=== PATIENT | male | born 1940 | race Caucasian/White ===

== ENCOUNTER 2017-01-12 12:15 | Emergency (ER) | payer OTHER ==
[~2017-01-12] VITALS: Ht 182.9 cm; Wt 92.8 kg
[~2017-01-12 12:15] MED LIST: ASPI81TA28 PO; ATOR-26 PO; CHOL100027 PO; CYAN10005 PO; FERRTAB18 PO; FLUO0.0566 TOP; FURO40TA3 PO; HYT/2 PO; ISOS120T5 PO; LSN5 PO; LSX40 PO; MAGN400T5 PO; METO50TA16 PO; NITR0.4S UT; NRV/5 PO; PLV75 PO; POTA20TA13 PO; PRED10TA PO; PRLSR20 PO; VLT/50 PO
[2017-01-12 12:18] VITALS: TEMP 37; Ht 182.9 cm; Wt 92.8 kg
[2017-01-12] MEDS ORDERED: SODIUM CHLORIDE 0.9% 1000ML 1,000 ML IV STA (12:31)
--- NOTE | 2017-01-12 12:37 | EMERGENCY ROOM VISIT NOTE ---
History Report prepared by Elaine: Ronna Wallace Under the Supervision of: Dr. Kar Keys M.D. First contact with patient: 12:21 Chief Complaint: URINARY SYMPTOMS Stated Complaint: CAN'T PEE Nursing Triage Summary: pt to the ED with a 1 wk hx of having difficulty voiding. pt states it has been getting worse with time and now only can go a couple drops History of Present Illness The patient is a 76 year old male who presents to the Emergency Room with complaints of urinary symptoms beginning 1 week ago. The patient states that his symptoms have worsened since last night. He states that every couple of hours he feels like he needs to urinate, but when he tries to go there is only a few drops of urine. He does not have burning when he urinates. The patient reports being on Proscar and that he takes Prednisone daily. He states that he has no history of kidney failure and prostate problems, but that he does have a history of heart problems. Source of History: patient Onset: 1 week ago Position: other (global) Quality: other (urinary symptoms) Timing: worsening Note: denied symptom: burning with urination Review of Systems See HPI for pertinent positives & negatives. A total of 10 systems reviewed and were otherwise negative. Past Medical & Surgical Medical Problems: (1) CAD (coronary artery disease) (2) GERD (gastroesophageal reflux disease) (3) HLD (hyperlipidemia) (4) Hypertension (5) Psoriatic arthritis Surgical Problems: (1) H/O colonoscopy (2) H/O hernia repair (3) History of ERCP (4) History of percutaneous left heart catheterization (LHC) (5) Hx of CABG (6) S/P cholecystectomy (7) Status post surgical removal of neoplasm of skin Family History Heart disease Social History Smoking Status: Former Smoker Marital Status: Housing Status: lives with family Occupation Status: retired Current/Historical Medications Scheduled Amlodipine Besylate (Amlodipine Besylate), 5 MG PO QAM Aspirin (Aspirin Ec), 81 MG PO QPM Atorvastatin (Lipitor), 80 MG PO DAILY Cholecalciferol (Vitamin D 1000 Unit), 1,000 INTER.UNIT PO DAILY Clopidogrel (Plavix), 75 MG PO DAILY Cyanocobalamin (Vitamin B-12), 1,000 MCG PO DAILY Donepezil HCl (Aricept), 5 MG PO DAILY Finasteride (Proscar), 5 MG PO DAILY Fluocinonide (Fluocinonide), 1 APPLN TOP BID Furosemide (Furosemide), 40 MG PO QAM Iron-Vitamin C (Vitron-C), 1 TAB PO DAILY Isosorbide Mononitrate Ext Rel (Imdur Ext Rel), 120 MG PO QAM Lisinopril (Zestril), 5 MG PO DAILY Magnesium Oxide (Mag-Ox), 400 MG PO DAILY Metoprolol Tartrate (Lopressor), 75 MG PO QAM Metoprolol Tartrate (Lopressor) (Lopressor), 50 MG PO HS Nitroglycerin (Nitrostat), 0.4 MG UT PRN Omeprazole (Prilosec), 20 MG PO QAM Potassium Chloride Microencaps (Potassium Chloride Er), 10 MEQ PO DAILY Prednisone (Prednisone), 10 MG PO DAILY Terazosin Hcl (Hytrin), 4 MG PO HS Scheduled PRN Diclofenac Sod (Voltaren), 50 MG PO TID PRN for Pain Meclizine Hcl (Meclizine Hcl), 1 TAB PO TID PRN for Dizziness or Vertigo Tramadol (Ultram), 50 MG PO Q6H PRN for Pain Allergies Coded Allergies: No Known Allergies (Verified , 01/12/17) Physical Exam Vital Signs Date Time Temp Pulse Resp B/P (MAP) Pulse Ox O2 Delivery O2 Flow Rate FiO2 01/12/17 12:18 37.0 79 18 144/73 94 Physical Exam GENERAL: Patient is well appearing and in minimal distress. HEENT: No acute trauma, normocephalic atraumatic, mucous membranes moist, no nasal congestion, no scleral icterus. NECK: No stridor, no adenopathy, no meningismus, trachea is midline. LUNGS: No dyspnea. Clear to auscultation and equal bilaterally. No wheeze, no rhonchi. HEART: Regular rate and rhythm. No murmurs, rubs, gallops appreciated. ABDOMEN: Soft, nontender, bowel sounds positive, no masses appreciated, no peritonitis. BACK: No midline tenderness, no CVA tenderness EXTREMITIES: Normal motion all extremities, no cyanosis, no edema. NEUROLOGIC: Alert and oriented, no acute motor or sensory deficits, no focal weakness, cranial nerves grossly intact. SKIN: No rash, no jaundice, no diaphoresis. BEDSIDE US: Mildly thickened bladder with minimal urine. Medical Decision & Procedures Laboratory Results 01/12/17 12:35 Red Blood Count 4.25, Mean Corpuscular Volume 99.8, Mean Corpuscular Hemoglobin 35.3, Mean Corpuscular Hemoglobin Concent 35.4, Mean Platelet Volume 9.4, Neutrophils (%) (Auto) 84.6, Lymphocytes (%) (Auto) 9.9, Monocytes (%) (Auto) 4.6, Eosinophils (%) (Auto) 0.5, Basophils (%) (Auto) 0.1, Neutrophils # (Auto) 6.44, Lymphocytes # (Auto) 0.75, Monocytes # (Auto) 0.35, Eosinophils # (Auto) 0.04, Basophils # (Auto) 0.01 01/12/17 12:35 Test 01/12/17 12:35 01/12/17 13:45 White Blood Count 7.61 K/uL (4.8-10.8) Red Blood Count 4.25 M/uL (4.7-6.1) Hemoglobin 15.0 g/dL (14.0-18.0) Hematocrit 42.4 % (42-52) Mean Corpuscular Volume 99.8 fL (80-100) Mean Corpuscular Hemoglobin 35.3 pg (25-34) Mean Corpuscular Hemoglobin Concent 35.4 g/dl (32-36) Platelet Count 127 K/uL (130-400) Mean Platelet Volume 9.4 fL (7.4-10.4) Neutrophils (%) (Auto) 84.6 % Lymphocytes (%) (Auto) 9.9 % Monocytes (%) (Auto) 4.6 % Eosinophils (%) (Auto) 0.5 % Basophils (%) (Auto) 0.1 % Neutrophils # (Auto) 6.44 K/uL (1.4-6.5) Lymphocytes # (Auto) 0.75 K/uL (1.2-3.4) Monocytes # (Auto) 0.35 K/uL (0.11-0.59) Eosinophils # (Auto) 0.04 K/uL (0-0.5) Basophils # (Auto) 0.01 K/uL (0-0.2) RDW Standard Deviation 47.8 fL (36.4-46.3) RDW Coefficient of Variation 13.2 % (11.5-14.5) Immature Granulocyte % (Auto) 0.3 % Immature Granulocyte # (Auto) 0.02 K/uL (0.00-0.02) Anion Gap 5.0 mmol/L (3-11) Est Creatinine Clear Calc Drug Dose 74.6 ml/min Estimated GFR () 93.9 Estimated GFR (Non- 81.0 BUN/Creatinine Ratio 17.7 (10-20) Calcium Level 8.9 mg/dl (8.5-10.1) Total Creatine Kinase 72 U/L (39-308) Urine Color YELLOW Urine Appearance CLEAR (CLEAR) Urine pH 7.5 (4.5-7.5) Urine Specific Edwards 1.014 (1.000-1.030) Urine Protein NEG (NEG) Urine Glucose (UA) NEG (NEG) Urine Ketones NEG (NEG) Urine Occult Blood NEG (NEG) Urine Nitrite NEG (NEG) Urine Bilirubin NEG (NEG) Urine Urobilinogen NEG (NEG) Urine Leukocyte Esterase NEG (NEG) Urine WBC (Auto) 0 /hpf (0-5) Urine RBC (Auto) 0-4 /hpf (0-4) Urine Hyaline Casts (Auto) 0 /lpf (0-5) Urine Epithelial Cells (Auto) 0-5 /lpf (0-5) Urine Bacteria (Auto) NEG (NEG) Laboratory results as reviewed by me. Medications Administered Medications (Trade) Dose Ordered Sig/David Route Start Time Stop Time Status Last Admin Dose Admin Sodium Chloride 1,000 ml @ 999 mls/hr Q1H1M STAT IV 01/12/17 12:31 01/12/17 13:31 DC 01/12/17 12:41 999 MLS/HR ED Course 1227: The patient was evaluated in room C11B. A complete history and physical exam was performed. 1231: Ordered Sodium Chloride 1,000 ml @ 999 mls/hr IV. 1345: I went to check on the patient but he was in the bathroom. 1426: The patient notes that he feels much better. He has better coloration and he is now able to urinate normally. His son is a urology PA and they will follow up with PCP/urology to discuss if further testing or medication is necessary. 1430: Reevaluated the patient. Discussed results and discharge instructions: He verbalized understanding and agreement. The patient is ready for discharge. Medical Decision 76 yr old male with poor urinary output over last days after spending week camping. Bedside US with minimal urine in bladder. Labs look clear. UA clear without infection. Suspect this is dehydration. He is already on proscar and does not have any current urinary retention by US. Advised keeping well hydrated and return if unable to urinate, pain or other concerns. Stressed PCP follow up. May be urinary spasm but will hold on starting new meds currently. Medication Reconcilliation Current Medication List: was personally reviewed by me Blood Pressure Screening Patient's blood pressure: Elevated blood pressure Blood pressure disposition: Elevated BP felt to be situational Impression Primary Impression: Low urine output Additional Impression: Dehydration Scribe Attestation The scribe's documentation has been prepared under my direction and personally reviewed by me in its entirety. I confirm that the note above accurately reflects all work, treatment, procedures, and medical decision making performed by me. Departure Information Dispostion Home / Self-Care Referrals Chris Corona M.D. (PCP) Patient Instructions My [facility] Additional Instructions Please follow up with your primary care provider or urologist to discuss if further testing is necessary or new medications. If you have pain, fevers, vomiting or inability to urinate return for further evaluation. Ultrasound does not reveal any urinary retention. Your kidney function (Cr is normal). Your Urine shows no evidence of infection. Problem Qualifiers
[2017-01-12] MEDS ORDERED: FINA5TAB PO (12:43)
[2017-01-12] MEDS ORDERED: MECL1TAB42 PO (12:43)
[2017-01-12] MEDS ORDERED: ISOS120T5 PO (12:43)
[2017-01-12] MEDS ORDERED: LISI-729 PO (12:43)
[2017-01-12] MEDS ORDERED: CLOP1TAB15 PO (12:43)
[2017-01-12] MEDS ORDERED: METO-551 PO (12:43)
[2017-01-12] MEDS ORDERED: METO50TA16 PO (12:43)
[2017-01-12] MEDS ORDERED: TRAM-10 PO (12:43)
[2017-01-12] MEDS ORDERED: CYAN10005 PO (12:43)
[2017-01-12 12:59] LABS: BASO % 0.1 %; BASO ABS # 0.01 K/uL (0-0.2); COMPLETE YES; EOS % 0.5 %; HEMATOCRIT 42.4 % (42-52); IG% 0.3 %; LYMPH % 9.9 %; LYMPH ABS # 0.75 K/uL (1.2-3.4); MEAN CELL VOLUME 99.8 fL (80-100); MEAN CORPUSCULAR HEMOGLOBIN 35.3 pg (25-34); MEAN CORPUSCULAR HGB CONC 35.4 g/dl (32-36); MEAN PLATELET VOLUME 9.4 fL (7.4-10.4); MONO % 4.6 %; NEUT % 84.6 %; PLATELET COUNT 127 K/uL (130-400); RED BLOOD COUNT 4.25 M/uL (4.7-6.1); WHITE BLOOD COUNT 7.61 K/uL (4.8-10.8)
[2017-01-12] MEDS ORDERED: DONE5TAB9 PO (13:00)
[2017-01-12 13:15] LABS: BUN/CREATININE RATIO 17.7 (10-20); CALCIUM 8.9 mg/dl (8.5-10.1); CREATININE 0.91 mg/dl (0.60-1.40)
[2017-01-12 14:08] LABS: URINE APPEARANCE CLEAR (CLEAR); URINE BILIRUBIN NEG (NEG); URINE COLOR YELLOW; URINE EPITHELIAL CELL AUTO 0-5 /lpf (0-5); URINE NITRITE NEG (NEG); URINE PH 7.5 (4.5-7.5); URINE SPECIFIC GRAVITY 1.014 (1.000-1.030); UROBILINOGEN NEG (NEG); ZZUR CULT IF INDIC CLEAN CATCH NO
[2017-01-12 14:15] LABS: MANUAL MICROSCOPIC REQUIRED? NO; REVIEW REQ? NO
[2017-01-12 14:37] VITALS: BP 142/67; PULSE 66; O2SAT 99
== END 2017-01-12 14:39 | disposition home or self-care (01) ==
LOC: C.EDB 12:16 → C.EDC 14:39
DX: R39.198 Other difficulties with micturition (principal); E86.0 Dehydration; I25.10 Atherosclerotic heart disease of native coronary artery without angina pectoris; K21.9 Gastro-esophageal reflux disease without esophagitis; E78.5 Hyperlipidemia, unspecified; I10 Essential (primary) hypertension; L40.50 Arthropathic psoriasis, unspecified; Z82.49 Family history of ischemic heart disease and other diseases of the circulatory system; Z87.891 Personal history of nicotine dependence; Z79.82 Long term (current) use of aspirin

== ENCOUNTER → 2017-10-21 | Outpatient (CLI) | payer OTHER ==
[~2017-10-21] MED LIST changes: +CLOP1TAB15 PO; +DONE5TAB9 PO; +FINA5TAB PO; -FURO40TA3 PO; +LISI-729 PO; -LSN5 PO; +MECL1TAB42 PO; +METO-551 PO; -PLV75 PO; +TRAM-10 PO
== END | disposition home or self-care (01) ==
LOC: C.PATHSPEC 17:33
PROVIDERS: ATTEND Physician Assistant
DX: L98.9 Disorder of the skin and subcutaneous tissue, unspecified (principal); L57.0 Actinic keratosis

== ENCOUNTER 2020-06-24 19:49 | Inpatient (IN) ==
--- NOTE | 2020-06-24 21:07 | Emergency Department Note ---
History of Present Illness General Chief complaint: Fall Time Seen by Provider: 06/24/20 20:31 Source: patient Mode of arrival: ambulatory Limitations: no limitations History of Present Illness Maximum Pain Intensity: 0 This patient is a 80-year-old male who has multiple medical problems and is on Coumadin, comes in after feeling weak and lightheaded and falling twice. He is not sure if he passed out or not. His son said once when happened when he is walking the house and once when his get out of a chair. He has had no fever or chills. No known exposure to Covid. No shortness of breath or cough. No abdom inal pain. They did increase his Lasix to 40 twice a day a couple weeks ago. His son says despite this he has been gaining weight they got him bigger pants he has swelling in the arms and legs bilaterally. He has been generally weak its not been focal one side or the other. No blood or melena in his stool. He has some mild elbow pain from where he hit the elbow but no other injuries. He does not think he was on the ground for prolonged periods of time. No dysuria or hematuria. No difficulty speaking or swallowing. No headache neck pain or stiffness Home Medications Medication Instructions Recorded Confirmed Type atorvastatin [Lipitor] 80 mg PO DAILY 04/04/19 06/24/20 History donepezil [Aricept] 10 mg PO DAILY 04/04/19 06/24/20 History finasteride 5 mg PO DAILY 04/04/19 06/24/20 History isosorbide mononitrate 120 mg PO DAILY 04/04/19 06/24/20 History metoprolol succinate [Toprol XL] 50 mg PO DAILY 04/04/19 06/24/20 History omeprazole 20 mg PO DAILY 04/04/19 06/24/20 History prednisone 10 mg PO DAILY 04/04/19 06/24/20 History aspirin 81 mg PO DAILY 06/24/20 06/24/20 History cholecalciferol (vitamin D3) 25 mcg PO DAILY 06/24/20 06/24/20 History [Vitamin D3] cyanocobalamin (vitamin B-12) 1,000 mcg SUBLINGUAL DAILY 06/24/20 06/24/20 History furosemide 40 mg PO DAILY 06/24/20 06/24/20 History gentamicin 1 applic TOPICAL TID 06/24/20 06/24/20 History iron,carbonyl-vitamin C [Vitron-C] 1 tab PO DAILY 06/24/20 06/24/20 History magnesium oxide 400 mg PO DAILY 06/24/20 06/24/20 History meclizine 25 mg PO TID PRN 06/24/20 06/24/20 History spironolactone 25 mg PO QAM 06/24/20 06/24/20 History tolterodine 2 mg PO BID 06/24/20 06/24/20 History warfarin 4 mg PO DAILY 06/24/20 06/24/20 History Allergies Allergy/AdvReac Type Severity Reaction Status Date / Time No Known Allergies Allergy Verified 04/04/19 14:45 Past Med/Surg History Medical History (Updated 06/25/20 @ 00:33 by John Hays MD) CAD (coronary artery disease) GERD (gastroesophageal reflux disease) HLD (hyperlipidemia) Hypertension Psoriatic arthritis Unstable angina Surgical History H/O colonoscopy H/O hernia repair History of ERCP History of percutaneous left heart catheterization (LHC) Hx of CABG S/P cholecystectomy Status post surgical removal of neoplasm of skin Social History Smoking Status: Never smoker Feels Safe at Home: Yes Review of Systems A total of 10 systems reviewed and were otherwise negative Physical Exam Vital Signs Vital Signs - 24 hr 06/24/20 19:56 06/24/20 20:05 06/24/20 20:10 Temperature 37.2 C Temperature Source Oral Pulse Rate 80 82 Pulse Rate from SpO2 Sensor 80 Pulse Rhythm Regular Pulse Strength Normal Respiratory Rate 24 16 Respiratory Effort / Characteristics Non-Labored Spontaneous Non-Labored Spontaneous Respiratory Depth Normal Normal Respiratory Pattern Regular Regular Blood Pressure 102/58 L 102/58 L Blood Pressure Mean 72 72 Blood Pressure Position Sitting Pulse Oximetry 92 93 Oxygen Delivery Method Room Air Room Air Sepsis Recent Fever Within 48 Hours No Sepsis New/Unexplained Change in Mental Status No Sepsis Action Taken by Nursing No Action Required 06/24/20 20:14 06/24/20 20:30 06/24/20 20:50 Temperature Temperature Source Pulse Rate 80 80 77 Pulse Rate from SpO2 Sensor 81 80 77 Pulse Rhythm Pulse Strength Respiratory Rate 20 16 17 Respiratory Effort / Characteristics Respiratory Depth Respiratory Pattern Blood Pressure 121/55 L 129/76 Blood Pressure Mean 77 93 Blood Pressure Position Pulse Oximetry 94 94 94 Oxygen Delivery Method Room Air Room Air Room Air Sepsis Recent Fever Within 48 Hours Sepsis New/Unexplained Change in Mental Status Sepsis Action Taken by Nursing 06/24/20 21:00 06/24/20 21:30 06/24/20 21:45 Temperature Temperature Source Pulse Rate 76 76 76 Pulse Rate from SpO2 Sensor 76 76 76 Pulse Rhythm Pulse Strength Respiratory Rate 18 18 15 Respiratory Effort / Characteristics Respiratory Depth Respiratory Pattern Blood Pressure 140/97 134/59 L 125/70 Blood Pressure Mean 111 84 88 Blood Pressure Position Pulse Oximetry 95 96 95 Oxygen Delivery Method Room Air Room Air Room Air Sepsis Recent Fever Within 48 Hours Sepsis New/Unexplained Change in Mental Status Sepsis Action Taken by Nursing 06/24/20 21:59 06/24/20 22:00 06/24/20 22:30 Temperature Temperature Source Pulse Rate 81 73 76 Pulse Rate from SpO2 Sensor 74 75 Pulse Rhythm Pulse Strength Respiratory Rate 15 14 15 Respiratory Effort / Characteristics Respiratory Depth Respiratory Pattern Blood Pressure 124/56 L 144/67 H Blood Pressure Mean 78 92 Blood Pressure Position Pulse Oximetry 98 94 95 Oxygen Delivery Method Room Air Room Air Room Air Sepsis Recent Fever Within 48 Hours Sepsis New/Unexplained Change in Mental Status Sepsis Action Taken by Nursing 06/24/20 23:00 06/24/20 23:23 06/24/20 23:30 Temperature Temperature Source Pulse Rate 77 75 74 Pulse Rate from SpO2 Sensor 75 75 74 Pulse Rhythm Pulse Strength Respiratory Rate 15 16 14 Respiratory Effort / Characteristics Respiratory Depth Respiratory Pattern Blood Pressure 140/67 143/64 H 143/67 H Blood Pressure Mean 91 90 92 Blood Pressure Position Pulse Oximetry 94 93 95 Oxygen Delivery Method Room Air Room Air Sepsis Recent Fever Within 48 Hours Sepsis New/Unexplained Change in Mental Status Sepsis Action Taken by Nursing 06/25/20 00:00 Temperature Temperature Source Pulse Rate 73 Pulse Rate from SpO2 Sensor 73 Pulse Rhythm Pulse Strength Respiratory Rate 13 Respiratory Effort / Characteristics Respiratory Depth Respiratory Pattern Blood Pressure 141/73 H Blood Pressure Mean 95 Blood Pressure Position Pulse Oximetry 92 Oxygen Delivery Method Room Air Sepsis Recent Fever Within 48 Hours Sepsis New/Unexplained Change in Mental Status Sepsis Action Taken by Nursing General: Well developed well nourished older male who is wearing a mask and appears n no acute distress, breathing comfortably on room air. Normal speech HEENT: Normal cephalic atraumatic. Pupils are equal round and reactive to light. Extraocular movements are intact. Oropharynx is pink with moist mucous membranes. No swelling of the mouth lips or tongue. Neck: Supple with a midline trachea. No meningeal signs or stiffness, no JVD or bruits. No Stridor. Chest: Clear to auscultation bilaterally. No wheezes or rhonchi. No increased work of breathing. Heart: Regular rate and rhythm without murmurs or gallops. Abdomen: Soft nontender, nondistended without rebound guarding or rigidity. Extremities: No cyanosis clubbing or edema. No calf tenderness or assymetry. Minimal tenderness but no significant swelling to the left elbow. There is a bruise near the left shoulder. He has 1+ bilateral lower extremity edema and also some edema in his arms bilaterally. Spine/Back. Non tender to palpation. No CVA tenderness. Small bruise on the right upper thoracic area but no significant tenderness or crepitus Skin: Good turgor without rashes. Neurologic exam: Cranial nerves two through 12 are intact. Motor and sensation are intact and symmetrical throughout. Medical Decision Making Differential Diagnosis Syncope, arrhythmia, dehydration, CHF, Covid, anemia, UTI, intracranial process, trauma, rhabdo Medical Records Attestation: I reviewed the patient's medical records. Home Medications Current Medication List: was personally reviewed by me Laboratory Data Attestation: I reviewed the patient's lab results. Result diagrams: 06/24/20 21:45 06/24/20 21:45 Lab Results 06/24/20 06/24/20 06/24/20 Range/Units 21:45 21:45 21:45 WBC 7.73 (4.8-10.8) K/uL RBC 3.90 L (4.7-6.1) M/uL Hgb 13.4 L (14.0-18.0) g/dL Hct 39.3 L (42-52) % MCV 100.8 H (80-100) fL MCH 34.4 H (25-34) pg MCHC 34.1 (32-36) g/dL RDW Std Deviation 57.4 H (36.4-46.3) fL RDW Coeff of Lester 15.6 H (11.5-14.5) % Plt Count 170 (130-400) K/uL MPV 9.6 (7.4-10.4) fL Immature Gran % (Auto) 0.1 % Neut % (Auto) 82.4 % Lymph % (Auto) 9.2 % Patrick % (Auto) 7.9 % Eos % (Auto) 0.3 % Baso % (Auto) 0.1 % Neut # (Auto) 6.37 (1.4-6.5) K/uL Lymph # (Auto) 0.71 L (1.2-3.4) K/uL Patrick # (Auto) 0.61 H (0.11-0.59) K/uL Eos # (Auto) 0.02 (0-0.5) K/uL Baso # (Auto) 0.01 (0-0.2) K/uL Immature Gran # (Auto) 0.01 (0.00-0.02) K/uL PT 27.8 H (9.0-12.0) Seconds INR 2.8 H (0.9-1.1) APTT 44.6 H (21.0-31.0) Seconds PTT Ratio 1.6 Sodium 136 (136-145) mmol/L Potassium 4.3 (3.5-5.1) mmol/L Chloride 99 (98-107) mmol/L Carbon Dioxide 32 (21-32) mmol/L Anion Gap 5.0 (3-11) BUN 26 H (7-18) mg/dl Creatinine 1.78 H (0.6-1.4) mg/dl Est Cr Clr Drug Dosing 42.1 ml/min Est GFR ( Amer) 40.6 Est GFR (Non-Af Amer) 35.0 BUN/Creatinine Ratio 14.8 (10-20) Glucose 144 H (70-99) mg/dl Calcium 8.6 (8.5-10.1) mg/dl Magnesium 2.7 H (1.8-2.4) mg/dl Total Bilirubin 1.1 H (0.2-1) mg/dl AST 58 H (15-37) U/L ALT 34 (12-78) U/L Alkaline Phosphatase 68 (45-117) U/L Total Creatine Kinase 1784 H (39-308) U/L CK-MB (CK-2) 5.8 H (0.5-3.6) ng/ml CK/CKMB % Calc 0.3 (0-3.0) Troponin I 0.446 H* (0-0.045) ng/ml Total Protein 5.5 L (6.4-8.2) gm/dl Albumin 2.7 L (3.4-5.0) gm/dl Globulin 2.8 (2.5-4.0) gm/dl Albumin/Globulin Ratio 1.0 (0.9-2) TSH 1.620 (0.300-4.500) uIu/ml Urine Color Urine Appearance (Clear) Urine pH (4.5-7.5) Ur Specific [place] (1.000-1.030) Urine Protein (Negative) Urine Glucose (UA) (Negative) Urine Ketones (Negative) Urine Blood (Negative) Urine Nitrite (Negative) Urine Bilirubin (Negative) Urine Urobilinogen (Negative) Ur Leukocyte Esterase (Negative) 06/24/20 Range/Units Unknown WBC (4.8-10.8) K/uL RBC (4.7-6.1) M/uL Hgb (14.0-18.0) g/dL Hct (42-52) % MCV (80-100) fL MCH (25-34) pg MCHC (32-36) g/dL RDW Std Deviation (36.4-46.3) fL RDW Coeff of Lester (11.5-14.5) % Plt Count (130-400) K/uL MPV (7.4-10.4) fL Immature Gran % (Auto) % Neut % (Auto) % Lymph % (Auto) % Patrick % (Auto) % Eos % (Auto) % Baso % (Auto) % Neut # (Auto) (1.4-6.5) K/uL Lymph # (Auto) (1.2-3.4) K/uL Patrick # (Auto) (0.11-0.59) K/uL Eos # (Auto) (0-0.5) K/uL Baso # (Auto) (0-0.2) K/uL Immature Gran # (Auto) (0.00-0.02) K/uL PT (9.0-12.0) Seconds INR (0.9-1.1) APTT (21.0-31.0) Seconds PTT Ratio Sodium (136-145) mmol/L Potassium (3.5-5.1) mmol/L Chloride (98-107) mmol/L Carbon Dioxide (21-32) mmol/L Anion Gap (3-11) BUN (7-18) mg/dl Creatinine (0.6-1.4) mg/dl Est Cr Clr Drug Dosing ml/min Est GFR ( Amer) Est GFR (Non-Af Amer) BUN/Creatinine Ratio (10-20) Glucose (70-99) mg/dl Calcium (8.5-10.1) mg/dl Magnesium (1.8-2.4) mg/dl Total Bilirubin (0.2-1) mg/dl AST (15-37) U/L ALT (12-78) U/L Alkaline Phosphatase (45-117) U/L Total Creatine Kinase (39-308) U/L CK-MB (CK-2) (0.5-3.6) ng/ml CK/CKMB % Calc (0-3.0) Troponin I (0-0.045) ng/ml Total Protein (6.4-8.2) gm/dl Albumin (3.4-5.0) gm/dl Globulin (2.5-4.0) gm/dl Albumin/Globulin Ratio (0.9-2) TSH (0.300-4.500) uIu/ml Urine Color Yellow Urine Appearance Clear (Clear) Urine pH 5.5 (4.5-7.5) Ur Specific [place] 1.013 (1.000-1.030) Urine Protein Negative (Negative) Urine Glucose (UA) Negative (Negative) Urine Ketones Negative (Negative) Urine Blood Negative (Negative) Urine Nitrite Negative (Negative) Urine Bilirubin Negative (Negative) Urine Urobilinogen Negative (Negative) Ur Leukocyte Esterase Negative (Negative) Imaging Data Radiologist's Impression: CT SCAN OF THE BRAIN WITHOUT IV CONTRAST CLINICAL HISTORY: Syncope. COMPARISON STUDY: CT of the brain dated 04/04/2019. TECHNIQUE: Unenhanced axial CT scan of the brain is performed from the vertex to the skull base. A dose lowering technique was utilized adhering to the principles of ALARA. CT DOSE: 853.38 mGy.cm FINDINGS: Brain parenchyma: There are age-related involutional changes noting mild subcortical and periventricular microangiopathic change. There is no hemorrhage, mass effect, or evidence of acute territorial ischemia by CT criteria. [place]- white matter differentiation is preserved. No extra-axial fluid collection is seen. Ventricles, sulci, cisterns: Prominent secondary to involutional change. Intracranial vasculature: There is atherosclerotic calcification of the c avernous carotid and vertebral arteries. Calvarium: The skeletal structures are osteopenic. No depressed calvarial fracture is identified. Sinuses and mastoids: The visualized paranasal sinuses are clear. The mastoid air cells are well pneumatized. Orbits: The bony orbits are grossly intact. There are bilateral ocular lens implants. IMPRESSION: There is no hemorrhage, mass effect, or evidence of acute territorial ischemia by CT criteria. ECG Data Attestation: I personally reviewed and interpreted this ECG as follows: Indication: + weakness Rate (beats per minute): 75 Rhythm: + normal sinus ECG Intervals/blocks: + Normal QRS, + Prolonged QT and + Normal [place] ECG [place]: + Normal ECG ST segments: + Normal ST segments ECG Findings: no PACs and no PVCs Comparison ECG Date: from (04/14/19) Change: the following changes noted (QT interval is more prolonged) MDM Narrative This patient comes in as described above. He was placed on a hospital monitor in room number B7. He is here for treatment and evaluation of weakness and 2 falls. Besides his left elbow which has mild tenderness he has no other complaints as result of the fall. IV access was established , work was obtained. EKG was obtained. He was Covid tested as he will need to be admitted and could also be causing his symptoms. I did a CAT scan of his head, chest x- ray, and EKG. He was reassessed frequently. Chest x-ray shows cardiomegaly without overt failure. EKG shows mildly prolonged QTc interval however there is no ischemic changes. He does have's elevated creatinine 1.7 although not sure what his baseline is. Opponent was elevated 0.44 he said no chest pain or shortness of breath but with his weakness and syncope this certainly could be a cardiac etiology. Covid testing was obtained and was negative. He has no significant anemia. I do think he needs to be admitted for further treatment and evaluation and I have consulted Dr. Rico to see him in the ER for these measures Continuous cardiac monitoring: Order was placed in the EMR for continuous cardiac monitoring. The patient was noted to be normal sinus rhythm with a pulse of 70. 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 Forms Stand Alone Forms: [facility] Prescriptions Prescriptions: No Action furosemide 40 mg Tablet 40 mg PO DAILY RF: 0 aspirin 81 mg Tablet,Delayed Release (Dr/Ec) 81 mg PO DAILY RF: 0 spironolactone 25 mg Tablet 25 mg PO QAM RF: 0 warfarin 4 mg Tablet 4 mg PO DAILY RF: 0 tolterodine 2 mg tablet 2 mg PO BID RF: 0 meclizine 25 mg Tablet 25 mg PO TID PRN (Reason: Dizziness) RF: 0 gentamicin 0.1 % Ointment 1 applic TOPICAL TID RF: 0 cholecalciferol (vitamin D3) [Vitamin D3] 25 mcg (1,000 unit) Capsule 25 mcg PO DAILY RF: 0 magnesium oxide 400 mg magnesium Capsule 400 mg PO DAILY RF: 0 Vitron-C 65 mg iron- 125 mg Tablet,Delayed Release (Dr/Ec) 1 tab PO DAILY RF: 0 cyanocobalamin (vitamin B-12) 500 mcg Tablet, Sublingual 1,000 mcg SUBLINGUAL DAILY RF: 0 atorvastatin [Lipitor] 80 mg Tablet 80 mg PO DAILY RF: 0 prednisone 10 mg Tablet 10 mg PO DAILY RF: 0 metoprolol succinate [Toprol XL] 50 mg Tablet Extended Release 24 Hr 50 mg PO DAILY RF: 0 donepezil [Aricept] 10 mg Tablet 10 mg PO DAILY RF: 0 isosorbide mononitrate 120 mg Tablet Extended Release 24 Hr 120 mg PO DAILY RF: 0 omeprazole 20 mg Capsule,Delayed Release(Dr/Ec) 20 mg PO DAILY RF: 0 finasteride 5 mg Tablet 5 mg PO DAILY RF: 0 Discharge Problem: Syncope Qualifiers: Syncope type: unspecified Qualified Code(s): R55 - Syncope and collapse
--- NOTE | 2020-06-24 21:30 | XRay Report ---
SINGLE VIEW CHEST CLINICAL HISTORY: Generalized weakness. Fall. FINDINGS: An AP, portable, upright chest radiograph is compared to study dated 03/01/2016. The patient is status post midline sternotomy. The heart is enlarged noting atherosclerotic calcification of the thoracic aorta. The pulmonary vasculature is noncongested. There is mild bibasilar scarring/atelecta sis. No airspace consolidation or large pleural effusion is identified. No pneumothorax is seen. The skeletal structures are osteopenic. The bony thorax is grossly intact. Advanced arthritic change is s een in the shoulders. There is fusion hardware in the lower cervical spine. IMPRESSION: Cardiomegaly with no acute cardiopulmonary abnormality. ACT 112: Negative or not required by law. Electronically signed by: Menodza Montgomery M.D. 06/24/2020 9:29 PM
--- NOTE | 2020-06-24 21:32 | XRay Report ---
LEFT ELBOW 3 VIEWS CLINICAL HISTORY: Fall. Left elbow injury. FINDINGS: 3 portable views of the left elbow are obtained. No prior studies are available for compari son at the time of dictation. The skeletal structures are osteopenic. No fracture is seen. The joint spaces of the elbow are maintained. Tiny enthesophytes are seen along the humeral epicondyles. There is no joint effusion. Soft tissue edema is present around the elbow. IMPRESSION: Soft tissue swelling with no radiographic evidence of left elbow fracture. Electronically signed by: Mendoza Montgomery M.D. 06/24/2020 9:31 PM
[2020-06-24 21:59] LABS: Basophils # (auto) 0.01 K/uL (0-0.2); Basophils % (auto) 0.1 %; Eosinophils # (auto) 0.02 K/uL (0-0.5); Eosinophils % (auto) 0.3 %; Hematocrit (blood only) 39.3 % (42-52); Hemoglobin 13.4 g/dL (14.0-18.0); Immature Granulocytes # (auto) 0.01 K/uL (0.00-0.02); Immature Granulocytes % (auto) 0.1 %; Lymphocytes # (auto) 0.71 K/uL (1.2-3.4); Lymphocytes % (auto) 9.2 %; Mean Corpuscular Hemoglobin 34.4 pg (25-34); Mean Corpuscular Hgb Conc 34.1 g/dL (32-36); Mean Corpuscular Volume 100.8 fL (80-100); Mean Platelet Volume 9.6 fL (7.4-10.4); Monocytes # (auto) 0.61 K/uL (0.11-0.59); Monocytes % (auto) 7.9 %; Neutrophils # (auto) 6.37 K/uL (1.4-6.5); Neutrophils % (auto) 82.4 %; Platelet Count 170 K/uL (130-400); RDW Coefficient of Variation 15.6 % (11.5-14.5); RDW Standard Deviation 57.4 fL (36.4-46.3); White Blood Count 7.73 K/uL (4.8-10.8)
[2020-06-24 22:15] LABS: Albumin Level 2.7 gm/dl (3.4-5.0); BUN Creatinine Ratio 14.8 (10-20); Calcium 8.6 mg/dl (8.5-10.1); Creatinine Clr Calc Pharmacy 42.1 ml/min; Est GFR (African American) 40.6; Magnesium 2.7 mg/dl (1.8-2.4); Potassium 4.3 mmol/L (3.5-5.1)
--- NOTE | 2020-06-24 22:24 | CT Scan Report ---
CT SCAN OF THE BRAIN WITHOUT IV CONTRAST CLINICAL HISTORY: Syncope. COMPARISON STUDY: CT of the brain dated 04/04/2019. TECHNIQUE: Unenhanced axial CT scan of the brain is performed from the vertex to the skull base. A do se lowering technique was utilized adhering to the principles of ALARA. CT DOSE: 853.38 mGy.cm FINDINGS: Brain parenchyma: There are age-related involutional changes noting mild subcortical and periventric ular microangiopathic change. There is no hemorrhage, mass effect, or evidence of acute territorial i schemia by CT criteria. [place]-white matter differentiation is preserved. No extra-axial fluid collecti on is seen. Ventricles, sulci, cisterns: Prominent secondary to involutional change. Intracranial vasculature: There is atherosclerotic calcification of the cavernous carotid and vertebr al arteries. Calvarium: The skeletal structures are osteopenic. No depressed calvarial fracture is identified. Sinuses and mastoids: The visualized paranasal sinuses are clear. The mastoid air cells are well pneu matized. Orbits: The bony orbits are grossly intact. There are bilateral ocular lens implants. IMPRESSION: There is no hemorrhage, mass effect, or evidence of acute territorial ischemia by CT phillipt sis. ACT 112: Negative or not required by law. Electronically signed by: Mendoza Montgomery M.D. 06/24/2020 10:23 PM
[2020-06-24 22:29] LABS: INR 2.8 (0.9-1.1); Partial Thromboplastin Ratio 1.6; Partial Thromboplastin Time 44.6 Seconds (21.0-31.0); Prothrombin Time 27.8 Seconds (9.0-12.0)
[2020-06-24 22:31] LABS: Bilirubin,Total 1.1 mg/dl (0.2-1); Creatine Kinase MB 5.8 ng/ml (0.5-3.6); Globulin 2.8 gm/dl (2.5-4.0); Thyroid Stimulating Hormone 1.62 uIu/ml (0.300-4.500); Total Protein 5.5 gm/dl (6.4-8.2); Troponin I 0.446 ng/ml (0-0.045)
[2020-06-24 22:33] LABS: Appearance Urine Clear (Clear); Bilirubin Urine Negative (Negative); Blood Urine Negative (Negative); Color Urine Yellow; Glucose Urine UA Negative (Negative); Ketones Urine Negative (Negative); Leukocyte Esterase Urine Negative (Negative); Nitrite Urine Negative (Negative); Protein Urine Negative (Negative); Specific Gravity Urine 1.013 (1.000-1.030); Urobilinogen Urine Negative (Negative); pH Urine 5.5 (4.5-7.5)
[2020-06-25] MEDS ORDERED: NITROGLYCERIN SL 0.4 MG/TAB TAB SL PRN (01:50)
[2020-06-25] MEDS ORDERED: POLYETHYLENE (MIRALAX) 17 GM PACK PO PRN (01:50)
[2020-06-25] MEDS ORDERED: MECLIZINE HCL 25 MG TAB PO PRN (02:03)
[2020-06-25] MEDS: SODIUM CHLORIDE 0.9% 1000ML 1,000 ML IV SCH ×2 (02:26→13:39)
--- NOTE | 2020-06-25 03:25 | History and Physical Report ---
DATE OF ADMISSION: 06/25/2020 CHIEF COMPLAINT: Fall, syncope. HISTORY OF PRESENT ILLNESS: This is an 80-year-old male with past medical history significant for hyperlipidemia, metabolic syndrome, CAD status post CABG and s/p stent, chronic diastolic CHF, recent diagnosis of apical mural thrombus, GERD, BPH, atopic dermatitis, restless legs syndrome, ankylosing vertebral hyperostosis, sensorineural hearing loss, Alzheimer disease, monoclonal gammopathy of unknown significance, psoriasis, psoriatic arthropathy Lives alone at home, was brought in because of fall. The patient is currently sleepy and arousable. When arose, could not remember why he is in the hospital, but patient currently denies any chest pain, no shortness of breath, no headache, no blurred visions, no earache, no cough, no fevers, no nausea, no vomiting, no abdominal pain. Normal bowel and bladder movements. Appetite is okay. Called the son and as per son the patient had fallen 2 times today. He has a walker at home, but does not use it. First time he was found on the floor when [employer] came to deliver food, found on the floor. Second time in the evening was found by the lady who helps him and second time he was somewhat longer time on the floor. He did not seem to have any loss of consciousness and the patient was brought to the hospital. In the ER, his imaging studies were okay. His creatinine was found to be 1.78 and troponin 0.44. Currently resting comfortably and hemodynamically stable. As per son, he has increasing lower extremity edema and weight gain and his Lasix was increased to 40 mg twice daily about a month ago, but it is not improving his swelling and also he was recently found to have blood clot in his heart and is on Coumadin. ALLERGIES: No known drug allergies. PAST MEDICAL HISTORY: As mentioned above. PAST SURGICAL HISTORY: CABG, cardiac stent placement, colonoscopies, EGD with endoscopic ultrasound, ERCP, laparoscopic repair of the inguinal hernia, laparoscopic cholecystectomy, neck spinal fusion surgery, left ear melanoma surgery. MEDICATIONS: The patient is on aspirin 81 mg p.o. daily, Lipitor 80 mg p.o. daily, vitamin D 25 mcg p.o. daily, vitamin B12 1000 mcg sublingual daily, Aricept 10 mg p.o. daily, finasteride 5 mg p.o. daily, Lasix 40 mg p.o. b.i.d., gentamicin one application topical t.i.d. Vitron-C 1 tablet p.o. daily, isosorbide mononitrate 120 mg p.o. daily, magnesium 400 mg p.o. daily, meclizine 25 mg p.o. t.i.d. p.r.n., Toprol-XL 50 mg p.o. daily, omeprazole 20 mg p.o. daily, prednisone 10 mg p.o. daily, spironolactone 25 mg p.o. daily, tolterodine 2 mg p.o. b.i.d., warfarin 2 mg p.o. daily. FAMILY HISTORY: Significant for father had arthritis, colon cancer, heart disorder; mother has heart disorder. SOCIAL HISTORY: Currently lives alone. Former smoker, quit in 1993. Prior to that smoked 2 packs a day for 35 years. No alcohol use, no drug use. REVIEW OF SYSTEMS: As per HPI. Could not get complete review of systems as the patient is somewhat confused after waking from sleep. PHYSICAL EXAMINATION: VITAL SIGNS: Temperature 37.2, pulse 73, respiratory rate 13, blood pressure 141/73, and oxygen 92% on room air. HEENT: Pupils equal, round, reactive to light. Oral mucosa moist. NECK: No neck masses. No JVD. CARDIOVASCULAR: S1, S2 heard, regular rate and rhythm. No murmur, no gallop. RESPIRATORY SYSTEM: Normal AP diameter. No accessory muscle use. No wheezing, no crackles. ABDOMEN: Soft, bowel sounds present. Nontender. No distention. CENTRAL NERVOUS SYSTEM: Patient is alert and awake. Obeys simple commands. Moves extremities. EXTREMITIES: Bilateral lower extremity pedal edema, +2 present. LABORATORY DATA: WBC 7.7, hemoglobin 13.4, hematocrit 39.3, platelets 170. PT 27.8, INR 2.8, APTT 44.6. Sodium 136, potassium 4.3, chloride 99, bicarbonate 32, BUN 26, creatinine 1.78, serum glucose 144, calcium 8.6, magnesium 2.7, total bilirubin 1.1, AST 58, ALT 34, alkaline phosphatase 68, total creatinine kinase 1784. Troponin I of 0.44. TSH 1.6. Urinalysis negative. SARS-CoV-2 RNA pending. IMAGING DATA: CT of the head, no acute findings. Elbow x-ray, soft tissue swelling with no radiographic evidence of left elbow fracture. Chest x-ray: No cardiomegaly with no acute cardiopulmonary abnormalities. EKG: Normal sinus rhythm with a rate of 75, prolonged QTC at 509, some T-wave inversions in anterior leads. ASSESSMENT AND PLAN: This is an 80-year-old male who presents with a fall, possible syncope. 1. Possible syncope vs Falls: Was found on the floor at home first time by [employer] and second time by the person who helps him. Second time he was lying on the floor for some time. CPK was elevated to 1784. Troponin is mildly at elevated at 0.44. EKG, some mild T-wave inversion in the anterior leads. Currently asymptomatic. CT of the head is unremarkable. We will monitor in the tele floor, serial enzymes, repeat EKG, echocardiogram. Consult cardiology in the a.m. for further recommendation. PT and OT when stable. Check Orthostatics. 2. Acute kidney injury on chronic kidney injury: Baseline creatinine around 1.4, presently with creatinine of 1.7. Recently Lasix was increased to 40 b.i.d. We will hold his diuretics, Lasix and spironolactone, and we will place on gentle fluids. Follow the labs in the a.m. Monitor for volume overload. 3. Mild rhabdomyolysis, CK of 1784. Getting gentle fluids and holding the diuretics.Follow repeat lab. 4. Chronic diastolic congestive heart failure: His Lasix was increased to 40 b.i.d. the last several weeks, but swelling of lower extremities is not improving. CXR Ok. Oxygenation ok.Currently, Lasix is on hold and getting gentle fluids. Will monitor for any volume overload. Continue his Toprol-XL and his Imdur. 5. History of coronary artery disease status post coronary artery bypass graft, status post cardiac stent. Continue his aspirin, statin, beta sarah, and nitrites. Follow echocardiogram. 6. 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 INR therapeutic. Follow PT/INR. 7. History of benign prostatic hypertrophy, on finasteride. 8. History of mild Alzheimer dementia, on Aricept. Monitor for any delirium. 9. Hyperlipidemia, on statin. 10. History of psoriasis and psoriatic arthropathy, on chronic prednisone. 11. Deep venous thrombosis prophylaxis, on Coumadin. INR therapeutic. DISPOSITION: Closely monitor in the tele floor. PT and OT prior to discharge. Social service to help with discharge planning. Code status, level 1 full code only if there is a chance of recovery for short duration as per my discussion with the son. JOSE
[2020-06-25 05:57] LABS: INR 2.6 (0.9-1.1); Prothrombin Time 25.7 Seconds (9.0-12.0)
[2020-06-25 06:13] LABS: Basophils # (auto) 0.02 K/uL (0-0.2); Basophils % (auto) 0.3 %; Eosinophils # (auto) 0.06 K/uL (0-0.5); Eosinophils % (auto) 0.9 %; Hematocrit (blood only) 39.5 % (42-52); Hemoglobin 13.7 g/dL (14.0-18.0); Immature Granulocytes # (auto) 0.03 K/uL (0.00-0.02); Immature Granulocytes % (auto) 0.4 %; Lymphocytes # (auto) 1.08 K/uL (1.2-3.4); Lymphocytes % (auto) 15.9 %; Mean Corpuscular Hemoglobin 34.2 pg (25-34); Mean Corpuscular Volume 98.5 fL (80-100); Mean Platelet Volume 9.6 fL (7.4-10.4); Monocytes # (auto) 0.56 K/uL (0.11-0.59); Monocytes % (auto) 8.2 %; Neutrophils # (auto) 5.06 K/uL (1.4-6.5); Neutrophils % (auto) 74.3 %; Platelet Count 147 K/uL (130-400); RDW Coefficient of Variation 15.5 % (11.5-14.5); RDW Standard Deviation 56.3 fL (36.4-46.3); Red Blood Count 4.01 M/uL (4.7-6.1); White Blood Count 6.81 K/uL (4.8-10.8)
[2020-06-25 06:19] LABS: BUN Creatinine Ratio 16.3 (10-20); Calcium 8.3 mg/dl (8.5-10.1); Creatinine Clr Calc Pharmacy 50.1 ml/min; Est GFR (African American) 51.5; Est GFR (Non-African American) 44.5; Troponin I 0.367 ng/ml (0-0.045)
[2020-06-25 06:27] LABS: Mean Corpuscular Hgb Conc 34.7 g/dL (32-36)
--- NOTE | 2020-06-25 07:52 | Electrocardiogram Report ---
Test Reason : Blood Pressure : / mmHG Vent. Rate : 075 BPM Atrial Rate : 075 BPM P-R Int : 154 ms QRS Dur : 088 ms QT Int : 456 ms P-R-T Axes : 044 -23 043 degrees QTc Int : 509 ms Normal sinus rhythm Anterior infarct (cited on or before 04-APR-2019) Nonspecific ST and T wave abnormality Prolonged QT Abnormal ECG When compared with ECG of 04-APR-2019 14:21, T wave inversion now evident in Anterior leads Confirmed by Andrew Harris ([id number]) on 06/25/2020 7:52:18 AM Referred By: REFERRED SELF Confirmed By:Andrew Harris
[2020-06-25] MEDS: CYANOCOBALAMIN 500 MCG TABLET (VITAMIN B-12) PO SCH (08:35)
[2020-06-25] MEDS: FINASTERIDE 5 MG TAB PO SCH (08:35)
[2020-06-25] MEDS: DONEPEZIL HCL 10 MG TAB PO SCH (08:36)
[2020-06-25] MEDS: PANTOprazole 40 MG TAB PO SCH (08:36)
[2020-06-25] MEDS: ASCORBIC ACID 500 MG TAB PO SCH (08:36)
[2020-06-25] MEDS: FERROUS SULFATE 325 MG TAB PO SCH (08:36)
[2020-06-25] MEDS: ISOSORBIDE MONO EXTENDED REL 60 MG TABCR PO SCH (08:36)
[2020-06-25] MEDS: TOLTERODINE TARTRATE 2 MG TAB PO SCH ×2 (08:36→21:21)
[2020-06-25] MEDS: METOPROLOL SUCC 50MG EXT REL TAB PO SCH (08:37)
[2020-06-25] MEDS: CHOLECALCIFEROL 1,000 UNITS 25 MCG TAB PO SCH (08:37)
[2020-06-25] MEDS: predniSONE 10 MG TABLET PO SCH (08:37)
[2020-06-25] MEDS: ASPIRIN 81 MG ECTAB PO SCH (08:37)
[2020-06-25] MEDS: ATORVASTATIN 40 MG TAB PO SCH (08:37)
[2020-06-25] MEDS: GENTAMICIN SULFATE 0.1% CR 15 GM TUBE EXT SCH ×3 (08:37→21:21)
[2020-06-25] MEDS: MAGNESIUM OXIDE 400 MG TAB PO SCH (08:38)
[2020-06-25 08:59] LABS: Potassium 4.1 mmol/L (3.5-5.1)
[2020-06-25 09:20] LABS: Magnesium 2.7 mg/dl (1.8-2.4)
[2020-06-25] MEDS: ACETAMINOPHEN 325 MG TAB PO PRN ×2 (13:44→23:36)
--- NOTE | 2020-06-25 15:26 | Cardiology Consultation ---
Date of Consultation June 25, 2020 Assessment & Plan (1) Weakness: (2) Confusion: (3) Elevated troponin: There are concerns with regards to syncope, I am unable to elicit a definite history of loss of postural tone, patient is confused, not able to provide adequate history. EKG performed last evening at 2110 revealed normal sinus rhythm at 75 bpm, with suggestion of age-indeterminate anterior infarct, poor R wave progression in the anterior precordial leads, although the corrected QT interval is prolonged at 5 1 9 ms, is somewhat difficult to interpret given the broad flat morphology of the T wave. Serial troponin levels are flat but mildly elevated. Echocardiogram reveals p reserved LVEF, with left ventricular apical wall motion abnormality unchanged compared to prior and noted residual left ventricular apical mural thrombus, which had initially been noted on outpatient echo 03/29/2020. Poor R wave progression noted on EKG is relatively unchanged compared to his previous outpatient baseline. Patient with elevated CPK levels and troponin. Not convinced that his symptoms of generalized confusion without chest discomfort or shortness of breath are due to an acute coronary syndrome, and I think this may be myocardial strain in the setting of noncardiac illness, and prolonged time being supine, not mobile with regards to the elevated CPK level. I discussed the case by phone with Dr. Obregon. In terms of causes of confusion, the patient's COVID-19 test was negative, analysis is not suggestive of infection, recommend blood cultures, and a dedicated MRI of the brain to exclude subtle stroke given history of left atrial mural thrombus despite adequate anticoagulation, INR 2.6. History of Present Illness Attending Physician: Alfredo Obregon MD History of Present Illness Kailash Monsalve is an 80-year-old male seen in cardiology consultation per the request of Dr. Rico or the evaluation of confusion and mild elevation in the troponin I. The patient presented to the emergency department because of lethargy. He apparently lives alone. For review of the admission history and physical, patient had no complaints at the time of Dr. Rico's assessment and continues to have no complaints at the time of my interview with him. He denies chest pain. He is however confused, he is unaware of why he is in the hospital or perhaps that he is even in the hospital. He has a longstanding history of apical left ventricular wall motion abnormality, and in March 2020 he was found to have an apical mural thrombus on routine echocardiography for which Coumadin was initiated. His INR remains therapeutic. CT of the brain performed on presentation to the emergency department without acute intracranial findings. Outpatient Problem list: 1.Ischemic heart disease 1.Status post LA x 2 in 1993. 2.Status post CABG x 2 in 1995 3.Admission to [facility] 03/01/2016 to 03/06/2016, presenting with chest pressure suggestive of angina. Cardiac enzymes negative. He was seen in consultation by Dr. Johnson and underwent dobutamine stress echocardiogram on 03/02/2016 which was negative for ischemic, without symptoms suggestive of angina. The patient had an episode of hypotension on the floor post dobutamine stress test with a troponin performed after the episode noted to be mildly elevated. He then underwent cardiac catheterization performed by Dr. Mcmahan on 03/05/2016 and was noted to have a stenosis just distal to the anastomosis of the AVILA to LAD, undergoing PCI to the [place] LAD just distal to the touchdown of the LATANYA with a KEVIN. 2.Preserved LV systolic function. 3.Diastolic congestive heart failure 4.Hypertension. 5.Hyperlipidemia. 6.Symptomatic non-complex atrial and ventricular ectopy. 7.Type II diabetes mellitus 8.GERD. 9.Arthritis. 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 13.DJD 14.Psoriasis 15.Alzheimer's dementia. Allergies Allergy/AdvReac Type Severity Reaction Status Date / Time No Known Allergies Allergy Verified 04/04/19 14:45 Home Medications Medication Instructions Recorded Confirmed Type atorvastatin [Lipitor] 80 mg PO DAILY 04/04/19 06/24/20 History donepezil [Aricept] 10 mg PO DAILY 04/04/19 06/24/20 History finasteride 5 mg PO DAILY 04/04/19 06/24/20 History isosorbide mononitrate 120 mg PO DAILY 04/04/19 06/24/20 History metoprolol succinate [Toprol XL] 50 mg PO DAILY 04/04/19 06/24/20 History omeprazole 20 mg PO DAILY 04/04/19 06/24/20 History prednisone 10 mg PO DAILY 04/04/19 06/24/20 History aspirin 81 mg PO DAILY 06/24/20 06/24/20 History cholecalciferol (vitamin D3) 25 mcg PO DAILY 06/24/20 06/24/20 History [Vitamin D3] cyanocobalamin (vitamin B-12) 1,000 mcg SUBLINGUAL DAILY 06/24/20 06/24/20 History furosemide 40 mg PO BID 06/24/20 06/25/20 History gentamicin 1 applic TOPICAL TID 06/24/20 06/24/20 History iron,carbonyl-vitamin C [Vitron-C] 1 tab PO DAILY 06/24/20 06/24/20 History magnesium oxide 400 mg PO DAILY 06/24/20 06/24/20 History meclizine 25 mg PO TID PRN 06/24/20 06/24/20 History spironolactone 25 mg PO QAM 06/24/20 06/24/20 History tolterodine 2 mg PO BID 06/24/20 06/24/20 History warfarin 2 mg PO DAILY 06/24/20 06/25/20 History Patient History Medical History (Updated 06/25/20 @ 15:22 by Quincy Johnson DO) CAD (coronary artery disease) GERD (gastroesophageal reflux disease) HLD (hyperlipidemia) Hypertension Psoriatic arthritis Unstable angina Surgical History H/O colonoscopy H/O hernia repair History of ERCP History of percutaneous left heart catheterization (LHC) Hx of CABG S/P cholecystectomy Status post surgical removal of neoplasm of skin Social History Smoking Status: Never smoker Hx Alcohol Use: No Hx Substance Use: No Preferred Language: Upper Sorbian Communication Ability: Effective 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: No Beliefs That Will Affect Care: None Current Living Situation: Family Other Information That Helps Us Care for You: No Feels Safe at Home: Yes Safety Concerns: Feels Safe At This Time Assistive Devices: Denture - Upper, Denture - Lower, Glasses, Hearing Aid - Left and Hearing Aid - Right Review of Systems Review of Systems: Unobtainable due to reduced consciousness Physical Exam Physical Exam: Temp Pulse Resp BP Pulse Ox 36.4 C L 73 18 115/68 95 06/25/20 15:04 06/25/20 15:04 06/25/20 15:04 06/25/20 15:04 06/25/20 15:04 Constitutional: Patient conversant but confused, lethargic Respiratory: normal respiratory effort, lungs clear to auscultation Cardiovascular: RRR, no murmur, no edema Gastrointestinal (Abdomen): normal bowel sounds, soft, nontender, no hepatosplenomegaly Skin: Ecchymosis noted over his forearms bilaterally Neurologic: Patient is able to follow commands for me, moves all 4 extremities, cognitive impairment noted Results & Data ([facility]) Vital Signs (Past 12 Hours) Vital Signs Temp Pulse Resp BP Pulse Ox 06/25/20 15:04 36.4 C L 73 18 115/68 95 06/25/20 11:21 36.3 C L 74 19 118/75 94 06/25/20 07:05 36.3 C L 70 20 132/77 91 06/25/20 04:06 36.6 C 63 18 130/73 93 Laboratory Results Cardiac Enzymes 06/24/20 06/25/20 06/25/20 Range/Units 21:45 05:19 11:39 AST 58 H (15-37) U/L CK-MB (CK-2) 5.8 H (0.5-3.6) ng/ml Troponin I 0.446 H* 0.367 H* 0.257 H* (0-0.045) ng/ml Coagulation 06/24/20 06/25/20 Range/Units 21:45 05:19 PT 27.8 H 25.7 H (9.0-12.0) Seconds APTT 44.6 H (21.0-31.0) Seconds CBC 06/24/20 06/25/20 06/25/20 Range/Units 21:45 05:19 05:54 WBC 7.73 Cancelled 6.81 (4.8-10.8) K/uL RBC 3.90 L Cancelled 4.01 L (4.7-6.1) M/uL Hgb 13.4 L Cancelled 13.7 L (14.0-18.0) g/dL Hct 39.3 L Cancelled 39.5 L (42-52) % Plt Count 170 Cancelled 147 (130-400) K/uL Neut # (Auto) 6.37 Cancelled 5.06 (1.4-6.5) K/uL Lymph # (Auto) 0.71 L Cancelled 1.08 L (1.2-3.4) K/uL [place] # (Auto) 0.61 H Cancelled 0.56 (0.11-0.59) K/uL Eos # (Auto) 0.02 Cancelled 0.06 (0-0.5) K/uL Baso # (Auto) 0.01 Cancelled 0.02 (0-0.2) K/uL Comprehensive Metabolic Panel 06/24/20 06/25/20 06/25/20 Range/Units 21:45 05:19 08:33 Sodium 136 138 (136-145) mmol/L Potassium 4.3 4.1 (3.5-5.1) mmol/L Chloride 99 102 (98-107) mmol/L Carbon Dioxide 32 32 (21-32) mmol/L BUN 26 H 24 H (7-18) mg/dl Creatinine 1.78 H 1.46 H D (0.6-1.4) mg/dl Glucose 144 H 101 H (70-99) mg/dl Calcium 8.6 8.3 L (8.5-10.1) mg/dl AST 58 H (15-37) U/L ALT 34 (12-78) U/L Alkaline Phosphatase 68 (45-117) U/L Total Protein 5.5 L (6.4-8.2) gm/dl Albumin 2.7 L (3.4-5.0) gm/dl Intake and Output 06/25/20 06/25/20 06/25/20 06:59 14:59 22:59 Intake Total 0 / 0 896 / 896 Output Total 150 / 150 Balance 0 / 0 746 / 746 Intake: IV 896 / 896 Nss 1000ML 1,000 ml @ 80 mls/hr 896 / 896 IV .[id number] [facility] Rx#:[id number] Oral 0 / 0 Output: Urine 150 / 150 Other: Weight 106.9 kg Weight Measurement Method Standing Scale
[2020-06-25] MEDS: WARFARIN SOD 2 MG TAB PO SCH (17:28)
[2020-06-25] MEDS ORDERED: LORazepam 0.5 MG TAB PO PRN (18:37)
--- NOTE | 2020-06-25 18:37 | Hospitalist Progress Note ---
Date of Service June 25, 2020 Assessment & Plan (1) Weakness: (2) Syncope: (3) Elevated troponin: (4) Confusion: (5) intermediate frame tender (current) use of anticoagulants: This is an 80-year-old male who presents with a fall, possible syncope. 1. Possible syncope vs Falls: Was found on the floor at home first time by [employer] and second time by the person who helps him. Second time he was lying on the floor for some time. CPK was elevated to 1784. Troponin is mildly at elevated at 0.44. EKG, some mild T-wave inversion in the anterior leads. Currently asymptomatic. CT of the head is unremarkable. We will monitor in the tele floor, serial enzymes, repeat EKG, echocardiogram. Consult cardiology in the a.m. for further recommendation. PT and OT when stable. Check Orthostatics. Pt does not recall falling. Has hx of dementia. Remembers falling several weeks ago. Discussed w/ cardiology - will obtain brain MRI and blood cultx for thorough work-up, UA was unremarkable in ED, but nursing staff reports frequency, will repeat. 2. Acute kidney injury on chronic kidney injury: Baseline creatinine around 1.4, presently with creatinine of 1.7. Recently Lasix was increased to 40 b.i.d. We will hold his diuretics, Lasix and spironolactone, and we will place on gentle fluids. Follow the labs in the a.m. Monitor for volume overload. 3. Mild rhabdomyolysis, CK of 1784. Getting gentle fluids and holding the diuretics.Follow repeat lab. 4. Chronic diastolic congestive heart failure: His Lasix was increased to 40 b.i.d. the last several weeks, but swelling of lower extremities is not improving. CXR Ok. Oxygenation ok.Currently, Lasix is on hold and getting gentle fluids. Will monitor for any volume overload. Continue his Toprol-XL and his Imdur. RUE edema - per pt and son chronic of several weeks - diuretics as outpt seemed to help in the past. Will elevate RUE, closely monitor. 5. History of coronary artery disease status post coronary artery bypass graft, status post cardiac stent. Continue his aspirin, statin, beta sarah, and nitrites. Follow echocardiogram. 6. 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 INR therapeutic. Follow PT/INR. 7. History of benign prostatic hypertrophy, on finasteride. 8. History of mild Alzheimer dementia, on Aricept. Monitor for any delirium. 9. Hyperlipidemia, on statin. 10. History of psoriasis and psoriatic arthropathy, on chronic prednisone. DVT prophylaxis, on Coumadin. INR therapeutic. Admission and Anticipated Discharge Date Admission Date: June 25, 2020 Subjective Pt seen in follow up of weakness, worsening mental status in the setting of dementia. Pt does not remember falling yesterday but knows he fell several weeks ago. He doesn't remember why he is in the hospital or much of yesterday at all. Had more bright moments according to nursing staff and then more confused moments while in hospital. Confirmed with pt's son that it seems to be normal for him. Pt's son worried about the weakness and edema, falls. Pt has RUE edema which he had for several weeks now, per son they tried diuretics in the past which helpe d. Discussed w/ cardiology - given poor hx per pt, will obtain brain MRI and blood cultx, UA ok in the ED but per nursing staff urinary frequency noted, may repeat. Review of Systems Review of Systems: All systems reviewed & are unremarkable except as noted in HPI & below Constitutional: no fever and no chills Respiratory: no cough and no dyspnea Cardiovascular: no chest pain and no palpitations Gastrointestinal: no abdominal pain, no nausea and no vomiting Genitourinary: + urinary frequency; no dysuria Physical Exam Physical Exam: GENERAL: elderly, frail male sitting up in chair, in NAD HEENT: NC, Pupils equal, round, reactive to light. Oral mucosa moist. NECK: No neck masses. No JVD. CARDIOVASCULAR: S1, S2 heard, regular rate and rhythm. No murmur, no gallop. RESPIRATORY SYSTEM: Normal AP diameter. No accessory muscle use. No wheezing, no crackles. ABDOMEN: Soft, bowel sounds present. Nontender. No distention. CENTRAL NERVOUS SYSTEM: Patient is alert and awake, however does not answer all questions correctly, does not remember why he is in hospital or that he fell at home. Speech fluent. Obeys simple commands. Moves extremities. No sensory loss noted. No focal deficit noted. CN intact. EXTREMITIES: Bilateral lower extremity pedal edema, +1-2 present. RUE edema 2- 3+. Results & Data Results & Data ([facility]) Vital Signs (Past 12 Hours) Vital Signs Temp Pulse Resp BP Pulse Ox 06/25/20 15:04 36.4 C L 73 18 115/68 95 06/25/20 11:21 36.3 C L 74 19 118/75 94 06/25/20 07:05 36.3 C L 70 20 132/77 91 Laboratory Results 06/25/20 06/25/20 06/25/20 Range/Units 16:46 11:39 08:33 WBC (4.8-10.8) K/uL RBC (4.7-6.1) M/uL Hgb (14.0-18.0) g/dL Hct (42-52) % MCV (80-100) fL MCH (25-34) pg MCHC (32-36) g/dL RDW Std Deviation (36.4-46.3) fL RDW Coeff of Lester (11.5-14.5) % Plt Count (130-400) K/uL MPV (7.4-10.4) fL Immature Gran % (Auto) % Neut % (Auto) % Lymph % (Auto) % [place] % (Auto) % Eos % (Auto) % Baso % (Auto) % Neut # (Auto) (1.4-6.5) K/uL Lymph # (Auto) (1.2-3.4) K/uL [place] # (Auto) (0.11-0.59) K/uL Eos # (Auto) (0-0.5) K/uL Baso # (Auto) (0-0.2) K/uL Immature Gran # (Auto) (0.00-0.02) K/uL Absolute Nucleated RBC Nucleated RBC % (auto) Neutrophils % (Manual) Band Neutrophils % Lymphocytes % (Manual) Prolymphocyte % Reactive Lymphs % (Man) Monocytes % (Manual) Eosinophils % (Manual) Basophils % (Manual) Metamyelocytes % (Man) Myelocytes % (Man) Promyelocytes % (Man) Blast Cells % (Manual) Plasma Cell % (Manual) Other Cells % Nucleated RBC % Neutrophils # (Manual) Band Neutrophils # Total Absolute Neuts Lymphocytes # (Manual) Prolymphocyte # Reactive Lymphs # Total Abs Lymphocytes Monocytes # (Manual) Eosinophils # (Manual) Basophils # (Manual) Metamyelocytes # (Man) Myelocytes # (Manual) Promyelocytes # (Man) Blast Cells # (Man) Plasma Cell # (Manual) Other Cells # Nucleated RBCs # (Man) Hypersegmented Neuts Hyposegmented Neuts Hypogranular Neuts Large Granular Lymphs # Lrg Granular Lymphs Hairy Cells Smudge Cells Toxic Granulation Toxic Vacuolation Dohle Bodies Dilshad Rods Platelet Estimate Hypogranular Platelets Clumped Platelets Giant Platelets Platelet Satelliting RBC Morphology Polychromasia Hypochromasia Poikilocytosis Basophilic Stippling Anisocytosis Microcytosis Macrocytosis Spherocytes Pappenheimer Bodies Sickle Cells Target Cells Tear Drop Cells Ovalocytes Stomatocytes [place] Bodies Echinocytes Acanthocytes (Spur) Rouleaux RBC Agglutinates Schistocytes RBC Morph Comment Sezary Cell PT (9.0-12.0) Seconds INR (0.9-1.1) APTT (21.0-31.0) Seconds PTT Ratio Sodium (136-145) mmol/L Potassium 4.1 (3.5-5.1) mmol/L Chloride (98-107) mmol/L Carbon Dioxide (21-32) mmol/L Anion Gap (3-11) BUN (7-18) mg/dl Creatinine (0.6-1.4) mg/dl Est Cr Clr Drug Dosing ml/min Est GFR ( Amer) Est GFR (Non-Af Amer) BUN/Creatinine Ratio (10-20) Glucose (70-99) mg/dl Calcium (8.5-10.1) mg/dl Magnesium 2.7 H (1.8-2.4) mg/dl Total Bilirubin (0.2-1) mg/dl AST (15-37) U/L ALT (12-78) U/L Alkaline Phosphatase (45-117) U/L Total Creatine Kinase 1817 H (39-308) U/L CK-MB (CK-2) (0.5-3.6) ng/ml CK/CKMB % Calc (0-3.0) Troponin I 0.190 H* 0.257 H* (0-0.045) ng/ml Total Protein (6.4-8.2) gm/dl Albumin (3.4-5.0) gm/dl Globulin (2.5-4.0) gm/dl Albumin/Globulin Ratio (0.9-2) TSH (0.300-4.500) uIu/ml Urine Color Urine Appearance (Clear) Urine pH (4.5-7.5) Ur Specific [place] (1.000-1.030) Urine Protein (Negative) Urine Glucose (UA) (Negative) Urine Ketones (Negative) Urine Blood (Negative) Urine Nitrite (Negative) Urine Bilirubin (Negative) Urine Urobilinogen (Negative) Ur Leukocyte Esterase (Negative) COVID-19 Eval Order SARS-CoV-2, RNA, NAAT (NEGATIVE) 06/25/20 06/25/20 06/25/20 Range/Units 05:54 05:19 05:19 WBC 6.81 (4.8-10.8) K/uL RBC 4.01 L (4.7-6.1) M/uL Hgb 13.7 L (14.0-18.0) g/dL Hct 39.5 L (42-52) % MCV 98.5 (80-100) fL MCH 34.2 H (25-34) pg MCHC 34.7 (32-36) g/dL RDW Std Deviation 56.3 H (36.4-46.3) fL RDW Coeff of Lester 15.5 H (11.5-14.5) % Plt Count 147 (130-400) K/uL MPV 9.6 (7.4-10.4) fL Immature Gran % (Auto) 0.4 % Neut % (Auto) 74.3 % Lymph % (Auto) 15.9 % [place] % (Auto) 8.2 % Eos % (Auto) 0.9 % Baso % (Auto) 0.3 % Neut # (Auto) 5.06 (1.4-6.5) K/uL Lymph # (Auto) 1.08 L (1.2-3.4) K/uL [place] # (Auto) 0.56 (0.11-0.59) K/uL Eos # (Auto) 0.06 (0-0.5) K/uL Baso # (Auto) 0.02 (0-0.2) K/uL Immature Gran # (Auto) 0.03 H (0.00-0.02) K/uL Absolute Nucleated RBC Nucleated RBC % (auto) Neutrophils % (Manual) Band Neutrophils % Lymphocytes % (Manual) Prolymphocyte % Reactive Lymphs % (Man) Monocytes % (Manual) Eosinophils % (Manual) Basophils % (Manual) Metamyelocytes % (Man) Myelocytes % (Man) Promyelocytes % (Man) Blast Cells % (Manual) Plasma Cell % (Manual) Other Cells % Nucleated RBC % Neutrophils # (Manual) Band Neutrophils # Total Absolute Neuts Lymphocytes # (Manual) Prolymphocyte # Reactive Lymphs # Total Abs Lymphocytes Monocytes # (Manual) Eosinophils # (Manual) Basophils # (Manual) Metamyelocytes # (Man) Myelocytes # (Manual) Promyelocytes # (Man) Blast Cells # (Man) Plasma Cell # (Manual) Other Cells # Nucleated RBCs # (Man) Hypersegmented Neuts Hyposegmented Neuts Hypogranular Neuts Large Granular Lymphs # Lrg Granular Lymphs Hairy Cells Smudge Cells Toxic Granulation Toxic Vacuolation Dohle Bodies Dilshad Rods Platelet Estimate Hypogranular Platelets Clumped Platelets Giant Platelets Platelet Satelliting RBC Morphology Polychromasia Hypochromasia Poikilocytosis Basophilic Stippling Anisocytosis Microcytosis Macrocytosis Spherocytes Pappenheimer Bodies Sickle Cells Target Cells Tear Drop Cells Ovalocytes Stomatocytes [place] Bodies Echinocytes Acanthocytes (Spur) Rouleaux RBC Agglutinates Schistocytes RBC Morph Comment Sezary Cell PT 25.7 H (9.0-12.0) Seconds INR 2.6 H (0.9-1.1) APTT (21.0-31.0) Seconds PTT Ratio Sodium 138 (136-145) mmol/L Potassium (3.5-5.1) mmol/L Chloride 102 (98-107) mmol/L Carbon Dioxide 32 (21-32) mmol/L Anion Gap 4.0 (3-11) BUN 24 H (7-18) mg/dl Creatinine 1.46 H D (0.6-1.4) mg/dl Est Cr Clr Drug Dosing 50.1 ml/min Est GFR ( Amer) 51.5 Est GFR (Non-Af Amer) 44.5 BUN/Creatinine Ratio 16.3 (10-20) Glucose 101 H (70-99) mg/dl Calcium 8.3 L (8.5-10.1) mg/dl Magnesium (1.8-2.4) mg/dl Total Bilirubin (0.2-1) mg/dl AST (15-37) U/L ALT (12-78) U/L Alkaline Phosphatase (45-117) U/L Total Creatine Kinase (39-308) U/L CK-MB (CK-2) (0.5-3.6) ng/ml CK/CKMB % Calc (0-3.0) Troponin I 0.367 H* (0-0.045) ng/ml Total Protein (6.4-8.2) gm/dl Albumin (3.4-5.0) gm/dl Globulin (2.5-4.0) gm/dl Albumin/Globulin Ratio (0.9-2) TSH (0.300-4.500) uIu/ml Urine Color Urine Appearance (Clear) Urine pH (4.5-7.5) Ur Specific [place] (1.000-1.030) Urine Protein (Negative) Urine Glucose (UA) (Negative) Urine Ketones (Negative) Urine Blood (Negative) Urine Nitrite (Negative) Urine Bilirubin (Negative) Urine Urobilinogen (Negative) Ur Leukocyte Esterase (Negative) COVID-19 Eval Order SARS-CoV-2, RNA, NAAT (NEGATIVE) 06/25/20 06/24/20 06/24/20 Range/Units 05:19 Unknown 22:24 WBC Cancelled (4.8-10.8) K/uL RBC Cancelled (4.7-6.1) M/uL Hgb Cancelled (14.0-18.0) g/dL Hct Cancelled (42-52) % MCV Cancelled (80-100) fL MCH Cancelled (25-34) pg MCHC Cancelled (32-36) g/dL RDW Std Deviation Cancelled (36.4-46.3) fL RDW Coeff of Lester Cancelled (11.5-14.5) % Plt Count Cancelled (130-400) K/uL MPV Cancelled (7.4-10.4) fL Immature Gran % (Auto) Cancelled % Neut % (Auto) Cancelled % Lymph % (Auto) Cancelled % [place] % (Auto) Cancelled % Eos % (Auto) Cancelled % Baso % (Auto) Cancelled % Neut # (Auto) Cancelled (1.4-6.5) K/uL Lymph # (Auto) Cancelled (1.2-3.4) K/uL [place] # (Auto) Cancelled (0.11-0.59) K/uL Eos # (Auto) Cancelled (0-0.5) K/uL Baso # (Auto) Cancelled (0-0.2) K/uL Immature Gran # (Auto) Cancelled (0.00-0.02) K/uL Absolute Nucleated RBC Cancelled Nucleated RBC % (auto) Cancelled Neutrophils % (Manual) Cancelled Band Neutrophils % Cancelled Lymphocytes % (Manual) Cancelled Prolymphocyte % Cancelled Reactive Lymphs % (Man) Cancelled Monocytes % (Manual) Cancelled Eosinophils % (Manual) Cancelled Basophils % (Manual) Cancelled Metamyelocytes % (Man) Cancelled Myelocytes % (Man) Cancelled Promyelocytes % (Man) Cancelled Blast Cells % (Manual) Cancelled Plasma Cell % (Manual) Cancelled Other Cells % Cancelled Nucleated RBC % Cancelled Neutrophils # (Manual) Cancelled Band Neutrophils # Cancelled Total Absolute Neuts Cancelled Lymphocytes # (Manual) Cancelled Prolymphocyte # Cancelled Reactive Lymphs # Cancelled Total Abs Lymphocytes Cancelled Monocytes # (Manual) Cancelled Eosinophils # (Manual) Cancelled Basophils # (Manual) Cancelled Metamyelocytes # (Man) Cancelled Myelocytes # (Manual) Cancelled Promyelocytes # (Man) Cancelled Blast Cells # (Man) Cancelled Plasma Cell # (Manual) Cancelled Other Cells # Cancelled Nucleated RBCs # (Man) Cancelled Hypersegmented Neuts Cancelled Hyposegmented Neuts Cancelled Hypogranular Neuts Cancelled Large Granular Lymphs Cancelled # Lrg Granular Lymphs Cancelled Hairy Cells Cancelled Smudge Cells Cancelled Toxic Granulation Cancelled Toxic Vacuolation Cancelled Dohle Bodies Cancelled Dilshad Rods Cancelled Platelet Estimate Cancelled Hypogranular Platelets Cancelled Clumped Platelets Cancelled Giant Platelets Cancelled Platelet Satelliting Cancelled RBC Morphology Cancelled Polychromasia Cancelled Hypochromasia Cancelled Poikilocytosis Cancelled Basophilic Stippling Cancelled Anisocytosis Cancelled Microcytosis Cancelled Macrocytosis Cancelled Spherocytes Cancelled Pappenheimer Bodies Cancelled Sickle Cells Cancelled Target Cells Cancelled Tear Drop Cells Cancelled Ovalocytes Cancelled Stomatocytes Cancelled [place] Bodies Cancelled Echinocytes Cancelled Acanthocytes (Spur) Cancelled Rouleaux Cancelled RBC Agglutinates Cancelled Schistocytes Cancelled RBC Morph Comment Cancelled Sezary Cell Cancelled PT (9.0-12.0) Seconds INR (0.9-1.1) APTT (21.0-31.0) Seconds PTT Ratio Sodium (136-145) mmol/L Potassium (3.5-5.1) mmol/L Chloride (98-107) mmol/L Carbon Dioxide (21-32) mmol/L Anion Gap (3-11) BUN (7-18) mg/dl Creatinine (0.6-1.4) mg/dl Est Cr Clr Drug Dosing ml/min Est GFR ( Amer) Est GFR (Non-Af Amer) BUN/Creatinine Ratio (10-20) Glucose (70-99) mg/dl Calcium (8.5-10.1) mg/dl Magnesium (1.8-2.4) mg/dl Total Bilirubin (0.2-1) mg/dl AST (15-37) U/L ALT (12-78) U/L Alkaline Phosphatase (45-117) U/L Total Creatine Kinase (39-308) U/L CK-MB (CK-2) (0.5-3.6) ng/ml CK/CKMB % Calc (0-3.0) Troponin I (0-0.045) ng/ml Total Protein (6.4-8.2) gm/dl Albumin (3.4-5.0) gm/dl Globulin (2.5-4.0) gm/dl Albumin/Globulin Ratio (0.9-2) TSH (0.300-4.500) uIu/ml Urine Color Yellow Urine Appearance Clear (Clear) Urine pH 5.5 (4.5-7.5) Ur Specific [place] 1.013 (1.000-1.030) Urine Protein Negative (Negative) Urine Glucose (UA) Negative (Negative) Urine Ketones Negative (Negative) Urine Blood Negative (Negative) Urine Nitrite Negative (Negative) Urine Bilirubin Negative (Negative) Urine Urobilinogen Negative (Negative) Ur Leukocyte Esterase Negative (Negative) COVID-19 Eval Order SARS-CoV-2, RNA, NAAT NEGATIVE (NEGATIVE) 01/06/24/20 06/24/20 Range/Units 22:24 21:45 21:45 WBC (4.8-10.8) K/uL RBC (4.7-6.1) M/uL Hgb (14.0-18.0) g/dL Hct (42-52) % MCV (80-100) fL MCH (25-34) pg MCHC (32-36) g/dL RDW Std Deviation (36.4-46.3) fL RDW Coeff of Lester (11.5-14.5) % Plt Count (130-400) K/uL MPV (7.4-10.4) fL Immature Gran % (Auto) % Neut % (Auto) % Lymph % (Auto) % [place] % (Auto) % Eos % (Auto) % Baso % (Auto) % Neut # (Auto) (1.4-6.5) K/uL Lymph # (Auto) (1.2-3.4) K/uL [place] # (Auto) (0.11-0.59) K/uL Eos # (Auto) (0-0.5) K/uL Baso # (Auto) (0-0.2) K/uL Immature Gran # (Auto) (0.00-0.02) K/uL Absolute Nucleated RBC Nucleated RBC % (auto) Neutrophils % (Manual) Band Neutrophils % Lymphocytes % (Manual) Prolymphocyte % Reactive Lymphs % (Man) Monocytes % (Manual) Eosinophils % (Manual) Basophils % (Manual) Metamyelocytes % (Man) Myelocytes % (Man) Promyelocytes % (Man) Blast Cells % (Manual) Plasma Cell % (Manual) Other Cells % Nucleated RBC % Neutrophils # (Manual) Band Neutrophils # Total Absolute Neuts Lymphocytes # (Manual) Prolymphocyte # Reactive Lymphs # Total Abs Lymphocytes Monocytes # (Manual) Eosinophils # (Manual) Basophils # (Manual) Metamyelocytes # (Man) Myelocytes # (Manual) Promyelocytes # (Man) Blast Cells # (Man) Plasma Cell # (Manual) Other Cells # Nucleated RBCs # (Man) Hypersegmented Neuts Hyposegmented Neuts Hypogranular Neuts Large Granular Lymphs # Lrg Granular Lymphs Hairy Cells Smudge Cells Toxic Granulation Toxic Vacuolation Dohle Bodies Dilshad Rods Platelet Estimate Hypogranular Platelets Clumped Platelets Giant Platelets Platelet Satelliting RBC Morphology Polychromasia Hypochromasia Poikilocytosis Basophilic Stippling Anisocytosis Microcytosis Macrocytosis Spherocytes Pappenheimer Bodies Sickle Cells Target Cells Tear Drop Cells Ovalocytes Stomatocytes [place] Bodies Echinocytes Acanthocytes (Spur) Rouleaux RBC Agglutinates Schistocytes RBC Morph Comment Sezary Cell PT 27.8 H (9.0-12.0) Seconds INR 2.8 H (0.9-1.1) APTT 44.6 H (21.0-31.0) Seconds PTT Ratio 1.6 Sodium 136 (136-145) mmol/L Potassium 4.3 (3.5-5.1) mmol/L Chloride 99 (98-107) mmol/L Carbon Dioxide 32 (21-32) mmol/L Anion Gap 5.0 (3-11) BUN 26 H (7-18) mg/dl Creatinine 1.78 H (0.6-1.4) mg/dl Est Cr Clr Drug Dosing 42.1 ml/min Est GFR ( Amer) 40.6 Est GFR (Non-Af Amer) 35.0 BUN/Creatinine Ratio 14.8 (10-20) Glucose 144 H (70-99) mg/dl Calcium 8.6 (8.5-10.1) mg/dl Magnesium 2.7 H (1.8-2.4) mg/dl Total Bilirubin 1.1 H (0.2-1) mg/dl AST 58 H (15-37) U/L ALT 34 (12-78) U/L Alkaline Phosphatase 68 (45-117) U/L Total Creatine Kinase 1784 H (39-308) U/L CK-MB (CK-2) 5.8 H (0.5-3.6) ng/ml CK/CKMB % Calc 0.3 (0-3.0) Troponin I 0.446 H* (0-0.045) ng/ml Total Protein 5.5 L (6.4-8.2) gm/dl Albumin 2.7 L (3.4-5.0) gm/dl Globulin 2.8 (2.5-4.0) gm/dl Albumin/Globulin Ratio 1.0 (0.9-2) TSH 1.620 (0.300-4.500) uIu/ml Urine Color Urine Appearance (Clear) Urine pH (4.5-7.5) Ur Specific [place] (1.000-1.030) Urine Protein (Negative) Urine Glucose (UA) (Negative) Urine Ketones (Negative) Urine Blood (Negative) Urine Nitrite (Negative) Urine Bilirubin (Negative) Urine Urobilinogen (Negative) Ur Leukocyte Esterase (Negative) COVID[facility]19 [facility]-2, RNA, NAAT (NEGATIVE) 06/24/20 Range/Units 21:45 WBC 7.73 (4.8-10.8) K/uL RBC 3.90 L (4.7-6.1) M/uL Hgb 13.4 L (14.0-18.0) g/dL Hct 39.3 L (42-52) % MCV 100.8 H (80-100) fL MCH 34.4 H (25-34) pg MCHC 34.1 (32-36) g/dL RDW Std Deviation 57.4 H (36.4-46.3) fL RDW Coeff of Lester 15.6 H (11.5-14.5) % Plt Count 170 (130-400) K/uL MPV 9.6 (7.4-10.4) fL Immature Gran % (Auto) 0.1 % Neut % (Auto) 82.4 % Lymph % (Auto) 9.2 % [place] % (Auto) 7.9 % Eos % (Auto) 0.3 % Baso % (Auto) 0.1 % Neut # (Auto) 6.37 (1.4-6.5) K/uL Lymph # (Auto) 0.71 L (1.2-3.4) K/uL [place] # (Auto) 0.61 H (0.11-0.59) K/uL Eos # (Auto) 0.02 (0-0.5) K/uL Baso # (Auto) 0.01 (0-0.2) K/uL Immature Gran # (Auto) 0.01 (0.00-0.02) K/uL Absolute Nucleated RBC Nucleated RBC % (auto) Neutrophils % (Manual) Band Neutrophils % Lymphocytes % (Manual) Prolymphocyte % Reactive Lymphs % (Man) Monocytes % (Manual) Eosinophils % (Manual) Basophils % (Manual) Metamyelocytes % (Man) Myelocytes % (Man) Promyelocytes % (Man) Blast Cells % (Manual) Plasma Cell % (Manual) Other Cells % Nucleated RBC % Neutrophils # (Manual) Band Neutrophils # Total Absolute Neuts Lymphocytes # (Manual) Prolymphocyte # Reactive Lymphs # Total Abs Lymphocytes Monocytes # (Manual) Eosinophils # (Manual) Basophils # (Manual) Metamyelocytes # (Man) Myelocytes # (Manual) Promyelocytes # (Man) Blast Cells # (Man) Plasma Cell # (Manual) Other Cells # Nucleated RBCs # (Man) Hypersegmented Neuts Hyposegmented Neuts Hypogranular Neuts Large Granular Lymphs # Lrg Granular Lymphs Hairy Cells Smudge Cells Toxic Granulation Toxic Vacuolation Dohle Bodies Dilshad Rods Platelet Estimate Hypogranular Platelets Clumped Platelets Giant Platelets Platelet Satelliting RBC Morphology Polychromasia Hypochromasia Poikilocytosis Basophilic Stippling Anisocytosis Microcytosis Macrocytosis Spherocytes Pappenheimer Bodies Sickle Cells Target Cells Tear Drop Cells Ovalocytes Stomatocytes [place] Bodies Echinocytes Acanthocytes (Spur) Rouleaux RBC Agglutinates Schistocytes RBC Morph Comment Sezary Cell PT (9.0-12.0) Seconds INR (0.9-1.1) APTT (21.0-31.0) Seconds PTT Ratio Sodium (136-145) mmol/L Potassium (3.5-5.1) mmol/L Chloride (98-107) mmol/L Carbon Dioxide (21-32) mmol/L Anion Gap (3-11) BUN (7-18) mg/dl Creatinine (0.6-1.4) mg/dl Est Cr Clr Drug Dosing ml/min Est GFR ( Amer) Est GFR (Non-Af Amer) BUN/Creatinine Ratio (10-20) Glucose (70-99) mg/dl Calcium (8.5-10.1) mg/dl Magnesium (1.8-2.4) mg/dl Total Bilirubin (0.2-1) mg/dl AST (15-37) U/L ALT (12-78) U/L Alkaline Phosphatase (45-117) U/L Total Creatine Kinase (39-308) U/L CK-MB (CK-2) (0.5-3.6) ng/ml CK/CKMB % Calc (0-3.0) Troponin I (0-0.045) ng/ml Total Protein (6.4-8.2) gm/dl Albumin (3.4-5.0) gm/dl Globulin (2.5-4.0) gm/dl Albumin/Globulin Ratio (0.9-2) TSH (0.300-4.500) uIu/ml Urine Color Urine Appearance (Clear) Urine pH (4.5-7.5) Ur Specific [place] (1.000-1.030) Urine Protein (Negative) Urine Glucose (UA) (Negative) Urine Ketones (Negative) Urine Blood (Negative) Urine Nitrite (Negative) Urine Bilirubin (Negative) Urine Urobilinogen (Negative) Ur Leukocyte Esterase (Negative) COVID-19 Eval Order SARS-CoV-2, RNA, NAAT (NEGATIVE) Medications Administered Current Inpatient Medications Acetaminophen (Acetaminophen 325 Mg Tab) 650 mg PO Q4H PRN PRN Reason: Pain or Fever Stop: 07/25/20 01:49 Last Admin: 06/25/20 13:44 Dose: 650 mg Documented by: Ascorbic Acid (Ascorbic Acid 500 Mg Tab) 250 mg PO DAILY [facility] Stop: 07/25/20 08:59 Last Admin: 06/25/20 08:36 Dose: 250 mg Documented by: Aspirin (Aspirin 81 Mg Ectab) 81 mg PO DAILY [facility] Stop: 07/25/20 08:59 Last Admin: 06/25/20 08:37 Dose: 81 mg Documented by: Atorvastatin Calcium (Atorvastatin 40 Mg Tab) 80 mg PO DAILY [facility] Stop: 07/25/20 08:59 Last Admin: 06/25/20 08:37 Dose: 80 mg Documented by: Cyanocobalamin (Cyanocobalamin 500 Mcg Tablet (Vitamin B-12)) 1,000 mcg PO DAILY ANTW[facility] Stop: 07/25/20 08:59 Last Admin: 06/25/20 08:35 Dose: 1,000 mcg Documented by: Donepezil HCl (Donepezil Hcl 10 Mg Tab) 10 mg PO DAILY [facility] Stop: 07/25/20 08:59 Last Admin: 06/25/20 08:36 Dose: 10 mg Documented by: Ferrous Sulfate (Ferrous Sulfate 325 Mg Tab) 325 mg PO DAILY [facility] Stop: 07/25/20 08:59 Last Admin: 06/25/20 08:36 Dose: 325 mg Documented by: Finasteride (Finasteride 5 Mg Tab) 5 mg PO DAILY [facility] Stop: 07/25/20 08:59 Last Admin: 06/25/20 08:35 Dose: 5 mg Documented by: Gentamicin Sulfate (Gentamicin Sulfate 0.1% Cr 15 Gm Tube) 1 appln EXT TID [facility] Stop: 07/05/20 08:59 Last Admin: 06/25/20 13:39 Dose: 1 appln Documented by: Sodium Chloride (Nss 1000ml) 1,000 mls @ 80 mls/hr IV .[id number] [facility] Stop: 07/25/20 01:49 Last Admin: 06/25/20 13:39 Dose: 80 mls/hr Documented by: Isosorbide Mononitrate (Isosorbide [place] Extended Rel 60 Mg Tabcr) 120 mg PO DAILY [facility] Stop: 07/25/20 08:59 Last Admin: 06/25/20 08:36 Dose: 120 mg Documented by: Magnesium Oxide (Magnesium Oxide 400 Mg Tab) 400 mg PO DAILY [facility] Stop: 07/25/20 08:59 Last Admin: 06/25/20 08:38 Dose: Not Given Documented by: Meclizine HCl (Meclizine Hcl 25 Mg Tab) 25 mg PO TID PRN PRN Reason: Dizziness Stop: 07/25/20 02:02 Metoprolol Succinate (Metoprolol Succ 50mg Ext Rel Tab) 50 mg PO DAILY [facility] Stop: 07/25/20 08:59 Last Admin: 06/25/20 08:37 Dose: 50 mg Documented by: Nitroglycerin (Nitroglycerin Sl 0.4 Mg/Tab Tab) 0.4 mg SL UD PRN PRN Reason: Chest Pain Stop: 07/25/20 01:49 Pantoprazole Sodium (Pantoprazole 40 Mg Tab) 40 mg PO DAILY [facility] Stop: 07/25/20 08:59 Last Admin: 06/25/20 08:36 Dose: 40 mg Documented by: Polyethylene Glycol (Polyethylene (Miralax) 17 Gm Pack) 17 gm PO DAILY PRN PRN Reason: Constipation Stop: 07/25/20 01:49 Prednisone (Prednisone 10 Mg Tablet) 10 mg PO DAILY [facility] Stop: 07/25/20 08:59 Last Admin: 06/25/20 08:37 Dose: 10 mg Documented by: Tolterodine Tartrate (Tolterodine Tartrate 2 Mg Tab) 2 mg PO BID [facility] Stop: 07/25/20 08:59 Last Admin: 06/25/20 08:36 Dose: 2 mg Documented by: Vitamin D (Cholecalciferol 1,000 Units 25 Mcg Tab) 1,000 units PO DAILY [facility] Stop: 07/25/20 08:59 Last Admin: 06/25/20 08:37 Dose: 1,000 units Documented by: Warfarin Sodium (Warfarin Sod 2 Mg Tab) 2 mg PO DAILY@1600 [facility] Stop: 07/25/20 15:59 Last Admin: 06/25/20 17:28 Dose: 2 mg Documented by: (1) Syncope Syncope type: unspecified Qualified Code(s): R55 - Syncope and collapse
[2020-06-25 21:14] LABS: Appearance Urine Cloudy (Clear); Bilirubin Urine Negative (Negative); Blood Urine Negative (Negative); Color Urine Yellow; Glucose Urine UA Negative (Negative); Ketones Urine Negative (Negative); Leukocyte Esterase Urine Negative (Negative); Nitrite Urine Negative (Negative); Protein Urine Negative (Negative); Specific Gravity Urine 1.007 (1.000-1.030); Urobilinogen Urine Negative (Negative)
[2020-06-25 22:05] LABS: Bacteria Urine Negative (Negative); Epithelial Cell Urine 0-5 /lpf (0-5); Hyaline Casts Urine 0-5 /lpf (0-5); RBC Urine 0-4 /hpf (0-4); WBC Urine 0-5 /hpf (0-5)
[2020-06-26] MEDS: SODIUM CHLORIDE 0.9% 1000ML 1,000 ML IV SCH (02:30)
[2020-06-26 07:11] LABS: Hemoglobin 13.4 g/dL (14.0-18.0); Mean Corpuscular Hemoglobin 33.8 pg (25-34); Mean Corpuscular Hgb Conc 33.5 g/dL (32-36); Mean Platelet Volume 9.5 fL (7.4-10.4); Platelet Count 156 K/uL (130-400); RDW Coefficient of Variation 15.4 % (11.5-14.5); RDW Standard Deviation 57.5 fL (36.4-46.3); Red Blood Count 3.96 M/uL (4.7-6.1); White Blood Count 5.67 K/uL (4.8-10.8)
[2020-06-26 07:18] LABS: INR 2.3 (0.9-1.1); Prothrombin Time 23.5 Seconds (9.0-12.0)
[2020-06-26 07:51] LABS: BUN Creatinine Ratio 17.4 (10-20); Calcium 8.7 mg/dl (8.5-10.1); Creatinine Clr Calc Pharmacy 60.1 ml/min; Est GFR (African American) 64.7; Est GFR (Non-African American) 55.8; Magnesium 2.5 mg/dl (1.8-2.4); Phosphorus 3.4 mg/dl (2.5-4.9); Potassium 3.9 mmol/L (3.5-5.1)
--- NOTE | 2020-06-26 08:35 | Hospitalist Progress Note ---
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 1. Possible syncope vs Falls: Was found on the floor at home x2 Second time he was lying on the floor for some time. CPK was elevated to 1784. Blood cltx - obtained CT head unremarkable MRI brain obtained - no new CVA, showed chronic small cerebellar infarct, age- related involutional changes, exam was degraded by motion artifact Troponin mildly at elevated at 0.44 on admission. EKG, some mild T-wave inversion in the anterior leads. Currently asymptomatic. Will cont. to monitor in the tele floor. Serial enzymes/troponin obtained- mildly elevated - trended down. Echo obtained - reveals preserved LVEF, with left ventricular apical wall motion abnormality unchanged compared to prior and noted residual left ventricular apical mural thrombus, which had initially been noted on outpatient echo 03/29/2020. repeat EKG - sinus rhythm at 75 bpm, poor R wave progression in anterior precordial leads, unchanged compared to previous, prolonged QT noted, QT somewhat difficult to interpret due to the patient's long broad T wave. Cardiology consulted for further recommendation, appreciate their input Cont. warfarin for ventricular apical thrombus. Stop IVF. Plan to resume lasix at 40 mg daily and home spironolactone. PT and OT - ordered 2. Acute kidney injury on chronic kidney injury: Baseline creatinine around 1.4, on admission with creatinine of 1.7. Recently Lasix was increased to 40 b.i.d. We will hold his diuretics, Lasix and spironolactone, and we will place on gentle fluids. Follow the labs in the a.m. Monitor for volume overload. Cr now down/ improved. Will stop IVF to prevent fluid overload. Mild crackles noted on lung exam. Plan to resume lasix at lower dose 40 mg daily, tmrw. 3. Mild rhabdomyolysis, CK of 1784. Getting gentle fluids and holding the diuretics.Follow repeat lab. Will stop IVF now, as above. 4. Chronic diastolic congestive heart failure: His Lasix was increased to 40 b.i.d. the last several weeks, but swelling of lower extremities reportedly not improved. CXR Ok. Oxygenation ok.Currently, Lasix on hold since admission and getting gentle fluids. Will monitor for any volume overload. Continue his Toprol-XL and his Imdur. RUE edema - per pt and son chronic of several weeks - diuretics as outpt seemed to help in the past. Will elevate RUE, closely monitor. Now much improved. 5. History of coronary artery disease status post coronary artery bypass graft, status post cardiac stent. Continue his aspirin, statin, beta sarah, and nitrites. Obtained echocardiogram, results above. 6. 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 INR therapeutic. Follow PT/INR. Cont. warfarin. 7. History of benign prostatic hypertrophy, on finasteride. 8. History of mild Alzheimer dementia, on Aricept. Monitor for any delirium. 9. Hyperlipidemia, on statin. 10. History of psoriasis and psoriatic arthropathy, on chronic prednisone. DVT prophylaxis, on Coumadin. INR therapeutic. Admission and Anticipated Discharge Date Admission Date: June 25, 2020 Subjective Pt seen in follow up of weakness, falls, worsening mental status in the setting of dementia. Pt can not provide reliable history unfortunately, currently thinks that he's been in the hospital for quite some time. Per pt's son, mental status is about baseline - sometimes pt has more bright moments and sometimes more confused moments. Pt has no complaints at this time. Review of Systems Review of Systems: All systems reviewed & are unremarkable except as noted in HPI & below Constitutional: no fever and no chills Respiratory: no cough and no dyspnea Cardiovascular: no chest pain and no palpitations Gastrointestinal: no abdominal pain, no nausea and no vomiting Physical Exam Physical Exam: GENERAL: elderly, frail male sitting up in bed, in NAD HEENT: NC/AT. EOMI, PERRL. Oral mucosa moist. NECK: No neck masses. No JVD. CARDIOVASCULAR: S1, S2 heard, regular rate and rhythm. No murmur, no gallop. RESPIRATORY SYSTEM: Normal AP diameter. No accessory muscle use. No wheezing, + mild diffuse crackles. ABDOMEN: Soft, bowel sounds present. Nontender. No distention. NEURO: alert and awake, however does not answer all questions correctly, somewhat confused. Speech fluent. Obeys simple commands. Moves extremities. No sensory loss noted. No focal deficit noted. information director intact. EXTREMITIES: Bilateral lower extremity pedal edema, +1 present. RUE edema +1-2 Results & Data Results & Data ([facility]) Vital Signs (Past 12 Hours) Vital Signs Temp Pulse Resp BP Pulse Ox 06/26/20 07:03 36.5 C 71 16 130/70 94 06/26/20 04:23 36.4 C L 79 16 147/73 H 94 06/26/20 00:41 36.4 C L 66 18 127/72 95 Laboratory Results 06/26/20 06/26/20 06/26/20 Range/Units 06:51 06:51 06:51 WBC 5.67 (4.8-10.8) K/uL RBC 3.96 L (4.7-6.1) M/uL Hgb 13.4 L (14.0-18.0) g/dL Hct 40.0 L (42-52) % MCV 101.0 H (80-100) fL MCH 33.8 (25-34) pg MCHC 33.5 (32-36) g/dL RDW Std Deviation 57.5 H (36.4-46.3) fL RDW Coeff of Lester 15.4 H (11.5-14.5) % Plt Count 156 (130-400) K/uL MPV 9.5 (7.4-10.4) fL PT (9.0-12.0) Seconds INR (0.9-1.1) Sodium 142 (136-145) mmol/L Potassium 3.9 (3.5-5.1) mmol/L Chloride 105 (98-107) mmol/L Carbon Dioxide 29 (21-32) mmol/L Anion Gap 7.0 (3-11) BUN 21 H (7-18) mg/dl Creatinine 1.21 (0.6-1.4) mg/dl Est Cr Clr Drug Dosing 60.1 ml/min Est GFR ( Amer) 64.7 Est GFR (Non-Af Amer) 55.8 BUN/Creatinine Ratio 17.4 (10-20) Glucose 98 (70-99) mg/dl Calcium 8.7 (8.5-10.1) mg/dl Phosphorus 3.4 (2.5-4.9) mg/dl Magnesium 2.5 H (1.8-2.4) mg/dl Total Creatine Kinase Pending (39-308) U/L Troponin I (0-0.045) ng/ml Urine Color Urine Appearance (Clear) Urine pH (4.5-7.5) Ur Specific [place] (1.000-1.030) Urine Protein (Negative) Urine Glucose (UA) (Negative) Urine Ketones (Negative) Urine Blood (Negative) Urine Nitrite (Negative) Urine Bilirubin (Negative) Urine Urobilinogen (Negative) Ur Leukocyte Esterase (Negative) Urine RBC (0-4) /hpf Urine WBC (0-5) /hpf Ur Epithelial Cells (0-5) /lpf Urine Bacteria (Negative) Hyaline Casts (0-5) /lpf 06/26/20 06/25/20 06/25/20 Range/Units 06:51 20:25 16:46 WBC (4.8-10.8) K/uL RBC (4.7-6.1) M/uL Hgb (14.0-18.0) g/dL Hct (42-52) % MCV (80-100) fL MCH (25-34) pg MCHC (32-36) g/dL RDW Std Deviation (36.4-46.3) fL RDW Coeff of Lester (11.5-14.5) % Plt Count (130-400) K/uL MPV (7.4-10.4) fL PT 23.5 H (9.0-12.0) Seconds INR 2.3 H (0.9-1.1) Sodium (136-145) mmol/L Potassium (3.5-5.1) mmol/L Chloride (98-107) mmol/L Carbon Dioxide (21-32) mmol/L Anion Gap (3-11) BUN (7-18) mg/dl Creatinine (0.6-1.4) mg/dl Est Cr Clr Drug Dosing ml/min Est GFR ( Amer) Est GFR (Non-Af Amer) BUN/Creatinine Ratio (10-20) Glucose (70-99) mg/dl Calcium (8.5-10.1) mg/dl Phosphorus (2.5-4.9) mg/dl Magnesium (1.8-2.4) mg/dl Total Creatine Kinase (39-308) U/L Troponin I 0.190 H* (0-0.045) ng/ml Urine Color Yellow Urine Appearance Cloudy A (Clear) Urine pH 7.0 (4.5-7.5) Ur Specific [place] 1.007 (1.000-1.030) Urine Protein Negative (Negative) Urine Glucose (UA) Negative (Negative) Urine Ketones Negative (Negative) Urine Blood Negative (Negative) Urine Nitrite Negative (Negative) Urine Bilirubin Negative (Negative) Urine Urobilinogen Negative (Negative) Ur Leukocyte Esterase Negative (Negative) Urine RBC 0-4 (0-4) /hpf Urine WBC 0-5 (0-5) /hpf Ur Epithelial Cells 0-5 (0-5) /lpf Urine Bacteria Negative (Negative) Hyaline Casts 0-5 (0-5) /lpf 06/25/20 06/25/20 Range/Units 11:39 08:33 WBC (4.8-10.8) K/uL RBC (4.7-6.1) M/uL Hgb (14.0-18.0) g/dL Hct (42-52) % MCV (80-100) fL MCH (25-34) pg MCHC (32-36) g/dL RDW Std Deviation (36.4-46.3) fL RDW Coeff of Lester (11.5-14.5) % Plt Count (130-400) K/uL MPV (7.4-10.4) fL PT (9.0-12.0) Seconds INR (0.9-1.1) Sodium (136-145) mmol/L Potassium 4.1 (3.5-5.1) mmol/L Chloride (98-107) mmol/L Carbon Dioxide (21-32) mmol/L Anion Gap (3-11) BUN (7-18) mg/dl Creatinine (0.6-1.4) mg/dl Est Cr Clr Drug Dosing ml/min Est GFR ( Amer) Est GFR (Non-Af Amer) BUN/Creatinine Ratio (10-20) Glucose (70-99) mg/dl Calcium (8.5-10.1) mg/dl Phosphorus (2.5-4.9) mg/dl Magnesium 2.7 H (1.8-2.4) mg/dl Total Creatine Kinase 1817 H (39-308) U/L Troponin I 0.257 H* (0-0.045) ng/ml Urine Color Urine Appearance (Clear) Urine pH (4.5-7.5) Ur Specific [place] (1.000-1.030) Urine Protein (Negative) Urine Glucose (UA) (Negative) Urine Ketones (Negative) Urine Blood (Negative) Urine Nitrite (Negative) Urine Bilirubin (Negative) Urine Urobilinogen (Negative) Ur Leukocyte Esterase (Negative) Urine RBC (0-4) /hpf Urine WBC (0-5) /hpf Ur Epithelial Cells (0-5) /lpf Urine Bacteria (Negative) Hyaline Casts (0-5) /lpf Medications Administered Current Inpatient Medications Acetaminophen (Acetaminophen 325 Mg Tab) 650 mg PO Q4H PRN PRN Reason: Pain or Fever Stop: 07/25/20 01:49 Last Admin: 06/25/20 23:36 Dose: 650 mg Documented by: Ascorbic Acid (Ascorbic Acid 500 Mg Tab) 250 mg PO DAILY [facility] Stop: 07/25/20 08:59 Last Admin: 06/25/20 08:36 Dose: 250 mg Documented by: Aspirin (Aspirin 81 Mg Ectab) 81 mg PO DAILY [facility] Stop: 07/25/20 08:59 Last Admin: 06/25/20 08:37 Dose: 81 mg Documented by: Atorvastatin Calcium (Atorvastatin 40 Mg Tab) 80 mg PO DAILY [facility] Stop: 07/25/20 08:59 Last Admin: 06/25/20 08:37 Dose: 80 mg Documented by: Cyanocobalamin (Cyanocobalamin 500 Mcg Tablet (Vitamin B-12)) 1,000 mcg PO DAILY [facility] Stop: 07/25/20 08:59 Last Admin: 06/25/20 08:35 Dose: 1,000 mcg Documented by: Donepezil HCl (Donepezil Hcl 10 Mg Tab) 10 mg PO DAILY [facility] Stop: 07/25/20 08:59 Last Admin: 06/25/20 08:36 Dose: 10 mg Documented by: Ferrous Sulfate (Ferrous Sulfate 325 Mg Tab) 325 mg PO DAILY [facility] Stop: 07/25/20 08:59 Last Admin: 06/25/20 08:36 Dose: 325 mg Documented by: Finasteride (Finasteride 5 Mg Tab) 5 mg PO DAILY [facility] Stop: 07/25/20 08:59 Last Admin: 06/25/20 08:35 Dose: 5 mg Documented by: Gentamicin Sulfate (Gentamicin Sulfate 0.1% Cr 15 Gm Tube) 1 appln EXT TID [facility] Stop: 07/05/20 08:59 Last Admin: 06/25/20 21:21 Dose: 1 appln Documented by: Sodium Chloride (Nss 1000ml) 1,000 mls @ 80 mls/hr IV .[id number] [facility] Stop: 07/25/20 01:49 Last Admin: 06/26/20 02:30 Dose: 80 mls/hr Documented by: Isosorbide Mononitrate (Isosorbide [place] Extended Rel 60 Mg Tabcr) 120 mg PO DAILY [facility] Stop: 07/25/20 08:59 Last Admin: 06/25/20 08:36 Dose: 120 mg Documented by: Lorazepam (Lorazepam 0.5 Mg Tab) 0.5 mg PO UD PRN PRN Reason: Anxiety, prior to MRI Stop: 07/25/20 18:36 Magnesium Oxide (Magnesium Oxide 400 Mg Tab) 400 mg PO DAILY [facility] Stop: 07/25/20 08:59 Last Admin: 06/25/20 08:38 Dose: Not Given Documented by: Meclizine HCl (Meclizine Hcl 25 Mg Tab) 25 mg PO TID PRN PRN Reason: Dizziness Stop: 07/25/20 02:02 Metoprolol Succinate (Metoprolol Succ 50mg Ext Rel Tab) 50 mg PO DAILY [facility] Stop: 07/25/20 08:59 Last Admin: 06/25/20 08:37 Dose: 50 mg Documented by: Nitroglycerin (Nitroglycerin Sl 0.4 Mg/Tab Tab) 0.4 mg SL UD PRN PRN Reason: Chest Pain Stop: 07/25/20 01:49 Pantoprazole Sodium (Pantoprazole 40 Mg Tab) 40 mg PO DAILY [facility] Stop: 07/25/20 08:59 Last Admin: 06/25/20 08:36 Dose: 40 mg Documented by: Polyethylene Glycol (Polyethylene (Miralax) 17 Gm Pack) 17 gm PO DAILY PRN PRN Reason: Constipation Stop: 07/25/20 01:49 Prednisone (Prednisone 10 Mg Tablet) 10 mg PO DAILY [facility] Stop: 07/25/20 08:59 Last Admin: 06/25/20 08:37 Dose: 10 mg Documented by: Tolterodine Tartrate (Tolterodine Tartrate 2 Mg Tab) 2 mg PO BID [facility] Stop: 07/25/20 08:59 Last Admin: 06/25/20 21:21 Dose: 2 mg Documented by: Vitamin D (Cholecalciferol 1,000 Units 25 Mcg Tab) 1,000 units PO DAILY [facility] Stop: 07/25/20 08:59 Last Admin: 06/25/20 08:37 Dose: 1,000 units Documented by: Warfarin Sodium (Warfarin Sod 2 Mg Tab) 2 mg PO DAILY@1600 [facility] Stop: 07/25/20 15:59 Last Admin: 06/25/20 17:28 Dose: 2 mg Documented by: (1) Syncope Syncope type: unspecified Qualified Code(s): R55 - Syncope and collapse
[2020-06-26] MEDS: FERROUS SULFATE 325 MG TAB PO SCH (09:05)
[2020-06-26] MEDS: ATORVASTATIN 40 MG TAB PO SCH (09:05)
[2020-06-26] MEDS: DONEPEZIL HCL 10 MG TAB PO SCH (09:05)
[2020-06-26] MEDS: MAGNESIUM OXIDE 400 MG TAB PO SCH (09:05)
[2020-06-26] MEDS: predniSONE 10 MG TABLET PO SCH (09:05)
[2020-06-26] MEDS: ISOSORBIDE MONO EXTENDED REL 60 MG TABCR PO SCH (09:05)
[2020-06-26] MEDS: CYANOCOBALAMIN 500 MCG TABLET (VITAMIN B-12) PO SCH (09:05)
[2020-06-26] MEDS: FINASTERIDE 5 MG TAB PO SCH (09:05)
[2020-06-26] MEDS: TOLTERODINE TARTRATE 2 MG TAB PO SCH ×2 (09:06→20:33)
[2020-06-26] MEDS: ASCORBIC ACID 500 MG TAB PO SCH (09:06)
[2020-06-26] MEDS: GENTAMICIN SULFATE 0.1% CR 15 GM TUBE EXT SCH ×3 (09:06→20:33)
[2020-06-26] MEDS: METOPROLOL SUCC 50MG EXT REL TAB PO SCH (09:06)
[2020-06-26] MEDS: CHOLECALCIFEROL 1,000 UNITS 25 MCG TAB PO SCH (09:06)
[2020-06-26] MEDS: ASPIRIN 81 MG ECTAB PO SCH (09:06)
[2020-06-26] MEDS: PANTOprazole 40 MG TAB PO SCH (09:07)
--- NOTE | 2020-06-26 11:08 | Magnetic Resonance Report ---
MRI OF THE BRAIN WITHOUT IV CONTRAST CLINICAL HISTORY: Strokelike symptoms. COMPARISON STUDY: CT of the brain dated 06/24/2020. TECHNIQUE: MRI of the brain was performed utilizing various T1 and T2-weighted sequences in the axial , sagittal, and coronal planes. IV contrast was not administered for this examination. The examinatio n is compromised by motion artifact. FINDINGS: Brain parenchyma: There is age-related involutional change noting mild subcortical and periventricula r microangiopathic disease. There is no hemorrhage or mass effect. There is no restricted diffusion t o suggest acute ischemia. A small chronic lacunar infarct is noted in the right cerebellar hemisphere . [place]-white matter differentiation is preserved. No extra-axial fluid collection is seen. The cerebe llar tonsils are normal in configuration. Ventricles, sulci, and cisterns: Prominent secondary to involutional change. Pituitary and sella: Unremarkable. Intracranial vasculature: Normal flow voids are maintained at the skull base. Orbits: The bony orbits are grossly intact. Orbital contents are normal in appearance noting bilatera l ocular lens implants. Sinuses and mastoids: There are small mastoid effusions. The paranasal sinuses are clear. Calvarium: Unremarkable. Cervical cord: Partially visualized cervical spinal cord is normal in morphology and signal intensity . IMPRESSION: No acute intracranial abnormality is identified noting a motion degraded examination. ACT 112: Negative or not required by law. Electronically signed by: Mendoza Montgomery M.D. 06/26/2020 11:07 AM
--- NOTE | 2020-06-26 11:21 | Electrocardiogram Report ---
Test Reason : Blood Pressure : / mmHG Vent. Rate : 075 BPM Atrial Rate : 075 BPM P-R Int : 150 ms QRS Dur : 090 ms QT Int : 452 ms P-R-T Axes : 057 001 054 degrees QTc Int : 504 ms Normal sinus rhythm Possible Anterior infarct (cited on or before 04-APR-2019) Prolonged QT Abnormal ECG When compared with ECG of 24-JUN-2020 21:11, T wave inversion no longer evident in Anterior leads Confirmed by Bart Perera ([id number]) on 06/26/2020 11:20:48 AM Referred By: REFERRED SELF Confirmed By:Bart Perera
[2020-06-26] MEDS: LIDOCAINE 5% 1 PATCH TD SCH (13:33)
--- NOTE | 2020-06-26 14:29 | Cardiology Progress Note ---
Date of Service June 26, 2020 Assessment & Plan (1) Weakness: (2) CAD (coronary artery disease): (3) Elevated troponin: Per discussion with patient's son, Uche, by phone yesterday, it sounds as if the patient's recent mental status is not far from his baseline. Resents with generalized weakness, falls, which I would characterize as being due to generalized weakness rather than loss of postural tone related to syncope. CPK was elevated and is trending down, mildly elevated. EKG performed this morning 06/26/2020 reviewed independently reveals sinus rhythm at 75 bpm, poor R wave progression in anterior precordial leads, unchanged compared to previous, prolonged QT noted, QT somewhat difficult to interpret due to the patient's long broad T wave. Continue ongoing therapy for his coronary heart disease. Increase activity as tolerated, physical therapy to assist in balance. Continue Coumadin for left ventricular apical mural thrombus. Discontinue IV fluids. Consider furosemide tomorrow, perhaps 40 mg daily as compared to 40 mg twice daily. Admission and Anticipated Discharge Date Admission Date: June 25, 2020 Subjective Patient seen in cardiology follow-up of chief complaint of recent falls, generalized weakness, elevation in troponin I. MRI of the brain performed today, although the report describes that the study was somewhat technically limited due to motion artifact, no acute intracranial abnormality was noted. The tree reveals sinus rhythm in the 70 to 80 bpm range. Patient's mental status is similar to yesterday, with inability to describe to me the events that led to his hospital stay, and he has no acute complaints. Review of Systems Review of Systems: Unobtainable due to cognitive status Physical Exam Physical Exam: Temp Pulse Resp BP Pulse Ox 36.4 C L 87 18 145/73 H 94 06/26/20 12:16 06/26/20 12:16 06/26/20 12:16 06/26/20 12:16 06/26/20 12:16 Constitutional: No acute distress Respiratory: normal respiratory effort, lungs clear to auscultation Cardiovascular: RRR, no murmur, no edema Skin: Mild swelling of the right upper extremity, with mild Neurologic: Cognitive impairment noted, follows commands, moves all 4 extremities Results & Data [facility]) Vital Signs (Past 12 Hours) Vital Signs Temp Pulse Resp BP Pulse Ox 06/26/20 12:16 36.4 C L 87 18 145/73 H 94 06/26/20 07:03 36.5 C 71 16 130/70 94 06/26/20 04:23 36.4 C L 79 16 147/73 H 94 Laboratory Results Cardiac Enzymes 06/25/20 Range/Units 16:46 Troponin I 0.190 H* (0-0.045) ng/ml Coagulation INR today 06/26/2020, 2.3 06/26/20 Range/Units 06:51 PT 23.5 H (9.0-12.0) Seconds CBC 06/26/20 Range/Units 06:51 WBC 5.67 (4.8-10.8) K/uL RBC 3.96 L (4.7-6.1) M/uL Hgb 13.4 L (14.0-18.0) g/dL Hct 40.0 L (42-52) % Plt Count 156 (130-400) K/uL Comprehensive Metabolic Panel 06/26/20 Range/Units 06:51 Sodium 142 (136-145) mmol/L Potassium 3.9 (3.5-5.1) mmol/L Chloride 105 (98-107) mmol/L Carbon Dioxide 29 (21-32) mmol/L BUN 21 H (7-18) mg/dl Creatinine 1.21 (0.6-1.4) mg/dl Glucose 98 (70-99) mg/dl Calcium 8.7 (8.5-10.1) mg/dl Intake and Output 06/25/20 06/26/20 06/26/20 22:59 06:59 14:59 Intake Total 200 / 2296 1200 / 2296 Output Total 901 / 2301 1250 / 2301 Balance -701 / -5 -50 / -5 Intake: IV 1000 / 1896 Nss 1000ML 1,000 ml @ 80 mls/hr 1000 / 1896 IV .[id number] [facility] Rx#:[id number] Oral 200 / 400 200 / 400 Output: Urine 450 / 600 Urine Amount (Catheter) 450 / 1700 1250 / 1700 John/Indwelling 450 / 1700 1250 / 1700 # Bowel Movements Other: Weight 105.4 kg
[2020-06-26] MEDS: WARFARIN SOD 2 MG TAB PO SCH (17:00)
[2020-06-27 08:04] LABS: INR 2.6 (0.9-1.1); Prothrombin Time 26.2 Seconds (9.0-12.0)
[2020-06-27] MEDS: FUROSEMIDE 40 MG TAB PO SCH (08:35)
[2020-06-27] MEDS: TOLTERODINE TARTRATE 2 MG TAB PO SCH ×2 (08:36→20:17)
[2020-06-27] MEDS: SPIRONOLACTONE 25 MG TAB PO SCH (08:36)
[2020-06-27] MEDS: ASPIRIN 81 MG ECTAB PO SCH (08:36)
[2020-06-27] MEDS: ASCORBIC ACID 500 MG TAB PO SCH (08:37)
[2020-06-27] MEDS: predniSONE 10 MG TABLET PO SCH (08:37)
[2020-06-27] MEDS: DONEPEZIL HCL 10 MG TAB PO SCH (08:37)
[2020-06-27] MEDS: FINASTERIDE 5 MG TAB PO SCH (08:39)
[2020-06-27] MEDS: MAGNESIUM OXIDE 400 MG TAB PO SCH (08:39)
[2020-06-27] MEDS: PANTOprazole 40 MG TAB PO SCH (08:39)
[2020-06-27] MEDS: CYANOCOBALAMIN 500 MCG TABLET (VITAMIN B-12) PO SCH (08:40)
[2020-06-27] MEDS: ISOSORBIDE MONO EXTENDED REL 60 MG TABCR PO SCH (08:40)
[2020-06-27 08:41] LABS: Hematocrit (blood only) 40.4 % (42-52); Hemoglobin 13.3 g/dL (14.0-18.0); Mean Corpuscular Hemoglobin 33.8 pg (25-34); Mean Corpuscular Volume 102.5 fL (80-100); Mean Platelet Volume 9.3 fL (7.4-10.4); Platelet Count 159 K/uL (130-400); RDW Coefficient of Variation 15.2 % (11.5-14.5); RDW Standard Deviation 57.5 fL (36.4-46.3); Red Blood Count 3.94 M/uL (4.7-6.1); White Blood Count 5.42 K/uL (4.8-10.8)
[2020-06-27] MEDS: FERROUS SULFATE 325 MG TAB PO SCH (08:41)
[2020-06-27] MEDS: ATORVASTATIN 40 MG TAB PO SCH (08:41)
[2020-06-27] MEDS: CHOLECALCIFEROL 1,000 UNITS 25 MCG TAB PO SCH (08:42)
[2020-06-27] MEDS: METOPROLOL SUCC 50MG EXT REL TAB PO SCH (08:42)
[2020-06-27] MEDS: GENTAMICIN SULFATE 0.1% CR 15 GM TUBE EXT SCH ×4 (08:42→20:17)
[2020-06-27 08:44] LABS: Mean Corpuscular Hgb Conc 32.9 g/dL (32-36)
[2020-06-27 08:59] LABS: BUN Creatinine Ratio 16.3 (10-20); Creatinine Clr Calc Pharmacy 57.2 ml/min; Est GFR (Non-African American) 52.6; Magnesium 2.4 mg/dl (1.8-2.4); Phosphorus 3.4 mg/dl (2.5-4.9); Potassium 3.8 mmol/L (3.5-5.1)
--- NOTE | 2020-06-27 11:30 | Electrocardiogram Report ---
Test Reason : Blood Pressure : / mmHG Vent. Rate : 075 BPM Atrial Rate : 075 BPM P-R Int : 118 ms QRS Dur : 092 ms QT Int : 428 ms P-R-T Axes : 020 029 036 degrees QTc Int : 477 ms probably Sinus rhythm with Premature supraventricular complexes Abnormal ECG When compared with ECG of 26-JUN-2020 06:48, Premature supraventricular complexes are now Present Nonspecific T wave abnormality, worse in Lateral leads Confirmed by Nino Tapia ([id number]) on 06/27/2020 11:29:53 AM Referred By: REFERRED SELF Confirmed By:Jaxson Tapia
--- NOTE | 2020-06-27 11:53 | Hospitalist Progress Note ---
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 1. Possible syncope vs Falls: Was found on the floor at home x2 Second time he was lying on the floor for some time. CPK was elevated to 1784. Blood cltx - obtained, NGTD CT head unremarkable MRI brain obtained - no new CVA, showed chronic small cerebellar infarct, age- related involutional changes, exam was degraded by motion artifact Troponin mildly at elevated at 0.44 on admission. EKG, some mild T-wave inversion in the anterior leads. Currently asymptomatic. Will cont. to monitor in the tele floor. Serial enzymes/troponin obtained- mildly elevated - trended down. Echo obtained - reveals preserved LVEF, with left ventricular apical wall motion abnormality unchanged compared to prior and noted residual left ventricular apical mural thrombus, which had initially been noted on outpatient echo 03/29/2020. repeat EKG - sinus rhythm at 75 bpm, poor R wave progression in anterior precordial leads, unchanged compared to previous, prolonged QT noted, QT somewhat difficult to interpret due to the patient's long broad T wave. Cardiology consulted for further recommendation, appreciate their input Cont. warfarin for ventricular apical thrombus. Stopped IVF. Resumed lasix at 40 mg daily and home spironolactone. PT and OT - ordered, recommend SNF/ rehab 2. Acute kidney injury on chronic kidney injury: Baseline creatinine around 1.4, on admission with creatinine of 1.7. Recently Lasix was increased to 40 b.i.d. Initially held his diuretics, Lasix and spironolactone, and placed on gentle fluids d/t CPK elev. Cr now down/ improved. Stopped IVF to prevent fluid overload. Mild crackles noted on lung exam. Resume lasix at lower dose 40 mg daily, and spironolactone (06/27) 3. Mild rhabdomyolysis, CK of 1784. On admission received gentle fluids and held the diuretics. Now IVF stopped, as above. 4. Chronic diastolic congestive heart failure: His Lasix was increased to 40 b.i.d. the last several weeks, but swelling of lower extremities reportedly not improved. CXR on admission unremarkable. Satting on RA in 90s%. Lasix on hold on admission and getting gentle fluids. monitor for any volume overload. Continue his Toprol-XL and his Imdur. IVF now stopped (as above) RUE edema - per pt and son chronic of several weeks - diuretics as outpt seemed to help in the past. Elevate RUE, closely monitor. Now much improved. 5. History of CAD s/p coronary artery bypass graft, status post cardiac stent. Continue his aspirin, statin, beta sarah, and nitrites. Obtained echocardiogram, results above. 6. 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 INR therapeutic. Follow PT/INR. Cont. warfarin. 7. History of BPH, on finasteride. 8. History of mild Alzheimer dementia, on Aricept. Monitor for any delirium. 9. Hyperlipidemia, on statin. 10. History of psoriasis and psoriatic arthropathy, on chronic prednisone. DVT prophylaxis, on Coumadin. INR therapeutic. Admission and Anticipated Discharge Date Admission Date: June 25, 2020 Subjective Patient seen in follow-up of generalized weakness, falls, elev. CPK. Pt currently sitting up in bed in [facility]. Cont. to be very weak per PT eval. Pt currently denies any complaints. Denies chest pain, shortness of breath, dizziness. Has not been out of bed much. Has pain at posterior shoulder from previous fall. Telemetry reviewed - sinus rhythm in the 70s Review of Systems Review of Systems: All systems reviewed & are unremarkable except as noted in HPI & below Constitutional: + weakness (generalized); no fever and no chills Respiratory: no cough and no dyspnea Cardiovascular: no chest pain and no palpitations Gastrointestinal: no abdominal pain, no nausea and no vomiting Physical Exam Physical Exam: GENERAL: elderly, frail male sitting up in bed, in NAD HEENT: NC/AT. EOMI, PERRL. Oral mucosa moist. NECK: No neck masses. No JVD. CARDIOVASCULAR: S1, S2 heard, regular rate and rhythm. No murmur, no gallop. RESPIRATORY SYSTEM: Normal AP diameter. No accessory muscle use. No wheezing, + mild diffuse crackles. ABDOMEN: Soft, bowel sounds present. Nontender. No distention. NEURO: alert and awake, however does not answer all questions correctly, somewhat confused. Speech fluent. Obeys simple commands. Moves extremities. No sensory loss noted. No focal deficit noted. negative stripper intact. EXTREMITIES: Bilateral lower extremity pedal edema, +1 present. RUE edema +1-2 Results & Data Results & Data ([facility]) Vital Signs (Past 12 Hours) Vital Signs Temp Pulse Pulse Resp BP Pulse Ox 06/27/20 08:12 36.5 C 84 18 123/70 90 06/27/20 08:00 79 06/27/20 00:12 36.5 C 75 16 134/75 95 Laboratory Results 06/27/20 06/27/20 06/27/20 Range/Units 08:19 08:19 07:21 WBC 5.42 RBC 3.94 L Hgb 13.3 L Hct 40.4 L MCV 102.5 H MCH 33.8 MCHC 32.9 RDW Std Deviation 57.5 H RDW Coeff of Lester 15.2 H Plt Count 159 MPV 9.3 Absolute Nucleated RBC Nucleated RBC % (auto) Platelet Estimate PT (9.0-12.0) Seconds INR (0.9-1.1) Sodium 141 Cancelled Potassium 3.8 Cancelled Chloride 107 Cancelled Carbon Dioxide 29 Cancelled Anion Gap 5.0 Cancelled BUN 21 H Cancelled Creatinine 1.27 Cancelled Est Cr Clr Drug Dosing 57.2 Cancelled Est GFR ( Amer) 61.0 Cancelled Est GFR (Non-Af Amer) 52.6 Cancelled BUN/Creatinine Ratio 16.3 Cancelled Glucose 141 H Cancelled Calcium 9.0 Cancelled Phosphorus 3.4 Cancelled Magnesium 2.4 Cancelled 06/27/20 06/27/20 Range/Units 07:21 07:21 WBC Cancelled RBC Cancelled Hgb Cancelled Hct Cancelled MCV Cancelled MCH Cancelled MCHC Cancelled RDW Std Deviation Cancelled RDW Coeff of Lester Cancelled Plt Count Cancelled MPV Cancelled Absolute Nucleated RBC Cancelled Nucleated RBC % (auto) Cancelled Platelet Estimate Cancelled PT 26.2 H (9.0-12.0) Seconds INR 2.6 H (0.9-1.1) Sodium Potassium Chloride Carbon Dioxide Anion Gap BUN Creatinine Est Cr Clr Drug Dosing Est GFR ( Amer) Est GFR (Non-Af Amer) BUN/Creatinine Ratio Glucose Calcium Phosphorus Magnesium Medications Administered Current Inpatient Medications Acetaminophen (Acetaminophen 325 Mg Tab) 650 mg PO Q4H PRN PRN Reason: Pain or Fever Stop: 07/25/20 01:49 Last Admin: 06/25/20 23:36 Dose: 650 mg Documented by: Ascorbic Acid (Ascorbic Acid 500 Mg Tab) 250 mg PO DAILY [facility] Stop: 07/25/20 08:59 Last Admin: 06/27/20 08:37 Dose: 250 mg Documented by: Aspirin (Aspirin 81 Mg Ectab) 81 mg PO DAILY [facility] Stop: 07/25/20 08:59 Last Admin: 06/27/20 08:36 Dose: 81 mg Documented by: Atorvastatin Calcium (Atorvastatin 40 Mg Tab) 80 mg PO DAILY [facility] Stop: 07/25/20 08:59 Last Admin: 06/27/20 08:41 Dose: 80 mg Documented by: Cyanocobalamin (Cyanocobalamin 500 Mcg Tablet (Vitamin B-12)) 1,000 mcg PO DAILY [facility] Stop: 07/25/20 08:59 Last Admin: 06/27/20 08:40 Dose: 1,000 mcg Documented by: Donepezil HCl (Donepezil Hcl 10 Mg Tab) 10 mg PO DAILY [facility] Stop: 07/25/20 08:59 Last Admin: 06/27/20 08:37 Dose: 10 mg Documented by: Ferrous Sulfate (Ferrous Sulfate 325 Mg Tab) 325 mg PO DAILY [facility] Stop: 07/25/20 08:59 Last Admin: 06/27/20 08:41 Dose: 325 mg Documented by: Finasteride (Finasteride 5 Mg Tab) 5 mg PO DAILY [facility] Stop: 07/25/20 08:59 Last Admin: 06/27/20 08:39 Dose: 5 mg Documented by: Furosemide (Furosemide 40 Mg Tab) 40 mg PO QAM [facility] Stop: 07/27/20 08:59 Last Admin: 06/27/20 08:35 Dose: 40 mg Documented by: Gentamicin Sulfate (Gentamicin Sulfate 0.1% Cr 15 Gm Tube) 1 appln EXT TID [facility] Stop: 07/05/20 08:59 Last Admin: 06/27/20 08:42 Dose: 1 appln Documented by: Isosorbide Mononitrate (Isosorbide [place] Extended Rel 60 Mg Tabcr) 120 mg PO DAILY [facility] Stop: 07/25/20 08:59 Last Admin: 06/27/20 08:40 Dose: 120 mg Documented by: Lidocaine (Lidocaine 5% 1 Patch) 1 patch TD QAM [facility] Stop: 07/26/20 12:59 Last Admin: 06/26/20 13:33 Dose: 1 patch Documented by: Lorazepam (Lorazepam 0.5 Mg Tab) 0.5 mg PO UD PRN PRN Reason: Anxiety, prior to MRI Stop: 07/25/20 18:36 Last Admin: 06/26/20 09:04 Dose: 0.5 mg Documented by: Magnesium Oxide (Magnesium Oxide 400 Mg Tab) 400 mg PO DAILY [facility] Stop: 07/25/20 08:59 Last Admin: 06/27/20 08:39 Dose: 400 mg Documented by: Meclizine HCl (Meclizine Hcl 25 Mg Tab) 25 mg PO TID PRN PRN Reason: Dizziness Stop: 07/25/20 02:02 Metoprolol Succinate (Metoprolol Succ 50mg Ext Rel Tab) 50 mg PO DAILY [facility] Stop: 07/25/20 08:59 Last Admin: 06/27/20 08:42 Dose: 50 mg Documented by: Miscellaneous (Remove Lidoderm Patch) 1 ea N/A DAILY@2100 [facility] Stop: 07/26/20 20:59 Last Admin: 06/26/20 20:34 Dose: 1 ea Documented by: Nitroglycerin (Nitroglycerin Sl 0.4 Mg/Tab Tab) 0.4 mg SL UD PRN PRN Reason: Chest Pain Stop: 07/25/20 01:49 Pantoprazole Sodium (Pantoprazole 40 Mg Tab) 40 mg PO DAILY [facility] Stop: 07/25/20 08:59 Last Admin: 06/27/20 08:39 Dose: 40 mg Documented by: Polyethylene Glycol (Polyethylene (Miralax) 17 Gm Pack) 17 gm PO DAILY PRN PRN Reason: Constipation Stop: 07/25/20 01:49 Prednisone (Prednisone 10 Mg Tablet) 10 mg PO DAILY [facility] Stop: 07/25/20 08:59 Last Admin: 06/27/20 08:37 Dose: 10 mg Documented by: Spironolactone (Spironolactone 25 Mg Tab) 25 mg PO QAM [facility] Stop: 07/27/20 08:59 Last Admin: 06/27/20 08:36 Dose: 25 mg Documented by: Tolterodine Tartrate (Tolterodine Tartrate 2 Mg Tab) 2 mg PO BID [facility] Stop: 07/25/20 08:59 Last Admin: 06/27/20 08:36 Dose: 2 mg Documented by: Vitamin D (Cholecalciferol 1,000 Units 25 Mcg Tab) 1,000 units PO DAILY [facility] Stop: 07/25/20 08:59 Last Admin: 06/27/20 08:42 Dose: 1,000 units Documented by: Warfarin Sodium (Warfarin Sod 2 Mg Tab) 2 mg PO DAILY@1600 [facility] Stop: 07/25/20 15:59 Last Admin: 06/26/20 17:00 Dose: 2 mg Documented by: (1) Syncope Syncope type: unspecified Qualified Code(s): R55 - Syncope and collapse
[2020-06-27] MEDS: LIDOCAINE 5% 1 PATCH TD SCH (12:30)
[2020-06-27] MEDS: WARFARIN SOD 2 MG TAB PO SCH (15:58)
--- NOTE | 2020-06-27 16:58 | Cardiology Progress Note ---
Date of Service June 27, 2020 Assessment & Plan (1) CAD (coronary artery disease): (2) Elevated troponin: Minimal elevation in troponin in the setting of chronic coronary heart disease. Volume status has been difficult to manage as an outpatient, with tipping toward volume overload, and then 5 depletion with hypernatremia. At present, prior to hospital dose of furosemide 40 mg twice daily has been reduced to 40 mg daily. Spironolactone reinitiated. Continue physical therapy to get him stronger. History of focal apical wall motion abnormality (chronic finding) with left ventricular apical mural thrombus noted March 2020, still persistent on echocardiogram this admission, Coumadin with INR 2.6. Admission and Anticipated Discharge Date Admission Date: June 25, 2020 Subjective Patient seen in follow-up of generalized weakness, falls. Telemetry reveals sinus rhythm in the 70s, John catheter in place. Physical Exam Physical Exam: Temp Pulse Resp BP Pulse Ox 36.6 C 82 19 138/73 92 06/27/20 15:11 06/27/20 15:11 06/27/20 15:11 06/27/20 15:11 06/27/20 15:11 Constitutional: No acute distress Respiratory: normal respiratory effort, lungs clear to auscultation Cardiovascular: Rate/Rhythm: regular rate Heart Sounds: no murmur Vessels: no JVD Skin: Subcutaneous ecchymosis noted on the forearms, unchanged Neurologic: Cognitive impairment, but follows commands, no focal deficits Results & Data ([facility]) Vital Signs (Past 12 Hours) Vital Signs Temp Pulse Pulse Resp BP Pulse Ox 06/27/20 15:11 36.6 C 82 19 138/73 92 06/27/20 12:02 36.6 C 71 18 128/70 94 06/27/20 08:12 36.5 C 84 18 123/70 90 06/27/20 08:00 79
[2020-06-27] MEDS ORDERED: HEPARIN SODIUM/DEXTROSE 25,000 UNITS/500 ML BAG IV SCH (23:45)
[2020-06-27] MEDS ORDERED: Heparin IV Low Dose *NO* Bolus IV SCH (23:52)
[2020-06-28 00:41] LABS: Partial Thromboplastin Ratio 1.5; Partial Thromboplastin Time 42.1 Seconds (21.0-31.0)
--- NOTE | 2020-06-28 06:57 | Ultrasound Report ---
US venous doppler UE RT CLINICAL HISTORY: Right upper extremity swelling. COMPARISON STUDY: No previous studies for comparison. FINDINGS: THE RIGHT INTERNAL JUGULAR VEIN APPEARED PATENT. THERE IS A RIGHT SUBCLAVIAN VEIN DVT. THE CEPHALIC, AXILLARY, BRACHIAL, BASILIC, RADIAL AND ULNAR VEINS APPEARED PATENT. IMPRESSION: 1. Occlusive right subclavian vein DVT. ACT 112: Negative or not required by law. Electronically signed by: Joshua Zendejas M.D. 06/28/2020 6:56 AM
[2020-06-28 07:52] LABS: Hemoglobin 12.4 g/dL (14.0-18.0); Mean Corpuscular Hemoglobin 33.9 pg (25-34); Mean Corpuscular Hgb Conc 33.5 g/dL (32-36); Mean Corpuscular Volume 101.1 fL (80-100); Mean Platelet Volume 9.6 fL (7.4-10.4); Platelet Count 152 K/uL (130-400); RDW Coefficient of Variation 15.2 % (11.5-14.5); RDW Standard Deviation 56.2 fL (36.4-46.3); Red Blood Count 3.66 M/uL (4.7-6.1); White Blood Count 4.43 K/uL (4.8-10.8)
[2020-06-28] MEDS: ISOSORBIDE MONO EXTENDED REL 60 MG TABCR PO SCH (07:53)
[2020-06-28] MEDS: FERROUS SULFATE 325 MG TAB PO SCH (07:53)
[2020-06-28] MEDS: ATORVASTATIN 40 MG TAB PO SCH (07:54)
[2020-06-28] MEDS: TOLTERODINE TARTRATE 2 MG TAB PO SCH ×2 (07:54→20:32)
[2020-06-28] MEDS: ASPIRIN 81 MG ECTAB PO SCH (07:55)
[2020-06-28] MEDS: FUROSEMIDE 40 MG TAB PO SCH (07:56)
[2020-06-28] MEDS: MAGNESIUM OXIDE 400 MG TAB PO SCH (08:00)
[2020-06-28] MEDS: SPIRONOLACTONE 25 MG TAB PO SCH (08:00)
[2020-06-28] MEDS: predniSONE 10 MG TABLET PO SCH (08:00)
[2020-06-28] MEDS: DONEPEZIL HCL 10 MG TAB PO SCH (08:00)
[2020-06-28] MEDS: FINASTERIDE 5 MG TAB PO SCH (08:01)
[2020-06-28] MEDS: LIDOCAINE 5% 1 PATCH TD SCH (08:01)
[2020-06-28] MEDS: GENTAMICIN SULFATE 0.1% CR 15 GM TUBE EXT SCH ×3 (08:01→20:32)
[2020-06-28] MEDS: CHOLECALCIFEROL 1,000 UNITS 25 MCG TAB PO SCH (08:02)
[2020-06-28] MEDS: CYANOCOBALAMIN 500 MCG TABLET (VITAMIN B-12) PO SCH (08:03)
[2020-06-28] MEDS: ASCORBIC ACID 500 MG TAB PO SCH (08:03)
[2020-06-28] MEDS: PANTOprazole 40 MG TAB PO SCH (08:04)
[2020-06-28] MEDS: METOPROLOL SUCC 50MG EXT REL TAB PO SCH (08:04)
[2020-06-28 08:14] LABS: Partial Thromboplastin Ratio 2.9; Prothrombin Time 29.8 Seconds (9.0-12.0)
[2020-06-28 08:16] LABS: Partial Thromboplastin Time 81.8 Seconds (21.0-31.0)
[2020-06-28 08:20] LABS: Calcium 8.6 mg/dl (8.5-10.1); Creatinine Clr Calc Pharmacy 62.9 ml/min; Est GFR (African American) 70.3; Est GFR (Non-African American) 60.6; Magnesium 2.2 mg/dl (1.8-2.4); Phosphorus 3.4 mg/dl (2.5-4.9); Potassium 3.7 mmol/L (3.5-5.1)
--- NOTE | 2020-06-28 09:26 | Hospitalist Progress Note ---
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 1. Possible syncope vs Falls: Was found on the floor at home x2 Second time he was lying on the floor for some time. CPK was elevated to 1784. Blood cltx - obtained, NGTD CT head unremarkable MRI brain obtained - no new CVA, showed chronic small cerebellar infarct, age- related involutional changes, exam was degraded by motion artifact Troponin mildly at elevated at 0.44 on admission. EKG, some mild T-wave inversion in the anterior leads. Currently asymptomatic. Will cont. to monitor in the tele floor. Serial enzymes/troponin obtained- mildly elevated - trended down. Echo obtained - reveals preserved LVEF, with left ventricular apical wall motion abnormality unchanged compared to prior and noted residual left ventricular apical mural thrombus, which had initially been noted on outpatient echo 03/29/2020. repeat EKG - sinus rhythm at 75 bpm, poor R wave progression in anterior precordial leads, unchanged compared to previous, prolonged QT noted, QT somewhat difficult to interpret due to the patient's long broad T wave. Cardiology consulted for further recommendation, appreciate their input Cont. warfarin for ventricular apical thrombus. Stopped IVF. Resumed lasix at 40 mg daily and home spironolactone. PT and OT - ordered, recommend SNF/ rehab Occlusive subclavian DVT - pt has hx of fall and RUE pain and edema - edema on and off for several weeks and followed by outpt providers - Doppler obtained overnight d/t recurrent edema and discomfort, occlusive subclavian DVT found despite pt on warfarin and INR therapeutic - pt on warfarin d/t hx of mural thrombus - pt started on IV heparin overnight - monitor H&H, obtain FOBT - Discussed w/ Dr. Sandoval - recommend to switch to lovenox - therap. dose 100 mg BID - recommend outpt work-up for underlying malignancy 2. Acute kidney injury on chronic kidney injury stage III: Baseline creatinine around 1.4, on admission with creatinine of 1.7. Recently Lasix was increased to 40 b.i.d. Initially held his diuretics, Lasix and spironolactone, and placed on gentle fluids d/t CPK elev. Cr now down/ improved. Stopped IVF to prevent fluid overload. Mild crackles noted on lung exam. Resume lasix at lower dose 40 mg daily, and spironolactone (06/27) 3. Mild rhabdomyolysis, CK of 1784. On admission received gentle fluids and held the diuretics. Now IVF stopped, as above. 4. Chronic diastolic congestive heart failure: His Lasix was increased to 40 b.i.d. the last several weeks, but swelling of lower extremities reportedly not improved. CXR on admission unremarkable. Satting on RA 98%. Lasix on hold on admission and getting gentle fluids. monitor for any volume overload. Continue his Toprol-XL and his Imdur. IVF now stopped (as above) 5. History of CAD s/p coronary artery bypass graft, status post cardiac stent. Continue his aspirin, statin, beta sarah, and nitrites. Obtained echocardiogram, results above. 6. 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 INR therapeutic. Follow PT/INR. Cont. warfarin. 7. History of BPH, on finasteride. 8. History of mild Alzheimer dementia, on Aricept. Monitor for any delirium. 9. Hyperlipidemia, on statin. 10. History of psoriasis and psoriatic arthropathy, on chronic prednisone. DVT prophylaxis, on Coumadin. INR therapeutic. Plan to switch to therap. lovenox Admission and Anticipated Discharge Date Admission Date: June 25, 2020 Subjective Patient seen in follow-up of generalized weakness, falls, elev. CPK. Overnight Doppler of RUE obtained d/t recurrent swelling, occlusive subclavian DVT was found despite pt being on warfarin and INR therapeutic, he was started on IV heparin overnight. Discussed w/ Dr. Sandoval, long-term pt should be switched be switched to lovenox (100 BID) Repeat H&H at 2 pm. Pt currently sitting up in bed in NAD. No chest pain, or shortness of breath. Reports R arm pain. Review of Systems Review of Systems: All systems reviewed & are unremarkable except as noted in HPI & below Constitutional: no fever and no chills Respiratory: no cough and no dyspnea Cardiovascular: no chest pain and no palpitations Gastrointestinal: no abdominal pain, no nausea and no vomiting Physical Exam Physical Exam: GENERAL: elderly, frail male sitting up in bed, in NAD HEENT: NC/AT. EOMI, PERRL. Oral mucosa moist. NECK: No neck masses. No JVD. CARDIOVASCULAR: S1, S2 heard, regular rate and rhythm. No murmur, no gallop. RESPIRATORY SYSTEM: Normal AP diameter. No accessory muscle use. No wheezing, + mild diffuse crackles. ABDOMEN: Soft, bowel sounds present. Nontender. No distention. NEURO: alert and awake, however does not answer all questions correctly, somewhat confused. Speech fluent. Obeys simple commands. Moves extremities. No sensory loss noted. No focal deficit noted. chief service observer intact. EXTREMITIES: Bilateral lower extremity pedal edema, +1 present. RUE edema +1-2 Results & Data Results & Data ([facility]) Vital Signs (Past 12 Hours) Vital Signs Temp Pulse Resp BP Pulse Ox 06/28/20 08:08 36.9 C 73 18 132/69 98 06/28/20 04:58 36.3 C L 76 16 149/66 H 91 06/27/20 23:41 36.6 C 66 16 110/60 93 Laboratory Results 06/28/20 06/28/20 06/28/20 Range/Units 07:43 07:43 07:43 WBC 4.43 L (4.8-10.8) K/uL RBC 3.66 L (4.7-6.1) M/uL Hgb 12.4 L (14.0-18.0) g/dL Hct 37.0 L (42-52) % MCV 101.1 H (80-100) fL MCH 33.9 (25-34) pg MCHC 33.5 (32-36) g/dL RDW Std Deviation 56.2 H (36.4-46.3) fL RDW Coeff of Lester 15.2 H (11.5-14.5) % Plt Count 152 (130-400) K/uL MPV 9.6 (7.4-10.4) fL PT 29.8 H (9.0-12.0) Seconds INR 3.0 H (0.9-1.1) APTT 81.8 H* (21.0-31.0) Seconds PTT Ratio 2.9 Sodium 140 (136-145) mmol/L Potassium 3.7 (3.5-5.1) mmol/L Chloride 106 (98-107) mmol/L Carbon Dioxide 28 (21-32) mmol/L Anion Gap 6.0 (3-11) BUN 23 H (7-18) mg/dl Creatinine 1.13 (0.6-1.4) mg/dl Est Cr Clr Drug Dosing 62.9 ml/min Est GFR ( Amer) 70.3 Est GFR (Non-Af Amer) 60.6 BUN/Creatinine Ratio 20.0 (10-20) Glucose 95 (70-99) mg/dl Calcium 8.6 (8.5-10.1) mg/dl Phosphorus 3.4 (2.5-4.9) mg/dl Magnesium 2.2 (1.8-2.4) mg/dl 06/28/20 Range/Units 00:23 WBC (4.8-10.8) K/uL RBC (4.7-6.1) M/uL Hgb (14.0-18.0) g/dL Hct (42-52) % MCV (80-100) fL MCH (25-34) pg MCHC (32-36) g/dL RDW Std Deviation (36.4-46.3) fL RDW Coeff of Lester (11.5-14.5) % Plt Count (130-400) K/uL MPV (7.4-10.4) fL PT (9.0-12.0) Seconds INR (0.9-1.1) APTT 42.1 H (21.0-31.0) Seconds PTT Ratio 1.5 Sodium (136-145) mmol/L Potassium (3.5-5.1) mmol/L Chloride (98-107) mmol/L Carbon Dioxide (21-32) mmol/L Anion Gap (3-11) BUN (7-18) mg/dl Creatinine (0.6-1.4) mg/dl Est Cr Clr Drug Dosing ml/min Est GFR ( Amer) Est GFR (Non-Af Amer) BUN/Creatinine Ratio (10-20) Glucose (70-99) mg/dl Calcium (8.5-10.1) mg/dl Phosphorus (2.5-4.9) mg/dl Magnesium (1.8-2.4) mg/dl Medications Administered Current Inpatient Medications Acetaminophen (Acetaminophen 325 Mg Tab) 650 mg PO Q4H PRN PRN Reason: Pain or Fever Stop: 07/25/20 01:49 Last Admin: 06/25/20 23:36 Dose: 650 mg Documented by: Ascorbic Acid (Ascorbic Acid 500 Mg Tab) 250 mg PO DAILY [facility] Stop: 07/25/20 08:59 Last Admin: 06/28/20 08:03 Dose: 250 mg Documented by: Aspirin (Aspirin 81 Mg Ectab) 81 mg PO DAILY [facility] Stop: 07/25/20 08:59 Last Admin: 06/28/20 07:55 Dose: 81 mg Documented by: Atorvastatin Calcium (Atorvastatin 40 Mg Tab) 80 mg PO DAILY [facility] Stop: 07/25/20 08:59 Last Admin: 06/28/20 07:54 Dose: 80 mg Documented by: Cyanocobalamin (Cyanocobalamin 500 Mcg Tablet (Vitamin B-12)) 1,000 mcg PO DAILY [facility] Stop: 07/25/20 08:59 Last Admin: 06/28/20 08:03 Dose: 1,000 mcg Documented by: Donepezil HCl (Donepezil Hcl 10 Mg Tab) 10 mg PO DAILY [facility] Stop: 07/25/20 08:59 Last Admin: 06/28/20 08:00 Dose: 10 mg Documented by: Ferrous Sulfate (Ferrous Sulfate 325 Mg Tab) 325 mg PO DAILY [facility] Stop: 07/25/20 08:59 Last Admin: 06/28/20 07:53 Dose: 325 mg Documented by: Finasteride (Finasteride 5 Mg Tab) 5 mg PO DAILY [facility] Stop: 07/25/20 08:59 Last Admin: 06/28/20 08:01 Dose: 5 mg Documented by: Furosemide (Furosemide 40 Mg Tab) 40 mg PO QAM [facility] Stop: 07/27/20 08:59 Last Admin: 06/28/20 07:56 Dose: 40 mg Documented by: Gentamicin Sulfate (Gentamicin Sulfate 0.1% Cr 15 Gm Tube) 1 appln EXT TID [facility] Stop: 07/05/20 08:59 Last Admin: 06/28/20 08:01 Dose: 1 appln Documented by: Heparin Sodium/Dextrose (Heparin Sodium/Dextrose) 25,000 units in 500 mls @ 18 mls/hr IV .Q24H [facility]; Protocol Stop: 07/27/20 23:44 Last Titration: 06/28/20 08:22 Dose: 900 units/hr, 18 mls/hr Documented by: Isosorbide Mononitrate (Isosorbide [place] Extended Rel 60 Mg Tabcr) 120 mg PO DAILY [facility] Stop: 07/25/20 08:59 Last Admin: 06/28/20 07:53 Dose: 120 mg Documented by: Lidocaine (Lidocaine 5% 1 Patch) 1 patch TD QAM [facility] Stop: 07/26/20 12:59 Last Admin: 06/28/20 08:01 Dose: 1 patch Documented by: Lorazepam (Lorazepam 0.5 Mg Tab) 0.5 mg PO UD PRN PRN Reason: Anxiety, prior to MRI Stop: 07/25/20 18:36 Last Admin: 06/26/20 09:04 Dose: 0.5 mg Documented by: Magnesium Oxide (Magnesium Oxide 400 Mg Tab) 400 mg PO DAILY [facility] Stop: 07/25/20 08:59 Last Admin: 06/28/20 08:00 Dose: 400 mg Documented by: Meclizine HCl (Meclizine Hcl 25 Mg Tab) 25 mg PO TID PRN PRN Reason: Dizziness Stop: 07/25/20 02:02 Metoprolol Succinate (Metoprolol Succ 50mg Ext Rel Tab) 50 mg PO DAILY [facility] Stop: 07/25/20 08:59 Last Admin: 06/28/20 08:04 Dose: 50 mg Documented by: Miscellaneous (Remove Lidoderm Patch) 1 ea N/A DAILY@2100 [facility] Stop: 07/26/20 20:59 Last Admin: 06/27/20 20:20 Dose: 1 ea Documented by: Nitroglycerin (Nitroglycerin Sl 0.4 Mg/Tab Tab) 0.4 mg SL UD PRN PRN Reason: Chest Pain Stop: 07/25/20 01:49 Pantoprazole Sodium (Pantoprazole 40 Mg Tab) 40 mg PO DAILY [facility] Stop: 07/25/20 08:59 Last Admin: 06/28/20 08:04 Dose: 40 mg Documented by: Polyethylene Glycol (Polyethylene (Miralax) 17 Gm Pack) 17 gm PO DAILY PRN PRN Reason: Constipation Stop: 07/25/20 01:49 Prednisone (Prednisone 10 Mg Tablet) 10 mg PO DAILY [facility] Stop: 07/25/20 08:59 Last Admin: 06/28/20 08:00 Dose: 10 mg Documented by: Spironolactone (Spironolactone 25 Mg Tab) 25 mg PO QAM [facility] Stop: 07/27/20 08:59 Last Admin: 06/28/20 08:00 Dose: 25 mg Documented by: Tolterodine Tartrate (Tolterodine Tartrate 2 Mg Tab) 2 mg PO BID [facility] Stop: 07/25/20 08:59 Last Admin: 06/28/20 07:54 Dose: 2 mg Documented by: Vitamin D (Cholecalciferol 1,000 Units 25 Mcg Tab) 1,000 units PO DAILY [facility] Stop: 07/25/20 08:59 Last Admin: 06/28/20 08:02 Dose: 1,000 units Documented by: Warfarin Sodium (Warfarin Sod 2 Mg Tab) 2 mg PO DAILY@1600 [facility] Stop: 07/25/20 15:59 Last Admin: 06/27/20 15:58 Dose: 2 mg Documented by: (1) Syncope Syncope type: unspecified Qualified Code(s): R55 - Syncope and collapse
[2020-06-28 14:34] LABS: Hematocrit (blood only) 38.1 % (42-52); Hemoglobin 12.7 g/dL (14.0-18.0)
[2020-06-28 15:01] LABS: Partial Thromboplastin Ratio 1.8
--- NOTE | 2020-06-28 15:27 | Cardiology Progress Note ---
Date of Service June 28, 2020 Assessment & Plan (1) CAD (coronary artery disease): (2) Left ventricular apical thrombus: For ventricular apical mural thrombus, right subclavian vein despite long-term therapeutic anticoagulation with Coumadin. No clear mechanical substrate for right upper extremity DVT. Treatment with low molecular weight heparin is certainly not ideal, however indicated. No clear evidence that an oral direct oral anticoagulant would be effective in this case. Pt likely needs a higher level care at discharge. Admission and Anticipated Discharge Date Admission Date: June 25, 2020 Subjective Patient seen in follow-up of generalized weakness, with his history of heart disease, LV apical mural thrombus, recent right upper extremity swelling. He has been found to have a of the subclavian vein spite therapeutic was started in March. Review of Systems Review of Systems: All systems reviewed & are unremarkable except as noted in HPI & below Physical Exam Physical Exam: Temp Pulse Resp BP Pulse Ox 36.8 C 66 18 140/60 95 06/28/20 11:51 06/28/20 11:51 06/28/20 11:51 06/28/20 11:51 06/28/20 11:51 Constitutional: Parents without acute distress Respiratory: normal respiratory effort, lungs clear to auscultation Cardiovascular: RRR, no murmur, no edema Neurologic: Moves all 4 extremities, cognitive impairment consistent with his chronic dementia. Results & Data ([facility]) Vital Signs (Past 12 Hours) Vital Signs Temp Pulse Resp BP Pulse Ox 06/28/20 11:51 36.8 C 66 18 140/60 95 06/28/20 08:08 36.9 C 73 18 132/69 98 06/28/20 04:58 36.3 C L 76 16 149/66 H 91
[2020-06-28 15:33] LABS: Partial Thromboplastin Time 51.6 Seconds (21.0-31.0)
[2020-06-28] MEDS: ENOXAPARIN 100 MG/1ML SYR SQ SCH (20:31)
[2020-06-28] MEDS: ACETAMINOPHEN 325 MG TAB PO PRN (22:00)
[2020-06-29 06:31] LABS: Hematocrit (blood only) 37.4 % (42-52); Hemoglobin 12.6 g/dL (14.0-18.0); Mean Corpuscular Hemoglobin 33.9 pg (25-34); Mean Corpuscular Hgb Conc 33.7 g/dL (32-36); Mean Corpuscular Volume 100.5 fL (80-100); Mean Platelet Volume 9.6 fL (7.4-10.4); Nucleated RBC # (auto) 0.02 K/uL (0-0); Nucleated RBC % (auto) 0.4 %; Platelet Count 154 K/uL (130-400); RDW Coefficient of Variation 15.1 % (11.5-14.5); RDW Standard Deviation 55.1 fL (36.4-46.3); Red Blood Count 3.72 M/uL (4.7-6.1); White Blood Count 4.93 K/uL (4.8-10.8)
[2020-06-29 06:38] LABS: INR 2.8 (0.9-1.1); Prothrombin Time 28.4 Seconds (9.0-12.0)
[2020-06-29 06:57] LABS: BUN Creatinine Ratio 19.9 (10-20); Calcium 8.8 mg/dl (8.5-10.1); Est GFR (African American) 63.4; Est GFR (Non-African American) 54.7; Potassium 3.8 mmol/L (3.5-5.1)
[2020-06-29] MEDS: FERROUS SULFATE 325 MG TAB PO SCH (08:08)
[2020-06-29] MEDS: METOPROLOL SUCC 50MG EXT REL TAB PO SCH (08:08)
[2020-06-29] MEDS: CHOLECALCIFEROL 1,000 UNITS 25 MCG TAB PO SCH (08:08)
[2020-06-29] MEDS: ASPIRIN 81 MG ECTAB PO SCH (08:08)
[2020-06-29] MEDS: FINASTERIDE 5 MG TAB PO SCH (08:08)
[2020-06-29] MEDS: SPIRONOLACTONE 25 MG TAB PO SCH (08:08)
[2020-06-29] MEDS: CYANOCOBALAMIN 500 MCG TABLET (VITAMIN B-12) PO SCH (08:08)
[2020-06-29] MEDS: PANTOprazole 40 MG TAB PO SCH (08:08)
[2020-06-29] MEDS: TOLTERODINE TARTRATE 2 MG TAB PO SCH (08:08)
[2020-06-29] MEDS: MAGNESIUM OXIDE 400 MG TAB PO SCH (08:09)
[2020-06-29] MEDS: DONEPEZIL HCL 10 MG TAB PO SCH (08:09)
[2020-06-29] MEDS: ISOSORBIDE MONO EXTENDED REL 60 MG TABCR PO SCH (08:09)
[2020-06-29] MEDS: predniSONE 10 MG TABLET PO SCH (08:09)
[2020-06-29] MEDS: ASCORBIC ACID 500 MG TAB PO SCH (08:09)
[2020-06-29] MEDS: GENTAMICIN SULFATE 0.1% CR 15 GM TUBE EXT SCH ×2 (08:10→11:33)
[2020-06-29] MEDS: FUROSEMIDE 40 MG TAB PO SCH (08:10)
[2020-06-29] MEDS: ATORVASTATIN 40 MG TAB PO SCH (08:10)
[2020-06-29] MEDS: LIDOCAINE 5% 1 PATCH TD SCH (08:11)
[2020-06-29] MEDS: ENOXAPARIN 100 MG/1ML SYR SQ SCH (08:11)
--- NOTE | 2020-06-29 15:21 | Discharge Summary ---
Date of Service June 29, 2020 Admission HPI Per Admitting Provider This is an 80-year-old male with past medical history significant for hyperlipidemia, metabolic syndrome, CAD status post CABG and s/p stent, chronic diastolic CHF, recent diagnosis of apical mural thrombus, GERD, BPH, atopic dermatitis, restless legs syndrome, ankylosing vertebral hyperostosis, sensorineural hearing loss, Alzheimer disease, monoclonal gammopathy of unknown significance, psoriasis, psoriatic arthropathy Lives alone at home, was brought in because of fall. The patient is currently sleepy and arousable. When arose, could not remember why he is in the hospital, but patient currently denies any chest pain, no shortness of breath, no headache, no blurred visions, no earache, no cough, no fevers, no nausea, no vomiting, no abdominal pain. Normal bowel and bladder movements. Appetite is okay. Called the son and as per son the patient had fallen 2 times today. He has a walker at home, but does not use it. First time he was found on the floor when [employer] came to deliver food, found on the floor. Second time in the evening was found by the lady who helps him and second time he was somewhat longer time on the floor. He did not seem to have any loss of consciousness and the patient was brought to the hospital. In the ER, his imaging studies were okay. His creatinine was found to be 1.78 and troponin 0.44. Currently resting comfortably and hemodynamically stable. As per son, he has increasing lower extremity edema and weight gain and his Lasix was increased to 40 mg twice daily about a month ago, but it is not improving his swelling and also he was recently found to have blood clot in his heart and is on Coumadin. Admission Exam Per Admitting Provider PHYSICAL EXAMINATION: VITAL SIGNS: Temperature 37.2, pulse 73, respiratory rate 13, blood pressure 141/73, and oxygen 92% on room air. HEENT: Pupils equal, round, reactive to light. Oral mucosa moist. NECK: No neck masses. No JVD. CARDIOVASCULAR: S1, S2 heard, regular rate and rhythm. No murmur, no gallop. RESPIRATORY SYSTEM: Normal AP diameter. No accessory muscle use. No wheezing, no crackles. ABDOMEN: Soft, bowel sounds present. Nontender. No distention. CENTRAL NERVOUS SYSTEM: Patient is alert and awake. Obeys simple commands. Moves extremities. EXTREMITIES: Bilateral lower extremity pedal edema, +2 present. 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 Discharge Exam General: Awake and alert, did not appear to be in any distress HENT: NCAT, MMM, EOMI Eyes: PERRLA Neck: Supple, normal range of motion CVS: normal rate and rhythm Resp: b/l creased breath sounds Abdomen: Soft, distended nontender Extremities: No c/c/e Neuro: No gross focal deficits identified Skin: warm and dry MSK: normal ROM, no joint swelling/erythema jimenez catheter was in place with clear urine output Discharge Data Allergies Allergy/AdvReac Type Severity Reaction Status Date / Time No Known Allergies Allergy Verified 04/04/19 14:45 Consultations 06/25/20 01:50 Consult Case Management - Discharge Planning Routine 06/25/20 08:00 Consult Cardiology Routine Ordered Studies 06/24/20 21:00 CT head/brain wo con Stat 06/26/20 09:00 MR brain wo con Routine 06/27/20 20:44 US venous doppler UE RT Urgent Hospital Course (1) Weakness: (2) Syncope: (3) Elevated troponin: (4) Confusion: (5) care home (current) use of anticoagulants: Generalized weakness Recurrent falls Patient is a 80-year-old male who was admitted after episode of fall possibly secondary to syncope CT head was negative on admission. MRI of the brain was obtained which was negative for any concerning findings. CPK level was elevated to 1784 on admission as well. Blood and urine cultures were negative at the time of discharge. PT/OT evaluated the patient and they recommended intermediate facility. Patient was discharged on 06/29/2020 in stable condition. Day of discharge viry ent did not have any concerning complaints. Left ventricular apical mural thrombus Occlusive subclavian DVT Mild elevation of troponin on admission. EKG revealed T wave inversions in anterior leads. Cardiology was consulted. Patient was found to have persistent ventricular apical thrombus. He was on Coumadin prior to discharge it appeared that it was ineffective. He was transitioned to Lovenox therapeutic dose twice daily prior to discharge and Coumadin was discontinued. Patient will need outpatient follow-up for possible underlying malignancy. Acute kidney injury on chronic kidney injury stage III: Admission patient was found to have creatinine of 1.7. Baseline is around 1.4. Recently he did have his Lasix increased. Cardiology was on board. Renal function improved prior to discharge. Discharged on daily 40 mg of Lasix along with his spironolactone. Mild rhabdomyolysis, CK of 1784 Chronic diastolic congestive heart failure Lasix was decreased to 40 mg daily. On the day of discharge patient was on room air. Denied feeling short of breath. Did not appear to be fluid overloaded. We will continue with CLASSER Toprol and Imdur at discharge. Patient did have Jimenez catheter in place during this admission. It was removed prior to discharge. History of CAD s/p coronary artery bypass graft, status post cardiac stent. Continue his aspirin, statin, beta sarah, and nitrites. History of BPH, on finasteride. History of mild Alzheimer dementia, on Aricept. Monitor for any delirium. Hyperlipidemia, on statin. History of psoriasis and psoriatic arthropathy, on chronic prednisone. Total Time Total Time Spent Total Time Spent (In Minutes): 35 Discharge Plan Discharge Items Patient Disposition: Transfer Shelter Fac Reason For Visit: FALLS Discharge Diagnosis: (1) Weakness: (2) Syncope: (3) Elevated troponin: (4) Confusion: (5) care home (current) use of anticoagulants: Occlusive subclavian DVT Acute kidney injury on chronic kidney injury stage III: Mild rhabdomyolysis, CK of 1784 History of apical mural thrombus found on echo on 03/22. Activity: Resume your previous activity Non-emergency contact: Primary Care Provider Call non-emergency contact if: your symptoms worsen Follow-up/Referrals: Chris Corona MD [Primary Care Provider] - Diet: Heart Healthy Addtl Attending Provider Instructions: Start taking Lovenox 111 mg twice daily. Coumadin has stopped at discharge. Start taking Lasix 40 mg daily. Pending Studies at Discharge: No Stand-Alone Forms: [facility] Sk[facility] Items Patient informed of condition?: Yes DNR: No Discharge Level of Care: Skilled Communicable Disease: No Discharge Prognosis: Stable Urinary Catheter: No Medications and DC Order Prescriptions: New enoxaparin [Lovenox] 120 mg/0.8 mL Syringe 111 mg subcut Q12H Qty: 100 RF: 0 Continued aspirin 81 mg Tablet,Delayed Release (Dr/Ec) 81 mg PO DAILY RF: 0 spironolactone 25 mg Tablet 25 mg PO QAM RF: 0 tolterodine 2 mg tablet 2 mg PO BID RF: 0 meclizine 25 mg Tablet 25 mg PO TID PRN (Reason: Dizziness) RF: 0 gentamicin 0.1 % Ointment 1 applic TOPICAL TID RF: 0 cholecalciferol (vitamin D3) [Vitamin D3] 25 mcg (1,000 unit) Capsule 25 mcg PO DAILY RF: 0 magnesium oxide 400 mg magnesium Capsule 400 mg PO DAILY RF: 0 Vitron-C 65 mg iron- 125 mg Tablet,Delayed Release (Dr/Ec) 1 tab PO DAILY RF: 0 cyanocobalamin (vitamin B-12) 500 mcg Tablet, Sublingual 1,000 mcg SUBLINGUAL DAILY RF: 0 atorvastatin [Lipitor] 80 mg Tablet 80 mg PO DAILY RF: 0 prednisone 10 mg Tablet 10 mg PO DAILY RF: 0 metoprolol succinate [Toprol XL] 50 mg Tablet Extended Release 24 Hr 50 mg PO DAILY RF: 0 donepezil [Aricept] 10 mg Tablet 10 mg PO DAILY RF: 0 isosorbide mononitrate 120 mg Tablet Extended Release 24 Hr 120 mg PO DAILY RF: 0 omeprazole 20 mg Capsule,Delayed Release(Dr/Ec) 20 mg PO DAILY RF: 0 finasteride 5 mg Tablet 5 mg PO DAILY RF: 0 Changed furosemide 40 mg Tablet 40 mg PO DAILY Qty: 0 RF: 0 Discontinued warfarin 4 mg Tablet 2 mg PO DAILY RF: 0 Admission Data Admit Date/Time: 06/25/20 00:45 Attending Provider: Jo Esparza Admit Provider: Manuel Rico Primary Care Provider: Chris Corona Other Providers: Escobar Olivares ; Quincy Johnson ; Deng Jordan ; Brady Díaz ; Jabier Hernandez ; Martínez Esquivel ; Riddhi Daigle ; Tessa Ugarte ; Noé Hook ; [facility] Other Interventions: Discharge Summary Assessment (RN) Last Done: 06/29/20 15:09
--- NOTE | 2020-06-29 16:29 | Cardiology Progress Note ---
Date of Service June 29, 2020 Assessment & Plan (1) Left ventricular apical thrombus: (2) Deep vein thrombosis (DVT) of right upper extremity: Patient has been anticoagulated with Coumadin, since March, having been found to have left ventricular apical mural thrombus at that time. It is noted that this thrombus occurred in the setting of a chronic regional wall motion abnormality, without previous thrombus. Despite therapeutic INR measurements, he was found to have persistent right upper extremity swelling, and a duplex confirmed the presence of right subclavian vein DVT. Anticoagulation with Coumadin has therefore been unsuccessful. Plans in process to transition patient to chronic low molecular weight heparin. As noted, there is no evidence to suggest that one of the direct oral anticoagulant agents would be more effective than what the Coumadin was. Treatment with Lovenox 111 mg subcutaneously every 12 on a chronic basis, even in a supervised skilled nursing setting, certainly sounds less than ideal, and this frail patient with dementia. I have significant concerns about his bleeding risk, however it does appear that treatment with Lovenox is necessary, given risk of stroke associated with left ventricular thrombus, as well as potential for life-threatening pulmonary embolism. (3) CAD (coronary artery disease): Stable coronary heart disease. Continue current medical management including aspirin, which I feel is clinically necessary, given complex PCI through the internal mammary artery of the distal LAD, 2016. Continue Imdur, metoprolol. Atorvastatin. Chronic heart failure, preserved ejection fraction: Patient with mild edema of the lower extremities. Patient to be discharged on furosemide 40 mg daily and spironolactone, however would have low threshold for increasing this back to 40 mg twice daily. Disposition: transfer to [facility] today. Admission and Anticipated Discharge Date Admission Date: June 25, 2020 Subjective Patient seen in follow-up of chronic coronary heart disease, chronic diastolic heart failure, LV mural apical thrombus, right subclavian DVT. Patient comfortable, ongoing chronic cognitive impairment noted. No distress. Right upper extremity swelling improved. Physical Exam Physical Exam: Temp Pulse Resp BP Pulse Ox 36.4 C L 74 20 145/71 H 93 06/29/20 15:18 06/29/20 15:18 06/29/20 15:18 06/29/20 15:18 06/29/20 15:18 Respiratory: normal respiratory effort, lungs clear to auscultation Cardiovascular: RRR, no murmur, no edema Extremities: + edema (Trace to 1+ lower extremity edema) Gastrointestinal (Abdomen): normal bowel sounds, soft, nontender, no hepatosplenomegaly Neurologic: Chronic cognitive impairment, no focal deficits Results & Data ([facility]) Vital Signs (Past 12 Hours) Vital Signs Temp Pulse Resp BP BP Pulse Ox 06/29/20 15:18 36.4 C L 74 20 145/71 H 93 06/29/20 15:09 37.0 C 72 18 122/65 140/60 96 06/29/20 11:41 37.0 C 72 18 122/65 96 06/29/20 07:57 36.8 C 65 18 130/62 95
[2020-06-29] MEDS ORDERED: ENOXAPARIN INJ 120 MG/0.8 ML SYR SQ SCH (21:00)
[2020-06-30] MEDS ORDERED: FUROSEMIDE 40 MG TAB PO SCH (07:00)
== END 2020-06-29 16:42 | DRG 92 ==
LOC: ED 19:49 → SUATTDRO 06-25 00:45 → 2S 06-25 00:45

== ENCOUNTER 2021-07-06 12:16 | Inpatient (IN) ==
--- NOTE | 2021-07-06 12:31 | Emergency Department Note ---
Impression & Plan Weakness, Fatigue, Pneumonia of both lower lobes ED Provider Note Provider: Omero Doe MD DATE OF SERVICE: 07/06/2021 CHIEF COMPLAINT: Weakness, shortness of breath HISTORY OF PRESENT ILLNESS: Patient is a 81-year-old gentleman significant past medical history including CKD, CAD, CABG, CHF, LV thrombus, hypertension, GERD, dementia, and COPD presenting here today via ambulance from his home. Patient evidently began to be a little bit weak according to his son last night but was very weak and could not really get out of bed to go to the bathroom at home today. Son noted he seemed like his father was breathing a little bit harder as well. Patient himself sent over via significant detailed history but states he does not endorse a little bit of pain across his chest and into his abdomen. Denies any headache. No falls reported. No sick contacts reported. Son reports the patient's not having significant swelling and is not having swelling like when he had heart failure issues in the past. There is been no recent medication changes. The patient did take his morning medicines and have some breakfast this morning. Evidently [facility] visited and noted a low oxygen level in the 80s. Patient did receive the Covid vaccine but not boosters thus far. Son also reports the patient does not seem quite as sharp and is much more fatigued and sleepy today. REVIEW OF SYSTEMS: A total of 10 review of systems was obtained and negative except as stated above in the HPI. PAST MEDICAL HISTORY: As noted above MEDICATIONS: Reviewed home medication list SOCIAL HISTORY: Lives at home PHYSICAL EXAM: GENERAL: alert and oriented in no acute distress on stretcher, resting with eyes closed Head: normocephalic and atraumatic EYES: No injection, discharge or icterus. PERRL NECK: Trachea midline. Supple. ENT: Mucous membranes pink and moist. LUNGS: Airway patent. No retractions. Breath sounds clear with diminished bases HEART: Regular rate and rhythm. No chest wall tenderness ABDOMEN: Soft minimal diffuse tenderness without guarding. SKIN: Acyanotic, warm, dry, without rashes EXTREMITIES: Without tenderness with only trace bilateral pedal edema. NEUROLOGICAL: No focal deficits. No aphasia. No facial droop or slurred speech. Normal strength and tone in the extremities. Sensation to gross touch normal. EK bpm normal sinus rhythm. No PVC or PAC. No acute ST segment elevation with some nonspecific lateral and inferior T wave changes. QTc 476. CONTINUOUS CARDIAC MONITORING: was ordered and showed a heart rate of 80s to 90s bpm in normal sinus rhythm Patient's laboratory studies and imaging reviewed. Differential includes Infection, dehydration, metabolic abnormality, hypo/hyperglycemia, electrolyte disturbance, anemia, hypoxia, cardiac sources, intracerebral event, toxicologic, neurologic, as well as other pathologies. IMPRESSION/MEDICAL DECISION MAKING: Patient with some borderline hypoxia here hovering right around 90%. Not t achypneic. Patient follows simple commands but is somewhat drowsy. Patient not the best historian. Again son reports change since last night. No trauma reported. Is on Eliquis. No focal new numbness or weakness more generalized weakness. Patient endorses a little bit of abdominal tenderness. Basic labs were sent. Cultures and lactate sent. Chest x-ray per radiology questions some faint haziness in the left base. Patient is anticoagulated lowering suspicion for acute PE at this time. CT the head will be completed as well as CT of the chest and abdomen pelvis without contrast given his poor renal function to look for pathology such as a cranial bleed, clear definition of for may be occult pneumonia, or other intra-abdominal pathology. Covid test was sent. Blood work here with minimal anemia but no significant leukocytosis. Troponin detectable but not abnormal. Mild hyponatremia 133. CKD with creatinine of 1.7. C-reactive protein elevated 4.45. Negative Covid. Procalcitonin not significantly of it 0.17. No lipase elevation. No transaminitis. TSH with normal limits. While watching here the patient again continues to be somewhat tenuous with oxygen requirement sometimes in the low 90s on room air sometimes requiring some slight supplementation. Patient continues to be fatigued and not quite himself according to the son. CT of the head, chest, and abdomen pelvis per radiology report without evidence of acute intercranial bleed. Unchanged pulmonary nodule. Prostamegaly is noted. No diverticulitis. Punctate nonobstructing right renal calculus. No acute intra-abdominal findings. Bibasilar consolidations left greater than right concerning for pneumonia/asp iration pneumonitis. Given this the patient was given a dose of ceftriaxone and doxycycline. VBG without significant hypercarbia or acidosis. Patient and family updated at bedside. We will have the hospitalist evaluate given his weakness and fatigue. DIAGNOSIS: Weakness, bilateral lower lobe pneumonia, fatigue DISPOSITION: Hospitalist will evaluate Patient was agreeable with this plan. 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 Ortiz Psoriasis Psoriatic arthritis Restless leg syndrome Rheumatoid arthritis Right subclavian artery occlusion Sensorineural hearing loss Syncope Unilateral inguinal hernia Unstable angina (11/21/98) Admitted to [facility] and transferred to [facility] where he had cath 11/25/98 Weakness Surgical History H/O colonoscopy H/O hernia repair History of ERCP Benign History of Mohs micrographic surgery for skin cancer Nose History of percutaneous left heart catheterization (LHC) History of surgery Right Facial / Ear Resection for Melanoma removal Hx of CABG (1995) x 3 (@ [facility]) S/P cholecystectomy Status post surgical removal of neoplasm of skin Family History Mother , Passed in late 70's of natural causes No problems noted. Father , Passed in mid 70's of colorectal CA No problems noted. Brother , Passed age 72 of Covid 19 Alzheimer disease Son No problems noted. Son No problems noted. Son No problems noted. 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 Feels Safe at Home: Yes Childhood Exposure to Second-Hand Smoke: No caffeine: Yes (1 cup of coffee/day ) during the past year weight has: remained stable Dental Care, Regularly: No Assistive Devices: Glasses and Walker Allergies Allergies Allergy/AdvReac Type Severity Reaction Status Date / Time No Known Allergies Allergy Verified 12/21/20 14:51 Home Meds Home Medications Medication Instructions Recorded Confirmed atorvastatin 80 mg tablet (Lipitor) 80 mg PO QAM 04/04/19 09/29/20 donepezil 10 mg tablet (Aricept) 10 mg PO QAM 04/04/19 09/29/20 finasteride 5 mg tablet 5 mg PO QAM 04/04/19 09/29/20 isosorbide mononitrate 120 mg 120 mg PO QAM 04/04/19 09/29/20 tablet,extended release 24 hr metoprolol succinate 50 mg 50 mg PO QAM 04/04/19 09/29/20 tablet,extended release 24 hr (Toprol XL) omeprazole 20 mg capsule,delayed 20 mg PO QAM 04/04/19 09/29/20 release prednisone 10 mg tablet 10 mg PO QAM 04/04/19 09/29/20 aspirin 81 mg tablet,delayed 81 mg PO QAM 06/24/20 09/29/20 release cholecalciferol (vitamin D3) 25 25 mcg PO DAILY 06/24/20 09/29/20 mcg (1,000 unit) capsule (Vitamin D3) cyanocobalamin (vitamin B-12) 500 1,000 mcg SUBLINGUAL QAM 06/24/20 09/29/20 mcg sublingual tablet iron,carbonyl 65 mg-vitamin C 125 1 tab PO QAM 06/24/20 09/29/20 mg tablet,delayed release (Vitron-C) magnesium oxide 400 mg PO QAM 06/24/20 09/29/20 spironolactone 25 mg tablet 25 mg PO QAM 06/24/20 09/29/20 tolterodine 2 mg tablet 2 mg PO BID 06/24/20 09/29/20 acetaminophen 325 mg tablet 650 mg PO QID PRN 07/04/20 09/29/20 (Tylenol) meclizine 25 mg tablet 25 mg PO TID PRN 08/30/20 09/29/20 nitroglycerin 0.4 mg sublingual 0.4 mg SUBLINGUAL Q5M PRN 08/30/20 09/29/20 tablet albuterol sulfate 90 mcg/actuation 2 puff INHALATION Q4 PRN 09/29/20 09/29/20 aerosol inhaler enoxaparin 80 mg/0.8 mL 80 mg SUBCUT DAILY 09/29/20 09/29/20 subcutaneous syringe torsemide 10 mg tablet 20 mg PO .evening tab 12/21/20 12/21/20 torsemide 10 mg tablet 30 mg PO DAILY tab 12/21/20 12/21/20 Previous Rx's Medication Instructions Recorded lidocaine 5 % topical patch 1 patch TRANSDERMAL QAM #5 ea 07/14/20 collagenase clostridium histo. 250 1 applic TOPICAL DAILY 30 Days #30 07/29/20 unit/gram topical ointment (Santyl) g Results & Data (ED) Vital Signs Vital Signs - 24 hr 07/06/21 12:53 07/06/21 12:59 Temperature 37.3 C Temperature Source Oral Pulse Rate 90 Pulse Rhythm Regular Respiratory Rate 18 Respiratory Effort / Characteristics Non-Labored Respiratory Depth Normal Respiratory Pattern Regular Blood Pressure 107/64 Blood Pressure Mean 78 Blood Pressure Position Lying Pulse Oximetry 90 90 Oxygen Delivery Method Room Air Room Air Oxygen Flow Rate 0 Sepsis Recent Fever Within 48 Hours No Sepsis New/Unexplained Change in Mental Status Yes Sepsis Action Taken by Nursing No Action Required Oxygen Flow Rate - Titration 2 Pulse Oximetry Post Tiitration 94 Laboratory Data Result diagrams: 07/06/21 12:40 07/06/21 12:40 Lab Results 07/06/21 07/06/21 07/06/21 Range/Units 12:40 12:40 12:40 WBC 8.68 (4.8-10.8) K/uL RBC 3.81 L (4.7-6.1) M/uL Hgb 12.8 L (14.0-18.0) g/dL POC Hgb (14.0-18.0) g/dl Hct 37.8 L (42-52) % POC Hct (42-52) % MCV 99.2 (80-100) fL MCH 33.6 (25-34) pg MCHC 33.9 (32-36) g/dL RDW Std Deviation 55.0 H (36.4-46.3) fL RDW Coeff of Lester 15.3 H (11.5-14.5) % Plt Count 147 (130-400) K/uL MPV 9.1 (7.4-10.4) fL Immature Gran % (Auto) 0.1 % Neut % (Auto) 85.8 % Lymph % (Auto) 6.8 % [place] % (Auto) 6.9 % Eos % (Auto) 0.3 % Baso % (Auto) 0.1 % Neut # (Auto) 7.44 H (1.4-6.5) K/uL Lymph # (Auto) 0.59 L (1.2-3.4) K/uL [place] # (Auto) 0.60 H (0.11-0.59) K/uL Eos # (Auto) 0.03 (0-0.5) K/uL Baso # (Auto) 0.01 (0-0.2) K/uL Immature Gran # (Auto) 0.01 (0.00-0.02) K/uL PT 10.8 (9.0-12.0) Seconds INR 1.1 (0.9-1.1) POC Sodium (135-144) mmol/L Sodium 133 L (136-145) mmol/L POC Potassium (3.3-5.0) mmol/L Potassium 3.8 (3.5-5.1) mmol/L POC Chloride (101-112) mmol/L Chloride 93 L (98-107) mmol/L Carbon Dioxide 30 (21-32) mmol/L POC Total CO2 (24-31) mmol/L Anion Gap 10 (3-11) POC Anion Gap (16-25) mmol/L POC BUN (7-18) mg/dl BUN 42 H (6-23) mg/dl Creatinine 1.73 H (0.6-1.4) mg/dl POC Creatinine (0.6-1.3) mg/dl Est Cr Clr Drug Dosing 41.2 ml/min Est GFR ( Amer) 41.7 ml/min Est GFR (Non-Af Amer) 36.0 ml/min BUN/Creatinine Ratio 24.3 H (10-20) Glucose 206 H (70-99(Fasting)) mg/dl POC Glucose (other) (70-99) mg/dl Calcium 8.5 (8.5-10.1) mg/dl POC Ioniz Calcium Nalini (1.12-1.32) mmol/l Total Bilirubin 0.7 (0.2-1.0) mg/dl AST 13 (13-39) U/L ALT 14 (7-52) U/L Alkaline Phosphatase 67 (34-104) U/L Troponin I 0.03 (0-0.04) ng/ml C-Reactive Protein 4.45 H (0-0.5) mg/dl Total Protein 5.4 L (6.0-8.3) gm/dl Albumin 3.2 L (3.4-5.0) gm/dl Globulin 2.2 L (2.5-4.0) gm/dl Albumin/Globulin Ratio 1.5 (0.9-2) Lipase 17 (11-82) U/L Procalcitonin (0-0.5) ng/ml TSH (0.300-4.500) uIu/ml SARS-CoV-2, RNA, NAAT (NEGATIVE) 07/06/21 07/06/21 07/06/21 Range/Units 12:40 12:40 12:47 WBC (4.8-10.8) K/uL RBC (4.7-6.1) M/uL Hgb (14.0-18.0) g/dL POC Hgb 11.9 L (14.0-18.0) g/dl Hct (42-52) % POC Hct 35 L (42-52) % MCV (80-100) fL MCH (25-34) pg MCHC (32-36) g/dL RDW Std Deviation (36.4-46.3) fL RDW Coeff of Lester (11.5-14.5) % Plt Count (130-400) K/uL MPV (7.4-10.4) fL Immature Gran % (Auto) % Neut % (Auto) % Lymph % (Auto) % [place] % (Auto) % Eos % (Auto) % Baso % (Auto) % Neut # (Auto) (1.4-6.5) K/uL Lymph # (Auto) (1.2-3.4) K/uL [place] # (Auto) (0.11-0.59) K/uL Eos # (Auto) (0-0.5) K/uL Baso # (Auto) (0-0.2) K/uL Immature Gran # (Auto) (0.00-0.02) K/uL PT (9.0-12.0) Seconds INR (0.9-1.1) POC Sodium 132 L (135-144) mmol/L Sodium (136-145) mmol/L POC Potassium 3.6 (3.3-5.0) mmol/L Potassium (3.5-5.1) mmol/L POC Chloride 91 L (101-112) mmol/L Chloride (98-107) mmol/L Carbon Dioxide (21-32) mmol/L POC Total CO2 28 (24-31) mmol/L Anion Gap (3-11) POC Anion Gap 18.0 (16-25) mmol/L POC BUN 39 H (7-18) mg/dl BUN (6-23) mg/dl Creatinine (0.6-1.4) mg/dl POC Creatinine 1.7 H (0.6-1.3) mg/dl Est Cr Clr Drug Dosing ml/min Est GFR ( Amer) ml/min Est GFR (Non-Af Amer) ml/min BUN/Creatinine Ratio (10-20) Glucose (70-99(Fasting)) mg/dl POC Glucose (other) 210 H (70-99) mg/dl Calcium (8.5-10.1) mg/dl POC Ioniz Calcium Nalini 1.14 (1.12-1.32) mmol/l Total Bilirubin (0.2-1.0) mg/dl AST (13-39) U/L ALT (7-52) U/L Alkaline Phosphatase (34-104) U/L Troponin I (0-0.04) ng/ml C-Reactive Protein (0-0.5) mg/dl Total Protein (6.0-8.3) gm/dl Albumin (3.4-5.0) gm/dl Globulin (2.5-4.0) gm/dl Albumin/Globulin Ratio (0.9-2) Lipase (11-82) U/L Procalcitonin 0.14 (0-0.5) ng/ml TSH 1.473 (0.300-4.500) uIu/ml SARS-CoV-2, RNA, NAAT (NEGATIVE) 07/06/21 Range/Units 13:10 WBC (4.8-10.8) K/uL RBC (4.7-6.1) M/uL Hgb (14.0-18.0) g/dL POC Hgb (14.0-18.0) g/dl Hct (42-52) % POC Hct (42-52) % MCV (80-100) fL MCH (25-34) pg MCHC (32-36) g/dL RDW Std Deviation (36.4-46.3) fL RDW Coeff of Lester (11.5-14.5) % Plt Count (130-400) K/uL MPV (7.4-10.4) fL Immature Gran % (Auto) % Neut % (Auto) % Lymph % (Auto) % [place] % (Auto) % Eos % (Auto) % Baso % (Auto) % Neut # (Auto) (1.4-6.5) K/uL Lymph # (Auto) (1.2-3.4) K/uL [place] # (Auto) (0.11-0.59) K/uL Eos # (Auto) (0-0.5) K/uL Baso # (Auto) (0-0.2) K/uL Immature Gran # (Auto) (0.00-0.02) K/uL PT (9.0-12.0) Seconds INR (0.9-1.1) POC Sodium (135-144) mmol/L Sodium (136-145) mmol/L POC Potassium (3.3-5.0) mmol/L Potassium (3.5-5.1) mmol/L POC Chloride (101-112) mmol/L Chloride (98-107) mmol/L Carbon Dioxide (21-32) mmol/L POC Total CO2 (24-31) mmol/L Anion Gap (3-11) POC Anion Gap (16-25) mmol/L POC BUN (7-18) mg/dl BUN (6-23) mg/dl Creatinine (0.6-1.4) mg/dl POC Creatinine (0.6-1.3) mg/dl Est Cr Clr Drug Dosing ml/min Est GFR ( Amer) ml/min Est GFR (Non-Af Amer) ml/min BUN/Creatinine Ratio (10-20) Glucose (70-99(Fasting)) mg/dl POC Glucose (other) (70-99) mg/dl Calcium (8.5-10.1) mg/dl POC Ioniz Calcium Nalini (1.12-1.32) mmol/l Total Bilirubin (0.2-1.0) mg/dl AST (13-39) U/L ALT (7-52) U/L Alkaline Phosphatase (34-104) U/L Troponin I (0-0.04) ng/ml C-Reactive Protein (0-0.5) mg/dl Total Protein (6.0-8.3) gm/dl Albumin (3.4-5.0) gm/dl Globulin (2.5-4.0) gm/dl Albumin/Globulin Ratio (0.9-2) Lipase (11-82) U/L Procalcitonin (0-0.5) ng/ml TSH (0.300-4.500) uIu/ml SARS-CoV-2, RNA, NAAT NEGATIVE (NEGATIVE) Imaging Data Radiologist's Impression: Chest X-Ray 07/06/21 12:28 XR chest 1V portable HISTORY: weakness COMPARISON: Chest 07/04/2020. FINDINGS: The heart remains enlarged. There are poststernotomy changes. Cervical spinal fusion hardware is again noted. Prior cholecystectomy. There are low lung volumes. No pleural effusions. No pneumothorax. There is mild central pulmonary vascular congestion without overt edema. Faint patchy density left lung base. IMPRESSION: 1. Cardiomegaly with mild congestive change. 2. Faint patchy densities within the left lung base may represent a developing pneumonia. ACT 112: Negative or not required by law. Electronically signed by: Luan Perera M.D. 07/06/2021 1:[address] 07/06/21 12:29 CT SCAN OF THE BRAIN WITHOUT IV CONTRAST CLINICAL HISTORY: Change in mental status. Weakness. COMPARISON STUDY: CT of the brain dated 07/10/2020. TECHNIQUE: Unenhanced axial CT scan of the brain is performed from the vertex to the skull base. A dose lowering technique was utilized adhering to the principles of ALARA. CT DOSE: 2231.36 mGycm FINDINGS: Brain parenchyma: There are age-related involutional changes noting mild to moderate subcortical and periventricular microangiopathic change. There is no hemorrhage, mass effect, or evidence of acute territorial ischemia by CT criteria. [place]-white matter differentiation is preserved. A small chronic lacunar infarct is noted in the right caudate head. No extra-axial fluid collection is seen. Ventricles, sulci, cisterns: Prominent secondary to involutional change. Intracranial vasculature: There is atherosclerotic calcification of the cav ernous carotid and vertebral arteries. Calvarium: Unremarkable. Sinuses and mastoids: The visualized paranasal sinuses are clear. The mastoid air cells are well pneumatized. Orbits: The bony orbits are grossly intact. There are bilateral ocular lens implants. IMPRESSION: There is no hemorrhage, mass effect, or evidence of acute territorial ischemia by CT criteria. ACT 112: Negative or not required by law. Electronically signed by: Mendoza Montgomery M.D. 07/06/2021 2:08 PM Discharge Plan Visit Data Chief Complaint: Altered Mental Status Stated Complaint: altered mental status ED Provider: Omero Doe Discharge Problem: Weakness, Fatigue, Pneumonia of both lower lobes Patient Disposition: Being Evaluated by Hospitalist Forms Stand Alone Forms: My [facility] [employer] Prescriptions Prescriptions: No Action Santyl 250 unit/gram ointment 1 applic topical DAILY 30 Days Qty: 30 RF: 1 meclizine 25 mg tablet 25 mg PO TID PRN (Reason: dizziness) RF: 0 nitroglycerin 0.4 mg tablet, sublingual 0.4 mg sublingual Q5M PRN (Reason: Chest Pain) RF: 0 torsemide 10 mg tablet 30 mg PO DAILY RF: 0 torsemide 10 mg tablet 20 mg PO .evening RF: 0 aspirin 81 mg Tablet,Delayed Release (Dr/Ec) 81 mg PO QAM RF: 0 spironolactone 25 mg Tablet 25 mg PO QAM RF: 0 tolterodine 2 mg tablet 2 mg PO BID RF: 0 cholecalciferol (vitamin D3) [Vitamin D3] 25 mcg (1,000 unit) Capsule 25 mcg PO DAILY RF: 0 magnesium oxide 400 mg magnesium Capsule 400 mg PO QAM RF: 0 Vitron-C 65 mg iron- 125 mg Tablet,Delayed Release (Dr/Ec) 1 tab PO QAM RF: 0 cyanocobalamin (vitamin B-12) 500 mcg Tablet, Sublingual 1,000 mcg SUBLINGUAL QAM RF: 0 atorvastatin [Lipitor] 80 mg Tablet 80 mg PO QAM RF: 0 prednisone 10 mg Tablet 10 mg PO QAM RF: 0 metoprolol succinate [Toprol XL] 50 mg Tablet Extended Release 24 Hr 50 mg PO QAM RF: 0 donepezil [Aricept] 10 mg Tablet 10 mg PO QAM RF: 0 isosorbide mononitrate 120 mg Tablet Extended Release 24 Hr 120 mg PO QAM RF: 0 omeprazole 20 mg Capsule,Delayed Release(Dr/Ec) 20 mg PO QAM RF: 0 finasteride 5 mg Tablet 5 mg PO QAM RF: 0 acetaminophen [Tylenol] 325 mg Tablet 650 mg PO QID PRN (Reason: Pain or Fever) RF: 0 lidocaine 5 % Adhesive Patch,Medicated 1 patch transdermal QAM Qty: 5 RF: 0 albuterol sulfate 90 mcg/actuation HFA aerosol inhaler 2 puff INHALATION Q4 PRN (Reason: Shortness Of Breath) RF: 0 enoxaparin 80 mg/0.8 mL syringe 80 mg subcut DAILY RF: 0 Referrals Referrals: Chris Corona MD [Primary Care Provider] - Discharge Problem: Fatigue Qualifiers: Fatigue type: unspecified Qualified Code(s): R53.83 - Other fatigue Pneumonia of both lower lobes Qualifiers: Pneumonia type: due to unspecified organism Qualified Code(s): J18.9 - Pneumonia, unspecified organism
[2021-07-06 12:52] LABS: Basophils # (auto) 0.01 K/uL (0-0.2); Basophils % (auto) 0.1 %; Eosinophils # (auto) 0.03 K/uL (0-0.5); Eosinophils % (auto) 0.3 %; Hematocrit (blood only) 37.8 % (42-52); Hemoglobin 12.8 g/dL (14.0-18.0); Immature Granulocytes # (auto) 0.01 K/uL (0.00-0.02); Immature Granulocytes % (auto) 0.1 %; Lymphocytes # (auto) 0.59 K/uL (1.2-3.4); Lymphocytes % (auto) 6.8 %; Mean Corpuscular Hemoglobin 33.6 pg (25-34); Mean Corpuscular Hgb Conc 33.9 g/dL (32-36); Mean Corpuscular Volume 99.2 fL (80-100); Mean Platelet Volume 9.1 fL (7.4-10.4); Monocytes % (auto) 6.9 %; Neutrophils # (auto) 7.44 K/uL (1.4-6.5); Neutrophils % (auto) 85.8 %; Platelet Count 147 K/uL (130-400); RDW Coefficient of Variation 15.3 % (11.5-14.5); Red Blood Count 3.81 M/uL (4.7-6.1); White Blood Count 8.68 K/uL (4.8-10.8)
[2021-07-06 13:00] LABS: INR 1.1 (0.9-1.1); Prothrombin Time 10.8 Seconds (9.0-12.0)
[2021-07-06 13:02] LABS: iSTAT Creatinine 1.7 mg/dl (0.6-1.3); iSTAT Hemoglobin 11.9 g/dl (14.0-18.0); iSTAT Ionized Calcium 1.14 mmol/l (1.12-1.32); iSTAT Potassium 3.6 mmol/L (3.3-5.0)
--- NOTE | 2021-07-06 13:06 | XRay Report ---
XR chest 1V portable HISTORY: weakness COMPARISON: Chest 07/04/2020. FINDINGS: The heart remains enlarged. There are poststernotomy changes. Cervical spinal fusion hardwa re is again noted. Prior cholecystectomy. There are low lung volumes. No pleural effusions. No pneumo thorax. There is mild central pulmonary vascular congestion without overt edema. Faint patchy density left lung base. IMPRESSION: 1. Cardiomegaly with mild congestive change. 2. Faint patchy densities within the left lung base may represent a developing pneumonia. ACT 112: Negative or not required by law. Electronically signed by: Luan Perera M.D. 07/06/2021 1:04 PM
[2021-07-06 13:20] LABS: Troponin I 0.03 ng/ml (0-0.04)
[2021-07-06 13:38] LABS: Albumin Globulin Ratio 1.5 (0.9-2); Albumin Level 3.2 gm/dl (3.4-5.0); BUN Creatinine Ratio 24.3 (10-20); Bilirubin,Total 0.7 mg/dl (0.2-1.0); C Reactive Protein 4.45 mg/dl (0-0.5); Calcium 8.5 mg/dl (8.5-10.1); Creatinine Clr Calc Pharmacy 41.2 ml/min; Est GFR (African American) 41.7 ml/min; Globulin 2.2 gm/dl (2.5-4.0); Potassium 3.8 mmol/L (3.5-5.1); Total Protein 5.4 gm/dl (6.0-8.3)
--- NOTE | 2021-07-06 14:10 | CT Scan Report ---
CT SCAN OF THE BRAIN WITHOUT IV CONTRAST CLINICAL HISTORY: Change in mental status. Weakness. COMPARISON STUDY: CT of the brain dated 07/10/2020. TECHNIQUE: Unenhanced axial CT scan of the brain is performed from the vertex to the skull base. A do se lowering technique was utilized adhering to the principles of ALARA. CT DOSE: 2231.36 mGycm FINDINGS: Brain parenchyma: There are age-related involutional changes noting mild to moderate subcortical and periventricular microangiopathic change. There is no hemorrhage, mass effect, or evidence of acute t erritorial ischemia by CT criteria. [place]-white matter differentiation is preserved. A small chronic l acunar infarct is noted in the right caudate head. No extra-axial fluid collection is seen. Ventricles, sulci, cisterns: Prominent secondary to involutional change. Intracranial vasculature: There is atherosclerotic calcification of the cavernous carotid and vertebr al arteries. Calvarium: Unremarkable. Sinuses and mastoids: The visualized paranasal sinuses are clear. The mastoid air cells are well pneu matized. Orbits: The bony orbits are grossly intact. There are bilateral ocular lens implants. IMPRESSION: There is no hemorrhage, mass effect, or evidence of acute territorial ischemia by CT rodrigo alegre. ACT 112: Negative or not required by law. Electronically signed by: Mendoza Montgomery M.D. 07/06/2021 2:08 PM
[2021-07-06 14:23] LABS: Base Excess VBG 5.8 mEq/L; HCO3 VBG 32 mmol/L; PCO2 VBG 52 mmHg (38-50); PO2 VBG 29 mmHg; pH VBG 7.41 (7.36-7.41)
--- NOTE | 2021-07-06 14:23 | CT Scan Report ---
CT SCAN OF THE CHEST, ABDOMEN, AND PELVIS WITHOUT IV CONTRAST CLINICAL HISTORY: Generalized weakness. Change in mental status. Dyspnea. Generalized abdominal pain. COMPARISON STUDY: Chest CT dated 12/20/2020. abdominal CT dated 07/04/2020. PET/CT dated 09/07/2020. TECHNIQUE: Unenhanced CT scan of the chest, abdomen, and pelvis was performed from the thoracic inlet to the proximal femora. Images are reviewed in the axial, sagittal, and coronal planes. IV contrast was not administered for this examination. Note that the examination was performed and significantly suboptimal fashion without oral and IV contrast. There is also motion artifact, and streak artifact f rom the arms which could not be elevated above the chest or abdomen. A dose lowering technique was u tilized adhering to the principles of ALARA. FINDINGS: CHEST: Thyroid: Imaged portions of the thyroid gland are normal in size and attenuation. Thoracic aorta: There is atherosclerotic calcification of the thoracic aorta, which is normal in missael wyatt and demonstrates standard 3-vessel arch anatomy. Heart: The heart is enlarged and without pericardial effusion. The coronary arteries are densely calc ified. Lungs and pleural spaces: Evaluation of the lung parenchyma is significantly degraded by motion artif act. There is patchy airspace consolidation seen throughout the left lower lobe with a trace left ple ural effusion. Mild patchy consolidation is also seen in the right lower lobe. The trachea and centra l airways are clear. An ovoid pulmonary nodule in the right upper lobe on image #93 measures 1.6 cm. This has not appreciably changed as compared to 12/20/2020. There are scattered calcified granulomas. Mediastinum: The patient is status post midline sternotomy. There are scattered subcentimeter mediast inal lymph nodes, several of which are calcified. This suggests remote granulomatous infection. Ifrah: There are calcified hilar nodes. Note that the ifrah are not well assessed without IV contrast. Axillae: There is no axillary lymphadenopathy. Bony thorax: The skeletal structures are osteopenic. No lytic or blastic lesions are identified. Adva nced arthritic change is seen in the shoulders. Spondylotic change is noted throughout the thoracic s pine. Fusion hardware is partially visualized in the lower cervical spine. Soft tissues: Gynecomastia is noted. ABDOMEN AND PELVIS: Liver: Evaluation of the liver is compromised by streak artifact. The unenhanced liver is normal in s ize, contour, and attenuation. There is no intrahepatic biliary ductal dilatation. Pneumobilia is not ed in the left lobe. Gallbladder: Unremarkable. Spleen: Normal in size and attenuation. Pancreas: A 13 mm simple cystic focus in the pancreatic neck is unchanged and typical for a small nathalie ebranch IPMN. The unenhanced pancreas is atrophic and otherwise grossly unremarkable. Adrenal glands: Unremarkable. Kidneys: The unenhanced kidneys are atrophic and without hydronephrosis. A punctate nonobstructing ca lculus is noted in the right kidney. No left renal calculi are identified. A 2.6 cm cyst is again see n in the left lower pole. Abdominal vasculature: The abdominal aorta is normal in course and caliber noting advanced atheroscle rotic calcification. Bowel: There is moderate to advanced colonic diverticulosis without CT evidence of acute diverticulit is. No bowel obstruction is seen. Fecal retention is noted throughout the colon. Duodenal diverticula are noted. The appendix is well-visualized and normal. Peritoneum: There is no intraperitoneal free air or abdominal ascites. There is a fat-containing umbi lical hernia. Lymphadenopathy: None. Pelvic viscera: The prostate gland is diminutive and heterogeneous. The bladder wall is thickened and trabeculated indicating chronic outlet obstruction. There are numerous small bladder diverticula whi ch measure up to 1.8 cm. There are small bilateral fat-containing inguinal hernias. Skeletal structures: The skeletal structures are osteopenic. There is moderate lumbosacral spondylosi s. Arthritic change is seen in the hips. No lytic or blastic lesions are seen. IMPRESSION: 1. Significantly suboptimal examination without oral and IV contrast. There is also streak and motion artifact. 2. There is bibasilar airspace consolidation, left greater than right with a trace left pleural effus ion. The appearance is typical for pneumonia/aspiration pneumonitis. Clinical correlation will be req uired and radiographic follow-up to resolution is recommended. 3. A 16 mm ovoid pulmonary nodule in the right upper lobe is pathologically indeterminant and unchang ed from the 07/05/2020 examination. 4. No acute infectious or inflammatory findings are seen in the abdomen or pelvis. 5. Punctate nonobstructing right renal calculus. 6. Moderate to advanced colonic diverticulosis without CT evidence of acute diverticulitis. 7. Prostatomegaly with evidence of chronic bladder outlet obstruction. 8. Additional findings as above. ACT 112: Negative or not required by law. Electronically signed by: Mendoza Montgomery M.D. 07/06/2021 2:22 PM
[2021-07-06 14:24] LABS: Oxygen Saturation VBG < 60.0 %
[2021-07-06] MEDS ORDERED: DOXYCYCLINE HYCLATE 100 MG CAP PO STA (14:25)
[2021-07-06] MEDS ORDERED: cefTRIAXone SODIUM 2,000 MG/70 ML BAG IV STA (14:25)
--- NOTE | 2021-07-06 14:59 | History & Physical Report ---
Date of Service July 06, 2021 Assessment & Plan (1) Pneumonia of both lower lobes: Plan: Concern for aspiration although no specific recent episode of aspiration noted by family. Possible sepsis but no leukocytosis, no hypotension. - Admit to PCU - Broad-spectrum antibiotic coverage with Doxycycline/Zosyn - Speech evaluation - Supplemental O2 prn (2) COPD with exacerbation: Plan: No wheezing on exam at present so will not increase chronic prednisone dose - DuoNebs scheduled QID, holding Anuro for now - Albuterol nebs PRN (3) Acute respiratory failure with hypoxia: Plan: Due to #1 and #2 - Continue prn oxygen to maintain O2 sat >92% (4) Weakness: Plan: PT/OT once medically stable (5) Acute metabolic encephalopathy: Plan: Likely due to acute infection. Will monitor mental status with appropriate treatment for infection. If not improving by tomorrow, consider checking MRI Brain (chronic lacunar infarct on CT) (6) Hyperglycemia: Plan: Likely related to chronic prednisone use - son denies that pt has been diagnosed with diabetes previously. - Check A1c - Insulin sliding scale while admitted (7) Dementia: (8) Hypertension: (9) GERD (gastroesophageal reflux disease): (10) senior care (current) use of anticoagulants: (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 Son updated at bedside - all questions answered. Pt seen and reviewed with collaborating physician, Dr. Obregon. Plan of care discussed and as outlined above. DVT Prophylaxis: Continue Eliquis as taken outpatient Code Status (discussed with son at bedside): DNR/DNI Ericka Hernandez PA-C History of Present Illness Chief Complaint: Weakness Primary Care Provider: Chris Corona MD This is an 81 y/o male with a complicated PMH includingCOPD, apical mural thrombus, CKD3b, BPH, Alzheimer's, CAD s/p CABG x3, RLS, Psoriasis with associated arthropathy, MGUS, GERD, dyslipidemia, pulmonary nodule and other PMH as listed below who presented to the ED today via EMS due to weakness, fever, and cough. Pt follows with [facility] who visited patient today due to concern for functional decline overnight and wheezing this morning. RN noted pt to have a temp of 100.0 tympanic with wheezing in bilateral lobes. Pulseox noted to be 88%. Pt transferred to ED via EMS for further evaluation. History is obtained from the son due to pt's dementia and slightly worse mental status from baseline. The patient does have a hx of advanced dementia. Son notes a physical decline in patient over past 24 hours - usually able to walk around with assistance (has a walker but doesn't use it) but having difficulty ambulating this morning, even with assistance. Dry cough past few days but worse over past 24 hours with new fever. Cough has been non-productive. Wheezing this morning. Not on oxygen at home. Does not always take inhalers regularly. No special diet for aspiration and no known episodes of aspiration, specifically in the past few days. 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 Increasing issues with incontinence - both urine and stool - due to not recognizing need to go. Still recognizes people that he sees frequently but may ask about . Did take AM meds today. Appetite was at baseline this morning. No vomiting or diarrhea reported. No complaints of pain but has high tolerance for pain. Pt was vaccinated for COVID but is not boosted. No known contact with COVID but potential sick contacts with URI symptoms. Allergies Allergy/AdvReac Type Severity Reaction Status Date / Time No Known Allergies Allergy Verified 07/06/21 14:51 Home Medications Medication Instructions Recorded Confirmed Type atorvastatin 80 mg tablet (Lipitor) 80 mg PO HS 04/04/19 07/06/21 History donepezil 10 mg tablet (Aricept) 10 mg PO QPM 04/04/19 07/06/21 History finasteride 5 mg tablet 5 mg PO QAM 04/04/19 07/06/21 History isosorbide mononitrate 120 mg 120 mg PO QAM 04/04/19 07/06/21 History tablet,extended release 24 hr metoprolol succinate 50 mg 50 mg PO QAM 04/04/19 07/06/21 History tablet,extended release 24 hr (Toprol XL) prednisone 10 mg tablet 10 mg PO QAM 04/04/19 07/06/21 History aspirin 81 mg tablet,delayed 81 mg PO QAM 06/24/20 07/06/21 History release cholecalciferol (vitamin D3) 25 25 mcg PO QPM 06/24/20 07/06/21 History mcg (1,000 unit) capsule (Vitamin D3) magnesium oxide 400 mg PO Q OTHER DAY 06/24/20 07/06/21 History spironolactone 25 mg tablet 25 mg PO QAM 06/24/20 07/06/21 History nitroglycerin 0.4 mg sublingual 0.4 mg SUBLINGUAL Q5M PRN 08/30/20 07/06/21 History tablet albuterol sulfate 90 mcg/actuation 2 puff INHALATION Q4 PRN 09/29/20 07/06/21 History aerosol inhaler albuterol sulfate 2.5 mg INHALATION Q6H PRN 07/06/21 07/06/21 History apixaban 2.5 mg tablet (Eliquis) 2.5 mg PO BID 07/06/21 07/06/21 History cyanocobalamin (vitamin B-12) 1,000 mcg PO DAILY 07/06/21 07/06/21 History 1,000 mcg tablet (Vitamin B-12) iron,carbonyl 65 mg-vitamin C 125 1 tab PO DAILY 07/06/21 07/06/21 History mg tablet,delayed release (Vitron-C) metolazone 2.5 mg tablet 2.5 mg PO .QMON 07/06/21 07/06/21 History omeprazole 20 mg capsule,delayed 20 mg PO DAILY 07/06/21 07/06/21 History release potassium chloride 10 mEq 20 meq PO DAILY 07/06/21 07/06/21 History tablet,extended release(part/cryst) torsemide 20 mg tablet 40 mg PO QPM 07/06/21 07/06/21 History torsemide 20 mg tablet 60 mg PO QAM 07/06/21 07/06/21 History umeclidinium 62.5 mcg-vilanterol 1 ea INHALATION DAILY 07/06/21 07/06/21 History 25 mcg/actuation powdr for inhalation (Anoro Ellipta) Past Med/Surg History Medical History (Updated 07/06/21 @ 16:09 by Donna Hernandez PA-C) Actinic keratosis Anemia 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 CAD (coronary artery disease) Calculus of bile duct w/ obst w/o cystitis Carpal tunnel syndrome Cervical stenosis of spine (2011) C4-C6 Chronic diastolic (congestive) heart failure Coagulopathy COPD (chronic obstructive pulmonary disease) Dementia Diastolic dysfunction Diverticulosis of colon Elevated troponin Extremity edema GERD (gastroesophageal reflux disease) Hematoma Right hand - mural thrombus, right subclavian artery occlusion History of radiation therapy Right Facial - for Melanoma HLD (hyperlipidemia) Hypertension senior care (current) use of anticoagulants Lung nodule seen on imaging study (07/05/20) MGUS (monoclonal gammopathy of unknown significance) Mural thrombus of heart Pancreatic cyst Polymyalgia rheumatica Dr. Ortiz Psoriasis Psoriatic arthritis Restless leg syndrome Rheumatoid arthritis Right subclavian artery occlusion Sensorineural hearing loss Syncope Unilateral inguinal hernia Unstable angina (11/21/98) Admitted to [facility] and transferred to [facility] where he had cath 11/25/98 Weakness Surgical History H/O colonoscopy H/O hernia repair History of ERCP Benign History of Mohs micrographic surgery for skin cancer Nose History of percutaneous left heart catheterization (LHC) History of surgery Right Facial / Ear Resection for Melanoma removal Hx of CABG (1995) x 3 (@ [facility]) S/P cholecystectomy Status post surgical removal of neoplasm of skin Family History (Updated 07/06/21 @ 15:36 by Donna Hernandez PA-C) Mother , Passed in late 70's of natural causes No problems noted. Father , Passed in mid 70's of colorectal CA No problems noted. Brother , Passed age 72 of Covid 19 Alzheimer disease Son No problems noted. Son No problems noted. Son No problems noted. 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 Feels Safe at Home: Yes Childhood Exposure to Second-Hand Smoke: No caffeine: Yes (1 cup of coffee/day ) during the past year weight has: remained stable Dental Care, Regularly: No Assistive Devices: Glasses and Walker Review of Systems Review of Systems: Unobtainable due to cognitive status (dementia) Physical Exam Constitutional: well developed and well nourished; no acute distress Eyes: + anicteric sclerae Neck: trachea midline Respiratory: no respiratory distress and no labored breathing Auscultation: + crackles (faint bilbasilar); no wheezes Cardiovascular: Rate/Rhythm: regular rate and regular rhythm Vessels: radial pulses present Extremities: + edema (1+ bilateral LE) Gastrointestinal (Abdomen): Inspection/Auscultation: normal bowel sounds; abdomen not distended Percussion/Palpation: abdomen soft; abdomen nontender Musculoskeletal: Head/Neck/Chest: normocephalic and head atraumatic Skin: no jaundice Neurologic: moves all extremities and + confused; no focal motor deficits Results & Data Results & Data ([facility]) Vital Signs (Past 12 Hours) Vital Signs Temp Pulse Resp BP Pulse Ox 07/06/21 14:43 111/87 07/06/21 12:59 90 07/06/21 12:53 37.3 C 90 18 107/64 90 Laboratory Results Laboratory Results - last 24 hr 07/06/21 07/06/21 07/06/21 12:40 12:40 12:40 WBC 8.68 RBC 3.81 L Hgb 12.8 L POC Hgb Hct 37.8 L POC Hct MCV 99.2 MCH 33.6 MCHC 33.9 RDW Std Deviation 55.0 H RDW Coeff of Lester 15.3 H Plt Count 147 MPV 9.1 Immature Gran % (Auto) 0.1 Neut % (Auto) 85.8 Lymph % (Auto) 6.8 Rusk % (Auto) 6.9 Eos % (Auto) 0.3 Baso % (Auto) 0.1 Neut # (Auto) 7.44 H Lymph # (Auto) 0.59 L Rusk # (Auto) 0.60 H Eos # (Auto) 0.03 Baso # (Auto) 0.01 Immature Gran # (Auto) 0.01 PT 10.8 INR 1.1 VBG pH VBG pCO2 VBG pO2 VBG HCO3 VBG O2 Saturation VBG Base Excess Barometric Pressure POC Sodium Sodium 133 L POC Potassium Potassium 3.8 POC Chloride Chloride 93 L Carbon Dioxide 30 POC Total CO2 Anion Gap 10 POC Anion Gap POC BUN BUN 42 H Creatinine 1.73 H POC Creatinine Est Cr Clr Drug Dosing 41.2 Est GFR ( Amer) 41.7 Est GFR (Non-Af Amer) 36.0 BUN/Creatinine Ratio 24.3 H Glucose 206 H POC Glucose (other) Lactate Calcium 8.5 POC Ioniz Calcium Nalini Total Bilirubin 0.7 AST 13 ALT 14 Alkaline Phosphatase 67 Troponin I 0.03 C-Reactive Protein 4.45 H B-Natriuretic Peptide Total Protein 5.4 L Albumin 3.2 L Globulin 2.2 L Albumin/Globulin Ratio 1.5 Lipase 17 Procalcitonin TSH SARS-CoV-2, RNA, NAAT 07/06/21 07/06/21 07/06/21 12:40 12:40 12:47 WBC RBC Hgb POC Hgb 11.9 L Hct POC Hct 35 L MCV MCH MCHC RDW Std Deviation RDW Coeff of Lester Plt Count MPV Immature Gran % (Auto) Neut % (Auto) Lymph % (Auto) Rusk % (Auto) Eos % (Auto) Baso % (Auto) Neut # (Auto) Lymph # (Auto) Rusk # (Auto) Eos # (Auto) Baso # (Auto) Immature Gran # (Auto) PT INR VBG pH VBG pCO2 VBG pO2 VBG HCO3 VBG O2 Saturation VBG Base Excess Barometric Pressure POC Sodium 132 L Sodium POC Potassium 3.6 Potassium POC Chloride 91 L Chloride Carbon Dioxide POC Total CO2 28 Anion Gap POC Anion Gap 18.0 POC BUN 39 H BUN Creatinine POC Creatinine 1.7 H Est Cr Clr Drug Dosing Est GFR ( Amer) Est GFR (Non-Af Amer) BUN/Creatinine Ratio Glucose POC Glucose (other) 210 H Lactate Calcium POC Ioniz Calcium Nalini 1.14 Total Bilirubin AST ALT Alkaline Phosphatase Troponin I C-Reactive Protein B-Natriuretic Peptide Total Protein Albumin Globulin Albumin/Globulin Ratio Lipase Procalcitonin 0.14 TSH 1.473 SARS-CoV-2, RNA, NAAT 07/06/21 07/06/21 07/06/21 13:10 14:06 14:06 WBC RBC Hgb POC Hgb Hct POC Hct MCV MCH MCHC RDW Std Deviation RDW Coeff of Lester Plt Count MPV Immature Gran % (Auto) Neut % (Auto) Lymph % (Auto) Rusk % (Auto) Eos % (Auto) Baso % (Auto) Neut # (Auto) Lymph # (Auto) Rusk # (Auto) Eos # (Auto) Baso # (Auto) Immature Gran # (Auto) PT INR VBG pH VBG pCO2 VBG pO2 VBG HCO3 VBG O2 Saturation VBG Base Excess Barometric Pressure POC Sodium Sodium POC Potassium Potassium POC Chloride Chloride Carbon Dioxide POC Total CO2 Anion Gap POC Anion Gap POC BUN BUN Creatinine POC Creatinine Est Cr Clr Drug Dosing Est GFR ( Amer) Est GFR (Non-Af Amer) BUN/Creatinine Ratio Glucose POC Glucose (other) Lactate 2.3 H* Calcium POC Ioniz Calcium Nalini Total Bilirubin AST ALT Alkaline Phosphatase Troponin I C-Reactive Protein B-Natriuretic Peptide 130 H Total Protein Albumin Globulin Albumin/Globulin Ratio Lipase Procalcitonin TSH SARS-CoV-2, RNA, NAAT NEGATIVE 07/06/21 14:06 WBC RBC Hgb POC Hgb Hct POC Hct MCV MCH MCHC RDW Std Deviation RDW Coeff of Lester Plt Count MPV Immature Gran % (Auto) Neut % (Auto) Lymph % (Auto) Rusk % (Auto) Eos % (Auto) Baso % (Auto) Neut # (Auto) Lymph # (Auto) Rusk # (Auto) Eos # (Auto) Baso # (Auto) Immature Gran # (Auto) PT INR VBG pH 7.41 VBG pCO2 52 H VBG pO2 29 VBG HCO3 32 VBG O2 Saturation < 60.0 VBG Base Excess 5.8 Barometric Pressure 733.9 POC Sodium Sodium POC Potassium Potassium POC Chloride Chloride Carbon Dioxide POC Total CO2 Anion Gap POC Anion Gap POC BUN BUN Creatinine POC Creatinine Est Cr Clr Drug Dosing Est GFR ( Amer) Est GFR (Non-Af Amer) BUN/Creatinine Ratio Glucose POC Glucose (other) Lactate Calcium POC Ioniz Calcium Nalini Total Bilirubin AST ALT Alkaline Phosphatase Troponin I C-Reactive Protein B-Natriuretic Peptide Total Protein Albumin Globulin Albumin/Globulin Ratio Lipase Procalcitonin TSH SARS-CoV-2, RNA, NAAT Diagnostic Findings Chest X-ray 07/06/21 - IMPRESSION: 1. Cardiomegaly with mild congestive change. 2. Faint patchy densities within the left lung base may represent a developing pneumonia. CT Head 07/06/21 - IMPRESSION: There is no hemorrhage, mass effect, or evidence of acute territorial ischemia by CT criteria. CT Chest/Abd/Pel 2/3/22 - IMPRESSION: 1. Significantly suboptimal examination without oral and IV contrast. There is also streak and motion artifact. 2. There is bibasilar airspace consolidation, left greater than right with a trace left pleural effusion. The appearance is typical for pneumonia/aspiration pneumonitis. Clinical correlation will be required and radiographic follow-up to resolution is recommended. 3. A 16 mm ovoid pulmonary nodule in the right upper lobe is pathologically indeterminant and unchanged from the 07/05/2020 examination. 4. No acute infectious or inflammatory findings are seen in the abdomen or pelvis. 5. Punctate nonobstructing right renal calculus. 6. Moderate to advanced colonic diverticulosis without CT evidence of acute diverticulitis. 7. Prostatomegaly with evidence of chronic bladder outlet obstruction. 8. Additional findings as above. Medications Administered Discontinued Medications Doxycycline Hyclate (Doxycycline Hyclate 100 Mg Cap) 100 mg PO NOW STA Stop: 07/06/21 14:26 Last Admin: 07/06/21 14:43 Dose: 100 mg Documented by: [id number] Ceftriaxone Sodium (Rocephin) 2,000 mg in 70 mls @ 140 mls/hr IV NOW STA Stop: 07/06/21 14:54 Last Admin: 07/06/21 14:43 Dose: 140 mls/hr Documented by: [id number] Supervising Physician Co-Signing Physician Notes Patient is an 81-year-old male with history of COPD, apical mural thrombus, other meds dementia, CKD, coronary artery disease and other medical problems presents with history of change in mental status, generalized weakness, fever and cough since 1 day duration. Patient is unable to provide much history secondary to dementia. Most of the history is obtained from patient's son at bedside. Patient was found to be hypoxic at 88% on room air by [facility] at home and was sent to ED for further evaluation. Patient was noted to be declining in the last 24 hours and was having trouble with ambulation secondary to generalized weakness. No known history of sick contact. He also complained to have abdominal discomfort but currently denies any. Please review HPI for complete details of presentation. Blood work suggestive of hyponatremia 133, hypochloremia 93, creatinine 1.7, glucose elevated at 206, lactate elevated 2.3, CRP 4.45, BNP 130. Initial Covid antigen screen negative. Chest CT suggestive of bibasilar airspace consolidation left greater than right with trace left pleural effusion. Also noted 16mm ovoid pulmonary nodule in the right upper lobe which is unchanged from prior imaging. Patient is admitted for management of acute respiratory failure with hypoxia secondary to multifocal pneumonia in setting of chronic COPD. Will check Covid PCR screen. Start on broad-spectrum antibiotics and give gentle IV fluids, trend lactate levels. Urine analysis currently pending. Obtain urine, blood cultures. Will check HbA1c to rule out diabetes mellitus. Will request speech therapy evaluation to rule out aspiration issues. Continue supplemental oxygen as needed. Reassess volume status closely given history of diastolic failure. If no improvement in mental status change, will consider MRI brain to rule out acute CVA. Continue apixaban for anticoagulation given history of intramural thrombus, DVT. Reorient frequently to minimize delirium. Check ammonia levels. No significant hypercarbia on VBG. PT OT, fall precautions requested. I personally reviewed the record. Patient is interviewed and examined at bedside. Patient's care is coordinated with Donna Hernandez PA-C. Please refer to the documentation above for details of patient's presentation and for discussion of other issues. (1) Pneumonia of both lower lobes Pneumonia type: due to unspecified organism Qualified Code(s): J18.9 - Pneumonia, unspecified organism
[2021-07-06] MEDS ORDERED: CONSULT PHARMACY STA (16:17)
[2021-07-06] MEDS ORDERED: DEXTROSE 50% 50 ML SYRINGE IV PRN (18:59)
[2021-07-06] MEDS ORDERED: ALBUTEROL 0.083% NEBU SOLN 3 ML VIAL NEB PRN (18:59)
[2021-07-06] MEDS ORDERED: GLUCOSE 40% GEL 15 GM TUBE PO PRN (18:59)
[2021-07-06] MEDS ORDERED: GLUCAGON FOR INJ 1 MG VIAL SQ PRN (18:59)
[2021-07-06] MEDS ORDERED: CARBOHYDRATES FOR HYPOGLYCEMIA PO PRN (18:59)
[2021-07-06] MEDS ORDERED: GLUCOSE 10 TABS/TUBE PO PRN (18:59)
[2021-07-06] MEDS ORDERED: SODIUM CHLORIDE 0.9% 1000ML 1,000 ML IV SCH (18:59)
[2021-07-06] MEDS: ALBUT/IPRATROP 3MG/0.5MG NEB 3 ML VIAL NEB SCH (20:28)
[2021-07-06] MEDS: INSULIN ASPART PER UNIT SC SCH ×2 (21:34→21:45)
[2021-07-06] MEDS: MAGNESIUM OXIDE 400 MG TAB PO SCH (21:40)
[2021-07-06] MEDS: DOXYCYCLINE HYCLATE 100 MG in DEXTROSE 5% 100 ML IV SCH (22:19)
[2021-07-06] MEDS: APIXABAN 2.5 MG TAB PO SCH (22:20)
[2021-07-06] MEDS: CHOLECALCIFEROL 1,000 UNITS 25 MCG TAB PO SCH (22:20)
[2021-07-06] MEDS: ATORVASTATIN 40 MG TAB PO SCH (22:20)
[2021-07-06] MEDS: DONEPEZIL HCL 10 MG TAB PO SCH (22:20)
[2021-07-06 22:43] LABS: Influenza A virus by PCR Negative (Neg); Influenza B virus by PCR Negative (Neg); RSV by PCR Negative (Neg); SARS CoV2 RNA(COVID-19) InHosp NEGATIVE (Negative)
[2021-07-07 05:49] LABS: Hematocrit (blood only) 38.4 % (42-52); Hemoglobin 12.9 g/dL (14.0-18.0); Mean Corpuscular Hemoglobin 33.8 pg (25-34); Mean Corpuscular Hgb Conc 33.6 g/dL (32-36); Mean Corpuscular Volume 100.5 fL (80-100); Mean Platelet Volume 9.2 fL (7.4-10.4); Platelet Count 154 K/uL (130-400); RDW Coefficient of Variation 15.4 % (11.5-14.5); RDW Standard Deviation 56.5 fL (36.4-46.3); Red Blood Count 3.82 M/uL (4.7-6.1); White Blood Count 6.45 K/uL (4.8-10.8)
[2021-07-07 06:26] LABS: BUN Creatinine Ratio 29.1 (10-20); Calcium 8.6 mg/dl (8.5-10.1); Creatinine Clr Calc Pharmacy 50.6 ml/min; Est GFR (African American) 53.4 ml/min; Est GFR (Non-African American) 46.1 ml/min; Potassium 3.6 mmol/L (3.5-5.1)
--- NOTE | 2021-07-07 06:55 | Electrocardiogram Report ---
Test Reason : Blood Pressure : / mmHG Vent. Rate : 081 BPM Atrial Rate : 081 BPM P-R Int : 154 ms QRS Dur : 092 ms QT Int : 410 ms P-R-T Axes : 054 -14 101 degrees QTc Int : 476 ms Normal sinus rhythm Abnormal ECG When compared with ECG of 04-JUL-2020 16:10, T wave inversion now evident in Lateral leads Confirmed by Andrew Harris ([id number]) on 07/07/2021 6:55:01 AM Referred By: REFERRED SELF Confirmed By:Andrew Harris
[2021-07-07] MEDS: ALBUT/IPRATROP 3MG/0.5MG NEB 3 ML VIAL NEB SCH ×2 (07:15→10:59)
[2021-07-07] MEDS ORDERED: PIPERACILL/TAZOBAC CONSULT ACTIVE PRN (07:29)
[2021-07-07] MEDS ORDERED: PIPERACILLIN/TAZOBACTAM 4.5 GM in DEXTROSE 5% 100 ML IV ONE (07:45)
[2021-07-07] MEDS ORDERED: predniSONE 10 MG TABLET PO SCH (09:00)
[2021-07-07] MEDS ORDERED: NON-FORMULARY MEDICATION (Iron,Carbonyl-Vitamin C [Vitron-C] 65 mg iron- 125 mg Tablet,Del PO SCH (09:00)
[2021-07-07] MEDS ORDERED: SPIRONOLACTONE 25 MG TAB PO SCH (09:00)
[2021-07-07] MEDS ORDERED: TORSEMIDE 20 MG TAB PO SCH ×2 (09:00→16:00)
[2021-07-07 09:09] LABS: Estimated Average Glucose 148 mg/dl; Hemoglobin A1C 6.8 % (4.5-5.6)
[2021-07-07] MEDS: INSULIN ASPART PER UNIT SC SCH ×4 (09:30→22:01)
[2021-07-07] MEDS: APIXABAN 2.5 MG TAB PO SCH ×2 (09:40→21:17)
[2021-07-07] MEDS: CYANOCOBALAMIN (B-12) 500 MCG TABLET PO SCH (09:43)
[2021-07-07] MEDS: FINASTERIDE 5 MG TAB PO SCH (09:43)
[2021-07-07] MEDS: ASPIRIN 81 MG ECTAB PO SCH (09:43)
[2021-07-07] MEDS: ISOSORBIDE MONO EXTENDED REL 60 MG TABCR PO SCH (09:44)
[2021-07-07] MEDS: METOPROLOL SUCC 50MG EXT REL TAB PO SCH (09:46)
[2021-07-07] MEDS: PANTOprazole 40 MG TAB PO SCH (09:47)
[2021-07-07] MEDS: POTASSIUM CHLORIDE CRTAB 20 MEQ TABCR PO SCH (09:48)
[2021-07-07] MEDS: SODIUM CHLOR 7% 4 ML NEB NEB SCH ×3 (10:59→19:17)
[2021-07-07] MEDS ORDERED: ALBUT/IPRATROP 3MG/0.5MG NEB 3 ML VIAL NEB PRN (11:02)
[2021-07-07] MEDS: UMECLIDINIUM/VILANTEROL 62.5/25MCG 7 PUFFS/INHALER INH SCH (11:32)
[2021-07-07] MEDS: DOXYCYCLINE HYCLATE 100 MG in DEXTROSE 5% 100 ML IV SCH ×2 (12:07→22:42)
[2021-07-07] MEDS: FERROUS SULFATE 325 MG TAB PO SCH (13:10)
[2021-07-07] MEDS: ASCORBIC ACID 500 MG TAB PO SCH (13:11)
[2021-07-07] MEDS: PIPERACILLIN/TAZOBACTAM 3.375 GM in DEXTROSE 5% 100 ML IV SCH ×2 (15:40→22:42)
[2021-07-07] MEDS ORDERED: predniSONE 20 MG TAB PO STA (17:10)
--- NOTE | 2021-07-07 17:20 | Hospitalist Progress Note ---
Date of Service July 07, 2021 Assessment & Plan (1) Pneumonia of both lower lobes: Plan: Possible Aspiration vs Community-acquired Sputum culture: Pending Blood cultures: Pending nasal MRSA: Negative Continue Zosyn + Doxycycline IV Speech therapy evaluation (2) COPD with exacerbation: Plan: Prednisone 40 mg p.o. daily Xopenex/Atrovent Hypertonic saline Anoro Ellipta (3) Acute respiratory failure with hypoxia: Plan: Secondary to above Wean of oxygen accordingly (4) Weakness: Plan: PT/OT (5) Acute metabolic encephalopathy: Plan: Likely due to underlying pneumonia Patient oriented x2 Occasionally gets confused Continue to monitor closely Acute renal failure on CKD stage III Creatinine improving from 1.7, now 1.4 Baseline 1.3 History of CAD/CABG Apical mural thrombus No cardiac symptoms Continue Imdur, metoprolol, aspirin, Lipitor Continue Eliquis (6) Hyperglycemia: Plan: Likely secondary to chronic prednisone A1c 6.8 BSG 1 45-1 51 Monitor (7) Dementia: Plan: Continue Aricept (8) Hypertension: (9) GERD (gastroesophageal reflux disease): (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 DVT Prophylaxis: Continue Eliquis as taken outpatient Code Status (discussed with son at bedside): DNR/DNI Disposition Pending PT and OT evaluation Lives at home with his son as per patient Admission and Anticipated Discharge Date Admission Date: July 06, 2021 Subjective Follow-up for acute hypoxic respiratory failure, bilateral pneumonia, mild COPD exacerbation, etc. Seen sitting up in bed on room air, 99% O2 saturation Comfortable, not in distress, oriented x2, occasionally gets confused States he feels improved compared to admission Breathing is improving Has occasional dry cough No chest pain, palpitations, dizziness, nausea vomiting abdominal pain, leg pain No other symptoms Review of Systems Review of Systems: all noted and negative except for above Physical Exam Physical Exam: General- oriented x 2, not in distress, speaks in sentences with no effort or accessory muscle use Head- atraumatic Eyes- PERRL, EOMI, anicteric ENT- oropharynx clear Neck- supple, no JVD, no adenopathy, no thyromegaly; carotids +2/2, no bruits appreciated Lungs-positive mild expiratory wheeze bilateral with some crackles Heart- normal rate, regular rhythm; no murmur, no gallop, no rub appreciated Abdomen- normal bowel sounds, nondistended, soft, nontender, no masses or hepatosplenomegaly Extremities- no pretibial edema, no calf tenderness; peripheral pulses intact Neuro- alert, oriented x 2; CN 2-12 grossly intact; motor 5/5 bila terally;sensation 100% on all extremities; no other gross focal neurologic deficits Skin- warm & dry Results & Data Results & Data ([facility]) Vital Signs (Past 12 Hours) Vital Signs Pulse Resp BP Pulse Ox 07/07/21 11:25 70 16 99 07/07/21 10:59 69 18 99 07/07/21 10:46 60 16 129/51 L 99 07/07/21 07:15 66 16 100 all noted and reviewed including below (1) Pneumonia of both lower lobes Pneumonia type: due to unspecified organism Qualified Code(s): J18.9 - Pneumonia, unspecified organism
[2021-07-07] MEDS: CHOLECALCIFEROL 1,000 UNITS 25 MCG TAB PO SCH (21:17)
[2021-07-07] MEDS: ATORVASTATIN 40 MG TAB PO SCH (21:17)
[2021-07-07] MEDS: DONEPEZIL HCL 10 MG TAB PO SCH (21:17)
[2021-07-08] MEDS: PIPERACILLIN/TAZOBACTAM 3.375 GM in DEXTROSE 5% 100 ML IV SCH ×3 (06:03→22:50)
[2021-07-08] MEDS: SODIUM CHLOR 7% 4 ML NEB NEB SCH ×2 (07:53→19:30)
[2021-07-08] MEDS: INSULIN ASPART PER UNIT SC SCH ×4 (08:16→20:14)
[2021-07-08] MEDS: ASPIRIN 81 MG ECTAB PO SCH (08:17)
[2021-07-08] MEDS: APIXABAN 2.5 MG TAB PO SCH ×2 (08:17→20:06)
[2021-07-08] MEDS: CYANOCOBALAMIN (B-12) 500 MCG TABLET PO SCH (08:17)
[2021-07-08] MEDS: MAGNESIUM OXIDE 400 MG TAB PO SCH (08:18)
[2021-07-08] MEDS: ISOSORBIDE MONO EXTENDED REL 60 MG TABCR PO SCH (08:18)
[2021-07-08] MEDS: POTASSIUM CHLORIDE CRTAB 20 MEQ TABCR PO SCH (08:18)
[2021-07-08] MEDS: METOPROLOL SUCC 50MG EXT REL TAB PO SCH (08:18)
[2021-07-08] MEDS: FINASTERIDE 5 MG TAB PO SCH (08:18)
[2021-07-08] MEDS: PANTOprazole 40 MG TAB PO SCH (08:19)
[2021-07-08] MEDS: UMECLIDINIUM/VILANTEROL 62.5/25MCG 7 PUFFS/INHALER INH SCH (08:20)
[2021-07-08 08:58] LABS: Hematocrit (blood only) 37.1 % (42-52); Hemoglobin 12.7 g/dL (14.0-18.0); Immature Granulocytes # (auto) 0.01 K/uL (0.00-0.02); Immature Granulocytes % (auto) 0.1 %; Lymphocytes # (auto) 0.59 K/uL (1.2-3.4); Lymphocytes % (auto) 8.6 %; Mean Corpuscular Hemoglobin 33.9 pg (25-34); Mean Corpuscular Hgb Conc 34.2 g/dL (32-36); Mean Corpuscular Volume 98.9 fL (80-100); Monocytes # (auto) 0.11 K/uL (0.11-0.59); Monocytes % (auto) 1.6 %; Neutrophils # (auto) 6.16 K/uL (1.4-6.5); Neutrophils % (auto) 89.7 %; Platelet Count 170 K/uL (130-400); RDW Coefficient of Variation 14.7 % (11.5-14.5); RDW Standard Deviation 53.2 fL (36.4-46.3); Red Blood Count 3.75 M/uL (4.7-6.1); White Blood Count 6.87 K/uL (4.8-10.8)
[2021-07-08 09:22] LABS: Calcium 8.5 mg/dl (8.5-10.1); Est GFR (African American) 54.3 ml/min; Est GFR (Non-African American) 46.9 ml/min; Potassium 3.6 mmol/L (3.5-5.1)
[2021-07-08] MEDS: DOXYCYCLINE HYCLATE 100 MG in DEXTROSE 5% 100 ML IV SCH ×2 (09:22→20:50)
[2021-07-08] MEDS: predniSONE 20 MG TAB PO SCH (09:22)
[2021-07-08] MEDS: ASCORBIC ACID 500 MG TAB PO SCH (11:34)
[2021-07-08] MEDS: FERROUS SULFATE 325 MG TAB PO SCH (11:34)
--- NOTE | 2021-07-08 15:55 | Hospitalist Progress Note ---
Date of Service July 08, 2021 Assessment & Plan (1) Pneumonia of both lower lobes: Plan: Possible Aspiration vs Community-acquired Sputum culture: Pending collection Blood cultures: Negative nasal MRSA: Negative change Zosyn to Unasyn continue Doxycycline IV Speech therapy evaluation (2) COPD with exacerbation: Plan: continue Prednisone 40 mg p.o. daily Xopenex/Atrovent Hypertonic saline Anoro Ellipta (3) Acute respiratory failure with hypoxia: Plan: Secondary to above Wean of oxygen accordingly (4) Weakness: Plan: PT/OT (5) Acute metabolic encephalopathy: Plan: Likely due to underlying pneumonia Patient oriented x 1-2 confusion slightly worse than baseline per son Continue to monitor closely Acute renal failure on CKD stage III Creatinine improving from 1.7, now 1.4 Baseline 1.3 History of CAD/CABG Apical mural thrombus No cardiac symptoms Continue Imdur, metoprolol, aspirin, Lipitor Continue Eliquis (6) Hyperglycemia: Plan: Likely secondary to chronic prednisone A1c 6.8 BSG 187-192 Continue insulin sliding scale (7) Dementia: Plan: Continue Aricept (8) Hypertension: (9) GERD (gastroesophageal reflux disease): (10) [employer] (current) use of anticoagulants: (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 DVT Prophylaxis: Continue Eliquis as taken outpatient Code Status (discussed with son at bedside): DNR/DNI Disposition Pending PT and OT evaluation Lives at home with his son as per patient Admission and Anticipated Discharge Date Admission Date: July 06, 2021 Subjective Follow-up for bilateral pneumonia, hypoxic respiratory failure, etc. Seen on room air, comfortable, not in distress Patient's son Sandeep at the bedside visiting Patient states he continues to feel improved No dyspnea, less cough No chest pain, fevers or chills Appetite is great No other symptoms Review of Systems Review of Systems: all noted and negative except for above Physical Exam Physical Exam: General- oriented x 1-2, not in distress, speaks in sentences with no effort or accessory muscle use Eyes- anicteric Neck- no JVD Lungs- (+) mild wheezing bilaterally Heart- normal rate, regular rhythm; no murmurs Abdomen- normal bowel sounds, nondistended, soft, nontender Extremities- no pretibial edema, no calf tenderness Neuro- alert, oriented x 1-2; no gross focal neurologic deficits Skin- warm & dry Results & Data Results & Data ([facility]) Vital Signs (Past 12 Hours) Vital Signs Temp Pulse Resp BP Pulse Ox Pulse Ox 07/08/21 12:30 36.8 C 78 19 124/71 97 07/08/21 07:58 77 18 96 07/08/21 07:30 37 C 74 18 124/57 L 96 07/08/21 05:00 98 07/08/21 04:29 36.7 C 61 16 114/60 99 (1) Pneumonia of both lower lobes Pneumonia type: due to unspecified organism Qualified Code(s): J18.9 - Pne umonia, unspecified organism
[2021-07-08] MEDS: ATORVASTATIN 40 MG TAB PO SCH (20:06)
[2021-07-08] MEDS: CHOLECALCIFEROL 1,000 UNITS 25 MCG TAB PO SCH (20:07)
[2021-07-08] MEDS: DONEPEZIL HCL 10 MG TAB PO SCH (20:07)
[2021-07-09] MEDS: PIPERACILLIN/TAZOBACTAM 3.375 GM in DEXTROSE 5% 100 ML IV SCH (06:16)
[2021-07-09 07:26] LABS: Eosinophils # (auto) 0.01 K/uL (0-0.5); Eosinophils % (auto) 0.1 %; Hematocrit (blood only) 37.8 % (42-52); Hemoglobin 13.1 g/dL (14.0-18.0); Immature Granulocytes # (auto) 0.01 K/uL (0.00-0.02); Immature Granulocytes % (auto) 0.1 %; Lymphocytes # (auto) 0.71 K/uL (1.2-3.4); Lymphocytes % (auto) 8.7 %; Mean Corpuscular Hemoglobin 33.9 pg (25-34); Mean Corpuscular Hgb Conc 34.7 g/dL (32-36); Mean Corpuscular Volume 97.9 fL (80-100); Mean Platelet Volume 9.1 fL (7.4-10.4); Monocytes # (auto) 0.47 K/uL (0.11-0.59); Monocytes % (auto) 5.8 %; Neutrophils # (auto) 6.95 K/uL (1.4-6.5); Neutrophils % (auto) 85.3 %; Platelet Count 175 K/uL (130-400); RDW Coefficient of Variation 14.2 % (11.5-14.5); RDW Standard Deviation 50.6 fL (36.4-46.3); Red Blood Count 3.86 M/uL (4.7-6.1); White Blood Count 8.15 K/uL (4.8-10.8)
[2021-07-09 07:45] LABS: BUN Creatinine Ratio 24.8 (10-20); Calcium 8.9 mg/dl (8.5-10.1); Est GFR (African American) 59.4 ml/min; Est GFR (Non-African American) 51.3 ml/min; Potassium 3.8 mmol/L (3.5-5.1)
[2021-07-09] MEDS: SODIUM CHLOR 7% 4 ML NEB NEB SCH (07:45)
[2021-07-09] MEDS: ASPIRIN 81 MG ECTAB PO SCH (08:08)
[2021-07-09] MEDS: predniSONE 20 MG TAB PO SCH (08:08)
[2021-07-09] MEDS: ISOSORBIDE MONO EXTENDED REL 60 MG TABCR PO SCH (08:08)
[2021-07-09] MEDS: PANTOprazole 40 MG TAB PO SCH (08:08)
[2021-07-09] MEDS: APIXABAN 2.5 MG TAB PO SCH ×2 (08:08→20:56)
[2021-07-09] MEDS: ACETAMINOPHEN 325 MG TAB PO PRN (08:09)
[2021-07-09] MEDS: FINASTERIDE 5 MG TAB PO SCH (08:09)
[2021-07-09] MEDS: METOPROLOL SUCC 50MG EXT REL TAB PO SCH (08:09)
[2021-07-09] MEDS: UMECLIDINIUM/VILANTEROL 62.5/25MCG 7 PUFFS/INHALER INH SCH (08:10)
[2021-07-09] MEDS: CYANOCOBALAMIN (B-12) 500 MCG TABLET PO SCH (08:10)
[2021-07-09] MEDS: POTASSIUM CHLORIDE CRTAB 20 MEQ TABCR PO SCH (08:12)
[2021-07-09] MEDS: INSULIN ASPART PER UNIT SC SCH ×4 (08:12→20:58)
[2021-07-09] MEDS: ADVANCED PROBIOTIC 1250 MG CAPSULE PO SCH (11:07)
[2021-07-09] MEDS: FERROUS SULFATE 325 MG TAB PO SCH (11:59)
[2021-07-09] MEDS: ASCORBIC ACID 500 MG TAB PO SCH (11:59)
[2021-07-09] MEDS: DOXYCYCLINE HYCLATE 100 MG in DEXTROSE 5% 100 ML IV SCH (12:04)
--- NOTE | 2021-07-09 13:34 | Hospitalist Progress Note ---
Date of Service July 09, 2021 Assessment & Plan (1) Pneumonia of both lower lobes: Plan: Possible Aspiration vs Community-acquired Sputum culture: Pending collection Blood cultures: Negative nasal MRSA: Negative changed Zosyn to Unasyn--> transition to Augmentin antibiotic day #3 continue Doxycycline IV--> addition to p.o. doxycycline day #3 Continue incentive spirometry Speech therapy evaluation: Plan for video swallow study tomorrow (2) COPD with exacerbation: Plan: Given prednisone 40 mg p.o. daily x3 days, wheezing has resolved Resume usual prednisone 10 mg p.o. daily Xopenex/Atrovent Hypertonic saline Anoro Ellipta (3) Acute respiratory failure with hypoxia: Plan: Secondary to above Wean of oxygen accordingly (4) Weakness: Plan: PT/OT (5) Acute metabolic encephalopathy: Plan: Likely due to underlying pneumonia Patient oriented x 1 confusion slightly worse than baseline per son Patient mostly confused today Decrease prednisone back to usual prednisone 10 mg daily Continue delirium prevention strategies Acute renal failure on CKD stage III Creatinine improving from 1.7, now 1.4 Baseline 1.3 History of CAD/CABG Apical mural thrombus No cardiac symptoms Continue Imdur, metoprolol, aspirin, Lipitor Continue Eliquis (6) Hyperglycemia: Plan: Likely secondary to chronic prednisone A1c 6.8 BSG 140, 193 Continue insulin sliding scale (7) Dementia: Plan: Continue Aricept (8) Hypertension: (9) GERD (gastroesophageal reflux disease): (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 DVT Prophylaxis: Continue Eliquis as taken outpatient Code Status (discussed with son at bedside): DNR/DNI Disposition Pending OT recommending [facility] facility Lives at home with his son as per patient Admission and Anticipated Discharge Date Admission Date: July 06, 2021 Subjective Follow-up for acute hypoxic respiratory failure, bilateral pneumonia, etc. Per RN, patient mostly confused Seen sitting up in bedside chair, on room air, comfortable, states he feels fine overall Patient mostly confused on my exam as well Denies shortness of breath, cough, chest pain, fevers or chills No other symptoms Review of Systems Review of Systems: all noted and negative except for above Physical Exam Physical Exam: General- oriented x 1, not in distress, speaks in sentences with no effort or accessory muscle use Eyes- anicteric Neck- no JVD Lungs-mild crackles at the bases, no wheezing Good air entry bilaterally Heart- normal rate, regular rhythm; no murmurs Abdomen- normal bowel sounds, nondistended, soft, nontender Extremities- no pretibial edema, no calf tenderness Neuro- alert, oriented x 1; no gross focal neurologic deficits Skin- warm & dry Results & Data Results & Data ([facility]) Vital Signs (Past 12 Hours) Vital Signs Temp Pulse Pulse Resp BP Pulse Ox 07/09/21 11:54 36.6 C 16 130/67 95 07/09/21 08:00 72 07/09/21 07:45 77 18 94 07/09/21 07:30 36.4 C L 77 135/83 95 07/09/21 04:03 36.6 C 70 18 123/74 96 all noted and reviewed including below (1) Pneumonia of both lower lobes Pneumonia type: due to unspecified organism Qualified Code(s): J18.9 - Pneumonia, unspecified organism
[2021-07-09] MEDS: AMOXICILLIN/CLAVULANATE 875 MG TAB PO SCH (16:36)
[2021-07-09] MEDS: ATORVASTATIN 40 MG TAB PO SCH (20:57)
[2021-07-09] MEDS: DONEPEZIL HCL 10 MG TAB PO SCH (20:57)
[2021-07-09] MEDS: CHOLECALCIFEROL 1,000 UNITS 25 MCG TAB PO SCH (20:57)
[2021-07-09] MEDS: DOXYCYCLINE HYCLATE 100 MG CAP PO SCH (20:58)
[2021-07-10] MEDS: INSULIN ASPART PER UNIT SC SCH ×4 (08:51→20:52)
[2021-07-10] MEDS: DOXYCYCLINE HYCLATE 100 MG CAP PO SCH ×2 (08:52→21:02)
[2021-07-10] MEDS: ADVANCED PROBIOTIC 1250 MG CAPSULE PO SCH (08:52)
[2021-07-10] MEDS: ASPIRIN 81 MG ECTAB PO SCH (08:52)
[2021-07-10] MEDS: PANTOprazole 40 MG TAB PO SCH (08:53)
[2021-07-10] MEDS: METOPROLOL SUCC 50MG EXT REL TAB PO SCH (08:53)
[2021-07-10] MEDS: FINASTERIDE 5 MG TAB PO SCH (08:53)
[2021-07-10] MEDS: AMOXICILLIN/CLAVULANATE 875 MG TAB PO SCH ×2 (08:53→17:48)
[2021-07-10] MEDS: CYANOCOBALAMIN (B-12) 500 MCG TABLET PO SCH (08:53)
[2021-07-10] MEDS: ISOSORBIDE MONO EXTENDED REL 60 MG TABCR PO SCH (08:53)
[2021-07-10] MEDS: APIXABAN 2.5 MG TAB PO SCH ×2 (08:54→21:00)
[2021-07-10] MEDS: UMECLIDINIUM/VILANTEROL 62.5/25MCG 7 PUFFS/INHALER INH SCH (08:54)
[2021-07-10] MEDS: predniSONE 10 MG TABLET PO SCH (08:54)
[2021-07-10] MEDS: POTASSIUM CHLORIDE CRTAB 20 MEQ TABCR PO SCH (08:55)
[2021-07-10] MEDS ORDERED: metOLazone 2.5 MG TABLET PO SCH (09:00)
[2021-07-10] MEDS: FERROUS SULFATE 325 MG TAB PO SCH (12:50)
[2021-07-10] MEDS: ASCORBIC ACID 500 MG TAB PO SCH (12:50)
--- NOTE | 2021-07-10 14:19 | Hospitalist Progress Note ---
Date of Service July 10, 2021 Assessment & Plan (1) Pneumonia of both lower lobes: Plan: Possible Aspiration vs Community-acquired Sputum culture: Pending collection Blood cultures: Negative nasal MRSA: Negative changed Zosyn to Unasyn--> transition to Augmentin antibiotic day #4 continue Doxycycline IV--> addition to p.o. doxycycline day #4 Continue incentive spirometry Speech therapy evaluation: Status post FEES, no signs of aspiration (2) COPD with exacerbation: Plan: Given prednisone 40 mg p.o. daily x3 days, wheezing has resolved Resumed usual prednisone 10 mg p.o. daily Xopenex/Atrovent Hypertonic saline Anoro Ellipta Improving overall (3) Acute respiratory failure with hypoxia: Plan: Secondary to above Weaned off oxygen appropriately (4) Weakness: Plan: PT/OT: Recommending to transition to alf facility (5) Acute metabolic encephalopathy: Plan: Likely due to underlying pneumonia, high-dose prednisone Patient oriented x 1-2 confusion slightly worse than baseline per son Confusion has improved Continue delirium prevention strategies Acute renal failure on CKD stage III Creatinine improving from 1.7, now 1.4 Baseline 1.3 History of CAD/CABG Apical mural thrombus No cardiac symptoms Continue Imdur, metoprolol, aspirin, Lipitor Continue Eliquis (6) Hyperglycemia: Plan: Likely secondary to chronic prednisone A1c 6.8 BSG 114, 179 Continue insulin sliding scale (7) Dementia: Plan: Continue Aricept (8) Hypertension: (9) GERD (gastroesophageal reflux disease): (10) [facility] (current) use of anticoagulants: (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 DVT Prophylaxis: Continue Eliquis as taken outpatient Code Status (discussed with son at bedside): DNR/DNI Disposition Pending OT recommending alf facility Lives at home with his son as per patient Admission and Anticipated Discharge Date Admission Date: July 06, 2021 Subjective Follow-up for bilateral pneumonia, etc. Seen sitting up in bed, comfortable, not in distress Good spirits, less confused States he feels fine overall Breathing is better, has dry cough intermittently No chest pain, palpitations, dizziness No problems with eating breakfast today No other symptoms Review of Systems Review of Systems: all noted and negative except for above Physical Exam Physical Exam: General- oriented x 2, not in distress, speaks in sentences with no effort or accessory muscle use Eyes- anicteric Neck- no JVD Lungs-mild rales at the bases, no wheezing Good air entry bilaterally Heart- normal rate, regular rhythm; no murmurs Abdomen- normal bowel sounds, nondistended, soft, no tenderness Extremities- no pretibial edema, no calf tenderness Neuro- alert, oriented x 2; no new gross focal neurologic deficits Skin- warm & dry Results & Data Results & Data ([facility]) Vital Signs (Past 12 Hours) Vital Signs Temp Pulse Resp BP Pulse Ox 07/10/21 07:15 36.4 C L 73 18 146/71 H 95 all noted and reviewed including below (1) Pneumonia of both lower lobes Pneumonia type: due to unspecified organism Qualified Code(s): J18.9 - Pneumonia, unspecified organism
[2021-07-10] MEDS: ATORVASTATIN 40 MG TAB PO SCH (21:00)
[2021-07-10] MEDS: DONEPEZIL HCL 10 MG TAB PO SCH (21:01)
[2021-07-10] MEDS: CHOLECALCIFEROL 1,000 UNITS 25 MCG TAB PO SCH (21:27)
[2021-07-11] MEDS: UMECLIDINIUM/VILANTEROL 62.5/25MCG 7 PUFFS/INHALER INH SCH (09:02)
[2021-07-11] MEDS: ISOSORBIDE MONO EXTENDED REL 60 MG TABCR PO SCH (09:04)
[2021-07-11] MEDS: ADVANCED PROBIOTIC 1250 MG CAPSULE PO SCH (09:04)
[2021-07-11] MEDS: ASPIRIN 81 MG ECTAB PO SCH (09:04)
[2021-07-11] MEDS: AMOXICILLIN/CLAVULANATE 875 MG TAB PO SCH ×2 (09:04→17:11)
[2021-07-11] MEDS: APIXABAN 2.5 MG TAB PO SCH ×2 (09:04→20:09)
[2021-07-11] MEDS: predniSONE 10 MG TABLET PO SCH (09:04)
[2021-07-11] MEDS: METOPROLOL SUCC 50MG EXT REL TAB PO SCH (09:04)
[2021-07-11] MEDS: FINASTERIDE 5 MG TAB PO SCH (09:04)
[2021-07-11] MEDS: CYANOCOBALAMIN (B-12) 500 MCG TABLET PO SCH (09:04)
[2021-07-11] MEDS: DOXYCYCLINE HYCLATE 100 MG CAP PO SCH ×2 (09:04→22:11)
[2021-07-11] MEDS: PANTOprazole 40 MG TAB PO SCH (09:04)
[2021-07-11] MEDS: INSULIN ASPART PER UNIT SC SCH ×4 (09:09→21:08)
[2021-07-11] MEDS: POTASSIUM CHLORIDE CRTAB 20 MEQ TABCR PO SCH (09:18)
[2021-07-11] MEDS: ACETAMINOPHEN 325 MG TAB PO PRN (10:06)
[2021-07-11] MEDS: MAGNESIUM OXIDE 400 MG TAB PO SCH (10:07)
[2021-07-11] MEDS: ASCORBIC ACID 500 MG TAB PO SCH (12:07)
[2021-07-11] MEDS: guaiFENesin 600 MG TABCR PO SCH ×2 (12:07→20:08)
[2021-07-11] MEDS: FERROUS SULFATE 325 MG TAB PO SCH (12:07)
--- NOTE | 2021-07-11 13:05 | Hospitalist Progress Note ---
Date of Service July 11, 2021 Assessment & Plan (1) Pneumonia of both lower lobes: Plan: Possible Aspiration vs Community-acquired Blood cultures: Negative nasal MRSA: Negative changed Zosyn to Unasyn--> Augmentin antibiotic day #10/07 continue Doxycycline IV--> p.o. doxycycline day #5 Continue incentive spirometry Speech therapy evaluation: Status post FEES, no signs of aspiration awaiting to transition to SNF (2) COPD with exacerbation: Plan: Given prednisone 40 mg p.o. daily x3 days, wheezing has resolved Resumed usual prednisone 10 mg p.o. daily Xopenex/Atrovent Anoro Ellipta -- improved overall (3) Acute respiratory failure with hypoxia: Plan: Secondary to above Weaned off oxygen successfully (4) Weakness: Plan: PT/OT: [facility] (5) Acute metabolic encephalopathy: Plan: Likely due to underlying pneumonia, high-dose prednisone Patient oriented x 1-2 confusion slightly worse than baseline per son Confusion has improved Continue delirium prevention strategies Acute renal failure on CKD stage III Creatinine improving from 1.7, now 1.4 Baseline 1.3 History of CAD/CABG Apical mural thrombus No cardiac symptoms Continue Imdur, metoprolol, aspirin, Lipitor Continue Eliquis (6) Hyperglycemia: Plan: Likely secondary to chronic prednisone A1c 6.8 BSG 178 - 241 Continue insulin sliding scale (7) Dementia: Plan: Continue Aricept (8) Hypertension: (9) GERD (gastroesophageal reflux disease): (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 DVT Prophylaxis: Continue Eliquis as taken outpatient Code Status (discussed with son at bedside): DNR/DNI Disposition awaiting bed availability at [facility]- most likely Thurs/Fri Admission and Anticipated Discharge Date Admission Date: July 06, 2021 Subjective ff up for lateral pneumonia, CP exacerbation, etc. Seen sitting up in bed, comfortable, not in distress States he feels improved overall Has occasional cough, no shortness of breath, chest pain, palpitations, nausea vomiting, fevers or chills Answers most questions appropriately Review of Systems Review of Systems: all noted and negative except for above Physical Exam Physical Exam: General- oriented x 2, not in distress, speaks in sentences with no effort or accessory muscle use Eyes- anicteric Neck- no JVD Lungs- clear BS BL no wheezing Heart- normal rate, regular rhythm; no murmurs Abdomen- normal bowel sounds, nondistended, soft, nontender Extremities- no pretibial edema, no calf tenderness Neuro- alert, oriented x 2; no new gross focal neurologic deficits Skin- warm & dry Results & Data Results & Data ([place]) Vital Signs (Past 12 Hours) Vital Signs Temp Pulse Resp BP Pulse Ox 07/11/21 07:56 36.5 C 81 16 162/72 H 94 all noted and reviewed including below (1) Pneumonia of both lower lobes Pneumonia type: due to unspecified organism Qualified Code(s): J18.9 - Pneumonia, unspecified organism
[2021-07-11] MEDS: ATORVASTATIN 40 MG TAB PO SCH (20:09)
[2021-07-11] MEDS: CHOLECALCIFEROL 1,000 UNITS 25 MCG TAB PO SCH (20:09)
[2021-07-11] MEDS: DONEPEZIL HCL 10 MG TAB PO SCH (20:09)
[2021-07-12] MEDS: DOXYCYCLINE HYCLATE 100 MG CAP PO SCH ×2 (07:56→20:28)
[2021-07-12] MEDS: APIXABAN 2.5 MG TAB PO SCH ×2 (07:56→20:29)
[2021-07-12] MEDS: guaiFENesin 600 MG TABCR PO SCH ×2 (07:56→20:29)
[2021-07-12] MEDS: UMECLIDINIUM/VILANTEROL 62.5/25MCG 7 PUFFS/INHALER INH SCH (07:57)
[2021-07-12] MEDS: ASPIRIN 81 MG ECTAB PO SCH (07:57)
[2021-07-12] MEDS: CYANOCOBALAMIN (B-12) 500 MCG TABLET PO SCH (07:57)
[2021-07-12] MEDS: predniSONE 10 MG TABLET PO SCH (07:57)
[2021-07-12] MEDS: ISOSORBIDE MONO EXTENDED REL 60 MG TABCR PO SCH (07:58)
[2021-07-12] MEDS: METOPROLOL SUCC 50MG EXT REL TAB PO SCH (07:58)
[2021-07-12] MEDS: AMOXICILLIN/CLAVULANATE 875 MG TAB PO SCH ×2 (07:58→17:51)
[2021-07-12] MEDS: ADVANCED PROBIOTIC 1250 MG CAPSULE PO SCH (07:58)
[2021-07-12] MEDS: PANTOprazole 40 MG TAB PO SCH (07:59)
[2021-07-12] MEDS: FINASTERIDE 5 MG TAB PO SCH (07:59)
[2021-07-12] MEDS: POTASSIUM CHLORIDE CRTAB 20 MEQ TABCR PO SCH (08:01)
[2021-07-12] MEDS: INSULIN ASPART PER UNIT SC SCH ×4 (08:53→21:29)
[2021-07-12] MEDS: ASCORBIC ACID 500 MG TAB PO SCH (12:05)
[2021-07-12] MEDS: FERROUS SULFATE 325 MG TAB PO SCH (12:05)
[2021-07-12] MEDS: TORSEMIDE 10 MG TAB PO SCH (15:53)
[2021-07-12] MEDS: SPIRONOLACTONE 25 MG TAB PO SCH (15:53)
[2021-07-12] MEDS ORDERED: ACETAMINOPHEN 325 MG TAB PO PRN (16:03)
--- NOTE | 2021-07-12 19:47 | Hospitalist Progress Note ---
Date of Service July 12, 2021 Assessment & Plan (1) Pneumonia of both lower lobes: Plan: (1) Pneumonia of both lower lobes: Plan: Possible Aspiration vs Community-acquired Blood cultures: Negative nasal MRSA: Negative changed Zosyn to Unasyn--> Augmentin antibiotic day #11/10 continue Doxycycline IV--> p.o. doxycycline day #11/10 Continue incentive spirometry Speech therapy evaluation: Status post FEES, no signs of aspiration awaiting to transition to SNF (2) COPD with exacerbation: Plan: Given prednisone 40 mg p.o. daily x3 days, wheezing has resolved Resumed usual prednisone 10 mg p.o. daily Xopenex/Atrovent Anoro Ellipta -- improved overall (3) Acute respiratory failure with hypoxia: Plan: Secondary to above Weaned off oxygen successfully (4) Weakness: Plan: PT/OT: Recommending to transition to longterm facility (5) Acute metabolic encephalopathy: Plan: Likely due to underlying pneumonia, high-dose prednisone Patient oriented x 3 resolved #. Acute renal failure on CKD stage III Creatinine improving from 1.7, now 1.4 Baseline 1.3, f/u BMP as needed. #. History of CAD/CABG #. 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 DVT Prophylaxis: Continue Eliquis as taken outpatient Code Status (discussed with son at bedside): DNR/DNI Disposition awaiting bed availability at SNF- most likely Fri Admission and Anticipated Discharge Date Admission Date: July 06, 2021 Subjective Patient seen and examined at bedside for pneumonia and COPD exacerbation. Patient on room air, NAD, no new acute events overnight. Patient reports eating okay. Patient reports cough getting better. Patient denies fever/chills/chest pain/palpitation/other review of symptoms. Physical Exam Physical Exam: GENERAL: Alert and oriented x3. NAD, on RA. HEENT: No pallor, no icterus. Pupils equal, round and reactive to light. Oral mucosa moist. NECK: No JVD, no neck masses. HEART: S1 and S2 heard. Regular rate and rhythm. No murmur, no gallop. RESPIRATORY SYSTEM: Normal AP diameter. No accessory muscle use. No wheezing, occasional crackles, especially with cough. ABDOMEN: Soft, bowel sounds present, nontender, no distention. CENTRAL NERVOUS SYSTEM: No facial droop. Speech is clear. Obeys simple commands. Moves extremities. EXTREMITIES: No edema, no erythema seen. Results & Data Results & Data ([facility]) Vital Signs (Past 12 Hours) Vital Signs Temp Pulse Resp BP Pulse Ox 07/12/21 15:32 36.4 C L 77 16 126/69 96 (1) Pneumonia of both lower lobes Pneumonia type: due to unspecified organism Qualified Code(s): J18.9 - Pne umonia, unspecified organism
[2021-07-12] MEDS: CHOLECALCIFEROL 1,000 UNITS 25 MCG TAB PO SCH (20:28)
[2021-07-12] MEDS: ATORVASTATIN 40 MG TAB PO SCH (20:29)
[2021-07-12] MEDS: DONEPEZIL HCL 10 MG TAB PO SCH (20:29)
[2021-07-13] MEDS: ACETAMINOPHEN 325 MG TAB PO PRN ×2 (02:44→16:21)
[2021-07-13 07:40] LABS: Hematocrit (blood only) 35.9 % (42-52); Hemoglobin 12.1 g/dL (14.0-18.0); Mean Corpuscular Hemoglobin 33.8 pg (25-34); Mean Corpuscular Hgb Conc 33.7 g/dL (32-36); Mean Corpuscular Volume 100.3 fL (80-100); Nucleated RBC # (auto) 0.04 K/uL (0-0); Nucleated RBC % (auto) 0.6 %; Platelet Count 206 K/uL (130-400); RDW Coefficient of Variation 14.4 % (11.5-14.5); RDW Standard Deviation 52.9 fL (36.4-46.3); Red Blood Count 3.58 M/uL (4.7-6.1); White Blood Count 6.37 K/uL (4.8-10.8)
[2021-07-13 08:33] LABS: BUN Creatinine Ratio 26.5 (10-20); Calcium 8.3 mg/dl (8.5-10.1); Creatinine Clr Calc Pharmacy 47.3 ml/min; Est GFR (African American) 50.8 ml/min; Est GFR (Non-African American) 43.8 ml/min; Magnesium 2.2 mg/dl (1.7-2.4); Phosphorus 3.4 mg/dl (2.5-4.9); Potassium 3.8 mmol/L (3.5-5.1)
[2021-07-13] MEDS: AMOXICILLIN/CLAVULANATE 875 MG TAB PO SCH ×2 (09:02→16:22)
[2021-07-13] MEDS: ASPIRIN 81 MG ECTAB PO SCH (09:02)
[2021-07-13] MEDS: APIXABAN 2.5 MG TAB PO SCH ×2 (09:02→21:01)
[2021-07-13] MEDS: CYANOCOBALAMIN (B-12) 500 MCG TABLET PO SCH (09:03)
[2021-07-13] MEDS: DOXYCYCLINE HYCLATE 100 MG CAP PO SCH (09:03)
[2021-07-13] MEDS: FINASTERIDE 5 MG TAB PO SCH (09:04)
[2021-07-13] MEDS: ISOSORBIDE MONO EXTENDED REL 60 MG TABCR PO SCH (09:04)
[2021-07-13] MEDS: guaiFENesin 600 MG TABCR PO SCH ×2 (09:04→21:01)
[2021-07-13] MEDS: ADVANCED PROBIOTIC 1250 MG CAPSULE PO SCH (09:04)
[2021-07-13] MEDS: METOPROLOL SUCC 50MG EXT REL TAB PO SCH (09:05)
[2021-07-13] MEDS: PANTOprazole 40 MG TAB PO SCH (09:05)
[2021-07-13] MEDS: predniSONE 10 MG TABLET PO SCH (09:05)
[2021-07-13] MEDS: POTASSIUM CHLORIDE CRTAB 20 MEQ TABCR PO SCH (09:05)
[2021-07-13] MEDS: TORSEMIDE 10 MG TAB PO SCH ×2 (09:06→16:21)
[2021-07-13] MEDS: SPIRONOLACTONE 25 MG TAB PO SCH (09:06)
[2021-07-13] MEDS: UMECLIDINIUM/VILANTEROL 62.5/25MCG 7 PUFFS/INHALER INH SCH (09:07)
[2021-07-13] MEDS: INSULIN ASPART PER UNIT SC SCH ×4 (09:20→20:51)
[2021-07-13] MEDS: MAGNESIUM OXIDE 400 MG TAB PO SCH (11:17)
[2021-07-13] MEDS: FERROUS SULFATE 325 MG TAB PO SCH (12:43)
[2021-07-13] MEDS: ASCORBIC ACID 500 MG TAB PO SCH (12:43)
--- NOTE | 2021-07-13 15:40 | Hospitalist Progress Note ---
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 doxycycline day #7 Continue incentive spirometry Speech therapy evaluation: Status post FEES, no signs of aspiration Awaiting to transition to SNF (2) COPD with exacerbation: Plan: Given prednisone 40 mg p.o. daily x3 days, wheezing has resolved Resumed usual prednisone 10 mg p.o. daily Xopenex/Atrovent Anoro Ellipta -- improved overall (3) Acute respiratory failure with hypoxia: Plan: Secondary to above Weaned off oxygen successfully (4) Weakness: Plan: PT/OT: Recommending to transition to [facility] facility (5) Acute metabolic encephalopathy: Plan: Likely due to underlying pneumonia, high-dose prednisone Patient oriented x 3 resolved (6) Acute renal failure on CKD stage III Creatinine improving from 1.7, now 1.4 Baseline 1.3, f/u BMP as needed. (7) History of CAD/CABG (8) Apical mural thrombus No cardiac symptoms Continue Imdur, metoprolol, aspirin, Lipitor Continue Eliquis (9) Hyperglycemia Plan: Likely secondary to chronic prednisone A1c 6.8 BSG 178 - 241 Continue insulin sliding scale (10) Dementia Continue Aricept (11) Hypertension (12) GERD (gastroesophageal reflux disease) (13) long-term (current) use of anticoagulants (14) BPH with obstruction/lower urinary tract symptoms Continue other outpatient medications as appropriate. DVT Prophylaxis: Continue Eliquis as taken outpatient Code Status (discussed with son at bedside): DNR/DNI Disposition awaiting bed availability at SNF- planning on tomorrow morning Patient seen in collaboration with Dr. Blunt. Admission and Anticipated Discharge Date Admission Date: July 06, 2021 Supervising Physician Co-Signing Physician Notes Patient seen and examined at bedside for pneumonia and COPD exacerbation. Patient medically stable and awaiting placement. Patient on day 7 of antibiotics. Upon examination, patient on room air, trace BLE edema, lungs clear to auscultation. Rest of the examination as above. I have seen and examined the patient and have discussed the case with the provider above. I agree with the assessment and plan as stated. Subjective Patient seen and examined in [facility] for pneumonia and COPD exacerbation. Patient feeling well today, no new complaints overnight. Patient on room air, NAD. Cough is improving. Denies F/C, CP, SOB, N/V, abdominal pain, dysuria, diarrhea or constipation. Tolerating diet without issue. Had a bowel movement this morning. Review of Systems Review of Systems: At least ten systems reviewed and negative except as noted in the HPI. Physical Exam Physical Exam: Gen: WD/WN, NAD, sitting in bedside chair, A&Ox3 HEENT: Normocephalic, atraumatic, conjunctivae moist, sclerae anicteric, mucous membranes moist Lung: Clear to Auscultation bilaterally, no wheezes/rales/rhonchi Heart: Regular rate, regular rhythm, no murmurs, rubs, or gallops Abdomen: Soft, NT, ND +BS x 4 Extremities: no edema Skin: Warm, no rash Results & Data Results & Data ([facility]) Vital Signs (Past 12 Hours) Vital Signs Temp Pulse Pulse Resp BP Pulse Ox 07/13/21 08:54 70 112/62 07/13/21 07:17 36.5 C 62 18 134/62 95 Laboratory Results Short CBC 07/06/21 07/07/21 07/08/21 Range/Units 12:40 05:20 08:41 WBC (4.8-10.8) K/uL Hgb (14.0-18.0) g/dL Hct (42-52) % Plt Count (130-400) K/uL Creatinine 1.73 H 1.41 H D 1.39 (0.6-1.4) mg/dl 07/09/21 07/13/21 07/13/21 Range/Units 06:56 07:04 07:04 WBC 6.37 (4.8-10.8) K/uL Hgb 12.1 L (14.0-18.0) g/dL Hct 35.9 L (42-52) % Plt Count 206 (130-400) K/uL Creatinine 1.29 1.47 H (0.6-1.4) mg/dl BMP 07/13/21 07:04 Sodium 137 Potassium 3.8 Chloride 102 Carbon Dioxide 27 BUN 39 H Creatinine 1.47 H Glucose 102 H Calcium 8.3 L Diagnostic Findings Chest X-Ray 07/06/21 12:28 XR chest 1V portable HISTORY: weakness COMPARISON: Chest 07/04/2020. FINDINGS: The heart remains enlarged. There are poststernotomy changes. Cervical spinal fusion hardware is again noted. Prior cholecystectomy. There are low lung volumes. No pleural effusions. No pneumothorax. There is mild central pulmonary vascular congestion without overt edema. Faint patchy density left lung base. IMPRESSION: 1. Cardiomegaly with mild congestive change. 2. Faint patchy densities within the left lung base may represent a developing pneumonia. ACT 112: Negative or not required by law. Electronically signed by: Luan Perera M.D. 07/06/2021 1:[address] 07/06/21 12:29 CT SCAN OF THE BRAIN WITHOUT IV CONTRAST CLINICAL HISTORY: Change in mental status. Weakness. COMPARISON STUDY: CT of the brain dated 07/10/2020. TECHNIQUE: Unenhanced axial CT scan of the brain is performed from the vertex to the skull base. A dose lowering technique was utilized adhering to the principles of ALARA. CT DOSE: 2231.36 mGycm FINDINGS: Brain parenchyma: There are age-related involutional changes noting mild to moderate subcortical and periventricular microangiopathic change. There is no hemorrhage, mass effect, or evidence of acute territorial ischemia by CT criteria. [place]-white matter differentiation is preserved. A small chronic lacunar infarct is noted in the right caudate head. No extra-axial fluid collection is seen. Ventricles, sulci, cisterns: Prominent secondary to involutional change. Intracranial vasculature: There is atherosclerotic calcification of the cavernous carotid and vertebral arteries. Calvarium: Unremarkable. Sinuses and mastoids: The visualized paranasal sinuses are clear. The mastoid air cells are well pneumatized. Orbits: The bony orbits are grossly intact. There are bilateral ocular lens implants. IMPRESSION: There is no hemorrhage, mass effect, or evidence of acute territorial ischemia by CT criteria. ACT 112: Negative or not required by law. Electronically signed by: Mendoza Montgomery M.D. 07/06/2021 2:08 PM Abdomen/Pelvis CT 07/06/21 13:06 CT SCAN OF THE CHEST, ABDOMEN, AND PELVIS WITHOUT IV CONTRAST CLINICAL HISTORY: Generalized weakness. Change in mental status. Dyspnea. Generalized abdominal pain. COMPARISON STUDY: Chest CT dated 12/20/2020. abdominal CT dated 07/04/2020. PET/CT dated 09/07/2020. TECHNIQUE: Unenhanced CT scan of the chest, abdomen, and pelvis was performed from the thoracic inlet to the proximal femora. Images are reviewed in the axial, sagittal, and coronal planes. IV contrast was not administered for this examination. Note that the examination was performed and significantly suboptimal fashion without oral and IV contrast. There is also motion artifact, and streak artifact from the arms which could not be elevated above the chest or abdomen. A dose lowering technique was utilized adhering to the principles of ALARA. FINDINGS: CHEST: Thyroid: Imaged portions of the thyroid gland are normal in size and att enuation. Thoracic aorta: There is atherosclerotic calcification of the thoracic aorta, which is normal in caliber and demonstrates standard 3-vessel arch anatomy. Heart: The heart is enlarged and without pericardial effusion. The coronary arteries are densely calcified. Lungs and pleural spaces: Evaluation of the lung parenchyma is significantly degraded by motion artifact. There is patchy airspace consolidation seen throughout the left lower lobe with a trace left pleural effusion. Mild patchy consolidation is also seen in the right lower lobe. The trachea and central airways are clear. An ovoid pulmonary nodule in the right upper lobe on image #93 measures 1.6 cm. This has not appreciably changed as compared to 12/20/2020. There are scattered calcified granulomas. Mediastinum: The patient is status post midline sternotomy. There are scattered subcentimeter mediastinal lymph nodes, several of which are calcified. This suggests remote granulomatous infection. Ifrah: There are calcified hilar nodes. Note that the ifrah are not well assessed without IV contrast. Axillae: There is no axillary lymphadenopathy. Bony thorax: The skeletal structures are osteopenic. No lytic or blastic lesions are identified. Advanced arthritic change is seen in the shoulders. Spondylotic change is noted throughout the thoracic spine. Fusion hardware is partially visualized in the lower cervical spine. Soft tissues: Gynecomastia is noted. ABDOMEN AND PELVIS: Liver: Evaluation of the liver is compromised by streak artifact. The unenhanced liver is normal in size, contour, and attenuation. There is no intrahepatic biliary ductal dilatation. Pneumobilia is noted in the left lobe. Gallbladder: Unremarkable. Spleen: Normal in size and attenuation. Pancreas: A 13 mm simple cystic focus in the pancreatic neck is unchanged and typical for a small sidebranch IPMN. The unenhanced pancreas is atrophic and otherwise grossly unremarkable. Adrenal glands: Unremarkable. Kidneys: The unenhanced kidneys are atrophic and without hydronephrosis. A punctate nonobstructing calculus is noted in the right kidney. No left renal calculi are identified. A 2.6 cm cyst is again seen in the left lower pole. Abdominal vasculature: The abdominal aorta is normal in course and caliber noting advanced atherosclerotic calcification. Bowel: There is moderate to advanced colonic diverticulosis without CT evidence of acute diverticulitis. No bowel obstruction is seen. Fecal retention is noted throughout the colon. Duodenal diverticula are noted. The appendix is well- visualized and normal. Peritoneum: There is no intraperitoneal free air or abdominal ascites. There is a fat-containing umbilical hernia. Lymphadenopathy: None. Pelvic viscera: The prostate gland is diminutive and heterogeneous. The bladder wall is thickened and trabeculated indicating chronic outlet obstruction. There are numerous small bladder diverticula which measure up to 1.8 cm. There are small bilateral fat-containing inguinal hernias. Skeletal structures: The skeletal structures are osteopenic. There is moderate lumbosacral spondylosis. Arthritic change is seen in the hips. No lytic or blast ic lesions are seen. IMPRESSION: 1. Significantly suboptimal examination without oral and IV contrast. There is also streak and motion artifact. 2. There is bibasilar airspace consolidation, left greater than right with a trace left pleural effusion. The appearance is typical for pneumonia/aspiration pneumonitis. Clinical correlation will be required and radiographic follow-up to resolution is recommended. 3. A 16 mm ovoid pulmonary nodule in the right upper lobe is pathologically indeterminant and unchanged from the 07/05/2020 examination. 4. No acute infectious or inflammatory findings are seen in the abdomen or pelvis. 5. Punctate nonobstructing right renal calculus. 6. Moderate to advanced colonic diverticulosis without CT evidence of acute diverticulitis. 7. Prostatomegaly with evidence of chronic bladder outlet obstruction. 8. Additional findings as above. ACT 112: Negative or not required by law. Electronically signed by: Mendoza Montgomery M.D. 07/06/2021 2:[address] 07/06/21 13:06 CT SCAN OF THE CHEST, ABDOMEN, AND PELVIS WITHOUT IV CONTRAST CLINICAL HISTORY: Generalized weakness. Change in mental status. Dyspnea. Generalized abdominal pain. COMPARISON STUDY: Chest CT dated 12/20/2020. abdominal CT dated 07/04/2020. PET/CT dated 09/07/2020. TECHNIQUE: Unenhanced CT scan of the chest, abdomen, and pelvis was performed from the thoracic inlet to the proximal femora. Images are reviewed in the axial, sagittal, and coronal planes. IV contrast was not administered for this examination. Note that the examination was performed and significantly suboptimal fashion without oral and IV contrast. There is also motion artifact, and streak artifact from the arms which could not be elevated above the chest or abdomen. A dose lowering technique was utilized adhering to the principles of ALARA. FINDINGS: CHEST: Thyroid: Imaged portions of the thyroid gland are normal in size and attenuation. Thoracic aorta: There is atherosclerotic calcification of the thoracic aorta, which is normal in caliber and demonstrates standard 3-vessel arch anatomy. Heart: The heart is enlarged and without pericardial effusion. The coronary arteries are densely calcified. Lungs and pleural spaces: Evaluation of the lung parenchyma is significantly degraded by motion artifact. There is patchy airspace consolidation seen throughout the left lower lobe with a trace left pleural effusion. Mild patchy consolidation is also seen in the right lower lobe. The trachea and central airways are clear. An ovoid pulmonary nodule in the right upper lobe on image #93 measures 1.6 cm. This has not appreciably changed as compared to 12/20/2020. There are scattered calcified granulomas. Mediastinum: The patient is status post midline sternotomy. There are scattered subcentimeter mediastinal lymph nodes, several of which are calcified. This suggests remote granulomatous infection. Ifrah: There are calcified hilar nodes. Note that the ifrah are not well assessed without IV contrast. Axillae: There is no axillary lymphadenopathy. Bony thorax: The skeletal structures are osteopenic. No lytic or blastic lesions are identified. Advanced arthritic change is seen in the shoulders. Spondylotic change is noted throughout the thoracic spine. Fusion hardware is partially visualized in the lower cervical spine. Soft tissues: Gynecomastia is noted. ABDOMEN AND PELVIS: Liver: Evaluation of the liver is compromised by streak artifact. The unenhanced liver is normal in size, contour, and attenuation. There is no intrahepatic biliary ductal dilatation. Pneumobilia is noted in the left lobe. Gallbladder: Unremarkable. Spleen: Normal in size and attenuation. Pancreas: A 13 mm simple cystic focus in the pancreatic neck is unchanged and typical for a small sidebranch IPMN. The unenhanced pancreas is atrophic and otherwise grossly unremarkable. Adrenal glands: Unremarkable. Kidneys: The unenhanced kidneys are atrophic and without hydronephrosis. A punctate nonobstructing calculus is noted in the right kidney. No left renal calculi are identified. A 2.6 cm cyst is again seen in the left lower pole. Abdominal vasculature: The abdominal aorta is normal in course and caliber noting advanced atherosclerotic calcification. Bowel: There is moderate to advanced colonic diverticulosis without CT evidence of acute diverticulitis. No bowel obstruction is seen. Fecal retention is noted throughout the colon. Duodenal diverticula are noted. The appendix is well- visualized and normal. Peritoneum: There is no intraperitoneal free air or abdominal ascites. There is a fat-containing umbilical hernia. Lymphadenopathy: None. Pelvic viscera: The prostate gland is diminutive and heterogeneous. The bladder wall is thickened and trabeculated indicating chronic outlet obstruction. There are numerous small bladder diverticula which measure up to 1.8 cm. There are small bilateral fat-containing inguinal hernias. Skeletal structures: The skeletal structures are osteopenic. There is moderate lumbosacral spondylosis. Arthritic change is seen in the hips. No lytic or blastic lesions are seen. IMPRESSION: 1. Significantly suboptimal examination without oral and IV contrast. There is also streak and motion artifact. 2. There is bibasilar airspace consolidation, left greater than right with a trace left pleural effusion. The appearance is typical for pneumonia/aspiration pneumonitis. Clinical correlation will be required and radiographic follow-up to resolution is recommended. 3. A 16 mm ovoid pulmonary nodule in the right upper lobe is pathologically indeterminant and unchanged from the 07/05/2020 examination. 4. No acute infectious or inflammatory findings are seen in the abdomen or pelvis. 5. Punctate nonobstructing right renal calculus. 6. Moderate to advanced colonic diverticulosis without CT evidence of acute diverticulitis. 7. Prostatomegaly with evidence of chronic bladder outlet obstruction. 8. Additional findings as above. ACT 112: Negative or not required by law. Electronically signed by: Mendoza Montgomery M.D. 07/06/2021 2:22 PM (1) Pneumonia of both lower lobes Pneumonia type: due to unspecified organism Qualified Code(s): J18.9 - Pneumonia, unspecified organism
[2021-07-13] MEDS: CHOLECALCIFEROL 1,000 UNITS 25 MCG TAB PO SCH (21:00)
[2021-07-13] MEDS: DONEPEZIL HCL 10 MG TAB PO SCH (21:01)
[2021-07-13] MEDS: ATORVASTATIN 40 MG TAB PO SCH (21:01)
[2021-07-14] MEDS: ACETAMINOPHEN 325 MG TAB PO PRN (05:54)
[2021-07-14 07:13] VITALS: TEMP 98.2; O2SAT 95
[2021-07-14] MEDS: UMECLIDINIUM/VILANTEROL 62.5/25MCG 7 PUFFS/INHALER INH SCH (08:37)
[2021-07-14] MEDS: SPIRONOLACTONE 25 MG TAB PO SCH (08:39)
[2021-07-14] MEDS: AMOXICILLIN/CLAVULANATE 875 MG TAB PO SCH (08:39)
[2021-07-14] MEDS: FINASTERIDE 5 MG TAB PO SCH (08:39)
[2021-07-14] MEDS: CYANOCOBALAMIN (B-12) 500 MCG TABLET PO SCH (08:39)
[2021-07-14] MEDS: ISOSORBIDE MONO EXTENDED REL 60 MG TABCR PO SCH (08:39)
[2021-07-14] MEDS: METOPROLOL SUCC 50MG EXT REL TAB PO SCH (08:39)
[2021-07-14] MEDS: ASPIRIN 81 MG ECTAB PO SCH (08:40)
[2021-07-14] MEDS: predniSONE 10 MG TABLET PO SCH (08:40)
[2021-07-14] MEDS: TORSEMIDE 10 MG TAB PO SCH (08:40)
[2021-07-14] MEDS: PANTOprazole 40 MG TAB PO SCH (08:40)
[2021-07-14] MEDS: ADVANCED PROBIOTIC 1250 MG CAPSULE PO SCH (08:40)
[2021-07-14] MEDS: guaiFENesin 600 MG TABCR PO SCH (08:40)
[2021-07-14] MEDS: APIXABAN 2.5 MG TAB PO SCH (08:40)
[2021-07-14] MEDS: POTASSIUM CHLORIDE CRTAB 20 MEQ TABCR PO SCH (08:44)
[2021-07-14] MEDS: INSULIN ASPART PER UNIT SC SCH (08:51)
[2021-07-14 09:38] VITALS: BP 125/70; PULSE 62
--- NOTE | 2021-07-14 10:10 | Discharge Summary ---
Date of Service July 14, 2021 Admission HPI Per Admitting Provider This is an 81 y/o male with a complicated PMH includingCOPD, apical mural thrombus, CKD3b, BPH, Alzheimer's, CAD s/p CABG x3, RLS, Psoriasis with associated arthropathy, MGUS, GERD, dyslipidemia, pulmonary nodule and other PMH as listed below who presented to the ED today via EMS due to weakness, fever, and cough. Pt follows with [facility] who visited patient today due to concern for functional decline overnight and wheezing this morning. RN noted pt to have a temp of 100.0 tympanic with wheezing in bilateral lobes. Pulseox noted to be 88%. Pt transferred to ED via EMS for further evaluation. History is obtained from the son due to pt's dementia and slightly worse mental status from baseline. The patient does have a hx of advanced dementia. Son notes a physical decline in patient over past 24 hours - usually able to walk around with assistance (has a walker but doesn't use it) but having difficulty ambulating this morning, even with assistance. Dry cough past few days but worse over past 24 hours with new fever. Cough has been non-productive. Wheezing this morning. Not on oxygen at home. Does not always take inhalers regularly. No special diet for aspiration and no known episodes of aspiration, specifically in the past few days. 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 Increasing issues with incontinence - both urine and stool - due to not recognizing need to go. Still recognizes people that he sees frequently but may ask about . Did take AM meds today. Appetite was at baseline this morning. No vomiting or diarrhea reported. No complaints of pain but has high tolerance for pain. Pt was vaccinated for COVID but is not boosted. No known contact with COVID but potential sick contacts with URI symptoms. Admission Exam Per Admitting Provider Constitutional: well developed and well nourished; no acute distress Eyes: + anicteric sclerae Neck: trachea midline Respiratory: no respiratory distress and no labored breathing Auscultation: + crackles (faint bilbasilar); no wheezes Cardiovascular: Rate/Rhythm: regular rate and regular rhythm Vessels: radial pulses present Extremities: + edema (1+ bilateral LE) Gastrointestinal (Abdomen): Inspection/Auscultation: normal bowel sounds; abdomen not distended Percussion/Palpation: abdomen soft; abdomen nontender Musculoskeletal: Head/Neck/Chest: normocephalic and head atraumatic Skin: no jaundice Neurologic: moves all extremities and + confused; no focal motor deficits Principal Diagnosis Pneumonia of both lower lobes COPD with exacerbation Acute respiratory failure with hypoxia Acute metabolic encephalopathy Discharge Exam Gen: WD/WN, NAD, sitting in bedside chair, A&Ox3 HEENT: Normocephalic, atraumatic, conjunctivae moist, sclerae anicteric, mucous membranes moist Lung: Clear to Auscultation bilaterally, no wheezes/rales/rhonchi Heart: Regular rate, regular rhythm, no murmurs, rubs, or gallops Abdomen: Soft, NT, ND +BS x 4 Extremities: ecchymosis bilateral hands (present throughout admission without change), no edema Skin: Warm, no rash Discharge Data Allergies Allergy/AdvReac Type Severity Reaction Status Date / Time No Known Allergies Allergy Verified 07/06/21 14:51 Consultations 07/06/21 14:35 ED Decision to Admit Stat Ordered Studies 07/06/21 12:29 CT head/brain wo con Stat 07/06/21 13:06 CT abd pelvis wo con Stat CT chest diagnostic wo con Stat Hospital Course (1) Pneumonia of both lower lobes: (2) COPD with exacerbation: (3) Acute respiratory failure with hypoxia: (4) Acute metabolic encephalopathy: (5) Weakness: (6) Apical mural thrombus: (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 CT chest with bibasilar airspace consolidation, left greater than right with a trace left pleural effusion. The appearance is typical for pn eumonia/aspiration pneumonitis. Blood cultures negative. Treated with Zosyn and transitioned to Augmentin and Doxycycline for 10 day course total. Also treated with increased prednisone course for COPD exacerbation with improvement and is back to baseline 10mg prednisone daily baseline. Evaluated by speech therapy with FEES and there were no signs of aspiration. Was weaned off of oxygen back to baseline on room air. Initial acute metabolic encephalopathy secondary to infection and resolved with antibiotic treatment. Acute renal failure felt to be pre-renal and resolved with IV fluids. Creatinine back to baseline. Continue eliquis for apical mural thrombus. Patient asymtomatic and hemodynamically stable at time of discharge to SNF. Total Time Total Time Spent Total Time Spent (In Minutes): 60 Discharge Plan Discharge Items Patient Disposition: Transfer [facility] Reason For Visit: WEAKNESS, PNEUMONIA Discharge Diagnosis: Pneumonia of both lower lobes COPD with exacerbation Acute respiratory failure with hypoxia Acute metabolic encephalopathy Activity: Resume your previous activity Non-emergency contact: Primary Care Provider Call non-emergency contact if: you have any medication questions, your symptoms worsen, your pain is not controlled and you have a fever Follow-up/Referrals: Chris Corona MD [Primary Care Provider] - Diet: Low Sodium (2gm) Addtl Attending Provider Instructions: You were admitted for pneumonia and COPD exacerbation Please complete course of Augmentin and doxycycline (antibiotics) Continue incentive spirometry Evaluated by speech therapy duing admission - s/p FEES, no signs of aspiration MEDICATION CHANGES: Continue antibiotics until completed. Continue probiotics until course completed. All other home medications to be continued. OTHER INSTRUCTIONS: Seek medical attention if you have: * temperature above 101 * chest pain or trouble breathing * abdominal pain, nausea, vomiting * diarrhea, dark stools or bloody stools * any unanswered questions or concerns Call 911 if symptoms are severe. Please take good care of yourself. Call if you have any questions or problems. You can reach a [facility] hospitalist on duty at [facility] 24 hours a day by calling [phone]. Pending Studies at Discharge: No Stand-Alone Forms: My [facility] Skilled Items Patient informed of condition?: Yes DNR: Yes Discharge Level of Care: Skilled Communicable Disease: No Discharge Prognosis: Stable Lines: None Urinary Catheter: No Medications and DC Order Prescriptions: New amoxicillin-pot clavulanate 875-125 mg tablet 1 tab PO BID Qty: 5 RF: 0 doxycycline hyclate 100 mg capsule 100 mg PO BID Qty: 5 RF: 0 Advanced Probiotic 625 mg (10 billion cell) Capsule 2 cap PO DAILY Qty: 30 RF: 0 Continued metolazone 2.5 mg tablet 2.5 mg PO .QMON Qty: 4 RF: 0 atorvastatin [Lipitor] 80 mg Tablet 80 mg PO HS Qty: 30 RF: 0 prednisone 10 mg Tablet 10 mg PO QAM Qty: 30 RF: 0 torsemide 20 mg tablet 40 mg PO QPM Qty: 30 RF: 0 torsemide 20 mg tablet 60 mg PO QAM Qty: 30 RF: 0 albuterol sulfate 2.5 mg /3 mL (0.083 %) Solution For Nebulization 2.5 mg INHALATION Q6H PRN (Reason: Shortness Of Breath Or Wheezing) Qty: 3 RF: 0 metoprolol succinate [Toprol XL] 50 mg Tablet Extended Release 24 Hr 50 mg PO QAM Qty: 30 RF: 0 donepezil [Aricept] 10 mg Tablet 10 mg PO QPM Qty: 30 RF: 0 cyanocobalamin (vitamin B-12) [Vitamin B-12] 1,000 mcg Tablet 1,000 mcg PO DAILY Qty: 30 RF: 0 aspirin 81 mg Tablet,Delayed Release (Dr/Ec) 81 mg PO QAM Qty: 30 RF: 0 spironolactone 25 mg Tablet 25 mg PO QAM Qty: 30 RF: 0 isosorbide mononitrate 120 mg Tablet Extended Release 24 Hr 120 mg PO QAM Qty: 30 RF: 0 nitroglycerin 0.4 mg tablet, sublingual 0.4 mg sublingual Q5M PRN (Reason: Chest Pain) Qty: 10 RF: 0 omeprazole 20 mg capsule,delayed release(DR/EC) 20 mg PO DAILY Qty: 30 RF: 0 albuterol sulfate 90 mcg/actuation HFA aerosol inhaler 2 puff INHALATION Q4 PRN (Reason: Shortness Of Breath) Qty: 6.7 RF: 0 finasteride 5 mg Tablet 5 mg PO QAM Qty: 30 RF: 0 cholecalciferol (vitamin D3) [Vitamin D3] 25 mcg (1,000 unit) Capsule 25 mcg PO QPM Qty: 30 RF: 0 potassium chloride 10 mEq tablet,ER particles/crystals 20 meq PO DAILY Qty: 60 RF: 0 magnesium oxide 400 mg magnesium Capsule 400 mg PO Q OTHER DAY Qty: 15 RF: 0 Eliquis 2.5 mg tablet 2.5 mg PO BID Qty: 60 RF: 0 Vitron-C 65 mg iron- 125 mg Tablet,Delayed Release (Dr/Ec) 1 tab PO DAILY Qty: 30 RF: 0 Anoro Ellipta 62.5-25 mcg/actuation blister with device 1 ea INHALATION DAILY Qty: 14 RF: 0 Discharge Orders: Discharge Order (Routine); Ordered 07/14/21 Ordered By: Laine Cochran/Other Patient Handouts: 5 Steps for Eating Healthier, Type 2 Diabetes Admission Data Admit Date/Time: 07/06/21 15:03 Attending Provider: Wyatt Blunt Admit Provider: Chuck Obregon Primary Care Provider: Chris Coroan Other Providers: Chuck Obregon ; Antoni George ; Laine Barrera Other Interventions: Discharge Summary Assessment (RN) Last Done: 07/14/21 09:37 Supervising Physician Co-Signing Physician Notes Patient seen and examined at bedside for pneumonia and COPD exacerbation. Patient medically stable and awaiting placement. Patient on day 8 of antibiotics. Upon examination, patient on room air, trace BLE edema, lungs clear to auscultation. Rest of the examination as above. Completed antibiotic course for pneumonia. Follow-up chest x-ray as needed in 4 to 6 weeks to document the resolution of pneumonia. BMP in 1 week upon discharge. I have seen and examined the patient and have discussed the case with the provider above. I agree with the assessment and plan as stated.
[2021-07-14] MEDS ORDERED: DOXYCYCLINE HYCLATE 100 MG CAP PO ONE (10:15)
--- NOTE | 2021-07-22 10:40 | Coding Query ---
To promote full compliance with coding requirements relating to patient care, provider participation is requested in all cases of dead mail checker uncertainty. Please assist us with the question(s) below: Coding Question(s): The diagnosis(es) below was documented in the H&P and/or H&P and Progress Notes, then subsequently fell off all further documentation. Please indicate if it is still a possible diagnosis or ruled out. Physician's Response(s): POSSIBLE SEPSIS - (Possible Sepsis documented only on H&P) Please send this question to the admitting team. I am not sure why it was documented like that. From my understanding, it shouldn't have been worded like that. ( ) Diagnosed and POA ( ) Diagnosed and not POA ( ) Ruled out ( ) Other (please specify) POSSIBLE ASPIRATION PNEUMONIA - (documented from ER thru 07/13 Progress Note and Discharge Summary documents, The appearance is typical for pneumonia/aspiration pneumonitis, but also documents, Evaluated by speech therapy duing admission - s/p FEES, no signs of aspiration,, and it is not clear if there was still possible aspiration pneumonia or if it was ruled-out) ( ) Diagnosed and POA ( ) Diagnosed and not POA ( X ) Ruled out ( ) Other (please specify) MTDD
--- NOTE | 2021-07-24 09:24 | Coding Query ---
To promote full compliance with coding requirements relating to patient care, provider participation is requested in all cases of glass laminating operator uncertainty. Please assist us with the question(s) below: Coding Question(s): The diagnosis below was documented in the H&P, then subsequently fell off all further documentation. Please indicate if it is still a possible diagnosis or ruled out. The Physician who did the Discharge Summary, Dr. Wyatt Blunt was queried first and responded, "Please send this question to the admitting team. I am not sure why it was documented like that. From my understanding, it shouldn't have been worded like that.". Physician's Response(s): POSSIBLE SEPSIS - (Possible Sepsis documented only on H&P) ( ) Diagnosed and POA ( ) Diagnosed and not POA ( x ) Ruled out ( ) Other (please specify) MTDD
== END 2021-07-14 10:41 | DRG 193 ==
LOC: ED 12:16 → SUATTDRO 15:03 → EDINP 15:03 → 1E 07-07 20:57 → 2S 07-08 16:28 → 3N 07-09 15:37

== ENCOUNTER 2021-10-10 12:27 | Inpatient (IN) ==
--- NOTE | 2021-10-10 12:37 | Emergency Department Note ---
Impression & Plan Arm swelling, Dementia, Arm wound, Anemia ED Provider Note NAME: ANGELA PINEDA Jr AGE: 81 SEX: M : 1940 ARRIVES VIA: Ambulance INFORMANT: Patient, ED PROVIDER(S): Parveen Wilson MD Chief Complaint: Upper extremity swelling, fall HPI: Patient presents from due to concern for bilateral upper ext remity swelling. The patient reported had a fall several days ago and has had some swelling more prominently in the last 1 to 2 days. The patient does take Eliquis and has a known history of dementia. Patient denies any head or neck pain. Patient denies any chest pain. Patient does complain of some right upper extremity pain but no real pain in the left upper extremity. Patient denies any chest or abdominal pain. Patient does admit to some leg swelling but states that it is not that bad. ROS: See HPI for pertinent positives and negatives. A total of 10 systems were reviewed and otherwise negative. Past medical history: See below Surgical history: See below Social history: See below Physical Exam: GENERAL: Well appearing, well nourished, NAD, wearing glasses, wearing a mask, non-toxic. EYE EXAM: Normal conjunctiva. PERRL, no anisocoria and EOM's grossly intact w/o pain. CT head: No TTP OROPHARYNX: Moist mucus membranes. Grossly normal dentition. NECK: Supple, no nuchal rigidity, no adenopathy, non-tender. No signs of meningismus. FROM of the neck with good chin to chest and neck extension. No stridor. No TTP. LUNGS: Clear to auscultation. Normal chest wall mechanics. HEART: NSR, no MRG. ABDOMEN: Abdomen soft, non-tender, normo-active bowel sounds, no masses, no starla ound or guarding. BACK: No CVA TTP. SKIN: No rashes and no bruising. UPPER EXTREMITIES: Right greater than left upper extremity swelling, mild pain to the right mid humerus, good radial pulses bilaterally, moderate right hand swelling, sensate and motor intact to median ulnar and radial nerves. LOWER EXTREMITIES: 2+ symmetric lower extremity edema without TTP NEURO EXAM: A&O x3, cranial nerves II-XII grossly intact, normal speech, moves all 4 extremities on command w/o issue. Good finger to nose, no drift, no sensory deficits. Differential diagnoses: DVT, musculoskeletal, infection, joint effusion, trauma, lymphedema, idiopathic, CHF, as well as other pathologies. Course: Patient was seen and evaluated the bedside. Full history physical exam was performed. EKG interpreted by me Sinus, rate of 69, normal intervals, normal axis. Imaging Studies: See Below Cardiac monitoring: An order was placed for continuous cardiac monitoring. The monitor shows a rate of 78 with sinus rhythm. MDM: You presented due to concern for upper extremity swelling which is acute on chronic in nature. The patient does have several wounds's and the dressings were broken down. No obvious crepitus. Blood work showed a normal white count with mild anemia hemoglobin of 10. Platelet count is unremarkable with normal kidney function. The patient had a procalcitonin and blood cultures completed given the wounds and was normal along with a white count. Patient's ultrasound does not show any DVT. No humeral fracture on x-ray. CT of the head is negative. I did speak with the on-call hospitalist SAMINA Fenton I did evaluate the patient agrees that the patient would benefit from admission at this time as the patient is currently in a personal skilled nursing and may need additional higher level of care for his upper extremity swelling as well as the wound care. Patient was admitted to the medicine service by Dr. Blunt. 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 Ortiz Psoriasis Psoriatic arthritis Restless leg syndrome Rheumatoid arthritis Right subclavian artery occlusion Sensorineural hearing loss Syncope Unilateral inguinal hernia Unstable angina (11/21/98) Admitted to [facility] and transferred to [facility] where he had cath 11/25/98 Weakness Surgical History H/O colonoscopy H/O hernia repair History of ERCP Benign History of Mohs micrographic surgery for skin cancer Nose History of percutaneous left heart catheterization (LH) History of surgery Right Facial / Ear Resection for Melanoma removal Hx of CABG (1995) x 3 (@ [facility]) S/P cholecystectomy Status post surgical removal of neoplasm of skin Family History Mother , Passed in late 70's of natural causes No problems noted. Father , Passed in mid 70's of colorectal CA No problems noted. Brother , Passed age 72 of Covid 19 Alzheimer disease Son No problems noted. Son No problems noted. Son No problems noted. 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: No Beliefs That Will Affect Care: None marital status: Single Current Living Situation: Personal Care Facility Current Living Situation Comment: [facility] current occupational status: retired 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 How many Children do You have: 1 Feels Safe at Home: Yes Safety Concerns: Feels Safe At This Time Childhood Exposure to Second-Hand Smoke: No caffeine: Yes (1 cup of coffee/day ) during the past year weight has: remained stable Dental Care, Regularly: No Assistive Devices: Denture - Upper, Denture - Lower, Glasses and Hearing Aid - Bilateral Assistive Devices Comment: hearing aid not present on admit Allergies Allergies Allergy/AdvReac Type Severity Reaction Status Date / Time No Known Allergies Allergy Verified 07/06/21 14:51 Home Meds Home Medications Medication Instructions Recorded Confirmed Lidocaine Jelly 1 applic TOPICAL DIRECTED PRN 10/10/21 10/10/21 acetaminophen 500 mg tablet 1,000 mg PO Q6H PRN 10/10/21 10/10/21 (Tylenol Extra Strength) albuterol sulfate 90 mcg/actuation 2 puff INHALATION Q6H PRN 10/10/21 10/10/21 aerosol inhaler fluticasone 250 mcg-salmeterol 50 1 inh INHALATION BID 10/10/21 10/10/21 mcg/dose blistr powdr for inhalation magnesium oxide 400 mg PO QAM 10/10/21 10/10/21 torsemide 20 mg tablet 20 mg PO QAM 10/10/21 10/10/21 Previous Rx's Medication Instructions Recorded apixaban 2.5 mg tablet (Eliquis) 2.5 mg PO BID #60 tab 07/14/21 aspirin 81 mg tablet,delayed 81 mg PO QAM #30 tab 07/14/21 release atorvastatin 80 mg tablet (Lipitor) 80 mg PO HS #30 tab 07/14/21 cholecalciferol (vitamin D3) 25 25 mcg PO QPM #30 cap 07/14/21 mcg (1,000 unit) capsule (Vitamin D3) cyanocobalamin (vitamin B-12) 1,000 mcg PO DAILY #30 tab 07/14/21 1,000 mcg tablet (Vitamin B-12) finasteride 5 mg tablet 5 mg PO QAM #30 tab 07/14/21 iron,carbonyl 65 mg-vitamin C 125 1 tab PO DAILY #30 tab 07/14/21 mg tablet,delayed release (Vitron-C) isosorbide mononitrate 120 mg 120 mg PO QAM #30 tab 07/14/21 tablet,extended release 24 hr metoprolol succinate 50 mg 50 mg PO QAM #30 tab 07/14/21 tablet,extended release 24 hr (Toprol XL) omeprazole 20 mg capsule,delayed 20 mg PO DAILY #30 cap 07/14/21 release prednisone 10 mg tablet 10 mg PO QAM #30 tab 07/14/21 spironolactone 25 mg tablet 25 mg PO QAM #30 tab 07/14/21 Results & Data (ED) Vital Signs Vital Signs - 24 hr 10/10/21 12:20 10/10/21 12:48 10/10/21 12:49 Temperature 36.7 C Temperature Source Oral Pulse Rate 100 H 68 Pulse Rate [Apical] 100 H 96 H Pulse Rhythm [Apical] Regular Pulse Strength [Apical] Normal Respiratory Rate 15 21 21 Respiratory Effort / Characteristics Non-Labored Respiratory Depth Normal Respiratory Pattern Regular Blood Pressure 127/57 L Blood Pressure [Right Arm] 127/57 L 130/57 L Blood Pressure Mean 80 Blood Pressure Mean [Right Arm] 80 81 Pulse Oximetry 98 98 98 Oxygen Delivery Method Room Air Room Air Room Air Sepsis Recent Fever Within 48 Hours No Sepsis New/Unexplained Change in Mental Status N/A Sepsis Action Taken by Nursing No Action Required 10/10/21 14:49 10/10/21 16:00 Temperature Temperature Source Pulse Rate Pulse Rate [Apical] 90 82 Pulse Rhythm [Apical] Pulse Strength [Apical] Respiratory Rate 20 21 Respiratory Effort / Characteristics Respiratory Depth Respiratory Pattern Blood Pressure Blood Pressure [Right Arm] 127/60 128/61 Blood Pressure Mean Blood Pressure Mean [Right Arm] 82 83 Pulse Oximetry 98 100 Oxygen Delivery Method Room Air Sepsis Recent Fever Within 48 Hours Sepsis New/Unexplained Change in Mental Status Sepsis Action Taken by Residential Medications Current Medication List: was personally reviewed by me Laboratory Data Attestation: I reviewed the patient's lab results. Result diagrams: 10/11/21 02:56 10/11/21 02:56 Lab Results 10/10/21 10/10/21 10/10/21 Range/Units 13:09 13:09 13:09 WBC 6.90 (4.8-10.8) K/uL RBC 3.36 L (4.7-6.1) M/uL Hgb 10.7 L (14.0-18.0) g/dL Hct 33.5 L (42-52) % MCV 99.7 (80-100) fL MCH 31.8 (25-34) pg MCHC 31.9 L (32-36) g/dL RDW Std Deviation 54.0 H (36.4-46.3) fL RDW Coeff of Lester 14.8 H (11.5-14.5) % Plt Count 212 (130-400) K/uL MPV 9.0 (7.4-10.4) fL Immature Gran % (Auto) 0.1 % Neut % (Auto) 74.9 % Lymph % (Auto) 17.4 % Franklin % (Auto) 5.9 % Eos % (Auto) 1.6 % Baso % (Auto) 0.1 % Neut # (Auto) 5.16 (1.4-6.5) K/uL Lymph # (Auto) 1.20 (1.2-3.4) K/uL Franklin # (Auto) 0.41 (0.11-0.59) K/uL Eos # (Auto) 0.11 (0-0.5) K/uL Baso # (Auto) 0.01 (0-0.2) K/uL Immature Gran # (Auto) 0.01 (0.00-0.02) K/uL PT 11.2 (9.0-12.0) Seconds INR 1.1 (0.9-1.1) Sodium 140 (136-145) mmol/L Potassium 3.6 (3.5-5.1) mmol/L Chloride 103 (98-107) mmol/L Carbon Dioxide 30 (21-32) mmol/L Anion Gap 7 (3-11) BUN 21 (6-23) mg/dl Creatinine 1.10 (0.6-1.4) mg/dl Est Cr Clr Drug Dosing 63.0 ml/min Est GFR ( Amer) 72.1 ml/min Est GFR (Non-Af Amer) 62.2 ml/min BUN/Creatinine Ratio 19.1 (10-20) Glucose 105 H (70-99(Fasting)) mg/dl Calcium 8.7 (8.5-10.1) mg/dl Total Bilirubin 0.5 (0.2-1.0) mg/dl AST 9 L (13-39) U/L ALT 10 (7-52) U/L Alkaline Phosphatase 65 (34-104) U/L B-Natriuretic Peptide (0-100) pg/ml Total Protein 5.5 L (6.0-8.3) gm/dl Albumin 3.3 L (3.4-5.0) gm/dl Globulin 2.2 L (2.5-4.0) gm/dl Albumin/Globulin Ratio 1.5 (0.9-2) Procalcitonin (0-0.5) ng/ml TSH (0.300-4.500) uIu/ml SARS-CoV-2, RNA, NAAT (NEGATIVE) 10/10/21 10/10/21 10/10/21 Range/Units 13:09 13:09 13:09 WBC (4.8-10.8) K/uL RBC (4.7-6.1) M/uL Hgb (14.0-18.0) g/dL Hct (42-52) % MCV (80-100) fL MCH (25-34) pg MCHC (32-36) g/dL RDW Std Deviation (36.4-46.3) fL RDW Coeff of Lester (11.5-14.5) % Plt Count (130-400) K/uL MPV (7.4-10.4) fL Immature Gran % (Auto) % Neut % (Auto) % Lymph % (Auto) % Franklin % (Auto) % Eos % (Auto) % Baso % (Auto) % Neut # (Auto) (1.4-6.5) K/uL Lymph # (Auto) (1.2-3.4) K/uL Franklin # (Auto) (0.11-0.59) K/uL Eos # (Auto) (0-0.5) K/uL Baso # (Auto) (0-0.2) K/uL Immature Gran # (Auto) (0.00-0.02) K/uL PT (9.0-12.0) Seconds INR (0.9-1.1) Sodium (136-145) mmol/L Potassium (3.5-5.1) mmol/L Chloride (98-107) mmol/L Carbon Dioxide (21-32) mmol/L Anion Gap (3-11) BUN (6-23) mg/dl Creatinine (0.6-1.4) mg/dl Est Cr Clr Drug Dosing ml/min Est GFR ( Amer) ml/min Est GFR (Non-Af Amer) ml/min BUN/Creatinine Ratio (10-20) Glucose (70-99(Fasting)) mg/dl Calcium (8.5-10.1) mg/dl Total Bilirubin (0.2-1.0) mg/dl AST (13-39) U/L ALT (7-52) U/L Alkaline Phosphatase (34-104) U/L B-Natriuretic Peptide 89 (0-100) pg/ml Total Protein (6.0-8.3) gm/dl Albumin (3.4-5.0) gm/dl Globulin (2.5-4.0) gm/dl Albumin/Globulin Ratio (0.9-2) Procalcitonin (0-0.5) ng/ml TSH 2.137 (0.300-4.500) uIu/ml SARS-CoV-2, RNA, NAAT NEGATIVE (NEGATIVE) 10/10/21 Range/Units 13:09 WBC (4.8-10.8) K/uL RBC (4.7-6.1) M/uL Hgb (14.0-18.0) g/dL Hct (42-52) % MCV (80-100) fL MCH (25-34) pg MCHC (32-36) g/dL RDW Std Deviation (36.4-46.3) fL RDW Coeff of Lester (11.5-14.5) % Plt Count (130-400) K/uL MPV (7.4-10.4) fL Immature Gran % (Auto) % Neut % (Auto) % Lymph % (Auto) % Franklin % (Auto) % Eos % (Auto) % Baso % (Auto) % Neut # (Auto) (1.4-6.5) K/uL Lymph # (Auto) (1.2-3.4) K/uL Franklin # (Auto) (0.11-0.59) K/uL Eos # (Auto) (0-0.5) K/uL Baso # (Auto) (0-0.2) K/uL Immature Gran # (Auto) (0.00-0.02) K/uL PT (9.0-12.0) Seconds INR (0.9-1.1) Sodium (136-145) mmol/L Potassium (3.5-5.1) mmol/L Chloride (98-107) mmol/L Carbon Dioxide (21-32) mmol/L Anion Gap (3-11) BUN (6-23) mg/dl Creatinine (0.6-1.4) mg/dl Est Cr Clr Drug Dosing ml/min Est GFR ( Amer) ml/min Est GFR (Non-Af Amer) ml/min BUN/Creatinine Ratio (10-20) Glucose (70-99(Fasting)) mg/dl Calcium (8.5-10.1) mg/dl Total Bilirubin (0.2-1.0) mg/dl AST (13-39) U/L ALT (7-52) U/L Alkaline Phosphatase (34-104) U/L B-Natriuretic Peptide (0-100) pg/ml Total Protein (6.0-8.3) gm/dl Albumin (3.4-5.0) gm/dl Globulin (2.5-4.0) gm/dl Albumin/Globulin Ratio (0.9-2) Procalcitonin < 0.05 (0-0.5) ng/ml TSH (0.300-4.500) uIu/ml SARS-CoV-2, RNA, NAAT (NEGATIVE) Administered Medications Apixaban (Apixaban 2.5 Mg Tab) 2.5 mg PO BID ANTWON Stop: 11/09/21 20:59 Last Admin: 10/10/21 20:56 Dose: 2.5 mg Documented by: [id number] Atorvastatin Calcium (Atorvastatin 40 Mg Tab) 80 mg PO HS ANTWON Stop: 11/09/21 20:59 Last Admin: 10/10/21 20:57 Dose: 80 mg Documented by: [id number] Furosemide (Furosemide 40 Mg/4 Ml Vial) 40 mg IV BID ANTWON Stop: 11/09/21 16:49 Last Admin: 10/10/21 17:48 Dose: 40 mg Documented by: [id number] Metoprolol Succinate (Metoprolol Succ 50mg Ext Rel Tab) 50 mg PO QAM ANTWON Stop: 11/10/21 01:59 Last Admin: 10/11/21 02:10 Dose: 50 mg Documented by: [id number] Vitamin D (Cholecalciferol 1,000 Units 25 Mcg Tab) 1,000 units PO QPM ANTWON Stop: 11/09/21 20:59 Last Admin: 10/10/21 20:57 Dose: 1,000 units Documented by: [id number] Discontinued Medications Olanzapine (Olanzapine 5 Mg Tablet) 5 mg PO ONE ONE Stop: 10/10/21 20:20 Last Admin: 10/10/21 20:56 Dose: 5 mg Documented by: [id number] Potassium Chloride (Potassium Chloride Crtab 20 Meq Tabcr) 40 meq PO NOW STA Stop: 10/11/21 01:58 Last Admin: 10/11/21 02:11 Dose: 40 meq Documented by: [id number] Imaging Data Radiologist's Impression: Chest X-Ray 10/10/21 12:48 SINGLE VIEW CHEST CLINICAL HISTORY: Generalized weakness. FINDINGS: An AP, portable, upright chest radiograph is compared to study dated 07/04/2020 and correlated with chest CT dated 07/06/2021. The patient is status post midline sternotomy. The heart is enlarged noting atherosclerotic calcification o f the thoracic aorta. The pulmonary vasculature is noncongested. Chronic interstitial thickening is similar to previous. Scarring/atelectasis is noted at the lung bases. No airspace consolidation typical for pneumonia or large pleural effusion is identified. No pneumothorax is seen. The skeletal structures are osteopenic. The bony thorax is grossly intact. Fusion hardware is noted in the lower cervical spine. Advanced arthritic change is seen in the shoulders. Calcific tendinopathy is noted on the left IMPRESSION: Cardiomegaly with no acute cardiopulmonary abnormality. ACT 112: Negative or not required by law. Electronically signed by: Mendoza Montgomery M.D. 10/10/2021 3:02 PM Humerus X-Ray 10/10/21 12:48 RIGHT HUMERUS 2 VIEWS CLINICAL HISTORY: Fall. Right arm pain. FINDINGS: AP and lateral views of the right humerus are compared to study dated 07/04/2020. The skeletal structures are osteopenic. There is no radiographic evidence of right humeral fracture. Degenerative change is noted in the shoulder and elbow joints. Soft tissue swelling is suggested in the distal upper extremity and around the elbow. An enthesophyte is noted at the triceps insertion. The right lung parenchyma is clear as imaged. IMPRESSION: There is no radiographic evidence of right humeral fracture. Electronically signed by: Mendoza Montgomery M.D. 10/10/2021 3:05 PM Venous Doppler Study 10/10/21 12:48 US venous doppler UE BI HISTORY: 81 years-old Male b/l L > R swelling; ?recent fall acute pain and swelling of the upper extremities COMPARISON: None TECHNIQUE: Multiple real-time sonographic images of the upper extremity deep venous structures were obtained assessing grayscale appearance, color and spectral flow. FINDINGS: Normal flow, compressibility, phasicity and augmentation of the upper extremity deep venous structures. IMPRESSION: No DVT. ACT 112: Negative or not required by law. The above report was generated using voice recognition software. It may contain grammatical, syntax or spelling errors. Electronically signed by: Richard Kyle M.D. 10/10/2021 3:[address] 10/10/21 12:[address] DOSE: 614.27 mGy.cm HISTORY: ?fall 3 days ago, on eliquis; h/o dementia TECHNIQUE: Multiaxial CT images of the head were performed without the use of intravenous contrast. Automated exposure control was utilized for this study. A dose lowering technique was utilized adhering to the principles of ALARA. Comparison: No priors due to system downtime. Findings: The paranasal sinuses and mastoid air cells are clear. The calvarium and skull base are intact. There is no mass, hematoma, midline shift, acute infarct. White matter hypodensity is nonspecific but suggestive of microvascular ischemic change. The ventricles and sulci demonstrate mild age-related involutional changes. There is an old punctate lacunar infarct within the right caudate head. Impression: No significant change compared to the prior study. No acute intracranial abnormality. ACT 112: Negative or not required by law. Electronically signed by: Luan Perera M.D. 10/10/2021 2:37 PM Discharge Plan Visit Data Chief Complaint: Edema To Extremity Stated Complaint: BI LATERAL ARM SWELLING ED Provider: Parveen Wilson Discharge Problem: Arm swelling, Dementia, Arm wound, Anemia Patient Disposition: Admitted As Inpatient Discharge Instructions Interventions: ED Discharge Assessment Last Done: 10/10/21 17:50
[2021-10-10 13:27] LABS: Basophils # (auto) 0.01 K/uL (0-0.2); Basophils % (auto) 0.1 %; Eosinophils # (auto) 0.11 K/uL (0-0.5); Eosinophils % (auto) 1.6 %; Hematocrit (blood only) 33.5 % (42-52); Hemoglobin 10.7 g/dL (14.0-18.0); Immature Granulocytes # (auto) 0.01 K/uL (0.00-0.02); Immature Granulocytes % (auto) 0.1 %; Lymphocytes % (auto) 17.4 %; Mean Corpuscular Hemoglobin 31.8 pg (25-34); Mean Corpuscular Hgb Conc 31.9 g/dL (32-36); Mean Corpuscular Volume 99.7 fL (80-100); Monocytes # (auto) 0.41 K/uL (0.11-0.59); Monocytes % (auto) 5.9 %; Neutrophils # (auto) 5.16 K/uL (1.4-6.5); Neutrophils % (auto) 74.9 %; Platelet Count 212 K/uL (130-400); RDW Coefficient of Variation 14.8 % (11.5-14.5); Red Blood Count 3.36 M/uL (4.7-6.1)
[2021-10-10 13:55] LABS: Albumin Globulin Ratio 1.5 (0.9-2); Albumin Level 3.3 gm/dl (3.4-5.0); BUN Creatinine Ratio 19.1 (10-20); Bilirubin,Total 0.5 mg/dl (0.2-1.0); Calcium 8.7 mg/dl (8.5-10.1); Est GFR (African American) 72.1 ml/min; Est GFR (Non-African American) 62.2 ml/min; Globulin 2.2 gm/dl (2.5-4.0); Potassium 3.6 mmol/L (3.5-5.1); Total Protein 5.5 gm/dl (6.0-8.3)
[2021-10-10 13:58] LABS: INR 1.1 (0.9-1.1); Prothrombin Time 11.2 Seconds (9.0-12.0)
--- NOTE | 2021-10-10 14:40 | CT Scan Report ---
HEAD CT NONCONTRAST CT DOSE: 614.27 mGy.cm HISTORY: ?fall 3 days ago, on eliquis; h/o dementia TECHNIQUE: Multiaxial CT images of the head were performed without the use of intravenous contrast. A utomated exposure control was utilized for this study. A dose lowering technique was utilized adheri ng to the principles of ALARA. Comparison: No priors due to system downtime. Findings: The paranasal sinuses and mastoid air cells are clear. The calvarium and skull base are int act. There is no mass, hematoma, midline shift, acute infarct. White matter hypodensity is nonspecifi c but suggestive of microvascular ischemic change. The ventricles and sulci demonstrate mild age-rela ken involutional changes. There is an old punctate lacunar infarct within the right caudate head. Impression: No significant change compared to the prior study. No acute intracranial abnormality. ACT 112: Negative or not required by law. Electronically signed by: Luan Perera M.D. 10/10/2021 2:37 PM
--- NOTE | 2021-10-10 15:04 | XRay Report ---
SINGLE VIEW CHEST CLINICAL HISTORY: Generalized weakness. FINDINGS: An AP, portable, upright chest radiograph is compared to study dated 07/04/2020 and correlate d with chest CT dated 07/06/2021. The patient is status post midline sternotomy. The heart is enlarged noting atherosclerotic calcification of the thoracic aorta. The pulmonary vasculature is noncongested . Chronic interstitial thickening is similar to previous. Scarring/atelectasis is noted at the lung b ases. No airspace consolidation typical for pneumonia or large pleural effusion is identified. No pne umothorax is seen. The skeletal structures are osteopenic. The bony thorax is grossly intact. Fusion hardware is noted in the lower cervical spine. Advanced arthritic change is seen in the shoulders. Ca lcific tendinopathy is noted on the left IMPRESSION: Cardiomegaly with no acute cardiopulmonary abnormality. ACT 112: Negative or not required by law. Electronically signed by: Mendoza Montgomery M.D. 10/10/2021 3:02 PM
--- NOTE | 2021-10-10 15:06 | XRay Report ---
RIGHT HUMERUS 2 VIEWS CLINICAL HISTORY: Fall. Right arm pain. FINDINGS: AP and lateral views of the right humerus are compared to study dated 07/04/2020. The skeleta l structures are osteopenic. There is no radiographic evidence of right humeral fracture. Degenerativ e change is noted in the shoulder and elbow joints. Soft tissue swelling is suggested in the distal u pper extremity and around the elbow. An enthesophyte is noted at the triceps insertion. The right diamond g parenchyma is clear as imaged. IMPRESSION: There is no radiographic evidence of right humeral fracture. Electronically signed by: Mendoza Montgomery M.D. 10/10/2021 3:05 PM
--- NOTE | 2021-10-10 15:38 | Ultrasound Report ---
US venous doppler UE BI HISTORY: 81 years-old Male b/l L > R swelling; ?recent fall acute pain and swelling of the upper ext remities COMPARISON: None TECHNIQUE: Multiple real-time sonographic images of the upper extremity deep venous structures were o btained assessing grayscale appearance, color and spectral flow. FINDINGS: Normal flow, compressibility, phasicity and augmentation of the upper extremity deep venous structure s. IMPRESSION: No DVT. ACT 112: Negative or not required by law. The above report was generated using voice recognition software. It may contain grammatical, syntax o r spelling errors. Electronically signed by: Richard Kyle M.D. 10/10/2021 3:36 PM
[2021-10-10] MEDS: FUROSEMIDE 40 MG/4 ML VIAL IV SCH (17:48)
--- NOTE | 2021-10-10 18:04 | History & Physical Report ---
Date of Service October 10, 2021 Assessment & Plan (1) Volume overload: (2) Heart failure, diastolic, with acute decompensation: Plan: Admit to tele Patient presenting from [facility] for evaluation of worsening BL upper extremity edema for the past 2 weeks. As an outpatient, Aldactone was added and Torsemide dose was doubled x 3 days without improvement in edema. Hx of chronic diastolic CHF - echo 06/2020 - EF 55-60%, grade I diastolic dysfunction In addition to bilateral upper extremity edema, there is also significant lower extremity edema noted on exam Start Lasix 40 mg IV twice daily Low Na+ diet, daily weights, John placed to assist in diuresis Update echo Cardiology consult, input appreciated (3) Multiple skin tears: Plan: Multiple skin tears noted to have bilateral upper extremities, no signs of infection Wound care nurse consult (4) Falls: Plan: PT/OT May need SNF placement (5) Apical mural thrombus: Plan: Anticoagulated with Eliquis (6) CAD (coronary artery disease): Plan: Appears stable Continue ASA, statin, beta-sarah, nitrate (7) Osteoarthritis: Plan: Steroid-dependent, continue prednisone (8) CKD (chronic kidney disease), stage III: Plan: Baseline creatinine low 1s Creatinine 1.1 today Monitor renal functions with aggressive diuresis (9) BPH with obstruction/lower urinary tract symptoms: Plan: Continue finasteride (10) DVT prophylaxis: Plan: On Eliquis History of Present Illness Chief Complaint: Bilateral Arm Swelling Primary Care Provider: [facility] 81 year old male with PMH COPD, HTN, CKD stage III, CAD s/p CABG and stenting, chronic diastolic CHF, apical mural thrombus on Eliquis, GERD, BPH, steroid dependent osteoarthritis, dementia, and other problems listed below who presents to the ED from [facility] for evaluation of BL upper arm swelling. Patient was evaluated in the cardiology clinic on 09/29 for similar complaint. At that time, Aldactone was added to patient's diuretic regimen. There was no improvement in the edema and therefore Torsemide was increased to BID on 10/07 - 10/09. Due to ongoing arm swelling, patient was sent to the ED for further eval. Due to underlying dementia, history is limited from the patient. He is currently pleasant and offers no complaints. Son is at the bedside and reports that the patient has had several falls over the past few weeks. These falls have resulted in several skin tears over both arms. Patient has been receiving local wound care at the [facility]. In the ED, patient is hemodynamically stable. Labs and imaging unremarkable. Allergies Allergy/AdvReac Type Severity Reaction Status Date / Time No Known Allergies Allergy Verified 07/06/21 14:51 Home Medications Medication Instructions Recorded Confirmed Type apixaban 2.5 mg tablet (Eliquis) 2.5 mg PO BID #60 tab 07/14/21 10/10/21 Rx aspirin 81 mg tablet,delayed 81 mg PO QAM #30 tab 07/14/21 10/10/21 Rx release atorvastatin 80 mg tablet (Lipitor) 80 mg PO HS #30 tab 07/14/21 10/10/21 Rx cholecalciferol (vitamin D3) 25 25 mcg PO QPM #30 cap 07/14/21 10/10/21 Rx mcg (1,000 unit) capsule (Vitamin D3) cyanocobalamin (vitamin B-12) 1,000 mcg PO DAILY #30 tab 07/14/21 10/10/21 Rx 1,000 mcg tablet (Vitamin B-12) finasteride 5 mg tablet 5 mg PO QAM #30 tab 07/14/21 10/10/21 Rx iron,carbonyl 65 mg-vitamin C 125 1 tab PO DAILY #30 tab 07/14/21 10/10/21 Rx mg tablet,delayed release (Vitron-C) isosorbide mononitrate 120 mg 120 mg PO QAM #30 tab 07/14/21 10/10/21 Rx tablet,extended release 24 hr metoprolol succinate 50 mg 50 mg PO QAM #30 tab 07/14/21 10/10/21 Rx tablet,extended release 24 hr (Toprol XL) omeprazole 20 mg capsule,delayed 20 mg PO DAILY #30 cap 07/14/21 10/10/21 Rx release prednisone 10 mg tablet 10 mg PO QAM #30 tab 07/14/21 10/10/21 Rx spironolactone 25 mg tablet 25 mg PO QAM #30 tab 07/14/21 10/10/21 Rx Lidocaine Jelly 1 applic TOPICAL DIRECTED PRN 10/10/21 10/10/21 History acetaminophen 500 mg tablet 1,000 mg PO Q6H PRN 10/10/21 10/10/21 History (Tylenol Extra Strength) albuterol sulfate 90 mcg/actuation 2 puff INHALATION Q6H PRN 10/10/21 10/10/21 History aerosol inhaler fluticasone 250 mcg-salmeterol 50 1 inh INHALATION BID 10/10/21 10/10/21 History mcg/dose blistr powdr for inhalation magnesium oxide 400 mg PO QAM 10/10/21 10/10/21 History torsemide 20 mg tablet 20 mg PO QAM 10/10/21 10/10/21 History Past Med/Surg History Medical History (Updated 10/10/21 @ 18:34 by SAMINA Holliday) Actinic keratosis Anemia 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 Ortiz Psoriasis Psoriatic arthritis Restless leg syndrome Rheumatoid arthritis Right subclavian artery occlusion Sensorineural hearing loss Syncope Unilateral inguinal hernia Unstable angina (11/21/98) Admitted to [facility] and transferred [place] [facility] had cath 11/25/98 Weakness Surgical History H/O colonoscopy H/O hernia repair History of ERCP Benign History of Mohs micrographic surgery for skin cancer Nose History of percutaneous left heart catheterization (LHC) History of surgery Right Facial / Ear Resection for Melanoma removal Hx of CABG (1995) x 3 (@ [facility] [place] S/P cholecystectomy Status post surgical removal of neoplasm of skin Family History Mother , Passed in late 70's of natural causes No problems noted. Father , Passed in mid 70's of colorectal CA No problems noted. Brother , Passed age 72 of Covid 19 Alzheimer disease Son No problems noted. Son No problems noted. Son No problems noted. 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 How many Children do You have: 1 Feels Safe at Home: Yes Childhood Exposure to Second-Hand Smoke: No caffeine: Yes (1 cup of coffee/day ) during the past year weight has: remained stable Dental Care, Regularly: No Assistive Devices: Walker Review of Systems Review of Systems: Unobtainable due to cognitive status Physical Exam Constitutional: WD/WN, vitals as above Eyes: PERRL, conjunctivae normal, anicteric sclerae ENMT: external ear and nose normal, oropharynx normal Respiratory: normal respiratory effort; no respiratory distress Auscultation: + diminished lung sounds Cardiovascular: Rate/Rhythm: regular rate and regular rhythm Vessels: normal peripheral pulses Extremities: + edema (+2-3 pitting edema noted to BL upper and lower extremities ) Gastrointestinal (Abdomen): normal bowel sounds, soft, nontender, no hepatospl enomegaly Musculoskeletal: no cyanosis or clubbing, extremities motor strength 5/5 Skin: multiple skin tears and various ecchymosis noted to BL upper extremities Neurologic: PERRL, EOMI, accommodation nl, no face palsy, no dysarthria Psychiatric: Orientation: alert, oriented to person and cooperative; + not oriented to place and + not oriented to time Affect: euthymic affect Results & Data Results & Data ([facility]) Vital Signs (Past 12 Hours) Vital Signs Temp Pulse Pulse Resp BP BP Pulse Ox 10/10/21 16:00 82 21 128/61 100 10/10/21 14:49 90 20 127/60 98 10/10/21 12:49 96 H 21 130/57 L 98 10/10/21 12:48 68 21 98 10/10/21 12:20 36.7 C 100 H 100 H 15 127/57 L 127/57 L 98 Laboratory Results Short CBC 10/10/21 Range/Units 13:09 WBC 6.90 (4.8-10.8) K/uL Hgb 10.7 L (14.0-18.0) g/dL Hct 33.5 L (42-52) % Plt Count 212 (130-400) K/uL BMP 10/10/21 13:09 Sodium 140 Potassium 3.6 Chloride 103 Carbon Dioxide 30 BUN 21 Creatinine 1.10 Glucose 105 H Calcium 8.7 Liver Function 10/10/21 Range/Units 13:09 Total Bilirubin 0.5 (0.2-1.0) mg/dl AST 9 L (13-39) U/L ALT 10 (7-52) U/L Alkaline Phosphatase 65 (34-104) U/L Albumin 3.3 L (3.4-5.0) gm/dl Diagnostic Findings Chest X-Ray 10/10/21 12:48 SINGLE VIEW CHEST CLINICAL HISTORY: Generalized weakness. FINDINGS: An AP, portable, upright chest radiograph is compared to study dated 07/04/2020 and correlated with chest CT dated 07/06/2021. The patient is status post midline sternotomy. The heart is enlarged noting atherosclerotic calcification of the thoracic aorta. The pulmonary vasculature is noncongested. Chronic interstitial thickening is similar to previous. Scarring/atelectasis is noted at the lung bases. No airspace consolidation typical for pneumonia or large pleural effusion is identified. No pneumothorax is seen. The skeletal structures are osteopenic. The bony thorax is grossly intact. Fusion hardware is noted in the lower cervical spine. Advanced arthritic change is seen in the shoulders. Calcific tendinopathy is noted on the left IMPRESSION: Cardiomegaly with no acute cardiopulmonary abnormality. ACT 112: Negative or not required by law. Electronically signed by: Mendoza Montgomery M.D. 10/10/2021 3:02 PM Humerus X-Ray 10/10/21 12:48 RIGHT HUMERUS 2 VIEWS CLINICAL HISTORY: Fall. Right arm pain. FINDINGS: AP and lateral views of the right humerus are compared to study dated 07/04/2020. The skeletal structures are osteopenic. There is no radiographic evidence of right humeral fracture. Degenerative change is noted in the shoulder and elbow joints. Soft tissue swelling is suggested in the distal upper extremity and around the elbow. An enthesophyte is noted at the triceps insertion. The right lung parenchyma is clear as imaged. IMPRESSION: There is no radiographic evidence of right humeral fracture. Electronically signed by: Mendoza Montgomery M.D. 10/10/2021 3:05 PM Venous Doppler Study 10/10/21 12:48 US venous doppler UE BI HISTORY: 81 years-old Male b/l L > R swelling; ?recent fall acute pain and swelling of the upper extremities COMPARISON: None TECHNIQUE: Multiple real-time sonographic images of the upper extremity deep venous structures were obtained assessing grayscale appearance, color and spectral flow. FINDINGS: Normal flow, compressibility, phasicity and augmentation of the upper extremity deep venous structures. IMPRESSION: No DVT. ACT 112: Negative or not required by law. The above report was generated using voice recognition software. It may contain grammatical, syntax or spelling errors. Electronically signed by: Richard Kyle M.D. 10/10/2021 3:[address] 10/10/21 12:[address] DOSE: 614.27 mGy.cm HISTORY: ?fall 3 days ago, on eliquis; h/o dementia TECHNIQUE: Multiaxial CT images of the head were performed without the use of intravenous contrast. Automated exposure control was utilized for this study. A dose lowering technique was utilized adhering to the principles of ALARA. Comparison: No priors due to system downtime. Findings: The paranasal sinuses and mastoid air cells are clear. The calvarium and skull base are intact. There is no mass, hematoma, midline shift, acute infarct. White matter hypodensity is nonspecific but suggestive of microvascular ischemic change. The ventricles and sulci demonstrate mild age-related involutional changes. There is an old punctate lacunar infarct within the right caudate head. Impression: No significant change compared to the prior study. No acute intracranial abnormality. ACT 112: Negative or not required by law. Electronically signed by: Luan Perera M.D. 10/10/2021 2:37 PM Code Status & VTE Plan Code Status Patient is a DNR as per my discussion with patient's son, Uche, who is at the bedside. This also correlates with POLST form that has been sent from the [facility]. VTE Prophylaxis Plan VTE Prophylaxis will be ordered: No Supervising Physician Co-Signing Physician Notes 81-year-old gentleman with PMH of COPD, CAD status post CABG and stents, HFpEF, HTN, CKD stage III, apical mural thrombus on Eliquis, GERD, BPH, steroid- dependent osteoarthritis and dementia presented to the ED from [facility] for evaluation of bilateral upper arm swelling. His diuresis medicine has been recently adjusted by cardiology office. The swelling in the upper extremity continued and hence patient was sent to the ED for evaluation. Patient though alert was not oriented and history seemed unreliable and at times was not cooperative. Seems like per chart review, he had multiple falls and looking at his bilateral upper arm, he had bruises and superficial laceration with scabs along with pitting edema. Patient denies any complaints at bedside exam. BLE and BUE swelling: Pitting edema. Pro-[place] is negative, chest x-ray with no acute findings or congestive change, upper extremity Doppler with no DVT, BNP in fact better than the previous one and WNL. iv diuresis, cardiology consult. BLE swelling 2+ pitting edema. June 2020 ECHO: EF 55 to 60% with grade 1 diastolic dysfunction. Get echo. FR 2L. Bilateral UE bruises and laceration: Rt Humerus XR negative for fracture. Wound care Admitting labs and imagings were reviewed, CT head with no acute findings. Follow-up blood culture. Continue Eliquis with close monitoring of hemoglobin. Hemoglobin closer to baseline at 10.7. Upon examination: GENERAL: Alert and oriented x0. NAD, on RA. Appears weak and frail. HEENT: No pallor, no icterus. Pupils equal, round and reactive to light. Oral mucosa moist. NECK: No JVD, no neck masses. HEART: S1 and S2 heard. Regular rate and rhythm. No murmur, no gallop. RESPIRATORY SYSTEM: Normal AP diameter. No accessory muscle use. No wheezing, ?? b/b crackles. ABDOMEN: Soft, bowel sounds present, nontender, no distention. CENTRAL NERVOUS SYSTEM: No facial droop. Speech is clear. Obeys simple commands. Moves extremities. EXTREMITIES: BUE: Rt 2+ edema; Lt 1+ edema; b/l bruises w/ superficial laceration/dried scabs. BLE: 2+ edema Pt not able to cooperate fully during exam. I have seen and examined the patient and have discussed the case with the provider above. I agree with the assessment and plan as stated.
[2021-10-10] MEDS ORDERED: OLANZapine 5 MG TABLET PO ONE (20:19)
[2021-10-10] MEDS: APIXABAN 2.5 MG TAB PO SCH (20:56)
[2021-10-10] MEDS: CHOLECALCIFEROL 1,000 UNITS 25 MCG TAB PO SCH (20:57)
[2021-10-10] MEDS: ATORVASTATIN 40 MG TAB PO SCH (20:57)
[2021-10-11] MEDS ORDERED: POTASSIUM CHLORIDE CRTAB 20 MEQ TABCR PO STA (01:57)
[2021-10-11] MEDS: METOPROLOL SUCC 50MG EXT REL TAB PO SCH (02:10)
[2021-10-11 03:24] LABS: Basophils # (auto) 0.01 K/uL (0-0.2); Basophils % (auto) 0.2 %; Eosinophils # (auto) 0.08 K/uL (0-0.5); Eosinophils % (auto) 1.3 %; Hematocrit (blood only) 31.6 % (42-52); Hemoglobin 10.3 g/dL (14.0-18.0); Immature Granulocytes # (auto) 0.02 K/uL (0.00-0.02); Immature Granulocytes % (auto) 0.3 %; Lymphocytes # (auto) 1.21 K/uL (1.2-3.4); Lymphocytes % (auto) 19.1 %; Mean Corpuscular Hemoglobin 32.8 pg (25-34); Mean Corpuscular Hgb Conc 32.6 g/dL (32-36); Mean Corpuscular Volume 100.6 fL (80-100); Monocytes # (auto) 0.49 K/uL (0.11-0.59); Monocytes % (auto) 7.7 %; Neutrophils # (auto) 4.52 K/uL (1.4-6.5); Neutrophils % (auto) 71.4 %; Platelet Count 201 K/uL (130-400); RDW Coefficient of Variation 14.3 % (11.5-14.5); RDW Standard Deviation 52.5 fL (36.4-46.3); Red Blood Count 3.14 M/uL (4.7-6.1); White Blood Count 6.33 K/uL (4.8-10.8)
[2021-10-11 03:39] LABS: BUN Creatinine Ratio 16.4 (10-20); Calcium 8.5 mg/dl (8.5-10.1); Creatinine Clr Calc Pharmacy 54.2 ml/min; Est GFR (Non-African American) 51.8 ml/min; Magnesium 2.1 mg/dl (1.7-2.4); Potassium 3.8 mmol/L (3.5-5.1)
[2021-10-11] MEDS ORDERED: VANCOMYCIN CONSULT ACTIVE PRN (08:41)
[2021-10-11] MEDS ORDERED: VANCOMYCIN HCL 1,000 MG in SODIUM CHLORIDE 0.9% 250 ML IV SCH (08:45)
--- NOTE | 2021-10-11 08:54 | Cardiology Consultation ---
Date of Consultation October 11, 2021 Assessment & Plan (1) Volume overload: (2) Apical mural thrombus: (3) Dementia: (4) Chronic diastolic (congestive) heart failure: (5) CAD (coronary artery disease): Patient admitted for worsening upper and lower extremity edema, failing outpatient diuretic treatment. Upper extremity venous duplex negative for DVT. He has a chart history of right upper extremity DVT last year. Symptoms have improved with IV lasix since admission. Given his normal BNP, clear chest xray, and no acute symptoms to suggest CHF, fluid overload is likely multifactorial in setting of anemia, low protein, and low albumin levels. Continue IV lasix today. Consider holding in the morning until labs are reviewed. He has a history of apical mural thrombus. He was previously on coumadin and thrombus was persistent. He also developed upper extremity DVT, unprovoked. Ev aluated by hematology and placed on Lovenox for anticoagulation. Apparently this was difficult to manage due to CKD, he was then transitioned to renally dosed Eliquis 2.5 mg BID. Continue anticoagulation for now. Monitor renal function. He has 1 out of 2 blood cultures positive this morning. Possible contamination, but agree with antibiotic initiation. Will update echocardiogram to assess LV function, structure, valvular disease and r/o vegetation He had one non sustained episode of VT while sleeping. Monitor electrolytes with diuresis and continue metoprolol. Given underlying dementia, conservative therapies recommended. He is DNR/DNI. Continue home oral medications given history of CAD including ASA, statin, isosorbide, metoprolol. Apparently he resides at personal [facility]. Unsure of the amount of assistance provided/needed. May need to consider skilled care? Case discussed with Dr. Jordan. Will follow. Supervising Physician Co-Signing Physician Notes Patient seen and examined personally, chart medications and telemetry reviewed. Assessment as well outlined above. Patient has what appears to be chronic stasis edema of the right upper extremity Mild lower extremity edema which has responded to diuretics likely exacerbated by underlying hypoalbuminemia We will review echocardiogram History of Present Illness Reason for Consultation: Edema Requesting Physician: SAMINA Holliday Attending Physician: Dr. Jordan History of Present Illness Patient is an 81 year old male who is known to [facility], follows with Dr. Hernandez/SAMINA Tran for complex cardiac history, as below. Most recently evaluated in clinic approx 2 weeks ago with the son for concerns regarding increased upper and lower extremity edema. Spironolactone was initiated at that time and torsemide dose adjusted. Torsemide and spironolactone were then increased by PCP and [facility] providers without improvement in his edema. He was then brought the ER for evaluation/treatment by family due to persistent edema and recent falls with multiple skin tears. Underlying dementia limits history at time of consult. History is obtained from inpatient/outpatient records. Upon arrival to ER, patient started on IV Lasix for upper and lower extremity edema. Upper extremity venous duplex was negative for DVT b/l. Head CT without acute changes. Chest xray clear. Protein and albumin low. Wound clinic consulted for skin tears on upper extremities. At time of consult, patient resting in bed comfortably. Denies complaints. Edema improved in upper and lower extremities compared to admission notes. Good urine outputs over the last 24 hours. He does not recall exactly why he is in the hospital. This morning, 1 of 2 blood cultures positive and patient now on Vanco History includes: 1. Ischemic heart disease Status post [place] x 2 in 1993. Status post CABG x 2 in 1995 3. Admission to [facility] 03/01/2016 to 03/06/2016, presenting with chest pressure suggestive of angina. Cardiac enzymes negative. He was seen in consultation by Dr. Johnson and underwent dobutamine stress echocardiogram on 03/02/2016 which was negative for ischemic, without symptoms suggestive of angina. The patient had an episode of hypotension on the floor post dobutamine stress test with a troponin performed after the episode noted to be mildly elevated. He then underwent cardiac catheterization performed by Dr. Mcmahan on 03/05/2016 and was noted to have a stenosis just distal to the anastomosis of the AVILA to LAD, undergoing PCI to the cherokee LAD just distal to the touchdown of the LATANYA with a KEVIN. 2. Preserved LV systolic function. 3. Diastolic congestive heart failure 4. Hypertension. 5. Hyperlipidemia. 6. Symptomatic non-complex atrial and ventricular ectopy. 7. Type II diabetes mellitus 8. GERD. 9. Arthritis. 10. History of facial melanoma S/P resection and radiation therapy 11. Polymyalgia rheumatica 12. MGUS. 13. DJD 14. Psoriasis 15. Alzheimer's dementia. 16. LV thrombus, persistent despite coumadin, transitioned to lovenox due to right upper extremity DVT. Hematology felt Lovenox risks > benefits, and transitioned to low dose Eliquis 17. COPD Allergies Allergy/AdvReac Type Severity Reaction Status Date / Time No Known Allergies Allergy Verified 07/06/21 14:51 Home Medications Medication Instructions Recorded Confirmed Type apixaban 2.5 mg tablet (Eliquis) 2.5 mg PO BID #60 tab 07/14/21 10/10/21 Rx aspirin 81 mg tablet,delayed 81 mg PO QAM #30 tab 07/14/21 10/10/21 Rx release atorvastatin 80 mg tablet (Lipitor) 80 mg PO HS #30 tab 07/14/21 10/10/21 Rx cholecalciferol (vitamin D3) 25 25 mcg PO QPM #30 cap 07/14/21 10/10/21 Rx mcg (1,000 unit) capsule (Vitamin D3) cyanocobalamin (vitamin B-12) 1,000 mcg PO DAILY #30 tab 07/14/21 10/10/21 Rx 1,000 mcg tablet (Vitamin B-12) finasteride 5 mg tablet 5 mg PO QAM #30 tab 07/14/21 10/10/21 Rx iron,carbonyl 65 mg-vitamin C 125 1 tab PO DAILY #30 tab 07/14/21 10/10/21 Rx mg tablet,delayed release (Vitron-C) isosorbide mononitrate 120 mg 120 mg PO QAM #30 tab 07/14/21 10/10/21 Rx tablet,extended release 24 hr metoprolol succinate 50 mg 50 mg PO QAM #30 tab 07/14/21 10/10/21 Rx tablet,extended release 24 hr (Toprol XL) omeprazole 20 mg capsule,delayed 20 mg PO DAILY #30 cap 07/14/21 10/10/21 Rx release prednisone 10 mg tablet 10 mg PO QAM #30 tab 07/14/21 10/10/21 Rx spironolactone 25 mg tablet 25 mg PO QAM #30 tab 07/14/21 10/10/21 Rx Lidocaine Jelly 1 applic TOPICAL DIRECTED PRN 10/10/21 10/10/21 History acetaminophen 500 mg tablet 1,000 mg PO Q6H PRN 10/10/21 10/10/21 History (Tylenol Extra Strength) albuterol sulfate 90 mcg/actuation 2 puff INHALATION Q6H PRN 10/10/21 10/10/21 History aerosol inhaler fluticasone 250 mcg-salmeterol 50 1 inh INHALATION BID 10/10/21 10/10/21 History mcg/dose blistr powdr for inhalation magnesium oxide 400 mg PO QAM 10/10/21 10/10/21 History torsemide 20 mg tablet 20 mg PO QAM 10/10/21 10/10/21 History Patient History Medical History Actinic keratosis Anemia 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 Ortiz Psoriasis Psoriatic arthritis Restless leg syndrome Rheumatoid arthritis Right subclavian artery occlusion Sensorineural hearing loss Syncope Unilateral inguinal hernia Unstable angina (11/21/98) Admitted to [facility] and transferred [place] [facility] where he had cath 11/25/98 Weakness Surgical History H/O colonoscopy H/O hernia repair History of ERCP Benign History of Mohs micrographic surgery for skin cancer Nose History of percutaneous left heart catheterization (LHC) History of surgery Right Facial / Ear Resection for Melanoma removal Hx of CABG (1995) x 3 (@ [facility]) S/P cholecystectomy Status post surgical removal of neoplasm of skin Family History Mother , Passed in late 70's of natural causes No problems noted. Father , Passed in mid 70's of colorectal CA No problems noted. Brother , Passed age 72 of Covid 19 Alzheimer disease Son No problems noted. Son No problems noted. Son No problems noted. 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: No Beliefs That Will Affect Care: None marital status: Single Current Living Situation: Personal Care Facility Current Living Situation Comment: [facility] current occupational status: retired 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 How many Children do You have: 1 Feels Safe at Home: Yes Safety Concerns: Feels Safe At This Time Childhood Exposure to Second-Hand Smoke: No caffeine: Yes (1 cup of coffee/day ) during the past year weight has: remained stable Dental Care, Regularly: No Assistive Devices: Denture - Upper, Denture - Lower, Glasses and Hearing Aid - Bilateral Assistive Devices Comment: hearing aid not present on admit Review of Systems Review of Systems: All systems reviewed & are unremarkable except as noted in HPI & below Physical Exam Constitutional: WD/WN, vitals as above no acute distress Respiratory: normal respiratory effort, lungs clear to auscultation Cardiovascular: Rate/Rhythm: regular rate and regular rhythm Heart Sounds: + murmur (II/ systolic murmur) Gastrointestinal (Abdomen): normal bowel sounds, soft, nontender, no hepatosplenomegaly Skin: Trauma: + evidence of skin trauma (multiple skin tears, bandages on upper extremities) Neurologic: moves all extremities and awake Psychiatric: Orientation: alert, oriented to person and oriented to place Results & Data ([facility]) Vital Signs (Past 12 Hours) Vital Signs Temp Pulse Pulse Resp BP BP Pulse Ox 10/11/21 08:18 36.8 C 74 22 144/61 H 92 10/11/21 07:28 73 10/11/21 02:08 36.4 C L 72 16 125/70 95 10/11/21 01:49 78 10/10/21 23:53 36.5 C 69 18 115/62 94 Laboratory Results 10/11/21 10/11/21 10/10/21 Range/Units 02:56 02:56 19:07 WBC 6.33 (4.8-10.8) K/uL RBC 3.14 L (4.7-6.1) M/uL Hgb 10.3 L (14.0-18.0) g/dL Hct 31.6 L (42-52) % MCV 100.6 H (80-100) fL MCH 32.8 (25-34) pg MCHC 32.6 (32-36) g/dL RDW Std Deviation 52.5 H (36.4-46.3) fL RDW Coeff of Lester 14.3 (11.5-14.5) % Plt Count 201 (130-400) K/uL MPV 9.0 (7.4-10.4) fL Immature Gran % (Auto) 0.3 % Neut % (Auto) 71.4 % Lymph % (Auto) 19.1 % Billings % (Auto) 7.7 % Eos % (Auto) 1.3 % Baso % (Auto) 0.2 % Neut # (Auto) 4.52 (1.4-6.5) K/uL Lymph # (Auto) 1.21 (1.2-3.4) K/uL Billings # (Auto) 0.49 (0.11-0.59) K/uL Eos # (Auto) 0.08 (0-0.5) K/uL Baso # (Auto) 0.01 (0-0.2) K/uL Immature Gran # (Auto) 0.02 (0.00-0.02) K/uL PT (9.0-12.0) Seconds INR (0.9-1.1) Sodium 138 (136-145) mmol/L Potassium 3.8 (3.5-5.1) mmol/L Chloride 103 (98-107) mmol/L Carbon Dioxide 29 (21-32) mmol/L Anion Gap 6 (3-11) BUN 21 (6-23) mg/dl Creatinine 1.28 (0.6-1.4) mg/dl Est Cr Clr Drug Dosing 54.2 ml/min Est GFR ( Amer) 60.0 ml/min Est GFR (Non-Af Amer) 51.8 ml/min BUN/Creatinine Ratio 16.4 (10-20) Glucose 106 H (70-99(Fasting)) mg/dl Calcium 8.5 (8.5-10.1) mg/dl Magnesium 2.1 (1.7-2.4) mg/dl Total Bilirubin (0.2-1.0) mg/dl AST (13-39) U/L ALT (7-52) U/L Alkaline Phosphatase (34-104) U/L B-Natriuretic Peptide (0-100) pg/ml Total Protein (6.0-8.3) gm/dl Albumin (3.4-5.0) gm/dl Globulin (2.5-4.0) gm/dl Albumin/Globulin Ratio (0.9-2) Procalcitonin (0-0.5) ng/ml TSH (0.300-4.500) uIu/ml Nasal Screen MRSA (PCR) Negative (Negative) SARS-CoV-2, RNA, NAAT (NEGATIVE) Bld Cult Staph aureus PCR Blood Culture MRSA PCR 10/10/21 10/10/21 10/10/21 Range/Units 13:09 13:09 13:09 WBC (4.8-10.8) K/uL RBC (4.7-6.1) M/uL Hgb (14.0-18.0) g/dL Hct (42-52) % MCV (80-100) fL MCH (25-34) pg MCHC (32-36) g/dL RDW Std Deviation (36.4-46.3) fL RDW Coeff of Lester (11.5-14.5) % Plt Count (130-400) K/uL MPV (7.4-10.4) fL Immature Gran % (Auto) % Neut % (Auto) % Lymph % (Auto) % Billings % (Auto) % Eos % (Auto) % Baso % (Auto) % Neut # (Auto) (1.4-6.5) K/uL Lymph # (Auto) (1.2-3.4) K/uL Billings # (Auto) (0.11-0.59) K/uL Eos # (Auto) (0-0.5) K/uL Baso # (Auto) (0-0.2) K/uL Immature Gran # (Auto) (0.00-0.02) K/uL PT (9.0-12.0) Seconds INR (0.9-1.1) Sodium (136-145) mmol/L Potassium (3.5-5.1) mmol/L Chloride (98-107) mmol/L Carbon Dioxide (21-32) mmol/L Anion Gap (3-11) BUN (6-23) mg/dl Creatinine (0.6-1.4) mg/dl Est Cr Clr Drug Dosing ml/min Est GFR ( Amer) ml/min Est GFR (Non-Af Amer) ml/min BUN/Creatinine Ratio (10-20) Glucose (70-99(Fasting)) mg/dl Calcium (8.5-10.1) mg/dl Magnesium (1.7-2.4) mg/dl Total Bilirubin (0.2-1.0) mg/dl AST (13-39) U/L ALT (7-52) U/L Alkaline Phosphatase (34-104) U/L B-Natriuretic Peptide (0-100) pg/ml Total Protein (6.0-8.3) gm/dl Albumin (3.4-5.0) gm/dl Globulin (2.5-4.0) gm/dl Albumin/Globulin Ratio (0.9-2) Procalcitonin < 0.05 (0-0.5) ng/ml TSH (0.300-4.500) uIu/ml Nasal Screen MRSA (PCR) (Negative) SARS-CoV-2, RNA, NAAT NEGATIVE (NEGATIVE) Bld Cult Staph aureus PCR Pending Blood Culture MRSA PCR Pending 10/10/21 10/10/21 10/10/21 Range/Units 13:09 13:09 13:09 WBC (4.8-10.8) K/uL RBC (4.7-6.1) M/uL Hgb (14.0-18.0) g/dL Hct (42-52) % MCV (80-100) fL MCH (25-34) pg MCHC (32-36) g/dL RDW Std Deviation (36.4-46.3) fL RDW Coeff of Lester (11.5-14.5) % Plt Count (130-400) K/uL MPV (7.4-10.4) fL Immature Gran % (Auto) % Neut % (Auto) % Lymph % (Auto) % Billings % (Auto) % Eos % (Auto) % Baso % (Auto) % Neut # (Auto) (1.4-6.5) K/uL Lymph # (Auto) (1.2-3.4) K/uL Billings # (Auto) (0.11-0.59) K/uL Eos # (Auto) (0-0.5) K/uL Baso # (Auto) (0-0.2) K/uL Immature Gran # (Auto) (0.00-0.02) K/uL PT (9.0-12.0) Seconds INR (0.9-1.1) Sodium 140 (136-145) mmol/L Potassium 3.6 (3.5-5.1) mmol/L Chloride 103 (98-107) mmol/L Carbon Dioxide 30 (21-32) mmol/L Anion Gap 7 (3-11) BUN 21 (6-23) mg/dl Creatinine 1.10 (0.6-1.4) mg/dl Est Cr Clr Drug Dosing 63.0 ml/min Est GFR ( Amer) 72.1 ml/min Est GFR (Non-Af Amer) 62.2 ml/min BUN/Creatinine Ratio 19.1 (10-20) Glucose 105 H (70-99(Fasting)) mg/dl Calcium 8.7 (8.5-10.1) mg/dl Magnesium (1.7-2.4) mg/dl Total Bilirubin 0.5 (0.2-1.0) mg/dl AST 9 L (13-39) U/L ALT 10 (7-52) U/L Alkaline Phosphatase 65 (34-104) U/L B-Natriuretic Peptide 89 (0-100) pg/ml Total Protein 5.5 L (6.0-8.3) gm/dl Albumin 3.3 L (3.4-5.0) gm/dl Globulin 2.2 L (2.5-4.0) gm/dl Albumin/Globulin Ratio 1.5 (0.9-2) Procalcitonin (0-0.5) ng/ml TSH 2.137 (0.300-4.500) uIu/ml Nasal Screen MRSA (PCR) (Negative) SARS-CoV-2, RNA, NAAT (NEGATIVE) Bld Cult Staph aureus PCR Blood Culture MRSA PCR 10/10/21 10/10/21 Range/Units 13:09 13:09 WBC 6.90 (4.8-10.8) K/uL RBC 3.36 L (4.7-6.1) M/uL Hgb 10.7 L (14.0-18.0) g/dL Hct 33.5 L (42-52) % MCV 99.7 (80-100) fL MCH 31.8 (25-34) pg MCHC 31.9 L (32-36) g/dL RDW Std Deviation 54.0 H (36.4-46.3) fL RDW Coeff of Lester 14.8 H (11.5-14.5) % Plt Count 212 (130-400) K/uL MPV 9.0 (7.4-10.4) fL Immature Gran % (Auto) 0.1 % Neut % (Auto) 74.9 % Lymph % (Auto) 17.4 % Billings % (Auto) 5.9 % Eos % (Auto) 1.6 % Baso % (Auto) 0.1 % Neut # (Auto) 5.16 (1.4-6.5) K/uL Lymph # (Auto) 1.20 (1.2-3.4) K/uL Billings # (Auto) 0.41 (0.11-0.59) K/uL Eos # (Auto) 0.11 (0-0.5) K/uL Baso # (Auto) 0.01 (0-0.2) K/uL Immature Gran # (Auto) 0.01 (0.00-0.02) K/uL PT 11.2 (9.0-12.0) Seconds INR 1.1 (0.9-1.1) Sodium (136-145) mmol/L Potassium (3.5-5.1) mmol/L Chloride (98-107) mmol/L Carbon Dioxide (21-32) mmol/L Anion Gap (3-11) BUN (6-23) mg/dl Creatinine (0.6-1.4) mg/dl Est Cr Clr Drug Dosing ml/min Est GFR ( Amer) ml/min Est GFR (Non-Af Amer) ml/min BUN/Creatinine Ratio (10-20) Glucose (70-99(Fasting)) mg/dl Calcium (8.5-10.1) mg/dl Magnesium (1.7-2.4) mg/dl Total Bilirubin (0.2-1.0) mg/dl AST (13-39) U/L ALT (7-52) U/L Alkaline Phosphatase (34-104) U/L B-Natriuretic Peptide (0-100) pg/ml Total Protein (6.0-8.3) gm/dl Albumin (3.4-5.0) gm/dl Globulin (2.5-4.0) gm/dl Albumin/Globulin Ratio (0.9-2) Procalcitonin (0-0.5) ng/ml TSH (0.300-4.500) uIu/ml Nasal Screen MRSA (PCR) (Negative) SARS-CoV-2, RNA, NAAT (NEGATIVE) Bld Cult Staph aureus PCR Blood Culture MRSA PCR Diagnostic Findings Telemetry reviewed: NSR in the 60's. One run of non sustained VT lasting 14 beats around 1:50 AM EKG on arrival: NSR with PAC's. No acute changes Chest xray report reviewed (unable to review images): IMPRESSION: Cardiomegaly with no acute cardiopulmonary abnormality. Upper extremity Venous duplex report reviewed: IMPRESSION: No DVT. Head CT report reviewed from admission: Impression: No significant change compared to the prior study. No acute intracranial abnormality. Echo report reviewed from Jun 2020: Technically difficult study. Limited due to patient characteristics and poor acoustic windows. Mild concentric LVH Small sized apical wall motion abnormality with akinesis of the segments. Small apical mural thrombus LVEF 55-60% Aortic valve sclerosis mild without significant aortic valvular stenosis Grade I diastolic dysfunction. Compared to prior study in Mar 2020, LV apical mural thrombus was noted at that time as well. Medications Administered Current Inpatient Medications Acetaminophen (Acetaminophen 325 Mg Tab) 650 mg PO Q4H PRN PRN Reason: Pain or Fever Stop: 11/09/21 18:27 Apixaban (Apixaban 2.5 Mg Tab) 2.5 mg PO BID ANTWON Stop: 11/09/21 20:59 Last Admin: 10/11/21 09:35 Dose: 2.5 mg Documented by: Aspirin (Aspirin 81 Mg Ectab) 81 mg PO QAM ANTWON Stop: 11/10/21 08:59 Last Admin: 10/11/21 09:33 Dose: 81 mg Documented by: Atorvastatin Calcium (Atorvastatin 40 Mg Tab) 80 mg PO HS ANTWON Stop: 11/09/21 20:59 Last Admin: 10/10/21 20:57 Dose: 80 mg Documented by: Cyanocobalamin (Cyanocobalamin (B-12) 500 Mcg Tablet) 1,000 mcg PO DAILY ANTWON Stop: 11/10/21 08:59 Last Admin: 10/11/21 09:34 Dose: 1,000 mcg Documented by: Finasteride (Finasteride 5 Mg Tab) 5 mg PO QAM ANTWON Stop: 11/10/21 08:59 Last Admin: 10/11/21 09:35 Dose: 5 mg Documented by: Fluticasone/Vilanterol (Fluticasone/Vilanterol 100/25mcg 14 Puffs/Inhaler) 1 puffs INH DAILY ANTWON Stop: 11/10/21 08:59 Last Admin: 10/11/21 09:35 Dose: 1 puffs Documented by: Furosemide (Furosemide 40 Mg/4 Ml Vial) 40 mg IV BID ANTWON Stop: 11/09/21 16:49 Last Admin: 10/11/21 09:39 Dose: 40 mg Documented by: Vancomycin HCl 1,000 mg/ (Sodium Chloride) 270 mls @ 200 mls/hr IV Q18H ANTWON Stop: 10/25/21 22:59 Isosorbide Mononitrate (Isosorbide Billings Extended Rel 60 Mg Tabcr) 120 mg PO QAM ANTWON Stop: 11/10/21 08:59 Last Admin: 10/11/21 09:35 Dose: 120 mg Documented by: Magnesium Oxide (Magnesium Oxide 400 Mg Tab) 400 mg PO QAM ANTWON Stop: 11/10/21 08:59 Last Admin: 10/11/21 09:35 Dose: 400 mg Documented by: Metoprolol Succinate (Metoprolol Succ 50mg Ext Rel Tab) 50 mg PO QAM [facility] Stop: 11/10/21 01:59 Last Admin: 10/11/21 02:10 Dose: 50 mg Documented by: Miscellaneous Information (Vancomycin Consult Active) 1 ea N/A UD PRN PRN Reason: Consult Stop: 11/10/21 08:40 Pantoprazole Sodium (Pantoprazole 40 Mg Tab) 40 mg PO DAILY ANTWON Stop: 11/10/21 08:59 Last Admin: 10/11/21 09:34 Dose: 40 mg Documented by: Potassium Chloride (Potassium Chloride Crtab 20 Meq Tabcr) 20 meq PO BID ANTWON Stop: 11/10/21 08:59 Last Admin: 10/11/21 09:33 Dose: 20 meq Documented by: Prednisone (Prednisone 10 Mg Tablet) 10 mg PO QAM ANTWON Stop: 11/10/21 08:59 Last Admin: 10/11/21 09:34 Dose: 10 mg Documented by: Vitamin D (Cholecalciferol 1,000 Units 25 Mcg Tab) 1,000 units PO QPM ANTWON Stop: 11/09/21 20:59 Last Admin: 10/10/21 20:57 Dose: 1,000 units Documented by: (1) Dementia Dementia behavioral disturbance: without behavioral disturbance Dementia type: unspecified type Qualified Code(s): F03.90 - Unspecified dementia without behavioral disturbance
[2021-10-11] MEDS ORDERED: NON-FORMULARY MEDICATION (Iron,Carbonyl-Vitamin C [Vitron-C] 65 mg iron- 125 mg Tablet,Del PO SCH (09:00)
[2021-10-11] MEDS ORDERED: METOPROLOL SUCC 50MG EXT REL TAB PO SCH (09:00)
[2021-10-11] MEDS ORDERED: VANCOMYCIN HCL 2,250 MG in SODIUM CHLORIDE 0.9% 500 ML IV ONE (09:00)
[2021-10-11] MEDS: ASPIRIN 81 MG ECTAB PO SCH (09:33)
[2021-10-11] MEDS: POTASSIUM CHLORIDE CRTAB 20 MEQ TABCR PO SCH ×2 (09:33→20:44)
[2021-10-11] MEDS: predniSONE 10 MG TABLET PO SCH (09:34)
[2021-10-11] MEDS: PANTOprazole 40 MG TAB PO SCH (09:34)
[2021-10-11] MEDS: CYANOCOBALAMIN (B-12) 500 MCG TABLET PO SCH (09:34)
[2021-10-11] MEDS: FLUTICASONE/VILANTEROL 100/25MCG 14 PUFFS/INHALER INH SCH (09:35)
[2021-10-11] MEDS: MAGNESIUM OXIDE 400 MG TAB PO SCH (09:35)
[2021-10-11] MEDS: FINASTERIDE 5 MG TAB PO SCH (09:35)
[2021-10-11] MEDS: ISOSORBIDE MONO EXTENDED REL 60 MG TABCR PO SCH (09:35)
[2021-10-11] MEDS: APIXABAN 2.5 MG TAB PO SCH ×2 (09:35→20:44)
[2021-10-11] MEDS: FUROSEMIDE 40 MG/4 ML VIAL IV SCH ×2 (09:39→20:45)
--- NOTE | 2021-10-11 11:04 | Pharmacy Report ---
Pharmacy Vanc AUC Short Note - Date of Service October 11, 2021 - Assessment & Plan Assessment 81 year old M receiving empiric vancomycin for treatment of possible gram- positive cocci bacteremia vs. contaminant. Pertinent microbiologic data includes: blood cultures 1 of 2 growing gram-positive cocci clusters, PCR negative for MSSA/MRSA. Patient afebrile, no leukocytosis. Renal function appears to be at/near baseline based on prior admission data. Will follow. Day # 1 of antimicrobial therapy. Plan Vancomycin * AUC/MARLINE is the preferred PK/PD target for vancomycin * AUC guided dosing is effective and associated with decreased risk of nephrotoxicity compared to traditional trough targets * Loading dose of 2250 mg IV x 1 given (23 mg/kg) * Ordered maintenance dose of vancomycin 1 g IV q18h is predicted to achieve target AUC/MARLINE of 400-600 mg/L.hr and may be associated with a 12 % risk of nephrotoxicity * Will obtain trough/random level if vancomycin continued beyond 48 hours Pharmacy will continue to follow and will adjust dose/frequency as necessary. Katty villasenor.
--- NOTE | 2021-10-11 15:31 | Hospitalist Progress Note ---
Date of Service October 11, 2021 Assessment & Plan (1) Volume overload: Plan: likely multifactorial in setting of anemia, low protein, and low albumin levels. Doppler of LE showed no DVT BNP normal No evidence of acute CHF Received Lasix IV in the ER Continue lasix 40mg IB BID Cardiology on board Will get an echo (2) Bacteremia: Plan: Blood cx grew gram positive cocci in clusters Might be due to contamination Starting on IV vanco Will repeat blood cx in am Echo pending (3) Multiple skin tears: Plan: Multiple skin tears noted to have bilateral upper extremities, no signs of infection Wound care nurse on board (4) Falls: Plan: Continue PT/OT May need SNF placement (5) Apical mural thrombus: Plan: Anticoagulated with Eliquis (6) CAD (coronary artery disease): Plan: Appears stable Continue ASA, statin, beta-sarah, nitrate (7) Osteoarthritis: Plan: Steroid-dependent, continue prednisone (8) CKD (chronic kidney disease), stage III: Plan: Baseline creatinine low 1s Creatinine 1.2 today Monitor renal functions with aggressive diuresis (9) BPH with obstruction/lower urinary tract symptoms: Plan: Continue finasteride (10) DVT prophylaxis: Plan: On Eliquis Admission and Anticipated Discharge Date Admission Date: October 10, 2021 Subjective Pt was seen and examined for follow up of lower extremity edema Lying in bed with no acute distress Pt said that he feels ok He said his leg is much better today He said that he feels weak Denies any chest pain, palpitation, dizziness and SOB Review of Systems Review of Systems: All systems reviewed & are unremarkable except as noted in Subjective Physical Exam Physical Exam: General- No acute distress Head- atraumatic Eyes- PERRL, EOMI, ENT- oropharynx clear Neck- supple, no JVD Lungs- clear to auscultation Heart- regular rhythm; +systolic murmur Abdomen- normal bowel sounds, soft, nontender Extremities- no calf tenderness Neuro- alert, oriented x 3; PERRL, EOMI; no facial palsy; no dysarthria Skin- warm & dry, ecchymoses Results & Data Results & Data ([facility]) Vital Signs (Past 12 Hours) Vital Signs Temp Pulse Pulse Resp BP Pulse Ox 10/11/21 12:00 36.5 C 81 20 120/55 L 93 10/11/21 08:18 36.8 C 74 22 144/61 H 92 10/11/21 07:28 73
[2021-10-11] MEDS: ATORVASTATIN 40 MG TAB PO SCH (20:44)
[2021-10-11] MEDS: CHOLECALCIFEROL 1,000 UNITS 25 MCG TAB PO SCH (20:44)
[2021-10-11] MEDS: VANCOMYCIN HCL 1,000 MG in SODIUM CHLORIDE 0.9% 250 ML IV SCH (22:47)
[2021-10-12] MEDS: ACETAMINOPHEN 325 MG TAB PO PRN (04:23)
--- NOTE | 2021-10-12 05:58 | Electrocardiogram Report ---
Test Reason : Blood Pressure : / mmHG Vent. Rate : 069 BPM Atrial Rate : 069 BPM P-R Int : 158 ms QRS Dur : 088 ms QT Int : 446 ms P-R-T Axes : 081 -10 070 degrees QTc Int : 477 ms Sinus rhythm with Premature supraventricular complexes Low voltage QRS Borderline ECG When compared with ECG of 06-JUL-2021 12:28, Premature supraventricular complexes are now Present T wave inversion no longer evident in Lateral leads Confirmed by Andrew Harris ([id number]) on 10/12/2021 5:58:39 AM Referred By: [facility] Confirmed By:Andrew Harris
[2021-10-12] MEDS: MAGNESIUM OXIDE 400 MG TAB PO SCH (08:07)
[2021-10-12] MEDS: APIXABAN 2.5 MG TAB PO SCH ×2 (08:07→20:01)
[2021-10-12] MEDS: predniSONE 10 MG TABLET PO SCH (08:07)
[2021-10-12] MEDS: CYANOCOBALAMIN (B-12) 500 MCG TABLET PO SCH (08:07)
[2021-10-12] MEDS: ISOSORBIDE MONO EXTENDED REL 60 MG TABCR PO SCH (08:07)
[2021-10-12] MEDS: FINASTERIDE 5 MG TAB PO SCH (08:07)
[2021-10-12] MEDS: POTASSIUM CHLORIDE CRTAB 20 MEQ TABCR PO SCH ×2 (08:07→20:00)
[2021-10-12] MEDS: METOPROLOL SUCC 50MG EXT REL TAB PO SCH (08:08)
[2021-10-12] MEDS: PANTOprazole 40 MG TAB PO SCH (08:08)
[2021-10-12] MEDS: ASPIRIN 81 MG ECTAB PO SCH (08:08)
[2021-10-12] MEDS: FUROSEMIDE 40 MG/4 ML VIAL IV SCH (08:09)
[2021-10-12] MEDS: FLUTICASONE/VILANTEROL 100/25MCG 14 PUFFS/INHALER INH SCH (08:09)
[2021-10-12 08:11] LABS: Hematocrit (blood only) 33.2 % (42-52); Hemoglobin 10.9 g/dL (14.0-18.0); Mean Corpuscular Hemoglobin 32.7 pg (25-34); Mean Corpuscular Hgb Conc 32.8 g/dL (32-36); Mean Corpuscular Volume 99.7 fL (80-100); Mean Platelet Volume 9.1 fL (7.4-10.4); Platelet Count 211 K/uL (130-400); RDW Coefficient of Variation 14.1 % (11.5-14.5); RDW Standard Deviation 51.1 fL (36.4-46.3); Red Blood Count 3.33 M/uL (4.7-6.1); White Blood Count 5.85 K/uL (4.8-10.8)
[2021-10-12 08:39] LABS: BUN Creatinine Ratio 17.9 (10-20); Calcium 8.8 mg/dl (8.5-10.1); Creatinine Clr Calc Pharmacy 56.2 ml/min; Est GFR (Non-African American) 54.3 ml/min; Potassium 3.6 mmol/L (3.5-5.1)
--- NOTE | 2021-10-12 11:49 | Cardiology Progress Note ---
Date of Service October 12, 2021 Assessment & Plan (1) Volume overload: (2) Apical mural thrombus: (3) Dementia: (4) Chronic diastolic (congestive) heart failure: (5) CAD (coronary artery disease): Plan: Patient admitted for worsening upper and lower extremity edema, failing outpatient diuretic treatment. Upper extremity venous duplex negative for DVT. He has a chart history of right upper extremity DVT last year. Symptoms have improved with IV lasix since admission. No edema noted on exam findings today. Given his normal BNP, clear chest xray, and no acute symptoms to suggest CHF, fluid overload is likely multifactorial in setting of anemia, low protein, and low albumin levels. Likely transition back to oral diuretics in the next 12-24 hours. He has a history of apical mural thrombus. He was previously on coumadin and thrombus was persistent. He also developed upper extremity DVT, unprovoked. Evaluated by hematology and placed on Lovenox for anticoagulation. Apparently this was difficult to manage due to CKD, he was then transitioned to renally dosed Eliquis 2.5 mg BID. Continue anticoagulation for now. Monitor renal function. Echo findings without mural thrombus, preserved EF. He has 1 out of 2 blood cultures positive on admission Possible contamination. Repeat pending Echo without evidence of valvular abnormality to suggest vegetation. He had one non sustained episode of VT while sleeping. Monitor electrolytes with diuresis and continue metoprolol. Given underlying dementia, conservative therapies recommended. He is DNR/DNI. Continue home oral medications given history of CAD including ASA, statin, isosorbide, metoprolol. Apparently [facility]. Unsure of the amount of assistance provided/needed. May need to consider skilled care? Case discussed with Dr. Jordan. Admission and Anticipated Discharge Date Admission Date: October 11, 2021 Supervising Physician Co-Signing Physician Notes Patient was seen and examined personally. Assessment as above. Very brisk diuresis Patient slightly more confused today than on prior examination with no acute complaints. Will hold IV diuretics after a.m. dose today Subjective Patient currently resting in bed comfortably. Finished breakfast. Currently with 2:1 sitter. Denies complaints. Review of Systems Review of Systems: Unobtainable due to cognitive status (dementia) Physical Exam Constitutional: WD/WN, vitals as above no acute distress Respiratory: normal respiratory effort, lungs clear to auscultation Cardiovascular: Rate/Rhythm: regular rate and regular rhythm Heart Sounds: + murmur (II/ systolic murmur) Gastrointestinal (Abdomen): normal bowel sounds, soft, nontender, no hepatosplenomegaly Skin: Trauma: + evidence of skin trauma (multiple skin tears, bandages on upper extremities) Neurologic: moves all extremities and awake Psychiatric: Orientation: alert, oriented to person and oriented to place Results & Data ([facility]) Vital Signs (Past 12 Hours) Vital Signs Temp Pulse Resp BP Pulse Ox 10/12/21 11:28 36.4 C L 79 20 124/61 94 10/12/21 08:00 36.8 C 82 18 122/68 95 10/12/21 03:10 36.4 C L 82 18 130/66 95 Laboratory Results 10/12/21 10/12/21 Range/Units 07:42 07:42 WBC 5.85 (4.8-10.8) K/uL RBC 3.33 L (4.7-6.1) M/uL Hgb 10.9 L (14.0-18.0) g/dL Hct 33.2 L (42-52) % MCV 99.7 (80-100) fL MCH 32.7 (25-34) pg MCHC 32.8 (32-36) g/dL RDW Std Deviation 51.1 H (36.4-46.3) fL RDW Coeff of Lester 14.1 (11.5-14.5) % Plt Count 211 (130-400) K/uL MPV 9.1 (7.4-10.4) fL Sodium 141 (136-145) mmol/L Potassium 3.6 (3.5-5.1) mmol/L Chloride 104 (98-107) mmol/L Carbon Dioxide 31 (21-32) mmol/L Anion Gap 6 (3-11) BUN 22 (6-23) mg/dl Creatinine 1.23 (0.6-1.4) mg/dl Est Cr Clr Drug Dosing 56.2 ml/min Est GFR ( Amer) 63.0 ml/min Est GFR (Non-Af Amer) 54.3 ml/min BUN/Creatinine Ratio 17.9 (10-20) Glucose 94 (70-99(Fasting)) mg/dl Calcium 8.8 (8.5-10.1) mg/dl Diagnostic Findings Telemetry reviewed - NSR in the 60-70's. No arrhythmias Echo results reviewed from 10/12/21: LV is normal in size Moderate concentric LVH Very small focal apical infarct involving the apical septum with akinesis of the segment and minimal expansion. NO mural thrombus identified. EF 55-60% Aortic sclerosis moderate without . Mild mitral annular calcification No visualized valve abnormalities or vegetation Repeat blood cultures - pending Medications Administered Current Inpatient Medications Acetaminophen (Acetaminophen 325 Mg Tab) 650 mg PO Q4H PRN PRN Reason: Pain or Fever Stop: 11/09/21 18:27 Last Admin: 10/12/21 04:23 Dose: 650 mg Documented by: Apixaban (Apixaban 2.5 Mg Tab) 2.5 mg PO BID ANTWON Stop: 11/09/21 20:59 Last Admin: 10/12/21 08:07 Dose: 2.5 mg Documented by: Aspirin (Aspirin 81 Mg Ectab) 81 mg PO QAM ANTWON Stop: 11/10/21 08:59 Last Admin: 10/12/21 08:08 Dose: 81 mg Documented by: Atorvastatin Calcium (Atorvastatin 40 Mg Tab) 80 mg PO HS ANTWON Stop: 11/09/21 20:59 Last Admin: 10/11/21 20:44 Dose: 80 mg Documented by: Cyanocobalamin (Cyanocobalamin (B-12) 500 Mcg Tablet) 1,000 mcg PO DAILY ANTWON Stop: 11/10/21 08:59 Last Admin: 10/12/21 08:07 Dose: 1,000 mcg Documented by: Finasteride (Finasteride 5 Mg Tab) 5 mg PO QAM ANTWON Stop: 11/10/21 08:59 Last Admin: 10/12/21 08:07 Dose: 5 mg Documented by: Fluticasone/Vilanterol (Fluticasone/Vilanterol 100/25mcg 14 Puffs/Inhaler) 1 puffs INH DAILY ANTWON Stop: 11/10/21 08:59 Last Admin: 10/12/21 08:09 Dose: 1 puffs Documented by: Furosemide (Furosemide 40 Mg/4 Ml Vial) 40 mg IV BID ANTWON Stop: 11/09/21 16:49 Last Admin: 10/12/21 08:09 Dose: 40 mg Documented by: Vancomycin HCl 1,000 mg/ (Sodium Chloride) 270 mls @ 200 mls/hr IV Q18H ANTWON Stop: 10/25/21 22:59 Last Infusion: 10/12/21 00:12 Dose: Infused Documented by: Isosorbide Mononitrate (Isosorbide [place] Extended Rel 60 Mg Tabcr) 120 mg PO QAM [facility] Stop: 11/10/21 08:59 Last Admin: 10/12/21 08:07 Dose: 120 mg Documented by: Magnesium Oxide (Magnesium Oxide 400 Mg Tab) 400 mg PO QAM ANTWON Stop: 11/10/21 08:59 Last Admin: 10/12/21 08:07 Dose: 400 mg Documented by: Metoprolol Succinate (Metoprolol Succ 50mg Ext Rel Tab) [facility] [place] Stop: 11/10/21 01:59 Last Admin: 10/12/21 08:08 Dose: 50 mg Documented by: Miscellaneous Information (Vancomycin Consult Active) 1 ea N/A UD PRN PRN Reason: Consult Stop: 11/10/21 08:40 Pantoprazole Sodium (Pantoprazole 40 Mg Tab) 40 mg PO DAILY ANTWON Stop: 11/10/21 08:59 Last Admin: 10/12/21 08:08 Dose: 40 mg Documented by: Potassium Chloride (Potassium Chloride Crtab 20 Meq Tabcr) 20 meq PO BID ANTWON Stop: 11/10/21 08:59 Last Admin: 10/12/21 08:07 Dose: 20 meq Documented by: Prednisone (Prednisone 10 Mg Tablet) 10 mg PO QAM [facility] Stop: 11/10/21 08:59 Last Admin: 10/12/21 08:07 Dose: 10 mg Documented by: Vitamin D (Cholecalciferol 1,000 Units 25 Mcg Tab) 1,000 units PO QPM ANTWON Stop: 11/09/21 20:59 Last Admin: 10/11/21 20:44 Dose: 1,000 units Documented by: (1) Dementia Dementia behavioral disturbance: without behavioral disturbance Dementia type: unspecified type Qualified Code(s): F03.90 - Unspecified dementia without behavioral disturbance
[2021-10-12] MEDS ORDERED: COVID-19 VAC,AD26(JANSSEN)/PF 0.5 ML SYR IM ONE (13:20)
[2021-10-12] MEDS ORDERED: COVID 19 MRNA VACCINE IM ONE (14:15)
--- NOTE | 2021-10-12 14:17 | Hospitalist Progress Note ---
Date of Service October 12, 2021 Assessment & Plan (1) Volume overload: Plan: likely multifactorial in setting of anemia, low protein, and low albumin levels. Doppler of LE showed no DVT BNP normal No evidence of acute CHF in chest x-ray Received Lasix IV in the ER Continue lasix 40mg IB BID Cardiology on board-appreciate input and recommendation Echo of the heart showed-normal LV side, moderate concentric LVH, very small focal apical infarct involving the apical septum with akinesis of the segment and minimal expansion, no mural thrombus is identified, EF 55 to 60%, aortic valve sclerosis moderate without significant stenosis, mild mitral annular calcification, there is no visualized valve abnormalities or vegetation No shortness of breath at rest and no palpitation and no chest pain Pleasantly confused Could be secondary to infection 1 out of 2 blood cultures being positive for gram-positive cocci in cluster and gram-positive bacilli Has multiple skin tears and wounds involving the upper extremities Has been on intravenous vancomycin ID has been consulted (2) Bacteremia: Plan: Blood cx grew gram positive cocci in clusters Might be due to contamination Starting on IV vanco Will repeat blood cx in am -pending As above (3) Multiple skin tears: Plan: Multiple skin tears noted to have bilateral upper extremities, no signs of infection Wound care nurse on board No evidence of her lower extremity wounds We will get ID consult for further guidance about antibiotic (4) Falls: Plan: Continue PT/OT May need SNF placement (5) Apical mural thrombus: Plan: Anticoagulated with Eliquis No evidence of any more apical thrombus in recent echo (6) CAD (coronary artery disease): Plan: Appears stable Continue ASA, statin, beta-sarah, nitrate (7) Osteoarthritis: Plan: Steroid-dependent, continue prednisone (8) CKD (chronic kidney disease), stage III: Plan: Baseline creatinine low 1s Creatinine 1.2 today Monitor renal functions with aggressive diuresis (9) BPH with obstruction/lower urinary tract symptoms: Plan: Continue finasteride (10) DVT prophylaxis: Plan: On Eliquis Admission and Anticipated Discharge Date Admission Date: October 11, 2021 Subjective 10/12/2021 The patient was seen and examined in telemetry unit He remains pleasantly confused but denies any acute distress Denies any chest pain, palpitation but has minimal shortness of breath without any desaturation No abdominal pain, nausea and or vomiting Denies any fever and or chills Review of Systems Review of Systems: Unobtainable due to cognitive status Physical Exam Physical Exam: Lying in bed without any acute distress Constitutional: well developed, well nourished, + ill appearing and + obese Eyes: PERRL, conjunctivae normal, anicteric sclerae ENMT: external ear and nose normal, oropharynx normal Neck: trachea midline, no thyromegaly Respiratory: no respiratory distress Auscultation: + breath sounds absent and + crackles (Minimal crackles at the bases) Cardiovascular: Rate/Rhythm: regular rate and regular rhythm; not tachycardic Heart Sounds: normal S1, normal S2 and + murmur (2/6 ESM over precordium) Extremities: + edema (Trace edema bilaterally) Gastrointestinal (Abdomen): Inspection/Auscultation: normal bowel sounds; abdomen not distended Percussion/Palpation: abdomen soft; abdomen nontender Musculoskeletal: No acute arthritis in any joint Neurologic: Alert and awake. Pleasantly confused. Generally weak Lymphatic: no cervical or axillary lymphadenopathy Results & Data Results & Data ([facility]) Vital Signs (Past 12 Hours) Vital Signs Temp Pulse Resp BP Pulse Ox 10/12/21 11:28 36.4 C L 79 20 124/61 94 10/12/21 08:00 36.8 C 82 18 122/68 95 10/12/21 03:10 36.4 C L 82 18 130/66 95 Laboratory Results Short CBC 10/12/21 Range/Units 07:42 WBC 5.85 (4.8-10.8) K/uL Hgb 10.9 L (14.0-18.0) g/dL Hct 33.2 L (42-52) % Plt Count 211 (130-400) K/uL BMP 10/12/21 07:42 Sodium 141 Potassium 3.6 Chloride 104 Carbon Dioxide 31 BUN 22 Creatinine 1.23 Glucose 94 Calcium 8.8 Medications Administered Current Inpatient Medications Acetaminophen (Acetaminophen 325 Mg Tab) 650 mg PO Q4H PRN PRN Reason: Pain or Fever Stop: 11/09/21 18:27 Last Admin: 10/12/21 04:23 Dose: 650 mg Documented by: Apixaban (Apixaban 2.5 Mg Tab) 2.5 mg PO BID ANTWON Stop: 11/09/21 20:59 Last Admin: 10/12/21 08:07 Dose: 2.5 mg Documented by: Aspirin (Aspirin 81 Mg Ectab) 81 mg PO QAM [facility] Stop: 11/10/21 08:59 Last Admin: 10/12/21 08:08 Dose: 81 mg Documented by: Atorvastatin Calcium (Atorvastatin 40 Mg Tab) 80 mg PO HS ANTWON Stop: 11/09/21 20:59 Last Admin: 10/11/21 20:44 Dose: 80 mg Documented by: Cyanocobalamin (Cyanocobalamin (B-12) 500 Mcg Tablet) 1,000 mcg PO DAILY ANTWON Stop: 11/10/21 08:59 Last Admin: 10/12/21 08:07 Dose: 1,000 mcg Documented by: Finasteride (Finasteride 5 Mg Tab) 5 mg PO QAM [facility] Stop: 11/10/21 08:59 Last Admin: 10/12/21 08:07 Dose: 5 mg Documented by: Fluticasone/Vilanterol (Fluticasone/Vilanterol 100/25mcg 14 Puffs/Inhaler) 1 puffs INH DAILY ANTWON Stop: 11/10/21 08:59 Last Admin: 10/12/21 08:09 Dose: 1 puffs Documented by: Furosemide (Furosemide 40 Mg/4 Ml Vial) 40 mg IV BID ANTWON Stop: 11/09/21 16:49 Last Admin: 10/12/21 08:09 Dose: 40 mg Documented by: Vancomycin HCl 1,000 mg/ (Sodium Chloride) 270 mls @ 200 mls/hr IV Q18H [facility] Stop: 10/25/21 22:59 Last Infusion: 10/12/21 00:12 Dose: Infused Documented by: Isosorbide Mononitrate (Isosorbide [place] Extended Rel 60 Mg Tabcr) 120 mg PO QAM [facility] Stop: 11/10/21 08:59 Last Admin: 10/12/21 08:07 Dose: 120 mg Documented by: Magnesium Oxide (Magnesium Oxide 400 Mg Tab) 400 mg PO QAM [facility] Stop: 11/10/21 08:59 Last Admin: 10/12/21 08:07 Dose: 400 mg Documented by: Metoprolol Succinate (Metoprolol Succ 50mg Ext Rel Tab) 50 mg PO QAM [facility] Stop: 11/10/21 01:59 Last Admin: 10/12/21 08:08 Dose: 50 mg Documented by: Miscellaneous Information (Vancomycin Consult Active) 1 ea N/A UD PRN PRN Reason: Consult Stop: 11/10/21 08:40 Pantoprazole Sodium (Pantoprazole 40 Mg Tab) 40 mg PO DAILY [facility] Stop: 11/10/21 08:59 Last Admin: 10/12/21 08:08 Dose: 40 mg Documented by: Potassium Chloride (Potassium Chloride Crtab 20 Meq Tabcr) 20 meq PO BID ANTWON Stop: 11/10/21 08:59 Last Admin: 10/12/21 08:07 Dose: 20 meq Documented by: Prednisone (Prednisone 10 Mg Tablet) 10 mg PO QAM [facility] Stop: 11/10/21 08:59 Last Admin: 10/12/21 08:07 Dose: 10 mg Documented by: Vitamin D (Cholecalciferol 1,000 Units 25 Mcg Tab) 1,000 units PO QPM [facility] Stop: 11/09/21 20:59 Last Admin: 10/11/21 20:44 Dose: 1,000 units Documented by:
[2021-10-12] MEDS: VANCOMYCIN HCL 1,000 MG in SODIUM CHLORIDE 0.9% 250 ML IV SCH (17:39)
[2021-10-12] MEDS: CHOLECALCIFEROL 1,000 UNITS 25 MCG TAB PO SCH (20:00)
[2021-10-12] MEDS: ATORVASTATIN 40 MG TAB PO SCH (20:01)
[2021-10-13 06:37] LABS: Basophils # (auto) 0.01 K/uL (0-0.2); Basophils % (auto) 0.2 %; Eosinophils # (auto) 0.18 K/uL (0-0.5); Eosinophils % (auto) 2.8 %; Hematocrit (blood only) 37.9 % (42-52); Immature Granulocytes # (auto) 0.02 K/uL (0.00-0.02); Immature Granulocytes % (auto) 0.3 %; Lymphocytes # (auto) 0.99 K/uL (1.2-3.4); Lymphocytes % (auto) 15.1 %; Mean Corpuscular Hemoglobin 32.3 pg (25-34); Mean Corpuscular Hgb Conc 31.7 g/dL (32-36); Mean Corpuscular Volume 102.2 fL (80-100); Mean Platelet Volume 9.5 fL (7.4-10.4); Monocytes # (auto) 0.41 K/uL (0.11-0.59); Monocytes % (auto) 6.3 %; Neutrophils # (auto) 4.93 K/uL (1.4-6.5); Neutrophils % (auto) 75.3 %; Platelet Count 181 K/uL (130-400); RDW Coefficient of Variation 14.2 % (11.5-14.5); RDW Standard Deviation 53.1 fL (36.4-46.3); Red Blood Count 3.71 M/uL (4.7-6.1); White Blood Count 6.54 K/uL (4.8-10.8)
[2021-10-13 07:08] LABS: Albumin Globulin Ratio 1.4 (0.9-2); Albumin Level 3.3 gm/dl (3.4-5.0); BUN Creatinine Ratio 22.1 (10-20); Bilirubin,Total 0.6 mg/dl (0.2-1.0); Calcium 8.8 mg/dl (8.5-10.1); Creatinine Clr Calc Pharmacy 51.9 ml/min; Est GFR (African American) 58.4 ml/min; Est GFR (Non-African American) 50.3 ml/min; Globulin 2.3 gm/dl (2.5-4.0); Magnesium 2.4 mg/dl (1.7-2.4); Phosphorus 3.1 mg/dl (2.5-4.9); Potassium 4.4 mmol/L (3.5-5.1); Total Protein 5.6 gm/dl (6.0-8.3)
[2021-10-13] MEDS: ISOSORBIDE MONO EXTENDED REL 60 MG TABCR PO SCH (08:09)
[2021-10-13] MEDS: FINASTERIDE 5 MG TAB PO SCH (08:09)
[2021-10-13] MEDS: MAGNESIUM OXIDE 400 MG TAB PO SCH (08:09)
[2021-10-13] MEDS: METOPROLOL SUCC 50MG EXT REL TAB PO SCH (08:09)
[2021-10-13] MEDS: PANTOprazole 40 MG TAB PO SCH (08:09)
[2021-10-13] MEDS: ASPIRIN 81 MG ECTAB PO SCH (08:09)
[2021-10-13] MEDS: APIXABAN 2.5 MG TAB PO SCH ×2 (08:09→20:32)
[2021-10-13] MEDS: predniSONE 10 MG TABLET PO SCH (08:09)
[2021-10-13] MEDS: CYANOCOBALAMIN (B-12) 500 MCG TABLET PO SCH (08:09)
[2021-10-13] MEDS: FLUTICASONE/VILANTEROL 100/25MCG 14 PUFFS/INHALER INH SCH (08:10)
[2021-10-13] MEDS: POTASSIUM CHLORIDE CRTAB 20 MEQ TABCR PO SCH (08:35)
[2021-10-13] MEDS: VANCOMYCIN HCL 1,000 MG in SODIUM CHLORIDE 0.9% 250 ML IV SCH (11:12)
--- NOTE | 2021-10-13 12:44 | Pharmacy Report ---
Pharmacy Vanc AUC Short Note - Date of Service October 13, 2021 - Assessment & Plan Assessment 81 year old M receiving empiric vancomycin for treatment of possible gram- positive bacteremia vs. contaminant. Pertinent microbiologic data includes: blood cultures 1 of 2 growing gram-positive cocci clusters and gram-positive bacilli, PCR negative for MSSA/MRSA. Patient afebrile, no leukocytosis. No vegetation observed on echocardiogram. Day # 3 of antimicrobial therapy. Plan Vancomycin * AUC/MARLINE is the preferred PK/PD target for vancomycin * AUC guided dosing is effective and associated with decreased risk of nephrotoxicity compared to traditional trough targets * Random level of 14.3 mcg/mL is predicted to achieve target AUC/MARLINE of 400-600 mg/L.hr and may be associated with a 11 % risk of nephrotoxicity * Continue dose of 1000 mg IV every 18 hours * Anticipating de-escalation vs. discontinuation within next 24-28 hours pending culture results, will obtain follow-up lab if necessary Pharmacy will continue to follow and will adjust dose/frequency as necessary. Thank you.
--- NOTE | 2021-10-13 13:42 | Hospitalist Progress Note ---
Date of Service October 13, 2021 Assessment & Plan (1) Volume overload: Plan: likely multifactorial in setting of anemia, low protein, and low albumin levels. Doppler of LE showed no DVT BNP normal No evidence of acute CHF in chest x-ray Received Lasix IV in the ER Continue lasix 40mg IB BID Cardiology on board-appreciate input and recommendation Echo of the heart showed-normal LV side, moderate concentric LVH, very small focal apical infarct involving the apical septum with akinesis of the segment and minimal expansion, no mural thrombus is identified, EF 55 to 60%, aortic valve sclerosis moderate without significant stenosis, mild mitral annular calcification, there is no visualized valve abnormalities or vegetation No shortness of breath at rest and no palpitation and no chest pain No evidence of fluid overload and the patient will transfer to medical floor Pleasantly confused Could be secondary to infection 1 out of 2 blood cultures being positive for gram-positive cocci in cluster and gram-positive bacilli Has multiple skin tears and wounds involving the upper extremities Has been on intravenous vancomycin ID has been consulted Remains confused without any acute distress-could be his baseline given the history of dementia (2) Bacteremia: Plan: Blood cx grew gram positive cocci in clusters Might be due to contamination Starting on IV vanco Repeat blood cultures are negative Likely contaminant As above (3) Multiple skin tears: Plan: Multiple skin tears noted to have bilateral upper extremities, no signs of infection Wound care nurse on board No evidence of her lower extremity wounds We will get ID consult for further guidance about antibiotic Skin tears are getting better without any drainage from the wound (4) Falls: Plan: Continue PT/OT May need SNF placement (5) Apical mural thrombus: Plan: Anticoagulated with Eliquis No evidence of any more apical thrombus in recent echo (6) CAD (coronary artery disease): Plan: Appears stable Continue ASA, statin, beta-sarah, nitrate (7) Osteoarthritis: Plan: Steroid-dependent, continue prednisone (8) CKD (chronic kidney disease), stage III: Plan: Baseline creatinine low 1s Creatinine 1.2 today Monitor renal functions with aggressive diuresis (9) BPH with obstruction/lower urinary tract symptoms: Plan: Continue finasteride (10) DVT prophylaxis: Plan: On Eliquis Admission and Anticipated Discharge Date Admission Date: October 11, 2021 Subjective 10/12/2021 The patient was seen and examined in telemetry unit He remains pleasantly confused but denies any acute distress Denies any chest pain, palpitation but has minimal shortness of breath without any desaturation No abdominal pain, nausea and or vomiting Denies any fever and or chills 10/13/2021 The patient was seen and examined in telemetry unit He has been feeling much better but remains very confused Denies any acute pain and/or distress Review of Systems Review of Systems: Unobtainable due to cognitive status Neurologic: Remains very confused Physical Exam Physical Exam: Lying in bed without any acute distress Constitutional: well developed, well nourished, + ill appearing and + obese Eyes: PERRL, conjunctivae normal, anicteric sclerae ENMT: external ear and nose normal, oropharynx normal Neck: trachea midline, no thyromegaly Respiratory: no respiratory distress Auscultation: + breath sounds absent and + crackles (Minimal crackles at the bases) Cardiovascular: Rate/Rhythm: regular rate and regular rhythm; not tachycardic Heart Sounds: normal S1, normal S2 and + murmur (2/6 ESM over precordium) Extremities: + edema (Trace edema bilaterally) Gastrointestinal (Abdomen): Inspection/Auscultation: normal bowel sounds; abdomen not distended Percussion/Palpation: abdomen soft; abdomen nontender Musculoskeletal: No acute arthritis in any joint Neurologic: Alert and awake. Pleasantly confused. Moving all limbs equally Psychiatric: Insight: + poor insight Lymphatic: no cervical or axillary lymphadenopathy Results & Data Results & Data ([facility]) Vital Signs (Past 12 Hours) Vital Signs Temp Pulse Pulse Resp BP Pulse Ox 10/13/21 11:02 36.6 C 88 18 103/60 94 10/13/21 08:14 36.8 C 84 18 115/63 91 10/13/21 08:00 80 10/13/21 04:53 36.6 C 72 20 121/75 94 Laboratory Results Short CBC 10/13/21 Range/Units 06:17 WBC 6.54 (4.8-10.8) K/uL Hgb 12.0 L (14.0-18.0) g/dL Hct 37.9 L (42-52) % Plt Count 181 (130-400) K/uL BMP 10/13/21 06:17 Sodium 139 Potassium 4.4 D Chloride 106 Carbon Dioxide 24 BUN 29 H Creatinine 1.31 Glucose 97 Calcium 8.8 Liver Function 10/13/21 Range/Units 06:17 Total Bilirubin 0.6 (0.2-1.0) mg/dl AST 13 (13-39) U/L ALT 9 (7-52) U/L Alkaline Phosphatase 63 (34-104) U/L Albumin 3.3 L (3.4-5.0) gm/dl Medications Administered Current Inpatient Medications Acetaminophen (Acetaminophen 325 Mg Tab) 650 mg PO Q4H PRN PRN Reason: Pain or Fever Stop: 11/09/21 18:27 Last Admin: 10/12/21 04:23 Dose: 650 mg Documented by: Apixaban (Apixaban 2.5 Mg Tab) 2.5 mg PO BID ANTWON Stop: 11/09/21 20:59 Last Admin: 10/13/21 08:09 Dose: 2.5 mg Documented by: Aspirin (Aspirin 81 Mg Ectab) 81 mg PO QAM ANTWON Stop: 11/10/21 08:59 Last Admin: 10/13/21 08:09 Dose: 81 mg Documented by: Atorvastatin Calcium (Atorvastatin 40 Mg Tab) 80 mg PO HS ANTWON Stop: 11/09/21 20:59 Last Admin: 10/12/21 20:01 Dose: 80 mg Documented by: Cyanocobalamin (Cyanocobalamin (B-12) 500 Mcg Tablet) 1,000 mcg PO DAILY ANTWON Stop: 11/10/21 08:59 Last Admin: 10/13/21 08:09 Dose: 1,000 mcg Documented by: Finasteride (Finasteride 5 Mg Tab) 5 mg PO QAM ANTWON Stop: 11/10/21 08:59 Last Admin: 10/13/21 08:09 Dose: 5 mg Documented by: Fluticasone/Vilanterol (Fluticasone/Vilanterol 100/25mcg 14 Puffs/Inhaler) 1 puffs INH DAILY ANTWON Stop: 11/10/21 08:59 Last Admin: 10/13/21 08:10 Dose: 1 puffs Documented by: Furosemide (Furosemide 40 Mg/4 Ml Vial) 40 mg IV BID ANTWON Stop: 11/09/21 16:49 Last Admin: 10/12/21 08:09 Dose: 40 mg Documented by: Vancomycin HCl 1,000 mg/ (Sodium Chloride) 270 mls @ 200 mls/hr IV Q18H ANTWON Stop: 10/25/21 22:59 Last Infusion: 10/13/21 12:37 Dose: Infused Documented by: Isosorbide Mononitrate (Isosorbide [place] Extended Rel 60 Mg Tabcr) 120 mg PO QAM ANTWON Stop: 11/10/21 08:59 Last Admin: 10/13/21 08:09 Dose: 120 mg Documented by: Magnesium Oxide (Magnesium Oxide 400 Mg Tab) 400 mg PO QAM ANTWON Stop: 11/10/21 08:59 Last Admin: 10/13/21 08:09 Dose: 400 mg Documented by: Metoprolol Succinate (Metoprolol Succ 50mg Ext Rel Tab) 50 mg PO QAM [facility] Stop: 11/10/21 01:59 Last Admin: 10/13/21 08:09 Dose: 50 mg Documented by: Miscellaneous Information (Vancomycin Consult Active) 1 ea N/A UD PRN PRN Reason: Consult Stop: 11/10/21 08:40 Pantoprazole Sodium (Pantoprazole 40 Mg Tab) 40 mg PO DAILY ANTWON Stop: 11/10/21 08:59 Last Admin: 10/13/21 08:09 Dose: 40 mg Documented by: Potassium Chloride (Potassium Chloride Crtab 20 Meq Tabcr) 20 meq PO BID ANTWON Stop: 11/10/21 08:59 Last Admin: 10/13/21 08:35 Dose: 20 meq Documented by: Prednisone (Prednisone 10 Mg Tablet) 10 mg PO QAM ANTWON Stop: 11/10/21 08:59 Last Admin: 10/13/21 08:09 Dose: 10 mg Documented by: Vitamin D (Cholecalciferol 1,000 Units 25 Mcg Tab) 1,000 units PO QPM ANTWON Stop: 11/09/21 20:59 Last Admin: 10/12/21 20:00 Dose: 1,000 units Documented by:
--- NOTE | 2021-10-13 15:33 | Cardiology Progress Note ---
Date of Service October 13, 2021 Assessment & Plan (1) Volume overload: (2) Apical mural thrombus: (3) Dementia: (4) Chronic diastolic (congestive) heart failure: (5) CAD (coronary artery disease): Plan: Patient admitted for worsening upper and lower extremity edema, failing outpatient diuretic treatment. Upper extremity venous duplex negative for DVT. He has a chart history of right upper extremity DVT last year. Symptoms have improved with IV lasix since admission. No edema noted on exam findings today. Given his normal BNP, clear chest xray, and no acute symptoms to suggest CHF, fluid overload is likely multifactorial in setting of anemia, low protein, and low albumin levels. Likely transition back to oral diuretics in the next 12-24 hours. He has a history of apical mural thrombus. He was previously on coumadin and thrombus was persistent. He also developed upper extremity DVT, unprovoked. Evaluated by hematology and placed on Lovenox for anticoagulation. Apparently this was difficult to manage due to CKD, he was then transitioned to renally dosed Eliquis 2.5 mg BID. Continue anticoagulation for now. Monitor renal function. Echo findings without mural thrombus, preserved EF. Patient clinically improved with diuresis. We will discontinue IV furosemide. Resume prehospital medications with spironolactone and torsemide. Discontinue potassium supplement Cardiology will sign off contact with any further questions Admission and Anticipated Discharge Date Admission Date: October 11, 2021 Subjective Patient seen and examined, telemetry reviewed. No complaints per patient overall history limited by underlying dementia. No chest pains or discomfort. No worsening shortness of breath. Edema improved Physical Exam Constitutional: WD/WN, vitals as above no acute distress Respiratory: normal respiratory effort, lungs clear to auscultation Cardiovascular: Rate/Rhythm: regular rate and regular rhythm Heart Sounds: + murmur (II/ systolic murmur) Gastrointestinal (Abdomen): normal bowel sounds, soft, nontender, no hepatosplenomegaly Skin: Trauma: + evidence of skin trauma (multiple skin tears, bandages on upper extremities) Neurologic: moves all extremities and awake Psychiatric: Orientation: alert, oriented to person and oriented to place Results & Data ([facility]) Vital Signs (Past 12 Hours) Vital Signs Temp Pulse Pulse Resp BP Pulse Ox 10/13/21 14:57 82 10/13/21 11:02 36.6 C 88 18 103/60 94 10/13/21 08:14 36.8 C 84 18 115/63 91 10/13/21 08:00 80 10/13/21 04:53 36.6 C 72 20 121/75 94 Laboratory Results Laboratory Results - last 24 hr 10/13/21 10/13/21 10/13/21 06:17 06:17 08:28 WBC 6.54 RBC 3.71 L Hgb 12.0 L Hct 37.9 L MCV 102.2 H MCH 32.3 MCHC 31.7 L RDW Std Deviation 53.1 H RDW Coeff of Lester 14.2 Plt Count 181 MPV 9.5 Immature Gran % (Auto) 0.3 Neut % (Auto) 75.3 Lymph % (Auto) 15.1 [place] % (Auto) 6.3 Eos % (Auto) 2.8 Baso % (Auto) 0.2 Neut # (Auto) 4.93 Lymph # (Auto) 0.99 L [place] # (Auto) 0.41 Eos # (Auto) 0.18 Baso # (Auto) 0.01 Immature Gran # (Auto) 0.02 Sodium 139 Potassium 4.4 D Chloride 106 Carbon Dioxide 24 Anion Gap 9 BUN 29 H Creatinine 1.31 Est Cr Clr Drug Dosing 51.9 Est GFR ( Amer) 58.4 Est GFR (Non-Af Amer) 50.3 BUN/Creatinine Ratio 22.1 H Glucose 97 Calcium 8.8 Phosphorus 3.1 Magnesium 2.4 Total Bilirubin 0.6 AST 13 ALT 9 Alkaline Phosphatase 63 Total Protein 5.6 L Albumin 3.3 L Globulin 2.3 L Albumin/Globulin Ratio 1.4 Random Vancomycin 14.3 (1) Dementia Dementia behavioral disturbance: without behavioral disturbance Dementia type: unspecified type Qualified Code(s): F03.90 - Unspecified dementia without behavioral disturbance
[2021-10-13] MEDS: CHOLECALCIFEROL 1,000 UNITS 25 MCG TAB PO SCH (20:32)
[2021-10-13] MEDS: ATORVASTATIN 40 MG TAB PO SCH (20:32)
[2021-10-14] MEDS: VANCOMYCIN HCL 1,000 MG in SODIUM CHLORIDE 0.9% 250 ML IV SCH (04:58)
[2021-10-14 05:55] LABS: Basophils # (auto) 0.01 K/uL (0-0.2); Basophils % (auto) 0.2 %; Eosinophils # (auto) 0.22 K/uL (0-0.5); Eosinophils % (auto) 4.4 %; Hematocrit (blood only) 33.1 % (42-52); Hemoglobin 10.5 g/dL (14.0-18.0); Lymphocytes # (auto) 0.73 K/uL (1.2-3.4); Lymphocytes % (auto) 14.6 %; Mean Corpuscular Hgb Conc 31.7 g/dL (32-36); Mean Corpuscular Volume 100.9 fL (80-100); Mean Platelet Volume 9.1 fL (7.4-10.4); Monocytes # (auto) 0.41 K/uL (0.11-0.59); Monocytes % (auto) 8.2 %; Neutrophils # (auto) 3.62 K/uL (1.4-6.5); Neutrophils % (auto) 72.6 %; Platelet Count 193 K/uL (130-400); RDW Coefficient of Variation 14.3 % (11.5-14.5); RDW Standard Deviation 53.3 fL (36.4-46.3); Red Blood Count 3.28 M/uL (4.7-6.1); White Blood Count 4.99 K/uL (4.8-10.8)
[2021-10-14 06:10] LABS: BUN Creatinine Ratio 24.8 (10-20); Calcium 8.8 mg/dl (8.5-10.1); Creatinine Clr Calc Pharmacy 58.1 ml/min; Est GFR (African American) 66.9 ml/min; Est GFR (Non-African American) 57.7 ml/min; Magnesium 2.3 mg/dl (1.7-2.4); Potassium 4.1 mmol/L (3.5-5.1)
[2021-10-14] MEDS: TORSEMIDE 10 MG TAB PO SCH (08:04)
[2021-10-14] MEDS: METOPROLOL SUCC 50MG EXT REL TAB PO SCH (08:04)
[2021-10-14] MEDS: ASPIRIN 81 MG ECTAB PO SCH (08:04)
[2021-10-14] MEDS: APIXABAN 2.5 MG TAB PO SCH ×2 (08:05→20:08)
[2021-10-14] MEDS: FINASTERIDE 5 MG TAB PO SCH (08:05)
[2021-10-14] MEDS: ISOSORBIDE MONO EXTENDED REL 60 MG TABCR PO SCH (08:05)
[2021-10-14] MEDS: PANTOprazole 40 MG TAB PO SCH ×2 (08:05→20:07)
[2021-10-14] MEDS: predniSONE 10 MG TABLET PO SCH (08:05)
[2021-10-14] MEDS: MAGNESIUM OXIDE 400 MG TAB PO SCH (08:05)
[2021-10-14] MEDS: CYANOCOBALAMIN (B-12) 500 MCG TABLET PO SCH (08:06)
[2021-10-14] MEDS: FLUTICASONE/VILANTEROL 100/25MCG 14 PUFFS/INHALER INH SCH (08:06)
[2021-10-14] MEDS: SPIRONOLACTONE 25 MG TAB PO SCH (09:30)
[2021-10-14] MEDS: ACETAMINOPHEN 325 MG TAB PO PRN (11:40)
--- NOTE | 2021-10-14 15:26 | Hospitalist Progress Note ---
Date of Service October 14, 2021 Assessment & Plan (1) Volume overload: Plan: likely multifactorial in setting of anemia, low protein, and low albumin levels. Doppler of LE showed no DVT BNP normal No evidence of acute CHF in chest x-ray Received Lasix IV in the ER Continue lasix 40mg IB BID Cardiology on board-appreciate input and recommendation Echo of the heart showed-normal LV side, moderate concentric LVH, very small focal apical infarct involving the apical septum with akinesis of the segment and minimal expansion, no mural thrombus is identified, EF 55 to 60%, aortic valve sclerosis moderate without significant stenosis, mild mitral annular calcification, there is no visualized valve abnormalities or vegetation No shortness of breath at rest and no palpitation and no chest pain No evidence of fluid overload and the patient will transfer to medical floor Remains stable without any evidence of fluid overload Pleasantly confused Could be secondary to infection 1 out of 2 blood cultures being positive for gram-positive cocci in cluster and gram-positive bacilli Has multiple skin tears and wounds involving the upper extremities Has been on intravenous vancomycin ID has been consulted Remains confused without any acute distress-could be his baseline given the history of dementia Melena Known to have black stool Positive for blood We will monitor CBC/Hb (2) Bacteremia: Plan: Blood cx grew gram positive cocci in clusters Might be due to contamination Starting on IV vanco Repeat blood cultures are negative Likely contaminant Appreciate ID input and recommendation Will stop intravenous vancomycin-antibiotics are not needed Wound care (3) Multiple skin tears: Plan: Multiple skin tears noted to have bilateral upper extremities, no signs of infection Wound care nurse on board No evidence of her lower extremity wounds We will get ID consult for further guidance about antibiotic Skin tears are getting better without any drainage from the wound (4) Falls: Plan: Continue PT/OT May need SNF placement (5) Apical mural thrombus: Plan: Anticoagulated with Eliquis No evidence of any more apical thrombus in recent echo (6) CAD (coronary artery disease): Plan: Appears stable Continue ASA, statin, beta-sarah, nitrate (7) Osteoarthritis: Plan: Steroid-dependent, continue prednisone (8) CKD (chronic kidney disease), stage III: Plan: Baseline creatinine low 1s Creatinine 1.2 today Monitor renal functions with aggressive diuresis (9) BPH with obstruction/lower urinary tract symptoms: Plan: Continue finasteride (10) DVT prophylaxis: Plan: On Eliquis Admission and Anticipated Discharge Date Admission Date: October 11, 2021 Subjective 10/12/2021 The patient was seen and examined in telemetry unit He remains pleasantly confused but denies any acute distress Denies any chest pain, palpitation but has minimal shortness of breath without any desaturation No abdominal pain, nausea and or vomiting Denies any fever and or chills 10/13/2021 The patient was seen and examined in telemetry unit He has been feeling much better but remains very confused Denies any acute pain and/or distress 10/14/2021 The patient was seen and examined in medical telemetry unit He has been much better today without any acute distress but remains confused Denies any acute symptoms Review of Systems Review of Systems: Unobtainable due to cognitive status Neurologic: Remains very confused Physical Exam Physical Exam: Lying in bed without any acute distress Constitutional: well developed, well nourished, + ill appearing and + obese Eyes: PERRL, conjunctivae normal, anicteric sclerae ENMT: external ear and nose normal, oropharynx normal Neck: trachea midline, no thyromegaly Respiratory: no respiratory distress Auscultation: + breath sounds absent and + crackles (Minimal crackles at the bases) Cardiovascular: Rate/Rhythm: regular rate and regular rhythm; not tachycardic Heart Sounds: normal S1, normal S2 and + murmur (2/6 ESM over precordium) Extremities: + edema (Trace edema bilaterally) Gastrointestinal (Abdomen): Inspection/Auscultation: normal bowel sounds; abdomen not distended Percussion/Palpation: abdomen soft; abdomen nontender Musculoskeletal: No acute arthritis in any joint Neurologic: Alert and awake. Remains very confused but not delirious. Generally weak Psychiatric: Insight: + poor insight Lymphatic: no cervical or axillary lymphadenopathy Results & Data Results & Data ([facility]) Vital Signs (Past 12 Hours) Vital Signs Temp Pulse Pulse Resp BP BP Pulse Ox 10/14/21 15:05 36.5 C 66 20 107/63 95 10/14/21 14:15 68 10/14/21 11:46 36.6 C 80 20 106/59 L 93 10/14/21 07:23 74 10/14/21 06:39 36.5 C 76 20 126/69 92 10/14/21 03:20 36.6 C 76 20 121/71 92 Laboratory Results Short CBC 10/14/21 Range/Units 05:33 WBC 4.99 (4.8-10.8) K/uL Hgb 10.5 L (14.0-18.0) g/dL Hct 33.1 L (42-52) % Plt Count 193 (130-400) K/uL BMP 10/14/21 05:33 Sodium 139 Potassium 4.1 Chloride 106 Carbon Dioxide 26 BUN 29 H Creatinine 1.17 Glucose 103 H Calcium 8.8 Medications Administered Current Inpatient Medications Acetaminophen (Acetaminophen 325 Mg Tab) 650 mg PO Q4H PRN PRN Reason: Pain or Fever Stop: 11/09/21 18:27 Last Admin: 10/14/21 11:40 Dose: 650 mg Documented by: Apixaban (Apixaban 2.5 Mg Tab) 2.5 mg PO BID ANTWNO Stop: 11/09/21 20:59 Last Admin: 10/14/21 08:05 Dose: 2.5 mg Documented by: Aspirin (Aspirin 81 Mg Ectab) 81 mg PO QAM ANTWON Stop: 11/10/21 08:59 Last Admin: 10/14/21 08:04 Dose: 81 mg Documented by: Atorvastatin Calcium (Atorvastatin 40 Mg Tab) 80 mg PO HS ANTWON Stop: 11/09/21 20:59 Last Admin: 10/13/21 20:32 Dose: 80 mg Documented by: Cyanocobalamin (Cyanocobalamin (B-12) 500 Mcg Tablet) 1,000 mcg PO DAILY ANTWON Stop: 11/10/21 08:59 Last Admin: 10/14/21 08:06 Dose: 1,000 mcg Documented by: Finasteride (Finasteride 5 Mg Tab) 5 mg PO QAM ANTWON Stop: 11/10/21 08:59 Last Admin: 10/14/21 08:05 Dose: 5 mg Documented by: Fluticasone/Vilanterol (Fluticasone/Vilanterol 100/25mcg 14 Puffs/Inhaler) 1 puffs INH DAILY ANTWON Stop: 11/10/21 08:59 Last Admin: 10/14/21 08:06 Dose: 1 puffs Documented by: Vancomycin HCl 1,000 mg/ (Sodium Chloride) 270 mls @ 200 mls/hr IV Q18H ANTWON Stop: 10/25/21 22:59 Last Infusion: 10/14/21 06:20 Dose: Infused Documented by: Isosorbide Mononitrate (Isosorbide [place] Extended Rel 60 Mg Tabcr) 120 mg PO [facility] Stop: 11/10/21 08:59 Last Admin: 10/14/21 08:05 Dose: 120 mg Documented by: Magnesium Oxide (Magnesium Oxide 400 Mg Tab) 400 mg PO QAM [facility] Stop: 11/10/21 08:59 Last Admin: 10/14/21 08:05 Dose: 400 mg Documented by: Metoprolol Succinate (Metoprolol Succ 50mg Ext Rel Tab) 50 mg PO [facility] Stop: 11/10/21 01:59 Last Admin: 10/14/21 08:04 Dose: 50 mg Documented by: Miscellaneous Information (Vancomycin Consult Active) 1 ea N/A UD PRN PRN Reason: Consult Stop: 11/10/21 08:40 Pantoprazole Sodium (Pantoprazole 40 Mg Tab) 40 mg PO DAILY [facility] Stop: 11/10/21 08:59 Last Admin: 10/14/21 08:05 Dose: 40 mg Documented by: Prednisone (Prednisone 10 Mg Tablet) 10 mg PO [facility] Stop: 11/10/21 08:59 Last Admin: 10/14/21 08:05 Dose: 10 mg Documented by: Spironolactone (Spironolactone 25 Mg Tab) 25 mg PO [facility] Stop: 11/13/21 08:59 Last Admin: 10/14/21 09:30 Dose: 25 mg Documented by: Torsemide (Torsemide 10 Mg Tab) 20 mg PO [facility] Stop: 11/13/21 08:59 Last Admin: 10/14/21 08:04 Dose: 20 mg Documented by: Vitamin D (Cholecalciferol 1,000 Units 25 Mcg Tab) 1,000 units PO QPM [facility] Stop: 11/09/21 20:59 Last Admin: 10/13/21 20:32 Dose: 1,000 units Documented by:
[2021-10-14] MEDS: ATORVASTATIN 40 MG TAB PO SCH (20:06)
[2021-10-14] MEDS: CHOLECALCIFEROL 1,000 UNITS 25 MCG TAB PO SCH (20:06)
[2021-10-15 06:58] LABS: Basophils # (auto) 0.01 K/uL (0-0.2); Basophils % (auto) 0.2 %; Eosinophils # (auto) 0.25 K/uL (0-0.5); Hematocrit (blood only) 34.2 % (42-52); Immature Granulocytes # (auto) 0.01 K/uL (0.00-0.02); Immature Granulocytes % (auto) 0.2 %; Lymphocytes % (auto) 18.1 %; Mean Corpuscular Hemoglobin 32.1 pg (25-34); Mean Corpuscular Hgb Conc 32.2 g/dL (32-36); Mean Corpuscular Volume 99.7 fL (80-100); Monocytes # (auto) 0.47 K/uL (0.11-0.59); Monocytes % (auto) 9.4 %; Neutrophils # (auto) 3.34 K/uL (1.4-6.5); Neutrophils % (auto) 67.1 %; Platelet Count 198 K/uL (130-400); RDW Coefficient of Variation 14.4 % (11.5-14.5); RDW Standard Deviation 52.2 fL (36.4-46.3); Red Blood Count 3.43 M/uL (4.7-6.1); White Blood Count 4.98 K/uL (4.8-10.8)
[2021-10-15 07:18] LABS: BUN Creatinine Ratio 30.4 (10-20); Calcium 8.7 mg/dl (8.5-10.1); Creatinine Clr Calc Pharmacy 55.3 ml/min; Est GFR (African American) 61.8 ml/min; Est GFR (Non-African American) 53.3 ml/min; Potassium 4.1 mmol/L (3.5-5.1)
[2021-10-15] MEDS: FLUTICASONE/VILANTEROL 100/25MCG 14 PUFFS/INHALER INH SCH (08:32)
[2021-10-15] MEDS: APIXABAN 2.5 MG TAB PO SCH (08:32)
[2021-10-15] MEDS: PANTOprazole 40 MG TAB PO SCH ×2 (08:32→20:00)
[2021-10-15] MEDS: MAGNESIUM OXIDE 400 MG TAB PO SCH (08:33)
[2021-10-15] MEDS: predniSONE 10 MG TABLET PO SCH (08:33)
[2021-10-15] MEDS: SPIRONOLACTONE 25 MG TAB PO SCH (08:33)
[2021-10-15] MEDS: ISOSORBIDE MONO EXTENDED REL 60 MG TABCR PO SCH (08:33)
[2021-10-15] MEDS: TORSEMIDE 10 MG TAB PO SCH (08:33)
[2021-10-15] MEDS: CYANOCOBALAMIN (B-12) 500 MCG TABLET PO SCH (08:33)
[2021-10-15] MEDS: METOPROLOL SUCC 50MG EXT REL TAB PO SCH (08:33)
[2021-10-15] MEDS: FINASTERIDE 5 MG TAB PO SCH (08:33)
[2021-10-15] MEDS: ACETAMINOPHEN 325 MG TAB PO PRN (08:34)
--- NOTE | 2021-10-15 18:50 | Hospitalist Progress Note ---
Date of Service October 15, 2021 Assessment & Plan (1) Volume overload: Plan: likely multifactorial in setting of anemia, low protein, and low albumin levels. Doppler of LE showed no DVT BNP normal No evidence of acute CHF in chest x-ray Received Lasix IV in the ER Continue lasix 40mg IB BID Cardiology on board-appreciate input and recommendation Echo of the heart showed-normal LV side, moderate concentric LVH, very small focal apical infarct involving the apical septum with akinesis of the segment and minimal expansion, no mural thrombus is identified, EF 55 to 60%, aortic valve sclerosis moderate without significant stenosis, mild mitral annular calcification, there is no visualized valve abnormalities or vegetation No shortness of breath at rest and no palpitation and no chest pain No evidence of fluid overload on exam Remains stable without any evidence of fluid overload Confusion Possible related to hospital setting and dementia CT head showed no significant change compared to the prior study. No acute intracranial abnormality. Stable Melena Known to have black stool Positive for blood Nurse said pt had 2 large episodes of black tarry stool ASA on hold due to GI bleed Will consider to hold tonight does of eliquis due to the 2 large episode of black tarry stool today Will repeat H/H later and hgb stable will resume eliquis in am Will consult GI (2) Bacteremia: Plan: Mostly due to contamination Blood cx grew gram positive cocci in clusters Repeat blood cultures are negative ID was consulted- IV vanco discontinued stable (3) Multiple skin tears: Plan: Multiple skin tears noted to have bilateral upper extremities, no signs of infection Wound care nurse on board No evidence of her lower extremity wounds We will get ID consult for further guidance about antibiotic Skin tears are getting better without any drainage from the wound (4) Falls: Plan: Continue PT/OT May need SNF placement (5) Apical mural thrombus: Plan: No evidence of any more apical thrombus in recent echo Anticoagulated with Eliquis, will hold tonight dose due to GI bleed If bleeding persist, will discuss with cardiology about to consider discontinue eliquis (6) CAD (coronary artery disease): Plan: Appears stable Continue statin, beta-sarah, nitrate (7) Osteoarthritis: Plan: Steroid-dependent, continue prednisone (8) CKD (chronic kidney disease), stage III: Plan: Baseline creatinine low 1s Creatinine 1.2 today Monitor renal functions with aggressive diuresis (9) BPH with obstruction/lower urinary tract symptoms: Plan: Continue finasteride (10) DVT prophylaxis: Plan: On Eliquis ( will hold tonight dose due to GI bleed) Admission and Anticipated Discharge Date Admission Date: October 11, 2021 Subjective Patient was seen and examined for follow-up of lower extremity edema and positive FOBT Sitting in chair with no acute distress watching sports game He said that he feels fine Nurse said he had to large episode of black tarry stools Denies any chest pain, palpitation, dizziness, abdominal pain, and fever. Review of Systems Review of Systems: All systems reviewed & are unremarkable except as noted in Subjective Physical Exam Physical Exam: General- No acute distress Head- atraumatic Eyes- PERRL, EOMI, ENT- oropharynx clear Neck- supple, no JVD Lungs- clear to auscultation Heart- regular rhythm; +systolic murmur Abdomen- normal bowel sounds, soft, nontender Extremities- no calf tenderness Neuro- alert, oriented x 3; PERRL, EOMI; no facial palsy; no dysarthria Skin- warm & dry, ecchymoses Results & Data Results & Data ([facility]) Vital Signs (Past 12 Hours) Vital Signs Temp Pulse Pulse Resp BP Pulse Ox 10/15/21 18:34 36.8 C 74 20 113/68 94 10/15/21 15:07 36.6 C 67 20 120/66 95 10/15/21 14:24 63 10/15/21 11:43 36.4 C L 71 20 117/64 95 10/15/21 07:46 69 10/15/21 07:36 36.5 C 71 20 132/73 96
[2021-10-15] MEDS: CHOLECALCIFEROL 1,000 UNITS 25 MCG TAB PO SCH (20:00)
[2021-10-15] MEDS: ATORVASTATIN 40 MG TAB PO SCH (20:00)
[2021-10-15 20:17] LABS: Hematocrit (blood only) 35.3 % (42-52); Hemoglobin 11.7 g/dL (14.0-18.0)
--- NOTE | 2021-10-16 08:18 | Gastrointestinal Consultation ---
Date of Consultation October 16, 2021 Assessment & Plan (1) Dark stools: 81 year old male w/ history of recurrent falls, dementia, CAD, CKD-3 psoriatic arthropathy on chronic prednisone, chronic diastolic heart failure, apical mural thrombus on ASA and eliquis Hold AC NPO after midnight EGD in the AM Can continue diet today Trend H&H Transfuse PRN Can continue PO PPI for now Thank you for allowing us to participate in the care of this patient. Please call with any acute changes, questions or concerns. Please see addendum below with additional recommendation from my supervising physician. Supervising Physician Co-Signing Physician Notes I saw and evaluated the patient. The patient has numerous medical problems, we are consulted for evaluation of dark stool. Patient has had very limited drop in his hemoglobin and hematocrit. It appears that his last endoscopic evaluation was approximately 1 year ago at which time he had an ERCP. Physical examination, no obvious distress, no scleral icterus no abdominal tenderness Impression: Patient with a history of dark stool likely related to his double antiplatelet and anticoagulation agents. We can certainly plan for upper endoscopy to look for sources such as peptic ulcer disease. If the upper endoscopy is negative we would then recommend an outpatient colonoscopy. Please call with any questions or concerns, upper endoscopy scheduled for tomorrow History of Present Illness Reason for Consultation: melena Requesting Physician: Pritesh Attending Physician: Douglas Jonas MD History of Present Illness 81 year old male w/ history of recurrent falls, dementia, CAD, CKD-3 psoriatic arthropathy on chronic prednisone, chronic diastolic heart failure, apical mural thrombus on Coumadin, recently diagnosis of occlusive subclavian DVT, generalized weakness, fall and upper extremity edema. GI was asked to evaluate for melena. He is awake, alert but unable to provide me any medical history. Denies abd pain. Is tolerating breakfast. Denies nausea, vomiting. Moving bowels - he is unsure when his stools started to get black. is aware they are dark currentyl by nursing staff. Today denies fever, chills, CP, SOB. Occult blood + ERCP 2020: CBD stones Unable to sign into [facility] to check for OP endoscopies Allergies Allergy/AdvReac Type Severity Reaction Status Date / Time No Known Allergies Allergy Verified 07/06/21 14:51 Home Medications Medication Instructions Recorded Confirmed Type apixaban 2.5 mg tablet (Eliquis) 2.5 mg PO BID #60 tab 07/14/21 10/10/21 Rx aspirin 81 mg tablet,delayed 81 mg PO QAM #30 tab 07/14/21 10/10/21 Rx release atorvastatin 80 mg tablet (Lipitor) 80 mg PO HS #30 tab 07/14/21 10/10/21 Rx cholecalciferol (vitamin D3) 25 25 mcg PO QPM #30 cap 07/14/21 10/10/21 Rx mcg (1,000 unit) capsule (Vitamin D3) cyanocobalamin (vitamin B-12) 1,000 mcg PO DAILY #30 tab 07/14/21 10/10/21 Rx 1,000 mcg tablet (Vitamin B-12) finasteride 5 mg tablet 5 mg PO QAM #30 tab 07/14/21 10/10/21 Rx iron,carbonyl 65 mg-vitamin C 125 1 tab PO DAILY #30 tab 07/14/21 10/10/21 Rx mg tablet,delayed release (Vitron-C) isosorbide mononitrate 120 mg 120 mg PO QAM #30 tab 07/14/21 10/10/21 Rx tablet,extended release 24 hr metoprolol succinate 50 mg 50 mg PO QAM #30 tab 07/14/21 10/10/21 Rx tablet,extended release 24 hr (Toprol XL) omeprazole 20 mg capsule,delayed 20 mg PO DAILY #30 cap 07/14/21 10/10/21 Rx release prednisone 10 mg tablet 10 mg PO QAM #30 tab 07/14/21 10/10/21 Rx spironolactone 25 mg tablet 25 mg PO QAM #30 tab 07/14/21 10/10/21 Rx Lidocaine Jelly 1 applic TOPICAL DIRECTED PRN 10/10/21 10/10/21 History acetaminophen 500 mg tablet 1,000 mg PO Q6H PRN 10/10/21 10/10/21 History (Tylenol Extra Strength) albuterol sulfate 90 mcg/actuation 2 puff INHALATION Q6H PRN 10/10/21 10/10/21 History aerosol inhaler fluticasone 250 mcg-salmeterol 50 1 inh INHALATION BID 10/10/21 10/10/21 History mcg/dose blistr powdr for inhalation magnesium oxide 400 mg PO QAM 10/10/21 10/10/21 History torsemide 20 mg tablet 20 mg PO QAM 10/10/21 10/10/21 History Patient History Medical History Actinic keratosis Anemia 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 Calculus of bile duct w/ obst w/o cystitis Carpal tunnel syndrome Cervical stenosis of spine (2011) C4-C6 Chronic diastolic (congestive) heart failure CKD (chronic kidney disease), stage III COPD (chronic obstructive pulmonary disease) Dementia Diastolic dysfunction Diverticulosis of colon Extremity edema GERD (gastroesophageal reflux disease) Hematoma Right hand - mural thrombus, right subclavian artery occlusion History of radiation therapy Right Facial - for Melanoma HLD (hyperlipidemia) Hypertension senior care (current) use of anticoagulants Lung nodule seen on imaging study (07/05/20) MGUS (monoclonal gammopathy of unknown significance) Mural thrombus of heart Osteoarthritis Pancreatic cyst Polymyalgia rheumatica Dr. Ortiz Psoriasis Psoriatic arthritis Restless leg syndrome Rheumatoid arthritis Right subclavian artery occlusion Sensorineural hearing loss Syncope Unilateral inguinal hernia Unstable angina (11/21/98) Admitted to [facility] and transferred to [facility] where he had cath 11/25/98 Weakness Surgical History H/O colonoscopy H/O hernia repair History of ERCP Benign History of Mohs micrographic surgery for skin cancer Nose History of percutaneous left heart catheterization (LHC) History of surgery Right Facial / Ear Resection for Melanoma removal Hx of CABG (1995) x 3 (@ [facility]) S/P cholecystectomy Status post surgical removal of neoplasm of skin Family History Mother , Passed in late 70's of natural causes No problems noted. Father , Passed in mid 70's of colorectal CA No problems noted. Brother , Passed age 72 of Covid 19 Alzheimer disease Son No problems noted. Son No problems noted. Son No problems noted. Other Colorectal cancer Diabetes Prostate cancer Social History Smoking Status: Unknown if ever smoked Tobacco Type: Cigarettes packs per day: 1; Years Smoked: 30; Smoking End Date: 2 years ago; Second Hand Exposure: No; Do You Dip or Chew Tobacco: No; Tobacco Cessation Education Requested by Patient: No Hx Alcohol Use: No Hx Substance Use: No Preferred Language: Upper Sorbian Communication Ability: Effective Visual Impairment: Limited Hearing Ability: Hard of Hearing Commercial Baker Helper Required: No Beliefs That Will Affect Care: None marital status: / Current Living Situation: Personal Care Facility Current Living Situation Comment: [facility] current occupational status: retired 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 How many Children do You have: 1 Feels Safe at Home: Yes Safety Concerns: Feels Safe At This Time Childhood Exposure to Second-Hand Smoke: No caffeine: Yes (1 cup of coffee/day ) during the past year weight has: remained stable Dental Care, Regularly: No Assistive Devices: Walker Assistive Devices Comment: hearing aid not present on admit Review of Systems Review of Systems: All systems reviewed & are unremarkable except as noted in HPI & below Physical Exam Constitutional: WD/WN, vitals as above Respiratory: normal respiratory effort, lungs clear to auscultation Cardiovascular: RRR, no murmur, no edema Gastrointestinal (Abdomen): normal bowel sounds, soft, nontender, no hepatosplenomegaly Skin: no rashes, warm and dry Results & Data ([facility]) Vital Signs (Past 12 Hours) Vital Signs Temp Pulse Pulse Resp BP BP Pulse Ox 10/16/21 07:06 36.7 C 74 18 150/69 H 94 10/16/21 02:55 36.8 C 76 18 131/60 95 10/15/21 23:09 70 10/15/21 22:43 37.0 C 65 18 147/71 H 94 Laboratory Results 10/15/21 Range/Units 19:58 Hgb 11.7 L (14.0-18.0) g/dL Hct 35.3 L (42-52) %
[2021-10-16 08:41] LABS: Hematocrit (blood only) 35.5 % (42-52); Hemoglobin 11.7 g/dL (14.0-18.0); Mean Corpuscular Hemoglobin 32.6 pg (25-34); Mean Corpuscular Volume 98.9 fL (80-100); Mean Platelet Volume 9.4 fL (7.4-10.4); Platelet Count 246 K/uL (130-400); RDW Coefficient of Variation 14.1 % (11.5-14.5); RDW Standard Deviation 50.4 fL (36.4-46.3); Red Blood Count 3.59 M/uL (4.7-6.1)
[2021-10-16] MEDS: FLUTICASONE/VILANTEROL 100/25MCG 14 PUFFS/INHALER INH SCH (08:44)
[2021-10-16] MEDS: FINASTERIDE 5 MG TAB PO SCH (08:45)
[2021-10-16] MEDS: METOPROLOL SUCC 50MG EXT REL TAB PO SCH (08:45)
[2021-10-16] MEDS: predniSONE 10 MG TABLET PO SCH (08:45)
[2021-10-16] MEDS: PANTOprazole 40 MG TAB PO SCH ×2 (08:45→20:09)
[2021-10-16] MEDS: CYANOCOBALAMIN (B-12) 500 MCG TABLET PO SCH (08:45)
[2021-10-16] MEDS: TORSEMIDE 10 MG TAB PO SCH (08:45)
[2021-10-16] MEDS: SPIRONOLACTONE 25 MG TAB PO SCH (08:45)
[2021-10-16] MEDS: MAGNESIUM OXIDE 400 MG TAB PO SCH (08:45)
[2021-10-16] MEDS: ISOSORBIDE MONO EXTENDED REL 60 MG TABCR PO SCH (08:45)
--- NOTE | 2021-10-16 17:58 | Hospitalist Progress Note ---
Date of Service October 16, 2021 Assessment & Plan (1) Volume overload: Plan: likely multifactorial in setting of anemia, low protein, and low albumin levels. Doppler of LE showed no DVT BNP normal No evidence of acute CHF in chest x-ray Received Lasix IV in the ER Continue lasix 40mg IB BID Cardiology on board-appreciate input and recommendation Echo of the heart showed-normal LV side, moderate concentric LVH, very small focal apical infarct involving the apical septum with akinesis of the segment and minimal expansion, no mural thrombus is identified, EF 55 to 60%, aortic valve sclerosis moderate without significant stenosis, mild mitral annular calcification, there is no visualized valve abnormalities or vegetation No shortness of breath at rest and no palpitation and no chest pain No evidence of fluid overload on exam Remains stable without any evidence of fluid overload Confusion Possible related to hospital setting and dementia CT head showed no significant change compared to the prior study. No acute intracranial abnormality. Stable Melena +FOBT Known to have black stool ASA on hold due to GI bleed Continue to hold Eliquis Continue PPI PO BID Hgb stable at 11.7 GI on board plan for EGD in am Continue monitor H/H (2) Bacteremia: Plan: Mostly due to contamination Blood cx grew gram positive cocci in clusters Repeat blood cultures are negative ID was consulted- IV vanco discontinued stable (3) Multiple skin tears: Plan: Multiple skin tears noted to have bilateral upper extremities, no signs of infection Wound care nurse on board No evidence of her lower extremity wounds We will get ID consult for further guidance about antibiotic Skin tears are getting better without any drainage from the wound (4) Falls: Plan: Continue PT/OT May need SNF placement (5) Apical mural thrombus: Plan: No evidence of any more apical thrombus in recent echo Anticoagulated with Eliquis, will hold tonight dose due to GI bleed If bleeding persist, will discuss with cardiology about to consider discontinue eliquis case discussed with cardiology today and ok to hold eliquis today (6) CAD (coronary artery disease): Plan: Appears stable Continue statin, beta-sarah, nitrate (7) Osteoarthritis: Plan: Steroid-dependent, continue prednisone (8) CKD (chronic kidney disease), stage III: Plan: Baseline creatinine low 1s Creatinine 1.2 Monitor renal functions with aggressive diuresis (9) BPH with obstruction/lower urinary tract symptoms: Plan: Continue finasteride (10) DVT prophylaxis: Plan: On Eliquis ( will hold tonight dose due to GI bleed) Admission and Anticipated Discharge Date Admission Date: October 11, 2021 Subjective Patient was seen and examined for follow-up of lower extremity edema and positive FOBT Sitting in chair with no acute distress with son at bedside He said that he feels fine Spoke to son and provided with update Denies any chest pain, palpitation, dizziness, abdominal pain, and fever. Review of Systems Review of Systems: All systems reviewed & are unremarkable except as noted in Subjective Physical Exam Physical Exam: General- No acute distress Head- atraumatic Eyes- PERRL, EOMI, ENT- oropharynx clear Neck- supple, no JVD Lungs- clear to auscultation Heart- regular rhythm; +systolic murmur Abdomen- normal bowel sounds, soft, nontender Extremities- no calf tenderness Neuro- alert, oriented x 3; PERRL, EOMI; no facial palsy; no dysarthria Skin- warm & dry, ecchymoses Results & Data Results & [facility] ([facility]) Vital Signs (Past 12 Hours) Vital Signs Temp Pulse Pulse Resp BP BP Pulse Ox 10/16/21 16:07 77 10/16/21 15:40 36.5 C 70 18 117/71 97 10/16/21 11:25 36.5 C 81 18 135/68 97 10/16/21 08:55 80 10/16/21 07:06 36.7 C 74 18 150/69 H 94
[2021-10-16] MEDS: CHOLECALCIFEROL 1,000 UNITS 25 MCG TAB PO SCH (20:08)
[2021-10-16] MEDS: ATORVASTATIN 40 MG TAB PO SCH (20:09)
[2021-10-17] MEDS ORDERED: LIDOCAINE 2% 2 ML VIAL/AMP(20MG/ML) INFIL ONE (08:24)
[2021-10-17] MEDS ORDERED: PROPOFOL IV EMULSION 10 MG/ML 20 ML VIAL IV ONE (08:24)
--- NOTE | 2021-10-17 08:24 | History & Physical Bridge Note ---
Date of Service October 17, 2021 History & Physical Bridge Note I have examined the patient, reviewed the History & Physical and in the interval since the performance of the History & Physical I have noted the following changes of clinical significance: no changes noted. I have discussed the risks and benefits of upper endoscopy with the patient's son to include bleeding, infection, perforation, pain, aspiration and need for follow-up studies
--- NOTE | 2021-10-17 08:24 | Anesthesiology Consultation ---
Date of Service October 17, 2021 Assessment & Plan (1) Encounter for pre-operative examination: Chart Review Chart Review: Acceptable Risk for Surgery, Patient NOT seen in Pre Admission Testing and order entry specialist initiated Consults Requested none ASA ASA3 Proposed Anesthesia Anesthesia Type: MAC Risk / Benefits Reviewed With: PT / POA / Parent / Guardian (Telephone consent obtained from sonSandeep.), Accepts Plan and Informed Consent Obtained History Surgery Operation Date: 10/17/21 16:30 Proposed Procedures p Esophagogastroduodenoscopy Dr Vlad Chu, DO Height/Weight Height: 6 ft Weight: 98.3 kg Allergies Allergy/AdvReac Type Severity Reaction Status Date / Time No Known Allergies Allergy Verified 07/06/21 14:51 Medications Home Medications Medication Instructions Recorded Confirmed Last Taken apixaban 2.5 mg tablet (Eliquis) 2.5 mg PO BID #60 tab 07/14/21 10/10/21 10/10/21 08:00 aspirin 81 mg tablet,delayed 81 mg PO QAM #30 tab 07/14/21 10/10/21 10/10/21 release atorvastatin 80 mg tablet (Lipitor) 80 mg PO HS #30 tab 07/14/21 10/10/21 10/09/21 cholecalciferol (vitamin D3) 25 25 mcg PO QPM #30 cap 07/14/21 10/10/21 10/10/21 mcg (1,000 unit) capsule (Vitamin D3) cyanocobalamin (vitamin B-12) 1,000 mcg PO DAILY #30 tab 07/14/21 10/10/21 10/10/21 1,000 mcg tablet (Vitamin B-12) finasteride 5 mg tablet 5 mg PO QAM #30 tab 07/14/21 10/10/21 10/10/21 iron,carbonyl 65 mg-vitamin C 125 1 tab PO DAILY #30 tab 07/14/21 10/10/21 10/10/21 mg tablet,delayed release (Vitron-C) isosorbide mononitrate 120 mg 120 mg PO QAM #30 tab 07/14/21 10/10/21 10/10/21 tablet,extended release 24 hr metoprolol succinate 50 mg 50 mg PO QAM #30 tab 07/14/21 10/10/21 10/10/21 tablet,extended release 24 hr (Toprol XL) omeprazole 20 mg capsule,delayed 20 mg PO DAILY #30 cap 07/14/21 10/10/21 10/10/21 release prednisone 10 mg tablet 10 mg PO QAM #30 tab 07/14/21 10/10/21 10/10/21 spironolactone 25 mg tablet 25 mg PO QAM #30 tab 07/14/21 10/10/21 10/10/21 Lidocaine Jelly 1 applic TOPICAL DIRECTED PRN 10/10/21 10/10/21 Unknown acetaminophen 500 mg tablet 1,000 mg PO Q6H PRN 10/10/21 10/10/21 Unknown (Tylenol Extra Strength) albuterol sulfate 90 mcg/actuation 2 puff INHALATION Q6H PRN 10/10/21 10/10/21 Unknown aerosol inhaler fluticasone 250 mcg-salmeterol 50 1 inh INHALATION BID 10/10/21 10/10/21 10/10/21 08:00 mcg/dose blistr powdr for inhalation magnesium oxide 400 mg PO QAM 10/10/21 10/10/21 10/10/21 torsemide 20 mg tablet 20 mg PO QAM 10/10/21 10/10/21 10/10/21 Active Medications Generic Name Dose Route Start Last Admin Trade Name Freq PRN Reason Stop Dose Admin Acetaminophen 650 mg 10/10/21 18:28 10/15/21 08:34 Acetaminophen 325 Mg Tab PO 11/09/21 18:27 650 mg Q4H PRN Administration Pain or Fever Apixaban 2.5 mg 10/10/21 21:00 10/15/21 08:32 Apixaban 2.5 Mg Tab PO 11/09/21 20:59 2.5 mg BID ANTWON Administration Aspirin 81 mg 10/11/21 09:00 10/14/21 08:04 Aspirin 81 Mg Ectab PO 11/10/21 08:59 81 mg QAM ANTWON Administration Atorvastatin Calcium 80 mg 10/10/21 21:00 10/16/21 20:09 Atorvastatin 40 Mg Tab PO 11/09/21 20:59 80 mg HS ANTWON Administration Cyanocobalamin 1,000 mcg 10/11/21 09:00 10/16/21 08:45 Cyanocobalamin (B-12) 500 Mcg Tablet PO 11/10/21 08:59 1,000 mcg DAILY ANTWON Administration Finasteride 5 mg 10/11/21 09:00 10/16/21 08:45 Finasteride 5 Mg Tab PO 11/10/21 08:59 5 mg QAM ANTWON Administration Fluticasone/Vilanterol 1 puffs 10/11/21 09:00 10/16/21 08:44 Fluticasone/Vilanterol 100/25mcg 14 Puffs/Inhaler INH 11/10/21 08:59 1 puffs DAILY ANTWON Administration Isosorbide Mononitrate 120 mg 10/11/21 09:00 10/16/21 08:45 Isosorbide [place] Extended Rel 60 Mg Tabcr PO 11/10/21 08:59 120 mg QAM ANTWON Administration Magnesium Oxide 400 mg 10/11/21 09:00 10/16/21 08:45 Magnesium Oxide 400 Mg Tab PO 11/10/21 08:59 400 mg QAM ANTWON Administration Metoprolol Succinate 50 mg 10/11/21 02:00 10/16/21 08:45 Metoprolol Succ 50mg Ext Rel Tab PO 11/10/21 01:59 50 mg QAM ANTWON Administration Pantoprazole Sodium 40 mg 10/14/21 21:00 10/16/21 20:09 Pantoprazole 40 Mg Tab PO 11/13/21 20:59 40 mg BID ANTWON Administration Prednisone 10 mg 10/11/21 09:00 10/16/21 08:45 Prednisone 10 Mg Tablet PO 11/10/21 08:59 10 mg QAM ANTWON Administration Spironolactone 25 mg 10/14/21 09:00 10/16/21 08:45 Spironolactone 25 Mg Tab PO 11/13/21 08:59 25 mg QAM ANTWON Administration Torsemide 20 mg 10/14/21 09:00 10/16/21 08:45 Torsemide 10 Mg Tab PO 11/13/21 08:59 20 mg QAM ANTWON Administration Vitamin D 1,000 units 10/10/21 21:00 10/16/21 20:08 Cholecalciferol 1,000 Units 25 Mcg Tab PO 11/09/21 20:59 1,000 units QPM ANTWON Administration NPO Date Last Intake of Fluids: 10/16/21 Time Last Intake of Fluids: 23:55 Date Last Intake of Solids: 10/16/21 Time Last Intake of Solids: 20:00 Past Medical History Medical History (Updated 10/17/21 @ 08:33 by Tee Arias MD) Actinic keratosis Anemia 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 Calculus of bile duct w/ obst w/o cystitis Carpal tunnel syndrome Cervical stenosis of spine (2011) C4-C6 Chronic diastolic (congestive) heart failure CKD (chronic kidney disease), stage III COPD (chronic obstructive pulmonary disease) Dementia Diastolic dysfunction Diverticulosis of colon Encounter for pre-operative examination Extremity edema GERD (gastroesophageal reflux disease) Hematoma Right hand - mural thrombus, right subclavian artery occlusion History of radiation therapy Right Facial - for Melanoma HLD (hyperlipidemia) Hypertension shelter (current) use of anticoagulants Lung nodule seen on imaging study (07/05/20) MGUS (monoclonal gammopathy of unknown significance) Mural thrombus of heart Osteoarthritis Pancreatic cyst Polymyalgia rheumatica Dr. Ortiz Psoriasis Psoriatic arthritis Restless leg syndrome Rheumatoid arthritis Right subclavian artery occlusion Sensorineural hearing loss Syncope Unilateral inguinal hernia Unstable angina (11/21/98) Admitted to [facility] and transferred to [facility] where he had cath 11/25/98 Weakness Exercise / Class Metabolic Activity III < 4 Walking/Shop/Light housework Past Family History Family History Mother , Passed in late 70's of natural causes No problems noted. Father , Passed in mid 70's of colorectal CA No problems noted. Brother , Passed age 72 of Covid 19 Alzheimer disease Son No problems noted. Son No problems noted. Son No problems noted. Other Colorectal cancer Diabetes Prostate cancer Past Surgical History Surgical History H/O colonoscopy H/O hernia repair History of ERCP Benign History of Mohs micrographic surgery for skin cancer Nose History of percutaneous left heart catheterization (LHC) History of surgery Right Facial / Ear Resection for Melanoma removal Hx of CABG (1995) x 3 (@ [facility]) S/P cholecystectomy Status post surgical removal of neoplasm of skin Past Anesthesia History No Hx of Anesthesia Complications and No Family Hx of Anesthesia Complications History of PONV No Hx of PONV and No Hx of Motion Sickness Social History Smoking Status: Unknown if ever smoked Do You Dip or Chew Tobacco: No Smoking End Date: 2 years ago Hx Alcohol Use: No Hx Substance Use: No substance use type: does not use Physical Exam Vital Signs Last Vital Signs Temp 36.4 C L 10/17/21 08:06 Pulse 76 10/17/21 08:06 Resp 16 10/17/21 08:06 BP 164/88 H 10/17/21 08:06 Pulse Ox 93 10/17/21 08:06 ENMT Mouth: no chipped teeth and no loose teeth Thyromental Distance: > or= 3.5 Finger Breadths Mallampati Class: III Neck normal visual inspection, trachea midline, + thick neck and + limited neck extension Respiratory normal respiratory effort; no respiratory distress Auscultation: lungs clear to auscultation bilaterally; no crackles, no rhonchi and no wheezes Cardiovascular Rate/Rhythm: regular rate and regular rhythm Heart Sounds: no gallop, no murmur and no cardiac rub Neurologic moves all extremities and awake Pt is confused. Has Hx of dementia. Unable to report year. Psychiatric Orientation: alert Testing Laboratory Results 10/16/21 08:05 10/15/21 06:27 PT 11.2 Seconds (9.0-12.0) 10/10/21 13:09 INR 1.1 (0.9-1.1) 10/10/21 13:09 10/10/21 13:09 Aerobic Blood Culture - Final Blood Coag neg staph not lugdunensis Coag neg staph not lugdunensis#2 Anaerobic Blood Culture - Final Corynebacterium species Corynebacterium species#2 10/10/21 13:09 Aerobic Blood Culture - Final Blood No growth in Aerobic bottle after 5 days. Anaerobic Blood Culture - Final No growth in Anaerobic bottle after 5 days. 10/12/21 08:02 Aerobic Blood Culture - Preliminary Blood No growth in Aerobic bottle after 48 hours. Anaerobic Blood Culture - Preliminary No growth in Anaerobic bottle after 48 hours. 10/12/21 07:42 Aerobic Blood Culture - Preliminary Blood No growth in Aerobic bottle after 48 hours. Anaerobic Blood Culture - Preliminary No growth in Anaerobic bottle after 48 hours. Electrocardiogram Date: 10/10/21 Sinus rhythm with Premature supraventricular complexes Low voltage QRS Borderline ECG When compared with ECG of 06-JUL-2021 12:28, Premature supraventricular complexes are now Present T wave inversion no longer evident in Lateral leads Chest X-Ray Date: 10/10/21 FINDINGS: An AP, portable, upright chest radiograph is compared to study dated 07/04/2020 and correlated with chest CT dated 07/06/2021. The patient is status post midline sternotomy. The heart is enlarged noting atherosclerotic calcification of the thoracic aorta. The pulmonary vasculature is noncongested. Chronic interstitial thickening is similar to previous. Scarring/atelectasis is noted at the lung bases. No airspace consolidation typical for pneumonia or large pleural effusion is identified. No pneumothorax is seen. The skeletal structures are osteopenic. The bony thorax is grossly intact. Fusion hardware is noted in the lower cervical spine. Advanced arthritic change is seen in the shoulders. Calcific tendinopathy is noted on the left IMPRESSION: Cardiomegaly with no acute cardiopulmonary abnormality. Echocardiogram Date: 10/11/21 EF: 55-60% LV Function: normal RWMA: + akinetic (Small infarct present.) Other Findings: + LVH
--- NOTE | 2021-10-17 08:56 | Communication Note ---
Date of Service: October 17, 2021 The patient underwent upper endoscopy for question of dark stool. The upper endoscopy showed a normal esophagus stomach and duodenum. Since blood count has not dropped and he had a recent heme-negative stool as an outpatient I would not recommend colonoscopy at this time given the patient's underlying dementia. Please call with any questions or concerns, GI to sign off
--- NOTE | 2021-10-17 09:00 | GI REPORT ---
Patient Name: Kailash Monsalve Procedure Date: 10/17/2021 8:11 AM Date of : 1940 Admit Type: Inpatient Age: 81 Gender: Male Attending MD: Delaney Chu DO Procedure: Upper GI endoscopy Providers: Delaney Chu DO Referring MD: LION COHEN Indications: Melena Medicines: Monitored Anesthesia Care Complications: No immediate complications. Estimated blood loss: Minimal. Estimated Blood Loss: Estimated blood loss was minimal. Procedure: Pre-Anesthesia Assessment: - Prior to the procedure, a History and Physical was performed, and patient medications, allergies and sensitivities were reviewed. The patient's tolerance of previous anesthesia was reviewed. - The risks and benefits of the procedure and the sedation options and risks were discussed with the patient. All questions were answered and informed consent was obtained. - Patient identification and proposed procedure were verified prior to the procedure by the physician, the nurse and the scrub nurse. The procedure was verified in the procedure room. - Pre-procedure physical examination revealed no contraindications to sedation. - ASA Grade Assessment: III - A patient with severe systemic disease. - After reviewing the risks and benefits, the patient was deemed in satisfactory condition to undergo the procedure. - The anesthesia plan was to use monitored anesthesia care (MAC). - Immediately prior to administration of medications, the patient was re-assessed for adequacy to receive sedatives. - The heart rate, respiratory rate, oxygen saturations, blood pressure, adequacy of pulmonary ventilation, and response to care were monitored throughout the procedure. - The physical status of the patient was re-assessed after the procedure. After obtaining informed consent, the endoscope was passed under direct vision. Throughout the procedure, the patient's blood pressure, pulse, and oxygen saturations were monitored continuously. The Endoscope was introduced through the mouth, and advanced to the third part of duodenum. The upper GI endoscopy was accomplished without difficulty. The patient tolerated the procedure well. Findings: The examined esophagus was normal. The Z-line was regular and was found 36 cm from the incisors. The entire examined stomach was normal. The examined duodenum was normal. Impression: - Normal esophagus. - Z-line regular, 36 cm from the incisors. - Normal stomach. - Normal examined duodenum. - No specimens collected. Recommendation: - The patient will be observed post-procedure, until all discharge criteria are met. - Advance diet as tolerated today. - Observe patient's clinical course. As the patient has had no drop in his hemoglobin or hematocrit and had heme-negative stools the dark stool is not likely related to gastrointestinal bleeding. Would recommend watchful waiting and follow-up with gastroenterology as an outpatient on an as-needed basis. Delaney Chu D.O. Delaney Chu, DO 10/17/2021 8:59:57 AM This report has been signed electronically. Note Initiated On: 10/17/2021 8:11 AM Number of Addenda: 0 I attest to the content of the Intraoperative Record and orders documented therein, exceptions below {[id number]}
[2021-10-17] MEDS: SPIRONOLACTONE 25 MG TAB PO SCH (10:03)
[2021-10-17] MEDS: FLUTICASONE/VILANTEROL 100/25MCG 14 PUFFS/INHALER INH SCH (10:03)
[2021-10-17] MEDS: FINASTERIDE 5 MG TAB PO SCH (10:03)
[2021-10-17] MEDS: METOPROLOL SUCC 50MG EXT REL TAB PO SCH (10:03)
[2021-10-17] MEDS: CYANOCOBALAMIN (B-12) 500 MCG TABLET PO SCH (10:03)
[2021-10-17] MEDS: TORSEMIDE 10 MG TAB PO SCH (10:03)
[2021-10-17] MEDS: MAGNESIUM OXIDE 400 MG TAB PO SCH (10:03)
[2021-10-17] MEDS: predniSONE 10 MG TABLET PO SCH (10:04)
[2021-10-17] MEDS: ISOSORBIDE MONO EXTENDED REL 60 MG TABCR PO SCH (10:04)
[2021-10-17] MEDS: PANTOprazole 40 MG TAB PO SCH ×2 (10:04→20:15)
[2021-10-17 10:12] LABS: Hematocrit (blood only) 35.5 % (42-52); Hemoglobin 11.6 g/dL (14.0-18.0); Mean Corpuscular Hemoglobin 31.8 pg (25-34); Mean Corpuscular Hgb Conc 32.7 g/dL (32-36); Mean Corpuscular Volume 97.3 fL (80-100); Mean Platelet Volume 9.1 fL (7.4-10.4); Platelet Count 220 K/uL (130-400); RDW Coefficient of Variation 14.5 % (11.5-14.5); RDW Standard Deviation 51.4 fL (36.4-46.3); Red Blood Count 3.65 M/uL (4.7-6.1)
--- NOTE | 2021-10-17 10:55 | Anesthesiology Progress Note ---
Date of Service October 17, 2021 Anesthesia Post Procedure Vital Signs Vital Signs: Temp Pulse Pulse Resp BP BP Pulse Ox 10/17/21 09:45 36.8 C 83 16 146/81 H 93 10/17/21 09:25 78 18 131/61 94 10/17/21 09:11 81 18 143/71 H 95 10/17/21 08:55 90 20 125/57 L 95 10/17/21 08:06 36.4 C L 76 16 164/88 H 93 10/17/21 07:51 36.3 C L 77 18 139/70 94 10/17/21 07:08 76 10/17/21 04:00 37 C 83 16 150/78 H 95 10/16/21 22:19 62 10/16/21 19:13 37.1 C 76 20 120/59 L 94 10/16/21 16:07 77 10/16/21 15:40 36.5 C 70 18 117/71 97 10/16/21 11:25 36.5 C 81 18 135/68 97 Transfer of Care Handoff Completed per policy Notes Mental Status: alert / awake / arousable and participated in evaluation Patient Amnestic to Procedure: Yes Nausea / Vomiting: adequately controlled Pain: adequately controlled Airway Patency, RR, SpO2: stable & adequate BP & HR: stable & adequate Hydration State: stable & adequate Anesthetic Complications: no major complications apparent and Pt Satisfied with anesthetic care
[2021-10-17] MEDS: ACETAMINOPHEN 325 MG TAB PO PRN (13:49)
[2021-10-17] MEDS: ATORVASTATIN 40 MG TAB PO SCH (20:15)
[2021-10-17] MEDS: APIXABAN 2.5 MG TAB PO SCH (20:15)
[2021-10-17] MEDS: CHOLECALCIFEROL 1,000 UNITS 25 MCG TAB PO SCH (20:16)
--- NOTE | 2021-10-17 23:40 | Hospitalist Progress Note ---
Date of Service October 17, 2021 Assessment & Plan (1) Volume overload: Plan: likely multifactorial in setting of anemia, low protein, and low albumin levels. Doppler of LE showed no DVT BNP normal No evidence of acute CHF in chest x-ray Received Lasix IV in the ER Continue lasix 40mg IB BID Cardiology on board-appreciate input and recommendation Echo of the heart showed-normal LV side, moderate concentric LVH, very small focal apical infarct involving the apical septum with akinesis of the segment and minimal expansion, no mural thrombus is identified, EF 55 to 60%, aortic valve sclerosis moderate without significant stenosis, mild mitral annular calcification, there is no visualized valve abnormalities or vegetation No shortness of breath at rest and no palpitation and no chest pain No evidence of fluid overload on exam Remains stable without any evidence of fluid overload Confusion Possible related to hospital setting and dementia CT head showed no significant change compared to the prior study. No acute intracranial abnormality. Stable Melena +FOBT Known to have black stool ASA and eliquis on hold due to GI bleed S/P EGD showed normal esophagus stomach and duodenum. Will resume Eliquis Continue PPI PO BID Hgb stable at 11.6 Continue monitor H/H (2) Bacteremia: Plan: Mostly due to contamination Blood cx grew gram positive cocci in clusters Repeat blood cultures are negative ID was consulted- IV vanco discontinued stable (3) Multiple skin tears: Plan: Multiple skin tears noted to have bilateral upper extremities, no signs of infection Wound care nurse on board No evidence of her lower extremity wounds We will get ID consult for further guidance about antibiotic Skin tears are getting better without any drainage from the wound (4) Falls: Plan: Continue PT/OT May need SNF placement (5) Apical mural thrombus: Plan: No evidence of any more apical thrombus in recent echo Anticoagulated with Eliquis, will hold tonight dose due to GI bleed If bleeding persist, will discuss with cardiology about to consider discontinue eliquis case discussed with cardiology today and ok to hold eliquis today (6) CAD (coronary artery disease): Plan: Appears stable Continue statin, beta-sarah, nitrate (7) Osteoarthritis: Plan: Steroid-dependent, continue prednisone (8) CKD (chronic kidney disease), stage III: Plan: Baseline creatinine low 1s Creatinine 1.2 Monitor renal functions with aggressive diuresis (9) BPH with obstruction/lower urinary tract symptoms: Plan: Continue finasteride (10) DVT prophylaxis: Plan: On Eliquis ( will hold tonight dose due to GI bleed) Admission and Anticipated Discharge Date Admission Date: October 11, 2021 Subjective Patient was seen and examined for follow-up of lower extremity edema and positive FOBT Sitting in chair with no acute distress eating lunch Denies any chest pain, palpitation, dizziness, abdominal pain, and fever. Review of Systems Review of Systems: All systems reviewed & are unremarkable except as noted in Subjective Physical Exam Physical Exam: General- No acute distress Head- atraumatic Eyes- PERRL, EOMI, ENT- oropharynx clear Neck- supple, no JVD Lungs- clear to auscultation Heart- regular rhythm; +systolic murmur Abdomen- normal bowel sounds, soft, nontender Extremities- no calf tenderness Neuro- alert, oriented x 3; PERRL, EOMI; no facial palsy; no dysarthria Skin- warm & dry, ecchymoses Results & Data Results & Data ([facility]) Vital Signs (Past 12 Hours) Vital Signs Temp Pulse Pulse Resp BP Pulse Ox 10/17/21 22:32 36.4 C L 73 18 123/69 96 10/17/21 19:35 36.6 C 75 18 107/58 L 95 10/17/21 15:17 36.3 C L 78 18 130/73 98 10/17/21 14:58 79
[2021-10-18] MEDS: APIXABAN 2.5 MG TAB PO SCH ×2 (10:23→20:49)
[2021-10-18] MEDS: FINASTERIDE 5 MG TAB PO SCH (10:23)
[2021-10-18] MEDS: CYANOCOBALAMIN (B-12) 500 MCG TABLET PO SCH (10:23)
[2021-10-18] MEDS: FLUTICASONE/VILANTEROL 100/25MCG 14 PUFFS/INHALER INH SCH (10:23)
[2021-10-18] MEDS: METOPROLOL SUCC 50MG EXT REL TAB PO SCH (10:24)
[2021-10-18] MEDS: TORSEMIDE 10 MG TAB PO SCH (10:24)
[2021-10-18] MEDS: predniSONE 10 MG TABLET PO SCH (10:24)
[2021-10-18] MEDS: MAGNESIUM OXIDE 400 MG TAB PO SCH (10:24)
[2021-10-18] MEDS: SPIRONOLACTONE 25 MG TAB PO SCH (10:24)
[2021-10-18] MEDS: PANTOprazole 40 MG TAB PO SCH ×2 (10:24→20:48)
[2021-10-18] MEDS: ISOSORBIDE MONO EXTENDED REL 60 MG TABCR PO SCH (10:24)
--- NOTE | 2021-10-18 13:42 | Discharge Summary ---
Date of Service October 18, 2021 Admission HPI Per Admitting Provider 81 year old male with PMH COPD, HTN, CKD stage III, CAD s/p CABG and stenting, chronic diastolic CHF, apical mural thrombus on Eliquis, GERD, BPH, steroid dependent osteoarthritis, dementia, and other problems listed below who presents to the ED from [facility] for evaluation of BL upper arm swelling. Patient was evaluated in the cardiology clinic on 09/29 for similar complaint. At that time, Aldactone was added to patient's diuretic regimen. There was no improvement in the edema and therefore Torsemide was increased to BID on 10/07 - 10/09. Due to ongoing arm swelling, patient was sent to the ED for further eval. Due to underlying dementia, history is limited from the patient. He is currently pleasant and offers no complaints. Son is at the bedside and reports that the patient has had several falls over the past few weeks. These falls have resulted in several skin tears over both arms. Patient has been receiving local wound care at the [facility]. In the ED, patient is hemodynamically stable. Labs and imaging unremarkable. Discharge Exam General- No acute distress Head- atraumatic Eyes- PERRL, EOMI, ENT- oropharynx clear Neck- supple, no JVD Lungs- clear to auscultation Heart- regular rhythm; +systolic murmur Abdomen- normal bowel sounds, soft, nontender Extremities- no calf tenderness Neuro- alert, oriented x 3; PERRL, EOMI; no facial palsy; no dysarthria Skin- warm & dry, ecchymoses Discharge Data Allergies Allergy/AdvReac Type Severity Reaction Status Date / Time No Known Allergies Allergy Verified 07/06/21 14:51 Consultations 10/10/21 16:35 ED Decision to Admit Stat 10/10/21 18:28 Consult Cardiology Routine 10/12/21 08:09 Consult Infectious Diseases Routine 10/16/21 07:00 Consult Gastroenterology Routine Procedures Performed Operation Date: 10/17/21 16:30 Actual Procedures p Esophagogastroduodenoscopy - Delaney Chu DO Ordered Studies 10/10/21 12:48 US venous doppler UE BI Stat 10/10/21 12:50 CT head/brain wo con Stat Hospital Course (1) Volume overload: likely multifactorial in setting of anemia, low protein, and low albumin levels. Doppler of LE showed no DVT BNP normal No evidence of acute CHF in chest x-ray Received Lasix IV in the ER Continue lasix 40mg IB BID Cardiology on board-appreciate input and recommendation Echo of the heart showed-normal LV side, moderate concentric LVH, very small focal apical infarct involving the apical septum with akinesis of the segment and minimal expansion, no mural thrombus is identified, EF 55 to 60%, aortic valve sclerosis moderate without significant stenosis, mild mitral annular calci fication, there is no visualized valve abnormalities or vegetation No shortness of breath at rest and no palpitation and no chest pain No evidence of fluid overload on exam Remains stable without any evidence of fluid overload Confusion Possible related to hospital setting and dementia CT head showed no significant change compared to the prior study. No acute intracranial abnormality. Stable Melena +FOBT Known to have black stool ASA and eliquis on hold due to GI bleed S/P EGD showed normal esophagus stomach and duodenum. Will resume Eliquis Continue PPI PO BID Hgb stable at 11.6 Continue monitor H/H (2) Bacteremia: Mostly due to contamination Blood cx grew gram positive cocci in clusters Repeat blood cultures are negative ID was consulted- IV vanco discontinued stable (3) Multiple skin tears: Multiple skin tears noted to have bilateral upper extremities, no signs of infection Wound care nurse on board No evidence of her lower extremity wounds We will get ID consult for further guidance about antibiotic Skin tears are getting better without any drainage from the wound (4) Falls: Continue PT/OT May need SNF placement (5) Apical mural thrombus: No evidence of any more apical thrombus in recent echo Anticoagulated with Eliquis, will hold tonight dose due to GI bleed If bleeding persist, will discuss with cardiology about to consider discontinue eliquis case discussed with cardiology today and ok to hold eliquis today (6) CAD (coronary artery disease): Appears stable Continue statin, beta-sarah, nitrate (7) Osteoarthritis: Steroid-dependent, continue prednisone (8) CKD (chronic kidney disease), stage III: Baseline creatinine low 1s Creatinine 1.2 Monitor renal functions with aggressive diuresis (9) BPH with obstruction/lower urinary tract symptoms: Continue finasteride (10) DVT prophylaxis: On Eliquis ( will hold tonight dose due to GI bleed) Discharge Plan Discharge Items Patient Disposition: [facility] Reason For Visit: VOLUME OVERLOAD Discharge Diagnosis: Volume overload: Confusion Melena/+FOBT Multiple skin tears: Falls: Apical mural thrombus: CAD (coronary artery disease): Osteoarthritis: CKD (chronic kidney disease), stage III: BPH with obstruction Activity: Resume your previous activity Non-emergency contact: Primary Care Provider and Manager Gift Call non-emergency contact if: you have any medication questions and your symp toms worsen Follow-up/Referrals: [facility] [Primary Care Provider] - Diet: Heart Healthy Addtl Attending Provider Instructions: Follow up with your primary care provider once discharge from rehab Follow up with cardiology once discharge from rehab Continue physical and occupational therapy Check CBC in 1 week to monitor your hemoglobin Monitor for any bleeding while on Eliquis Seek medical attention if your symptoms worsening fall precaution Pending Studies at Discharge: No Stand-Alone Forms: My [facility] Skilled Items Patient informed of condition?: Yes DNR: Yes Discharge Level of Care: Skilled Communicable Disease: No Discharge Prognosis: Stable Lines: None Urinary Catheter: No Medications and DC Order Prescriptions: Continued atorvastatin [Lipitor] 80 mg Tablet 80 mg PO HS Qty: 30 RF: 0 prednisone 10 mg Tablet 10 mg PO QAM Qty: 30 RF: 0 metoprolol succinate [Toprol XL] 50 mg Tablet Extended Release 24 Hr 50 mg PO QAM Qty: 30 RF: 0 cyanocobalamin (vitamin B-12) [Vitamin B-12] 1,000 mcg Tablet 1,000 mcg PO DAILY Qty: 30 RF: 0 spironolactone 25 mg Tablet 25 mg PO QAM Qty: 30 RF: 0 isosorbide mononitrate 120 mg Tablet Extended Release 24 Hr 120 mg PO QAM Qty: 30 RF: 0 omeprazole 20 mg capsule,delayed release(DR/EC) 20 mg PO DAILY Qty: 30 RF: 0 finasteride 5 mg Tablet 5 mg PO QAM Qty: 30 RF: 0 cholecalciferol (vitamin D3) [Vitamin D3] 25 mcg (1,000 unit) Capsule 25 mcg PO QPM Qty: 30 RF: 0 Eliquis 2.5 mg tablet 2.5 mg PO BID Qty: 60 RF: 0 Vitron-C 65 mg iron- 125 mg Tablet,Delayed Release (Dr/Ec) 1 tab PO DAILY Qty: 30 RF: 0 fluticasone propion-salmeterol 250-50 mcg/dose blister with device 1 inh INHALATION BID RF: 0 acetaminophen [Tylenol Extra Strength] 500 mg Tablet 1,000 mg PO Q6H PRN (Reason: FEVER/PAIN) RF: 0 Lidocaine Jelly 1 applic topical DIRECTED PRN (Reason: PAIN TO RIGHT SHOULDER) RF: 0 torsemide 20 mg tablet 20 mg PO QAM RF: 0 albuterol sulfate 90 mcg/actuation HFA aerosol inhaler 2 puff INHALATION Q6H PRN (Reason: Shortness Of Breath) RF: 0 magnesium oxide 400 mg magnesium capsule 400 mg PO QAM RF: 0 Discontinued aspirin 81 mg Tablet,Delayed Release (Dr/Ec) 81 mg PO QAM Qty: 30 RF: 0 Admission Data Admit Date/Time: 10/11/21 15:27 Attending Provider: Douglas Jonas Admit Provider: Wyatt Blunt [facility] Other Providers: Antoni George ; [facility] ; Meka Miller ; Wyatt Blunt ; Deng Jordan ; Jordy Garces ; Phillip Danielson ; Umang Barrera I. ; Eric Lam II ; Alyson Payne ; [place] ; Cale Iyer ; Simeon Abreu ; Radha Smith ; Valerie Cancino ; Jeannie Garsia ; Bhavesh Rueda ; Delaney Chu ; Heather Hernandez ; Sandeep Culver ; Ember Malik ; Yani James ; Magdalene Castellanos ; Mine Rosario ; Kyra Vick Other Interventions: Discharge Summary Assessment (RN) Last Done: 10/17/21 09:25
--- NOTE | 2021-10-18 19:36 | Hospitalist Progress Note ---
Date of Service October 18, 2021 Assessment & Plan (1) Volume overload: Plan: likely multifactorial in setting of anemia, low protein, and low albumin levels. Doppler of LE showed no DVT BNP normal No evidence of acute CHF in chest x-ray Received Lasix IV in the ER Continue lasix 40mg IB BID Cardiology on board-appreciate input and recommendation Echo of the heart showed-normal LV side, moderate concentric LVH, very small focal apical infarct involving the apical septum with akinesis of the segment and minimal expansion, no mural thrombus is identified, EF 55 to 60%, aortic valve sclerosis moderate without significant stenosis, mild mitral annular calcification, there is no visualized valve abnormalities or vegetation No shortness of breath at rest and no palpitation and no chest pain No evidence of fluid overload on exam Remains stable without any evidence of fluid overload Confusion Possible related to hospital setting and dementia CT head showed no significant change compared to the prior study. No acute intracranial abnormality. Stable Melena +FOBT Known to have black stool ASA and eliquis on hold due to GI bleed S/P EGD showed normal esophagus stomach and duodenum. Will resume Eliquis Continue PPI PO BID Hgb stable at 11.6 Continue monitor H/H (2) COVID-19: Plan: Testing positive for COVID 19 Asymptomatic Continue monitor (3) Bacteremia: Plan: Mostly due to contamination Blood cx grew gram positive cocci in clusters Repeat blood cultures are negative ID was consulted- IV vanco discontinued stable (4) Multiple skin tears: Plan: Multiple skin tears noted to have bilateral upper extremities, no signs of infection Wound care nurse on board No evidence of her lower extremity wounds We will get ID consult for further guidance about antibiotic Skin tears are getting better without any drainage from the wound (5) Falls: Plan: Continue PT/OT May need SNF placement (6) Apical mural thrombus: Plan: No evidence of any more apical thrombus in recent echo Anticoagulated with Eliquis, will hold tonight dose due to GI bleed If bleeding persist, will discuss with cardiology about to consider discontinue eliquis case discussed with cardiology and ok to hold eliquis for the EGD Eliquis resumed (7) CAD (coronary artery disease): Plan: Appears stable Continue statin, beta-sarah, nitrate (8) Osteoarthritis: Plan: Steroid-dependent, continue prednisone (9) CKD (chronic kidney disease), stage III: Plan: Baseline creatinine low 1s Creatinine 1.2 Monitor renal functions with aggressive diuresis (10) BPH with obstruction/lower urinary tract symptoms: Plan: Continue finasteride (11) DVT prophylaxis: Plan: On Eliquis Admission and Anticipated Discharge Date Admission Date: October 11, 2021 Subjective Patient was seen and examined for follow-up of lower extremity edema and pos itive FOBT Sitting in chair with no acute distress eating lunch Pt was getting ready to discharge to rehab that was postpone after his covid 19 test was positive Denies any chest pain, palpitation, dizziness, abdominal pain, URI and fever. Review of Systems Review of Systems: All systems reviewed & are unremarkable except as noted in Subjective Physical Exam Physical Exam: General- No acute distress Head- atraumatic Eyes- PERRL, EOMI, ENT- oropharynx clear Neck- supple, no JVD Lungs- clear to auscultation Heart- regular rhythm; +systolic murmur Abdomen- normal bowel sounds, soft, nontender Extremities- no calf tenderness Neuro- alert, oriented x 3; PERRL, EOMI; no facial palsy; no dysarthria Skin- warm & dry, ecchymoses Results & Data Results & Data ([facility]) Vital Signs (Past 12 Hours) Vital Signs Temp Pulse Pulse Resp BP Pulse Ox 10/18/21 15:00 74 10/18/21 10:51 36.5 C 75 18 109/64 95 10/18/21 08:00 68
[2021-10-18] MEDS: CHOLECALCIFEROL 1,000 UNITS 25 MCG TAB PO SCH (20:48)
[2021-10-18] MEDS: ATORVASTATIN 40 MG TAB PO SCH (20:50)
[2021-10-19 07:13] LABS: Hematocrit (blood only) 32.4 % (42-52); Hemoglobin 10.6 g/dL (14.0-18.0); Mean Corpuscular Hemoglobin 31.8 pg (25-34); Mean Corpuscular Hgb Conc 32.7 g/dL (32-36); Mean Corpuscular Volume 97.3 fL (80-100); Mean Platelet Volume 8.9 fL (7.4-10.4); Platelet Count 222 K/uL (130-400); RDW Coefficient of Variation 14.3 % (11.5-14.5); RDW Standard Deviation 51.1 fL (36.4-46.3); Red Blood Count 3.33 M/uL (4.7-6.1); White Blood Count 6.81 K/uL (4.8-10.8)
[2021-10-19] MEDS: APIXABAN 2.5 MG TAB PO SCH ×2 (09:31→21:14)
[2021-10-19] MEDS: METOPROLOL SUCC 50MG EXT REL TAB PO SCH (09:31)
[2021-10-19] MEDS: ISOSORBIDE MONO EXTENDED REL 60 MG TABCR PO SCH (09:31)
[2021-10-19] MEDS: SPIRONOLACTONE 25 MG TAB PO SCH (09:31)
[2021-10-19] MEDS: predniSONE 10 MG TABLET PO SCH (09:31)
[2021-10-19] MEDS: PANTOprazole 40 MG TAB PO SCH ×2 (09:31→21:14)
[2021-10-19] MEDS: MAGNESIUM OXIDE 400 MG TAB PO SCH (09:31)
[2021-10-19] MEDS: FLUTICASONE/VILANTEROL 100/25MCG 14 PUFFS/INHALER INH SCH (09:31)
[2021-10-19] MEDS: TORSEMIDE 10 MG TAB PO SCH (09:31)
[2021-10-19] MEDS: CYANOCOBALAMIN (B-12) 500 MCG TABLET PO SCH (09:31)
[2021-10-19] MEDS: FINASTERIDE 5 MG TAB PO SCH (09:31)
[2021-10-19] MEDS: ATORVASTATIN 40 MG TAB PO SCH (21:13)
[2021-10-19] MEDS: ACETAMINOPHEN 325 MG TAB PO PRN (21:14)
[2021-10-19] MEDS: CHOLECALCIFEROL 1,000 UNITS 25 MCG TAB PO SCH (21:14)
--- NOTE | 2021-10-20 | Hospitalist Progress Note ---
Date of Service October 19, 2021 Assessment & Plan (1) Volume overload: Plan: likely multifactorial in setting of anemia, low protein, and low albumin levels. Doppler of LE showed no DVT BNP normal No evidence of acute CHF in chest x-ray Received Lasix IV in the ER Continue lasix 40mg IB BID Cardiology on board-appreciate input and recommendation Echo of the heart showed-normal LV side, moderate concentric LVH, very small focal apical infarct involving the apical septum with akinesis of the segment and minimal expansion, no mural thrombus is identified, EF 55 to 60%, aortic valve sclerosis moderate without significant stenosis, mild mitral annular calcification, there is no visualized valve abnormalities or vegetation No shortness of breath at rest and no palpitation and no chest pain No evidence of fluid overload on exam Remains stable without any evidence of fluid overload Confusion Possible related to hospital setting and dementia CT head showed no significant change compared to the prior study. No acute intracranial abnormality. Stable Melena +FOBT Known to have black stool ASA and eliquis on hold due to GI bleed S/P EGD showed normal esophagus stomach and duodenum. Will resume Eliquis Continue PPI PO BID Hgb stable at 11.6 Continue monitor H/H (2) COVID-19: Plan: Testing positive for COVID 19 Asymptomatic Continue monitor (3) Bacteremia: Plan: Mostly due to contamination Blood cx grew gram positive cocci in clusters Repeat blood cultures are negative ID was consulted- IV vanco discontinued stable (4) Multiple skin tears: Plan: Multiple skin tears noted to have bilateral upper extremities, no signs of infection Wound care nurse on board No evidence of her lower extremity wounds We will get ID consult for further guidance about antibiotic Skin tears are getting better without any drainage from the wound (5) Falls: Plan: Continue PT/OT May need SNF placement (6) Apical mural thrombus: Plan: No evidence of any more apical thrombus in recent echo Anticoagulated with Eliquis, will hold tonight dose due to GI bleed If bleeding persist, will discuss with cardiology about to consider discontinue eliquis case discussed with cardiology and ok to hold eliquis for the EGD Eliquis resumed (7) CAD (coronary artery disease): Plan: Appears stable Continue statin, beta-sarah, nitrate (8) Osteoarthritis: Plan: Steroid-dependent, continue prednisone (9) CKD (chronic kidney disease), stage III: Plan: Baseline creatinine low 1s Creatinine 1.2 Monitor renal functions with aggressive diuresis (10) BPH with obstruction/lower urinary tract symptoms: Plan: Continue finasteride (11) DVT prophylaxis: Plan: On Eliquis Disposition Waiting for placement Admission and Anticipated Discharge Date Admission Date: October 11, 2021 Subjective Patient was seen and examined for follow-up of COVID 19 Lying in bed with no acute distress eating lunch His PCR covid 19 testing positive Pt is asymptomatic I called his son to provide with updates, unfortunately no one answered Denies any chest pain, palpitation, dizziness, abdominal pain, URI and fever. Review of Systems Review of Systems: All systems reviewed & are unremarkable except as noted in Subjective Physical Exam Physical Exam: General- No acute distress Head- atraumatic Eyes- PERRL, EOMI, ENT- oropharynx clear Neck- supple, no JVD Lungs- clear to auscultation Heart- regular rhythm; +systolic murmur Abdomen- normal bowel sounds, soft, nontender Extremities- no calf tenderness Neuro- alert, oriented x 3; PERRL, EOMI; no facial palsy; no dysarthria Skin- warm & dry, ecchymoses Results & Data Results & Data ([facility]) Vital Signs (Past 12 Hours) Vital Signs Temp Pulse Pulse Resp BP Pulse Ox Pulse Ox 10/19/21 23:04 36.5 C 70 18 110/54 L 96 10/19/21 20:14 36.7 C 72 18 149/65 H 96 10/19/21 18:00 95 10/19/21 16:13 37.2 C 73 18 119/67 95 10/19/21 15:14 79 10/19/21 12:15 36.8 C 72 18 132/80 92
[2021-10-20] MEDS: MAGNESIUM OXIDE 400 MG TAB PO SCH (09:12)
[2021-10-20] MEDS: FINASTERIDE 5 MG TAB PO SCH (09:12)
[2021-10-20] MEDS: FLUTICASONE/VILANTEROL 100/25MCG 14 PUFFS/INHALER INH SCH (09:12)
[2021-10-20] MEDS: APIXABAN 2.5 MG TAB PO SCH ×2 (09:12→21:34)
[2021-10-20] MEDS: SPIRONOLACTONE 25 MG TAB PO SCH (09:12)
[2021-10-20] MEDS: TORSEMIDE 10 MG TAB PO SCH (09:12)
[2021-10-20] MEDS: PANTOprazole 40 MG TAB PO SCH ×2 (09:13→21:35)
[2021-10-20] MEDS: CYANOCOBALAMIN (B-12) 500 MCG TABLET PO SCH (09:13)
[2021-10-20] MEDS: predniSONE 10 MG TABLET PO SCH (09:13)
[2021-10-20] MEDS: ISOSORBIDE MONO EXTENDED REL 60 MG TABCR PO SCH (09:13)
[2021-10-20] MEDS: METOPROLOL SUCC 50MG EXT REL TAB PO SCH (09:13)
[2021-10-20] MEDS: CHOLECALCIFEROL 1,000 UNITS 25 MCG TAB PO SCH (21:34)
[2021-10-20] MEDS: ATORVASTATIN 40 MG TAB PO SCH (21:34)
--- NOTE | 2021-10-20 21:41 | Hospitalist Progress Note ---
Date of Service October 20, 2021 Assessment & Plan (1) Volume overload: Plan: likely multifactorial in setting of anemia, low protein, and low albumin levels. Doppler of LE showed no DVT BNP normal No evidence of acute CHF in chest x-ray Received Lasix IV in the ER Continue lasix 40mg IB BID Cardiology on board-appreciate input and recommendation Echo of the heart showed-normal LV side, moderate concentric LVH, very small focal apical infarct involving the apical septum with akinesis of the segment and minimal expansion, no mural thrombus is identified, EF 55 to 60%, aortic valve sclerosis moderate without significant stenosis, mild mitral annular calcification, there is no visualized valve abnormalities or vegetation No shortness of breath at rest and no palpitation and no chest pain No evidence of fluid overload on exam Remains stable without any evidence of fluid overload Confusion Possible related to hospital setting and dementia CT head showed no significant change compared to the prior study. No acute intracranial abnormality. Stable Melena +FOBT Known to have black stool ASA and eliquis on hold due to GI bleed S/P EGD showed normal esophagus stomach and duodenum. Will resume Eliquis Continue PPI PO BID Hgb stable at 11.6 Continue monitor H/H (2) COVID-19: Plan: Testing positive for COVID 19 Asymptomatic Continue monitor (3) Bacteremia: Plan: Mostly due to contamination Blood cx grew gram positive cocci in clusters Repeat blood cultures are negative ID was consulted- IV vanco discontinued stable (4) Multiple skin tears: Plan: Multiple skin tears noted to have bilateral upper extremities, no signs of infection Wound care nurse on board No evidence of her lower extremity wounds We will get ID consult for further guidance about antibiotic Skin tears are getting better without any drainage from the wound (5) Falls: Plan: Continue PT/OT May need SNF placement (6) Apical mural thrombus: Plan: No evidence of any more apical thrombus in recent echo Anticoagulated with Eliquis, will hold tonight dose due to GI bleed If bleeding persist, will discuss with cardiology about to consider discontinue eliquis case discussed with cardiology and ok to hold eliquis for the EGD Eliquis resumed (7) CAD (coronary artery disease): Plan: Appears stable Continue statin, beta-sarah, nitrate (8) Osteoarthritis: Plan: Steroid-dependent, continue prednisone (9) CKD (chronic kidney disease), stage III: Plan: Baseline creatinine low 1s Creatinine 1.2 Monitor renal functions with aggressive diuresis (10) BPH with obstruction/lower urinary tract symptoms: Plan: Continue finasteride (11) DVT prophylaxis: Plan: On Eliquis Disposition Waiting for placement Due to his covid 19 positive, pt needs to be in the hospital for 10 days before discharge to the facility Admission and Anticipated Discharge Date Admission Date: October 11, 2021 Subjective Patient was seen and examined for follow-up of COVID 19 Lying in bed with no acute distress Pt is asymptomatic Denies any chest pain, palpitation, dizziness, abdominal pain, URI and fever. Review of Systems Review of Systems: All systems reviewed & are unremarkable except as noted in Subjective Physical Exam Physical Exam: General- No acute distress Head- atraumatic Eyes- PERRL, EOMI, ENT- oropharynx clear Neck- supple, no JVD Lungs- clear to auscultation Heart- regular rhythm; +systolic murmur Abdomen- normal bowel sounds, soft, nontender Extremities- no calf tenderness Neuro- alert, oriented x 3; PERRL, EOMI; no facial palsy; no dysarthria Skin- warm & dry, ecchymoses Results & Data Results & Data ([facility]) Vital Signs (Past 12 Hours) Vital Signs Temp Pulse Pulse Resp BP BP Pulse Ox 10/20/21 19:54 36.5 C 76 20 109/57 L 95 10/20/21 18:00 10/20/21 16:29 84 10/20/21 15:49 36.4 C L 67 20 148/81 H 91 10/20/21 11:44 37 C 70 18 124/76 94 Pulse Ox 10/20/21 19:54 10/20/21 18:00 94 10/20/21 16:29 10/20/21 15:49 10/20/21 11:44
[2021-10-21] MEDS: FLUTICASONE/VILANTEROL 100/25MCG 14 PUFFS/INHALER INH SCH (10:07)
[2021-10-21] MEDS: METOPROLOL SUCC 50MG EXT REL TAB PO SCH (10:10)
[2021-10-21] MEDS: SPIRONOLACTONE 25 MG TAB PO SCH (10:10)
[2021-10-21] MEDS: MAGNESIUM OXIDE 400 MG TAB PO SCH (10:10)
[2021-10-21] MEDS: predniSONE 10 MG TABLET PO SCH (10:10)
[2021-10-21] MEDS: ISOSORBIDE MONO EXTENDED REL 60 MG TABCR PO SCH (10:10)
[2021-10-21] MEDS: PANTOprazole 40 MG TAB PO SCH ×2 (10:10→20:30)
[2021-10-21] MEDS: TORSEMIDE 10 MG TAB PO SCH (10:10)
[2021-10-21] MEDS: FINASTERIDE 5 MG TAB PO SCH (10:10)
[2021-10-21] MEDS: CYANOCOBALAMIN (B-12) 500 MCG TABLET PO SCH (10:10)
[2021-10-21] MEDS: APIXABAN 2.5 MG TAB PO SCH ×2 (10:10→20:30)
--- NOTE | 2021-10-21 18:01 | Hospitalist Progress Note ---
Date of Service October 21, 2021 Assessment & Plan (1) Volume overload: Plan: likely multifactorial in setting of anemia, low protein, and low albumin levels. Doppler of LE showed no DVT BNP normal No evidence of acute CHF in chest x-ray Received Lasix IV in the ER Continue lasix 40mg IB BID Cardiology on board-appreciate input and recommendation Echo of the heart showed-normal LV side, moderate concentric LVH, very small focal apical infarct involving the apical septum with akinesis of the segment and minimal expansion, no mural thrombus is identified, EF 55 to 60%, aortic valve sclerosis moderate without significant stenosis, mild mitral annular calcification, there is no visualized valve abnormalities or vegetation No shortness of breath at rest and no palpitation and no chest pain No evidence of fluid overload on exam Remains stable without any evidence of fluid overload Confusion Possible related to hospital setting and dementia CT head showed no significant change compared to the prior study. No acute intracranial abnormality. Stable Melena +FOBT Known to have black stool ASA and eliquis on hold due to GI bleed S/P EGD showed normal esophagus stomach and duodenum. Will resume Eliquis Continue PPI PO BID Hgb stable at 11.6 Continue monitor H/H (2) Bacteremia: Plan: Mostly due to contamination Blood cx grew gram positive cocci in clusters Repeat blood cultures are negative ID was consulted- IV vanco discontinued stable (3) Multiple skin tears: Plan: Multiple skin tears noted to have bilateral upper extremities, no signs of infection Wound care nurse on board No evidence of her lower extremity wounds Skin tears are getting better without any drainage from the wound (4) Falls: Plan: Continue PT/OT May need SNF placement (5) Apical mural thrombus: Plan: No evidence of any more apical thrombus in recent echo Anticoagulated with Eliquis, will hold tonight dose due to GI bleed If bleeding persist, will discuss with cardiology about to consider discontinue eliquis case discussed with cardiology today and ok to hold eliquis today (6) CAD (coronary artery disease): Plan: Appears stable Continue statin, beta-sarah, nitrate (7) Osteoarthritis: Plan: Steroid-dependent, continue prednisone (8) CKD (chronic kidney disease), stage III: Plan: Baseline creatinine low 1s Creatinine 1.2 Monitor renal functions with aggressive diuresis (9) BPH with obstruction/lower urinary tract symptoms: Plan: Continue finasteride (10) DVT prophylaxis: Plan: On Eliquis ( will hold tonight dose due to GI bleed) Admission and Anticipated Discharge Date Admission Date: October 11, 2021 Subjective Patient was seen and examined for follow-up of COVID 19 Sitting in chair with no acute distress Pt is asymptomatic Denies any chest pain, palpitation, dizziness, abdominal pain, URI and fever. Review of Systems Review of Systems: All systems reviewed & are unremarkable except as noted in Subjective Physical Exam Physical Exam: General- No acute distress Head- atraumatic Eyes- PERRL, EOMI, ENT- oropharynx clear Neck- supple, no JVD Lungs- clear to auscultation Heart- regular rhythm; +systolic murmur Abdomen- normal bowel sounds, soft, nontender Extremities- no calf tenderness Neuro- alert, oriented x 3; PERRL, EOMI; no facial palsy; no dysarthria Skin- warm & dry, ecchymoses Results & Data Results & Data ([facility]) Vital Signs (Past 12 Hours) Vital Signs Temp Pulse Resp BP BP Pulse Ox 10/21/21 15:48 36.7 C 77 18 99/59 L 93 10/21/21 08:00 36.5 C 74 20 121/54 L 95
[2021-10-21] MEDS: CHOLECALCIFEROL 1,000 UNITS 25 MCG TAB PO SCH (20:30)
[2021-10-21] MEDS: ATORVASTATIN 40 MG TAB PO SCH (20:30)
[2021-10-22] MEDS: FLUTICASONE/VILANTEROL 100/25MCG 14 PUFFS/INHALER INH SCH (09:26)
[2021-10-22] MEDS: FINASTERIDE 5 MG TAB PO SCH (09:27)
[2021-10-22] MEDS: CYANOCOBALAMIN (B-12) 500 MCG TABLET PO SCH (09:27)
[2021-10-22] MEDS: APIXABAN 2.5 MG TAB PO SCH ×2 (09:27→19:57)
[2021-10-22] MEDS: ISOSORBIDE MONO EXTENDED REL 60 MG TABCR PO SCH (09:28)
[2021-10-22] MEDS: METOPROLOL SUCC 50MG EXT REL TAB PO SCH (09:28)
[2021-10-22] MEDS: MAGNESIUM OXIDE 400 MG TAB PO SCH (09:28)
[2021-10-22] MEDS: PANTOprazole 40 MG TAB PO SCH ×2 (09:28→19:57)
[2021-10-22] MEDS: TORSEMIDE 10 MG TAB PO SCH (09:29)
[2021-10-22] MEDS: SPIRONOLACTONE 25 MG TAB PO SCH (09:29)
[2021-10-22] MEDS: predniSONE 10 MG TABLET PO SCH (09:29)
[2021-10-22] MEDS: CHOLECALCIFEROL 1,000 UNITS 25 MCG TAB PO SCH (19:57)
[2021-10-22] MEDS: ATORVASTATIN 40 MG TAB PO SCH (19:57)
--- NOTE | 2021-10-22 21:33 | Hospitalist Progress Note ---
Date of Service October 22, 2021 Assessment & Plan (1) Volume overload: Plan: likely multifactorial in setting of anemia, low protein, and low albumin levels. Doppler of LE showed no DVT BNP normal No evidence of acute CHF in chest x-ray Received Lasix IV in the ER Continue lasix 40mg IB BID Cardiology on board-appreciate input and recommendation Echo of the heart showed-normal LV side, moderate concentric LVH, very small focal apical infarct involving the apical septum with akinesis of the segment and minimal expansion, no mural thrombus is identified, EF 55 to 60%, aortic valve sclerosis moderate without significant stenosis, mild mitral annular calcification, there is no visualized valve abnormalities or vegetation No shortness of breath at rest and no palpitation and no chest pain No evidence of fluid overload on exam Remains stable without any evidence of fluid overload Confusion Possible related to hospital setting and dementia CT head showed no significant change compared to the prior study. No acute intracranial abnormality. Stable Melena +FOBT Known to have black stool ASA and eliquis on hold due to GI bleed S/P EGD showed normal esophagus stomach and duodenum. Will resume Eliquis Continue PPI PO BID Hgb stable at 11.6 Continue monitor H/H (2) Bacteremia: Plan: Mostly due to contamination Blood cx grew gram positive cocci in clusters Repeat blood cultures are negative ID was consulted- IV vanco discontinued stable (3) Multiple skin tears: Plan: Multiple skin tears noted to have bilateral upper extremities, no signs of infection Wound care nurse on board No evidence of her lower extremity wounds Skin tears are getting better without any drainage from the wound (4) Falls: Plan: Continue PT/OT May need SNF placement (5) Apical mural thrombus: Plan: No evidence of any more apical thrombus in recent echo Anticoagulated with Eliquis, will hold tonight dose due to GI bleed If bleeding persist, will discuss with cardiology about to consider discontinue eliquis case discussed with cardiology today and ok to hold eliquis today (6) CAD (coronary artery disease): Plan: Appears stable Continue statin, beta-sarah, nitrate (7) Osteoarthritis: Plan: Steroid-dependent, continue prednisone (8) CKD (chronic kidney disease), stage III: Plan: Baseline creatinine low 1s Creatinine 1.2 Monitor renal functions with aggressive diuresis (9) BPH with obstruction/lower urinary tract symptoms: Plan: Continue finasteride (10) DVT prophylaxis: Plan: On Eliquis ( will hold tonight dose due to GI bleed) Admission and Anticipated Discharge Date Admission Date: October 11, 2021 Subjective Patient was seen and examined for follow-up of COVID 19 Sitting in chair with no acute distress Denies any chest pain, palpitation, dizziness, abdominal pain, URI and fever. Review of Systems Review of Systems: All systems reviewed & are unremarkable except as noted in Subjective Physical Exam Physical Exam: General- No acute distress Head- atraumatic Eyes- PERRL, EOMI, ENT- oropharynx clear Neck- supple, no JVD Lungs- clear to auscultation Heart- regular rhythm; +systolic murmur Abdomen- normal bowel sounds, soft, nontender Extremities- no calf tenderness Neuro- alert, oriented x 3; PERRL, EOMI; no facial palsy; no dysarthria Skin- warm & dry, ecchymoses Results & Data Results & Data ([facility]) Vital Signs (Past 12 Hours) Vital Signs Temp Pulse Resp BP Pulse Ox 10/22/21 19:53 36.5 C 77 18 148/71 H 97 10/22/21 15:39 36.5 C 74 20 115/69 97
[2021-10-23 07:19] LABS: Hematocrit (blood only) 36.2 % (42-52); Hemoglobin 11.9 g/dL (14.0-18.0); Mean Corpuscular Hemoglobin 31.8 pg (25-34); Mean Corpuscular Hgb Conc 32.9 g/dL (32-36); Mean Corpuscular Volume 96.8 fL (80-100); Mean Platelet Volume 9.5 fL (7.4-10.4); Platelet Count 282 K/uL (130-400); RDW Standard Deviation 49.6 fL (36.4-46.3); Red Blood Count 3.74 M/uL (4.7-6.1); White Blood Count 8.96 K/uL (4.8-10.8)
[2021-10-23] MEDS: APIXABAN 2.5 MG TAB PO SCH ×2 (08:55→21:06)
[2021-10-23] MEDS: FINASTERIDE 5 MG TAB PO SCH (08:56)
[2021-10-23] MEDS: CYANOCOBALAMIN (B-12) 500 MCG TABLET PO SCH (08:56)
[2021-10-23] MEDS: TORSEMIDE 10 MG TAB PO SCH (08:56)
[2021-10-23] MEDS: MAGNESIUM OXIDE 400 MG TAB PO SCH (08:56)
[2021-10-23] MEDS: ISOSORBIDE MONO EXTENDED REL 60 MG TABCR PO SCH (08:56)
[2021-10-23] MEDS: PANTOprazole 40 MG TAB PO SCH ×2 (08:56→21:06)
[2021-10-23] MEDS: SPIRONOLACTONE 25 MG TAB PO SCH (08:56)
[2021-10-23] MEDS: FLUTICASONE/VILANTEROL 100/25MCG 14 PUFFS/INHALER INH SCH (08:56)
[2021-10-23] MEDS: predniSONE 10 MG TABLET PO SCH (08:56)
[2021-10-23] MEDS: METOPROLOL SUCC 50MG EXT REL TAB PO SCH (08:56)
--- NOTE | 2021-10-23 17:59 | Hospitalist Progress Note ---
Date of Service October 23, 2021 Assessment & Plan (1) Volume overload: Plan: likely multifactorial in setting of anemia, low protein, and low albumin levels. Doppler of LE showed no DVT BNP normal No evidence of acute CHF in chest x-ray Received Lasix IV in the ER Cardiology on board-appreciate input and recommendation Echo of the heart showed-normal LV side, moderate concentric LVH, very small focal apical infarct involving the apical septum with akinesis of the segment and minimal expansion, no mural thrombus is identified, EF 55 to 60%, aortic valve sclerosis moderate without significant stenosis, mild mitral annular calcification, there is no visualized valve abnormalities or vegetation No shortness of breath at rest and no palpitation and no chest pain No evidence of fluid overload on exam Continue Torsemide 20mg daily Remains stable without any evidence of fluid overload Confusion Possible related to hospital setting and dementia CT head showed no significant change compared to the prior study. No acute intracranial abnormality. Stable Melena +FOBT Known to have black stool ASA and eliquis on hold due to GI bleed S/P EGD showed normal esophagus stomach and duodenum. Will resume Eliquis Continue PPI PO BID Hgb stable at 11.6 Continue monitor H/H S/P Fall Right wrist tenderness Will get an xray of right arm, wrist and chest Fall precaution (2) Bacteremia: Plan: Mostly due to contamination Blood cx grew gram positive cocci in clusters Repeat blood cultures are negative ID was consulted- IV vanco discontinued stable (3) Multiple skin tears: Plan: Multiple skin tears noted to have bilateral upper extremities, no signs of infection Wound care nurse on board No evidence of her lower extremity wounds Skin tears are getting better without any drainage from the wound (4) Falls: Plan: Continue PT/OT May need SNF placement (5) Apical mural thrombus: Plan: No evidence of any more apical thrombus in recent echo Anticoagulated with Eliquis, will hold tonight dose due to GI bleed If bleeding persist, will discuss with cardiology about to consider discontinue eliquis case discussed with cardiology today and ok to hold eliquis today (6) CAD (coronary artery disease): Plan: Appears stable Continue statin, beta-sarah, nitrate (7) Osteoarthritis: Plan: Steroid-dependent, continue prednisone (8) CKD (chronic kidney disease), stage III: Plan: Baseline creatinine low 1s Creatinine 1.2 Monitor renal functions with aggressive diuresis (9) BPH with obstruction/lower urinary tract symptoms: Plan: Continue finasteride (10) DVT prophylaxis: Plan: On Eliquis ( will hold tonight dose due to GI bleed) Disposition Need to be quarantine for 10 days for the facility to take him Admission and Anticipated Discharge Date Admission Date: October 11, 2021 Subjective Patient was seen and examined for follow-up of COVID 19 Sitting in chair with no acute distress Pt said that patient had a fall He is complaint of right wrist tenderness Denies any chest pain, palpitation, dizziness, abdominal pain, URI and fever. Review of Systems Review of Systems: All systems reviewed & are unremarkable except as noted in Subjective Physical Exam Physical Exam: General- No acute distress Head- atraumatic Eyes- PERRL, EOMI, ENT- oropharynx clear Neck- supple, no JVD Lungs- clear to auscultation Heart- regular rhythm; +systolic murmur Abdomen- normal bowel sounds, soft, nontender Extremities- no calf tenderness, right wrist tenderness Neuro- alert, oriented x 3; PERRL, EOMI; no facial palsy; no dysarthria Skin- warm & dry, ecchymoses Results & Data Results & Data ([facility]) Vital Signs (Past 12 Hours) Vital Signs Temp Pulse Resp BP Pulse Ox 10/23/21 17:43 79 143/71 H 100 10/23/21 17:17 36.5 C 74 16 137/74 98 10/23/21 08:24 36.6 C 72 16 128/57 L 96
[2021-10-23] MEDS: ATORVASTATIN 40 MG TAB PO SCH (21:05)
[2021-10-23] MEDS: CHOLECALCIFEROL 1,000 UNITS 25 MCG TAB PO SCH (21:06)
--- NOTE | 2021-10-24 07:34 | XRay Report ---
XR forearm RT 2V, XR wrist RT 2V CLINICAL HISTORY: Fall TECHNIQUE: 2 views of the right forearm and right wrist were obtained. Comparison: None available at the time of this dictation. FINDINGS: There is no evidence of acute fracture or dislocation. The alignment is anatomic. Degenerative change s are seen in the joints. Vascular calcifications are noted. IMPRESSION: Degenerative changes without evidence of acute injury. ACT 112: Negative or not required by law. Electronically signed by: Hitesh Wallace M.D. 10/24/2021 7:32 AM
--- NOTE | 2021-10-24 08:25 | XRay Report ---
XR chest 1V portable CLINICAL HISTORY: fall TECHNIQUE: Single frontal radiograph of the chest was obtained. Comparison: Comparison is made to chest radiograph 10/10/2021 FINDINGS: Median sternotomy wires are unchanged. Calcified aortic knob is seen. Cardiac silhouette is stable fr om prior exam. The lungs are clear. No evidence of pleural effusion or pneumothorax. IMPRESSION: No acute abnormalities and in particular no evidence of pneumonia. ACT 112: Negative or not required by law. Electronically signed by: Hitesh Wallace M.D. 10/24/2021 8:24 AM
[2021-10-24] MEDS: APIXABAN 2.5 MG TAB PO SCH ×2 (08:48→20:36)
[2021-10-24] MEDS: ISOSORBIDE MONO EXTENDED REL 60 MG TABCR PO SCH (08:48)
[2021-10-24] MEDS: TORSEMIDE 10 MG TAB PO SCH (08:48)
[2021-10-24] MEDS: METOPROLOL SUCC 50MG EXT REL TAB PO SCH (08:48)
[2021-10-24] MEDS: FLUTICASONE/VILANTEROL 100/25MCG 14 PUFFS/INHALER INH SCH (08:48)
[2021-10-24] MEDS: CYANOCOBALAMIN (B-12) 500 MCG TABLET PO SCH (08:48)
[2021-10-24] MEDS: MAGNESIUM OXIDE 400 MG TAB PO SCH (08:48)
[2021-10-24] MEDS: PANTOprazole 40 MG TAB PO SCH ×2 (08:48→20:35)
[2021-10-24] MEDS: SPIRONOLACTONE 25 MG TAB PO SCH (08:48)
[2021-10-24] MEDS: FINASTERIDE 5 MG TAB PO SCH (08:48)
[2021-10-24] MEDS: predniSONE 10 MG TABLET PO SCH (08:48)
--- NOTE | 2021-10-24 14:45 | Electrocardiogram Report ---
Test Reason : Blood Pressure : / mmHG Vent. Rate : 076 BPM Atrial Rate : 076 BPM P-R Int : 000 ms QRS Dur : 084 ms QT Int : 414 ms P-R-T Axes : 000 -32 062 degrees QTc Int : 465 ms Poor data quality, interpretation may be adversely affected Normal sinus rhythm Left axis deviation Low voltage QRS Nonspecific ST and T wave abnormality Abnormal ECG When compared with ECG of 23-OCT-2021 18:04, (unconfirmed) Nonspecific T wave abnormality, improved in Inferior leads Confirmed by Deion Moody ([id number]) on 10/24/2021 2:44:37 PM Referred By: [facility] Confirmed By:Deion Moody
--- NOTE | 2021-10-24 20:30 | Hospitalist Progress Note ---
Date of Service October 24, 2021 Assessment & Plan (1) Volume overload: Plan: likely multifactorial in setting of anemia, low protein, and low albumin levels. Doppler of LE showed no DVT BNP normal No evidence of acute CHF in chest x-ray Received Lasix IV in the ER Cardiology on board-appreciate input and recommendation Echo of the heart showed-normal LV side, moderate concentric LVH, very small focal apical infarct involving the apical septum with akinesis of the segment and minimal expansion, no mural thrombus is identified, EF 55 to 60%, aortic valve sclerosis moderate without significant stenosis, mild mitral annular calcification, there is no visualized valve abnormalities or vegetation No shortness of breath at rest and no palpitation and no chest pain No evidence of fluid overload on exam Continue Torsemide 20mg daily Remains stable without any evidence of fluid overload Confusion Possible related to hospital setting and dementia CT head showed no significant change compared to the prior study. No acute intracranial abnormality. Stable Melena +FOBT Known to have black stool ASA and eliquis on hold due to GI bleed S/P EGD showed normal esophagus stomach and duodenum. Will resume Eliquis Continue PPI PO BID Hgb stable at 11.6 S/P Fall Right wrist tenderness xray of right arm, wrist and chest are negative for fracture Fall precaution (2) Bacteremia: Plan: Mostly due to contamination Blood cx grew gram positive cocci in clusters Repeat blood cultures are negative ID was consulted- IV vanco discontinued stable (3) Multiple skin tears: Plan: Multiple skin tears noted to have bilateral upper extremities, no signs of infection Wound care nurse on board No evidence of her lower extremity wounds Skin tears are getting better without any drainage from the wound (4) Falls: Plan: Continue PT/OT Waiting for SNF placement (5) Apical mural thrombus: Plan: No evidence of any more apical thrombus in recent echo Anticoagulated with Eliquis, will hold tonight dose due to GI bleed If bleeding persist, will discuss with cardiology about to consider discontinue eliquis Hgb stable Continue Eliquis (6) CAD (coronary artery disease): Plan: Appears stable Continue statin, beta-sarah, nitrate (7) Osteoarthritis: Plan: Steroid-dependent, continue prednisone (8) CKD (chronic kidney disease), stage III: Plan: Baseline creatinine low 1s Creatinine 1.2 Monitor renal functions with aggressive diuresis (9) BPH with obstruction/lower urinary tract symptoms: Plan: Continue finasteride (10) DVT prophylaxis: Plan: On Eliquis Disposition Need to be quarantine for a total 10 days for the facility to take him Admission and Anticipated Discharge Date Admission Date: October 11, 2021 Subjective Patient was seen and examined for follow-up of COVID 19 Lying in bed with no acute distress Denies any chest pain, palpitation, dizziness, abdominal pain, URI and fever. Review of Systems Review of Systems: All systems reviewed & are unremarkable except as noted in Subjective Physical Exam Physical Exam: General- No acute distress Head- atraumatic Eyes- PERRL, EOMI, ENT- oropharynx clear Neck- supple, no JVD Lungs- clear to auscultation Heart- regular rhythm; +systolic murmur Abdomen- normal bowel sounds, soft, nontender Extremities- no calf tenderness, right wrist tenderness Neuro- alert, oriented x 3; PERRL, EOMI; no facial palsy; no dysarthria Skin- warm & dry, ecchymoses Results & Data Results & Data ([facility]) Vital Signs (Past 12 Hours) Vital Signs Temp Pulse Resp BP Pulse Ox 10/24/21 16:00 36.8 C 84 20 116/67 95
[2021-10-24] MEDS: CHOLECALCIFEROL 1,000 UNITS 25 MCG TAB PO SCH (20:35)
[2021-10-24] MEDS: ATORVASTATIN 40 MG TAB PO SCH (20:36)
[2021-10-24] MEDS: ACETAMINOPHEN 325 MG TAB PO PRN (21:51)
[2021-10-25] MEDS: APIXABAN 2.5 MG TAB PO SCH ×2 (09:25→20:18)
[2021-10-25] MEDS: CYANOCOBALAMIN (B-12) 500 MCG TABLET PO SCH (09:25)
[2021-10-25] MEDS: TORSEMIDE 10 MG TAB PO SCH (09:25)
[2021-10-25] MEDS: FINASTERIDE 5 MG TAB PO SCH (09:25)
[2021-10-25] MEDS: MAGNESIUM OXIDE 400 MG TAB PO SCH (09:25)
[2021-10-25] MEDS: METOPROLOL SUCC 50MG EXT REL TAB PO SCH (09:25)
[2021-10-25] MEDS: PANTOprazole 40 MG TAB PO SCH ×2 (09:25→20:17)
[2021-10-25] MEDS: SPIRONOLACTONE 25 MG TAB PO SCH (09:25)
[2021-10-25] MEDS: ISOSORBIDE MONO EXTENDED REL 60 MG TABCR PO SCH (09:25)
[2021-10-25] MEDS: predniSONE 10 MG TABLET PO SCH (09:26)
[2021-10-25] MEDS: FLUTICASONE/VILANTEROL 100/25MCG 14 PUFFS/INHALER INH SCH (09:26)
--- NOTE | 2021-10-25 13:00 | Hospitalist Progress Note ---
Date of Service October 25, 2021 Assessment & Plan (1) Volume overload: Plan: likely multifactorial in setting of anemia, low protein, and low albumin levels. Doppler of LE showed no DVT BNP normal No evidence of acute CHF in chest x-ray Received Lasix IV in the ER Cardiology consulted -appreciate input and recommendation Echo showed-normal LV side, moderate concentric LVH, very small focal apical infarct involving the apical septum with akinesis of the segment and minimal expansion, no mural thrombus is identified, EF 55 to 60%, aortic valve sclerosis moderate without significant stenosis, mild mitral annular calcification, there is no visualized valve abnormalities or vegetation No shortness of breath at rest and no palpitation and no chest pain No evidence of fluid overload on exam Continue spironolactone and torsemide Remains stable without any evidence of fluid overload Confusion Possible related to hospital setting and dementia CT head showed no significant change compared to the prior study. No acute intracranial abnormality. Stable Dark stools/ ?Melena +FOBT Known to have black stool ASA and eliquis on hold due to GI bleed S/P EGD showed normal esophagus stomach and duodenum. Resumed Eliquis Continue PPI PO BID Hgb stable at 12 S/P Fall Right wrist tenderness xray of right arm, wrist and chest are negative for fracture Fall precaution (2) Bacteremia: Plan: Mostly due to contamination Blood cx grew gram positive cocci in clusters Repeat blood cultures are negative ID was consulted- IV vanco discontinued stable (3) Multiple skin tears: Plan: Multiple skin tears noted to have bilateral upper extremities, no signs of infection Wound care nurse on board No evidence of her lower extremity wounds Skin tears are getting better without any drainage from the wound (4) Falls: Plan: Continue PT/OT Waiting for SNF placement (5) Apical mural thrombus: Plan: No evidence of any more apical thrombus in current echo Anticoagulated with Eliquis If bleeding persist, will discuss with cardiology about to consider discontinue eliquis Hgb stable Continue Eliquis (6) CAD (coronary artery disease): Plan: Appears stable Continue statin, beta-sarah, nitrate (7) Osteoarthritis: Plan: Steroid-dependent, continue prednisone (8) CKD (chronic kidney disease), stage III: Plan: Baseline creatinine low 1s Creatinine 1.2 Monitor renal functions with aggressive diuresis (9) BPH with obstruction/lower urinary tract symptoms: Plan: Continue finasteride (10) DVT prophylaxis: Plan: On Eliquis Disposition Need to be quarantine for a total 10 days for the facility to take him Admission and Anticipated Discharge Date Admission Date: October 11, 2021 Subjective Patient was seen and examined for follow-up of edema, dark stools, and now positive for COVID 19 Lying in bed in no acute distress Denies any chest pain, palpitation, shortness of breath, abdominal pain, nausea vomiting He is breathing comfortably on room air Review of Systems Review of Systems: All systems reviewed & are unremarkable except as noted in Subjective Physical Exam Physical Exam: General- No acute distress Head- atraumatic Eyes- PERRL, EOMI, ENT- oropharynx clear Neck- supple, no JVD Lungs- clear to auscultation Heart- regular rhythm; +systolic murmur Abdomen- normal bowel sounds, soft, nontender Extremities- no calf tenderness, right wrist tenderness Neuro- alert, oriented x 3; PERRL, EOMI; no facial palsy; no dysarthria Skin- warm & dry, ecchymoses Results & Data Results & Data ([facility]) Vital Signs (Past 12 Hours) Vital Signs Temp Pulse Resp BP Pulse Ox 10/25/21 06:43 36.8 C 86 20 142/76 H 94 Medications Administered Current Inpatient Medications Acetaminophen (Acetaminophen 325 Mg Tab) 650 mg PO Q4H PRN PRN Reason: Pain or Fever Stop: 11/09/21 18:27 Last Admin: 10/24/21 21:51 Dose: 650 mg Documented by: Apixaban (Apixaban 2.5 Mg Tab) 2.5 mg PO BID [facility] Stop: 11/09/21 20:59 Last Admin: 10/25/21 09:25 Dose: 2.5 mg Documented by: Aspirin (Aspirin 81 Mg Ectab) 81 mg PO QAM [facility] Stop: 11/10/21 08:59 Last Admin: 10/14/21 08:04 Dose: 81 mg Documented by: Atorvastatin Calcium (Atorvastatin 40 Mg Tab) 80 mg PO HS [facility] Stop: 11/09/21 20:59 Last Admin: 10/24/21 20:36 Dose: 80 mg Documented by: Cyanocobalamin (Cyanocobalamin (B-12) 500 Mcg Tablet) 1,000 mcg PO DAILY [facility] Stop: 11/10/21 08:59 Last Admin: 10/25/21 09:25 Dose: 1,000 mcg Documented by: Finasteride (Finasteride 5 Mg Tab) [facility]: 11/10/21 08:59 Last Admin: 10/25/21 09:25 Dose: 5 mg Documented by: Fluticasone/Vilanterol (Fluticasone/Vilanterol 100/25mcg 14 Puffs/Inhaler) 1 puffs INH DAILY [facility] Stop: 11/10/21 08:59 Last Admin: 10/25/21 09:26 Dose: 1 puffs Documented by: Isosorbide Mononitrate (Isosorbide [place] Extended Rel 60 Mg Tabcr) 120 [facility] [place] Stop: 11/10/21 08:59 Last Admin: 10/25/21 09:25 Dose: 120 mg Documented by: Magnesium Oxide (Magnesium Oxide 400 Mg Tab) 400 [facility] [place] Stop: 11/10/21 08:59 Last Admin: 10/25/21 09:25 Dose: 400 mg Documented by: Metoprolol Succinate (Metoprolol Succ 50mg Ext Rel Tab) 50 mg PO [facility] Stop: 11/10/21 01:59 Last Admin: 10/25/21 09:25 Dose: 50 mg Documented by: Pantoprazole Sodium (Pantoprazole 40 Mg Tab) 40 mg PO BID [facility] Stop: 11/13/21 20:59 Last Admin: 10/25/21 09:25 Dose: 40 mg Documented by: Prednisone (Prednisone 10 Mg Tablet) 10 mg PO [facility] Stop: 11/10/21 08:59 Last Admin: 10/25/21 09:26 Dose: 10 mg Documented by: Spironolactone (Spironolactone 25 Mg Tab) 25 [facility] [place] Stop: 11/13/21 08:59 Last Admin: 10/25/21 09:25 Dose: 25 mg Documented by: Torsemide (Torsemide 10 Mg Tab) 20 [facility] [place] Stop: 11/13/21 08:59 Last Admin: 10/25/21 09:25 Dose: 20 mg Documented by: Vitamin D (Cholecalciferol 1,000 Units 25 Mcg Tab) 1,000 units PO QPM [facility] Stop: 11/09/21 20:59 Last Admin: 10/24/21 20:35 Dose: 1,000 units Documented by:
[2021-10-25] MEDS: CHOLECALCIFEROL 1,000 UNITS 25 MCG TAB PO SCH (20:17)
[2021-10-25] MEDS: ATORVASTATIN 40 MG TAB PO SCH (20:18)
[2021-10-26 08:51] LABS: Hematocrit (blood only) 37.4 % (42-52); Mean Corpuscular Hemoglobin 30.7 pg (25-34); Mean Corpuscular Hgb Conc 32.1 g/dL (32-36); Mean Corpuscular Volume 95.7 fL (80-100); Mean Platelet Volume 9.5 fL (7.4-10.4); Platelet Count 274 K/uL (130-400); RDW Coefficient of Variation 14.1 % (11.5-14.5); RDW Standard Deviation 49.2 fL (36.4-46.3); Red Blood Count 3.91 M/uL (4.7-6.1); White Blood Count 8.72 K/uL (4.8-10.8)
[2021-10-26 09:12] LABS: BUN Creatinine Ratio 30.9 (10-20); Calcium 9.5 mg/dl (8.5-10.1); Creatinine Clr Calc Pharmacy 50.1 ml/min; Est GFR (African American) 55.8 ml/min; Est GFR (Non-African American) 48.1 ml/min; Magnesium 2.4 mg/dl (1.7-2.4); Phosphorus 3.3 mg/dl (2.5-4.9)
[2021-10-26] MEDS: FLUTICASONE/VILANTEROL 100/25MCG 14 PUFFS/INHALER INH SCH (09:23)
[2021-10-26] MEDS: FINASTERIDE 5 MG TAB PO SCH (09:24)
[2021-10-26] MEDS: ISOSORBIDE MONO EXTENDED REL 60 MG TABCR PO SCH (09:24)
[2021-10-26] MEDS: APIXABAN 2.5 MG TAB PO SCH ×2 (09:24→20:06)
[2021-10-26] MEDS: CYANOCOBALAMIN (B-12) 500 MCG TABLET PO SCH (09:24)
[2021-10-26] MEDS: METOPROLOL SUCC 50MG EXT REL TAB PO SCH (09:25)
[2021-10-26] MEDS: PANTOprazole 40 MG TAB PO SCH ×2 (09:25→20:05)
[2021-10-26] MEDS: predniSONE 10 MG TABLET PO SCH (09:25)
[2021-10-26] MEDS: TORSEMIDE 10 MG TAB PO SCH (09:25)
[2021-10-26] MEDS: SPIRONOLACTONE 25 MG TAB PO SCH (09:25)
[2021-10-26] MEDS: MAGNESIUM OXIDE 400 MG TAB PO SCH (09:25)
--- NOTE | 2021-10-26 14:51 | Hospitalist Progress Note ---
Date of Service October 26, 2021 Assessment & Plan (1) Volume overload: Plan: likely multifactorial in setting of anemia, low protein, and low albumin levels. Doppler of LE showed no DVT BNP normal No evidence of acute CHF in chest x-ray Received Lasix IV in the ER Cardiology consulted -appreciate input and recommendation Echo showed-normal LV side, moderate concentric LVH, very small focal apical infarct involving the apical septum with akinesis of the segment and minimal expansion, no mural thrombus is identified, EF 55 to 60%, aortic valve sclerosis moderate without significant stenosis, mild mitral annular calcification, there is no visualized valve abnormalities or vegetation No shortness of breath at rest and no palpitation and no chest pain No evidence of fluid overload on exam Continue spironolactone and torsemide Remains stable without any evidence of fluid overload Confusion Possibly related to hospital setting and dementia CT head showed no significant change compared to the prior study. No acute intracranial abnormality. Stable Dark stools/ ?Melena +FOBT Known to have black stool ASA and eliquis were on hold due to GI bleed S/P EGD showed normal esophagus stomach and duodenum. Resumed Eliquis , will also resume ASA Continue PPI PO BID Hgb stable at 12 10/26 per RN, patient has been having brown stools S/P Fall Right wrist tenderness xray of right arm, wrist and chest are negative for fracture Fall precaution (2) Bacteremia: Plan: Mostly due to contamination Blood cx grew gram positive cocci in clusters Repeat blood cultures are negative ID was consulted- IV vanco discontinued stable + COVID Incidental finding, positive test on planned discharge Patient is asymptomatic, breathing comfortably on room air, saturating 97% Continue isolation, and continue to closely monitor (3) Multiple skin tears: Plan: Multiple skin tears noted to have bilateral upper extremities, no signs of infection Wound care nurse on board No evidence of her lower extremity wounds Skin tears are getting better without any drainage from the wound (4) Falls: Plan: Continue PT/OT Waiting for SNF placement (5) Apical mural thrombus: Plan: No evidence of any more apical thrombus in current echo Anticoagulated with Eliquis If bleeding persist, will discuss with cardiology about to consider discontinue eliquis Hgb stable Continue Eliquis (6) CAD (coronary artery disease): Plan: Appears stable Continue statin, beta-sarah, nitrate (7) Osteoarthritis: Plan: Steroid-dependent, continue prednisone (8) CKD (chronic kidney disease), stage III: Plan: Baseline creatinine low 1s Creatinine 1.2 Monitor renal functions with aggressive diuresis (9) BPH with obstruction/lower urinary tract symptoms: Plan: Continue finasteride (10) DVT prophylaxis: Plan: On Eliquis Disposition Need to be quarantine for a total 10 days for the facility to take him Admission and Anticipated Discharge Date Admission Date: October 11, 2021 Subjective Patient was seen and examined for follow-up of edema, dark stools, and now positive for COVID 19 Lying in bed in no acute distress Denies any chest pain, palpitation, shortness of breath, abdominal pain, nausea vomiting He is breathing comfortably on room air RN is present in the room, says that occasionally patient gets confused Currently patient is aware that he is in the hospital, remembers talking to me yesterday Per RN, patient has been having brown stools She also reports poor appetite, however patient does like boost drinks Review of Systems Review of Systems: All systems reviewed & are unremarkable except as noted in Subjective Physical Exam Physical Exam: General- No acute distress Head- atraumatic Eyes- PERRL, EOMI, ENT- oropharynx clear Neck- supple, no JVD Lungs- clear to auscultation, no wheezing Heart- regular rhythm; +systolic murmur Abdomen- normal bowel sounds, soft, nontender Extremities- no calf tenderness, right wrist tenderness Neuro- alert, oriented x 3; PERRL, EOMI; no facial palsy; no dysarthria Skin- warm & dry, ecchymoses Results & Data Results & Data ([facility]) Vital Signs (Past 12 Hours) Vital Signs Temp Pulse Resp BP Pulse Ox 10/26/21 09:20 36.4 C L 83 18 116/66 97 Laboratory Results 10/26/21 10/26/21 Range/Units 08:36 08:36 WBC 8.72 (4.8-10.8) K/uL RBC 3.91 L (4.7-6.1) M/uL Hgb 12.0 L (14.0-18.0) g/dL Hct 37.4 L (42-52) % MCV 95.7 (80-100) fL MCH 30.7 (25-34) pg MCHC 32.1 (32-36) g/dL RDW Std Deviation 49.2 H (36.4-46.3) fL RDW Coeff of Lester 14.1 (11.5-14.5) % Plt Count 274 (130-400) K/uL MPV 9.5 (7.4-10.4) fL Sodium 139 (136-145) mmol/L Potassium 4.0 (3.5-5.1) mmol/L Chloride 104 (98-107) mmol/L Carbon Dioxide 28 (21-32) mmol/L Anion Gap 7 (3-11) BUN 42 H (6-23) mg/dl Creatinine 1.36 (0.6-1.4) mg/dl Est Cr Clr Drug Dosing 50.1 ml/min Est GFR ( Amer) 55.8 ml/min Est GFR (Non-Af Amer) 48.1 ml/min BUN/Creatinine Ratio 30.9 H (10-20) Glucose 107 H (70-99(Fasting)) mg/dl Calcium 9.5 (8.5-10.1) mg/dl Phosphorus 3.3 (2.5-4.9) mg/dl Magnesium 2.4 (1.7-2.4) mg/dl Medications Administered Current Inpatient Medications Acetaminophen (Acetaminophen 325 Mg Tab) 650 mg PO Q4H PRN PRN Reason: Pain or Fever Stop: 11/09/21 18:27 Last Admin: 10/24/21 21:51 Dose: 650 mg Documented by: Apixaban (Apixaban 2.5 Mg Tab) 2.5 mg PO BID [facility] Stop: 11/09/21 20:59 Last Admin: 10/26/21 09:24 Dose: 2.5 mg Documented by: Aspirin (Aspirin 81 Mg Ectab) 81 mg PO QA [facility] Stop: 11/10/21 08:59 Last Admin: 10/14/21 08:04 Dose: 81 mg Documented by: Atorvastatin Calcium (Atorvastatin 40 Mg Tab) 80 mg PO HS [facility] Stop: 11/09/21 20:59 Last Admin: 10/25/21 20:18 Dose: 80 mg Documented by: Cyanocobalamin (Cyanocobalamin (B-12) 500 Mcg Tablet) 1,000 mcg PO DAILY [facility] Stop: 11/10/21 08:59 Last Admin: 10/26/21 09:24 Dose: 1,000 mcg Documented by: Finasteride (Finasteride 5 Mg Tab) [facility] [place]: 11/10/21 08:59 Last Admin: 10/26/21 09:24 Dose: 5 mg Documented by: Fluticasone/Vilanterol (Fluticasone/Vilanterol 100/25mcg 14 Puffs/Inhaler) 1 puffs INH DAILY [facility] Stop: 11/10/21 08:59 Last Admin: 10/26/21 09:23 Dose: 1 puffs Documented by: Isosorbide Mononitrate (Isosorbide [place] Extended Rel 60 Mg Tabcr) [address] [facility] Stop: 11/10/21 08:59 Last Admin: 10/26/21 09:24 Dose: 120 mg Documented by: Magnesium Oxide (Magnesium Oxide 400 Mg Tab) [address] [facility] Stop: 11/10/21 08:59 Last Admin: 10/26/21 09:25 Dose: 400 mg Documented by: Metoprolol Succinate (Metoprolol Succ 50mg Ext Rel Tab) [address] [facility] Stop: 11/10/21 01:59 Last Admin: 10/26/21 09:25 Dose: 50 mg Documented by: Pantoprazole Sodium (Pantoprazole 40 Mg Tab) 40 mg PO BID [facility] Stop: 11/13/21 20:59 Last Admin: 10/26/21 09:25 Dose: 40 mg Documented by: Prednisone (Prednisone 10 Mg Tablet) [address] [facility] Stop: 11/10/21 08:59 Last Admin: 10/26/21 09:25 Dose: 10 mg Documented by: Spironolactone (Spironolactone 25 Mg Tab) [address] [facility] Stop: 11/13/21 08:59 Last Admin: 10/26/21 09:25 Dose: 25 mg Documented by: Torsemide (Torsemide 10 Mg Tab) [address] [facility] Stop: 11/13/21 08:59 Last Admin: 10/26/21 09:25 Dose: 20 mg Documented by: Vitamin D (Cholecalciferol 1,000 Units 25 Mcg Tab) 1,000 units PO QPM [facility] Stop: 11/09/21 20:59 Last Admin: 10/25/21 20:17 Dose: 1,000 units Documented by:
[2021-10-26] MEDS: ATORVASTATIN 40 MG TAB PO SCH (20:04)
[2021-10-26] MEDS: CHOLECALCIFEROL 1,000 UNITS 25 MCG TAB PO SCH (20:05)
[2021-10-27] MEDS: ISOSORBIDE MONO EXTENDED REL 60 MG TABCR PO SCH (08:42)
[2021-10-27] MEDS: PANTOprazole 40 MG TAB PO SCH ×2 (08:42→20:40)
[2021-10-27] MEDS: METOPROLOL SUCC 50MG EXT REL TAB PO SCH (08:42)
[2021-10-27] MEDS: TORSEMIDE 10 MG TAB PO SCH (08:42)
[2021-10-27] MEDS: MAGNESIUM OXIDE 400 MG TAB PO SCH (08:42)
[2021-10-27] MEDS: predniSONE 10 MG TABLET PO SCH (08:42)
[2021-10-27] MEDS: SPIRONOLACTONE 25 MG TAB PO SCH (08:42)
[2021-10-27] MEDS: FINASTERIDE 5 MG TAB PO SCH (08:42)
[2021-10-27] MEDS: CYANOCOBALAMIN (B-12) 500 MCG TABLET PO SCH (08:42)
[2021-10-27] MEDS: APIXABAN 2.5 MG TAB PO SCH ×2 (08:42→20:40)
[2021-10-27 09:42] LABS: Hematocrit (blood only) 37.3 % (42-52); Hemoglobin 12.1 g/dL (14.0-18.0)
[2021-10-27] MEDS: ASPIRIN 81 MG ECTAB PO SCH (09:49)
[2021-10-27] MEDS: FLUTICASONE/VILANTEROL 100/25MCG 14 PUFFS/INHALER INH SCH (09:50)
--- NOTE | 2021-10-27 15:22 | Hospitalist Progress Note ---
Date of Service October 27, 2021 Assessment & Plan (1) Volume overload: Plan: likely multifactorial in setting of anemia, low protein, and low albumin levels. Doppler of LE showed no DVT BNP normal No evidence of acute CHF in chest x-ray Received Lasix IV in the ER Cardiology consulted -appreciate input and recommendation Echo showed-normal LV side, moderate concentric LVH, very small focal apical infarct involving the apical septum with akinesis of the segment and minimal expansion, no mural thrombus is identified, EF 55 to 60%, aortic valve sclerosis moderate without significant stenosis, mild mitral annular calcification, there is no visualized valve abnormalities or vegetation No shortness of breath at rest and no palpitation and no chest pain No evidence of fluid overload on exam Continue spironolactone and torsemide Remains stable without any evidence of fluid overload Confusion Possibly related to hospital setting and dementia CT head showed no significant change compared to the prior study. No acute intracranial abnormality. Stable Dark stools/ ?Melena +FOBT Known to have black stool ASA and eliquis were on hold due to GI bleed S/P EGD showed normal esophagus stomach and duodenum. Resumed Eliquis , also resumed ASA Continue PPI PO BID Hgb stable at 12 10/26 per RN, patient has been having brown stools S/P Fall Right wrist tenderness xray of right arm, wrist and chest are negative for fracture Fall precaution (2) Bacteremia: Plan: Mostly due to contamination Blood cx grew gram positive cocci in clusters Repeat blood cultures are negative ID was consulted- IV vanco discontinued stable + COVID Incidental finding, positive test on planned discharge Patient is asymptomatic, breathing comfortably on room air, saturating 94% Continue isolation, and continue to closely monitor (3) Multiple skin tears: Plan: Multiple skin tears noted to have bilateral upper extremities, no signs of infection Wound care nurse on board No evidence of her lower extremity wounds Skin tears are getting better without any drainage from the wound (4) Falls: Plan: Continue PT/OT Waiting for SNF placement (5) Apical mural thrombus: Plan: No evidence of any more apical thrombus in current echo Anticoagulated with Eliquis If bleeding persist, will discuss with cardiology about to consider discontinue eliquis Hgb stable Continue Eliquis (6) CAD (coronary artery disease): Plan: Appears stable Continue statin, beta-sarah, nitrate (7) Osteoarthritis: Plan: Steroid-dependent, continue prednisone (8) CKD (chronic kidney disease), stage III: Plan: Baseline creatinine low 1s Creatinine 1.2 Monitor renal functions with aggressive diuresis (9) BPH with obstruction/lower urinary tract symptoms: Plan: Continue finasteride (10) DVT prophylaxis: Plan: On Eliquis Disposition Need to be quarantine for a total 10 days for the facility to take him (until 10/28) Admission and Anticipated Discharge Date Admission Date: October 11, 2021 Subjective Patient was seen and examined for follow-up of edema, dark stools, and now positive for COVID 19 Lying in bed in no acute distress Denies any chest pain, palpitation, shortness of breath, abdominal pain, nausea vomiting He is breathing comfortably on room air Currently patient is aware that he is in the hospital, remembers talking to me Per RN, patient has been having brown stools She also reports poor appetite, however patient does like boost drinks Review of Systems Review of Systems: All systems reviewed & are unremarkable except as noted in Subjective Physical Exam Physical Exam: General- No acute distress Head- atraumatic Eyes- PERRL, EOMI, ENT- oropharynx clear Neck- supple, no JVD Lungs- clear to auscultation, no wheezing Heart- regular rhythm; +systolic murmur Abdomen- normal bowel sounds, soft, nontender Extremities- no calf tenderness, right wrist tenderness Neuro- alert, oriented x 3; PERRL, EOMI; no facial palsy; no dysarthria Skin- warm & dry, ecchymoses Results & Data Results & Data ([facility]) Vital Signs (Past 12 Hours) Vital Signs Temp Pulse Resp BP Pulse Ox 10/27/21 08:35 36.6 C 72 14 107/63 94 Laboratory Results 10/27/21 Range/Units 09:30 Hgb 12.1 L (14.0-18.0) g/dL Hct 37.3 L (42-52) % Medications Administered Current Inpatient Medications Acetaminophen (Acetaminophen 325 Mg Tab) 650 mg PO Q4H PRN PRN Reason: Pain or Fever Stop: 11/09/21 18:27 Last Admin: 10/24/21 21:51 Dose: 650 mg Documented by: Apixaban (Apixaban 2.5 Mg Tab) 2.5 mg PO BID [facility] Stop: 11/09/21 20:59 Last Admin: 10/27/21 08:42 Dose: 2.5 mg Documented by: Aspirin (Aspirin 81 Mg Ectab) 81 mg PO QAM [facility] Stop: 11/10/21 08:59 Last Admin: 10/27/21 09:49 Dose: 81 mg Documented by: Atorvastatin Calcium (Atorvastatin 40 Mg Tab) 80 mg PO HS [facility] Stop: 11/09/21 20:59 Last Admin: 10/26/21 20:04 Dose: 80 mg Documented by: Cyanocobalamin (Cyanocobalamin (B-12) 500 Mcg Tablet) 1,000 mcg PO DAILY [facility] Stop: 11/10/21 08:59 Last Admin: 10/27/21 08:42 Dose: 1,000 mcg Documented by: Finasteride ([facility] 5 Mg Tab) [facility] [place]: 11/10/21 08:59 Last Admin: 10/27/21 08:42 Dose: 5 mg Documented by: Fluticasone/Vilanterol (Fluticasone/Vilanterol 100/25mcg 14 Puffs/Inhaler) 1 puffs INH DAILY [facility] Stop: 11/10/21 08:59 Last Admin: 10/27/21 09:50 Dose: 1 puffs Documented by: Isosorbide Mononitrate (Isosorbide [place] Extended Rel 60 Mg Tabcr) 120 mg PO [facility] Stop: 11/10/21 08:59 Last Admin: 10/27/21 08:42 Dose: 120 mg Documented by: Magnesium Oxide (Magnesium Oxide 400 Mg Tab) [facility] [place]: 11/10/21 08:59 Last Admin: 10/27/21 08:42 Dose: 400 mg Documented by: Metoprolol Succinate (Metoprolol Succ 50mg Ext Rel Tab) 50 mg PO [facility] Stop: 11/10/21 01:59 Last Admin: 10/27/21 08:42 Dose: 50 mg Documented by: Pantoprazole Sodium (Pantoprazole 40 Mg Tab) 40 mg PO BID [facility] Stop: 11/13/21 20:59 Last Admin: 10/27/21 08:42 Dose: 40 mg Documented by: Prednisone (Prednisone 10 Mg Tablet) [facility] [place]: 11/10/21 08:59 Last Admin: 10/27/21 08:42 Dose: 10 mg Documented by: Spironolactone (Spironolactone 25 Mg Tab) 25 mg PO QAM [facility] Stop: 11/13/21 08:59 Last Admin: 10/27/21 08:42 Dose: 25 mg Documented by: Torsemide (Torsemide 10 Mg Tab) 20 mg PO QAM [facility] Stop: 11/13/21 08:59 Last Admin: 10/27/21 08:42 Dose: 20 mg Documented by: Vitamin D (Cholecalciferol 1,000 Units 25 Mcg Tab) 1,000 units PO QPM [facility] Stop: 11/09/21 20:59 Last Admin: 10/26/21 20:05 Dose: 1,000 units Documented by:
[2021-10-27] MEDS: ATORVASTATIN 40 MG TAB PO SCH (20:39)
[2021-10-27] MEDS: CHOLECALCIFEROL 1,000 UNITS 25 MCG TAB PO SCH (20:40)
[2021-10-28 08:21] LABS: Hematocrit (blood only) 36.8 % (42-52); Hemoglobin 12.2 g/dL (14.0-18.0)
--- NOTE | 2021-10-28 09:37 | Hospitalist Progress Note ---
Date of Service October 28, 2021 Assessment & Plan (1) Volume overload: Plan: likely multifactorial in setting of anemia, low protein, and low albumin levels. Doppler of LE showed no DVT BNP normal No evidence of acute CHF in chest x-ray Received Lasix IV in the ER Cardiology consulted -appreciate input and recommendation Echo showed-normal LV side, moderate concentric LVH, very small focal apical infarct involving the apical septum with akinesis of the segment and minimal expansion, no mural thrombus is identified, EF 55 to 60%, aortic valve sclerosis moderate without significant stenosis, mild mitral annular calcification, there is no visualized valve abnormalities or vegetation No shortness of breath at rest and no palpitation and no chest pain No evidence of fluid overload on exam Continue spironolactone and torsemide Remains stable without any evidence of fluid overload Confusion Possibly related to hospital setting and dementia CT head showed no significant change compared to the prior study. No acute intracranial abnormality. Stable Dark stools/ ?Melena +FOBT Known to have black stool ASA and eliquis were on hold due to GI bleed S/P EGD showed normal esophagus stomach and duodenum. Resumed Eliquis , also resumed ASA Continue PPI PO BID Hgb stable at 12 10/26 per RN, patient has been having brown stools S/P Fall Right wrist tenderness xray of right arm, wrist and chest are negative for fracture Fall precaution (2) Bacteremia: Plan: Mostly due to contamination Blood cx grew gram positive cocci in clusters Repeat blood cultures are negative ID was consulted- IV vanco discontinued stable + COVID Incidental finding, positive test on planned discharge Patient is asymptomatic, breathing comfortably on room air, saturating 94% Continue isolation, and continue to closely monitor (3) Multiple skin tears: Plan: Multiple skin tears noted to have bilateral upper extremities, no signs of infection Wound care nurse on board No evidence of her lower extremity wounds Skin tears are getting better without any drainage from the wound (4) Falls: Plan: Continue PT/OT Waiting for SNF placement (5) Apical mural thrombus: Plan: No evidence of any more apical thrombus in current echo Anticoagulated with Eliquis If bleeding persist, will discuss with cardiology about to consider discontinue eliquis Hgb stable Continue Eliquis (6) CAD (coronary artery disease): Plan: Appears stable Continue statin, beta-sarah, nitrate (7) Osteoarthritis: Plan: Steroid-dependent, continue prednisone (8) CKD (chronic kidney disease), stage III: Plan: Baseline creatinine low 1s Creatinine 1.2 Monitor renal functions with aggressive diuresis (9) BPH with obstruction/lower urinary tract symptoms: Plan: Continue finasteride (10) DVT prophylaxis: Plan: On Eliquis Disposition Need to be quarantine for a total 10 days for the facility to take him (until 10/28) Admission and Anticipated Discharge Date Admission Date: October 11, 2021 Subjective Patient was seen and examined for follow-up of edema, dark stools, and now positive for COVID 19 Lying in bed in no acute distress Denies any chest pain, palpitation, shortness of breath, abdominal pain, nausea vomiting He is breathing comfortably on room air Currently patient is aware that he is in the hospital, remembers talking to me Per RN, patient has been having brown stools She also reports poor appetite, however patient does like boost drinks Review of Systems Review of Systems: All systems reviewed & are unremarkable except as noted in Subjective Physical Exam Physical Exam: General- No acute distress Head- atraumatic Eyes- PERRL, EOMI, ENT- oropharynx clear Neck- supple, no JVD Lungs- clear to auscultation, no wheezing Heart- regular rhythm; +systolic murmur Abdomen- normal bowel sounds, soft, nontender Extremities- no calf tenderness, right wrist tenderness Neuro- alert, oriented x 3; PERRL, EOMI; no facial palsy; no dysarthria Skin- warm & dry, ecchymoses Results & Data Results & Data ([facility]) Vital Signs (Past 12 Hours) Vital Signs Temp Pulse Resp BP Pulse Ox 10/28/21 08:18 36.8 C 79 16 102/61 96 10/27/21 22:18 36.6 C 57 L 20 121/69 96 Laboratory Results 10/28/21 10/27/21 Range/Units 07:24 09:30 Hgb 12.2 L 12.1 L (14.0-18.0) g/dL Hct 36.8 L 37.3 L (42-52) % Medications Administered Current Inpatient Medications Acetaminophen (Acetaminophen 325 Mg Tab) 650 mg PO Q4H PRN PRN Reason: Pain or Fever Stop: 11/09/21 18:27 Last Admin: 10/24/21 21:51 Dose: 650 mg Documented by: Apixaban (Apixaban 2.5 Mg Tab) 2.5 mg PO BID [facility] Stop: 11/09/21 20:59 Last Admin: 10/27/21 20:40 Dose: 2.5 mg Documented by: Aspirin (Aspirin 81 Mg Ectab) 81 mg PO QAM [facility] Stop: 11/10/21 08:59 Last Admin: 10/27/21 09:49 Dose: 81 mg Documented by: Atorvastatin Calcium (Atorvastatin 40 Mg Tab) 80 mg PO HS [facility] Stop: 11/09/21 20:59 Last Admin: 10/27/21 20:39 Dose: 80 mg Documented by: Cyanocobalamin (Cyanocobalamin (B-12) 500 Mcg Tablet) 1,000 mcg PO DAILY [facility] Stop: 11/10/21 08:59 Last Admin: 10/27/21 08:42 Dose: 1,000 mcg Documented by: Finasteride (Finasteride 5 Mg Tab) 5 mg PO QAM [facility] Stop: 11/10/21 08:59 Last Admin: 10/27/21 08:42 Dose: 5 mg Documented by: Fluticasone/Vilanterol (Fluticasone/Vilanterol 100/25mcg 14 Puffs/Inhaler) 1 puffs INH DAILY [facility] Stop: 11/10/21 08:59 Last Admin: 10/27/21 09:50 Dose: 1 puffs Documented by: Isosorbide Mononitrate (Isosorbide [place] Extended Rel 60 Mg Tabcr) [facility] [place]: 11/10/21 08:59 Last Admin: 10/27/21 08:42 Dose: 120 mg Documented by: Magnesium Oxide (Magnesium Oxide 400 Mg Tab) 400 mg PO QAM [facility] Stop: 11/10/21 08:59 Last Admin: 10/27/21 08:42 Dose: 400 mg Documented by: Metoprolol Succinate (Metoprolol Succ 50mg Ext Rel Tab) 50 mg PO QAM [facility] Stop: 11/10/21 01:59 Last Admin: 10/27/21 08:42 Dose: 50 mg Documented by: Pantoprazole Sodium (Pantoprazole 40 Mg Tab) 40 mg PO BID [facility] Stop: 11/13/21 20:59 Last Admin: 10/27/21 20:40 Dose: 40 mg Documented by: Prednisone (Prednisone 10 Mg Tablet) 10 mg PO QAM [facility] Stop: 11/10/21 08:59 Last Admin: 10/27/21 08:42 Dose: 10 mg Documented by: Spironolactone (Spironolactone 25 Mg Tab) 25 mg PO QAM [facility] Stop: 11/13/21 08:59 Last Admin: 10/27/21 08:42 Dose: 25 mg Documented by: Torsemide (Torsemide 10 Mg Tab) 20 mg PO QAM [facility] Stop: 11/13/21 08:59 Last Admin: 10/27/21 08:42 Dose: 20 mg Documented by: Vitamin D (Cholecalciferol 1,000 Units 25 Mcg Tab) 1,000 units PO QPM [facility] Stop: 11/09/21 20:59 Last Admin: 10/27/21 20:40 Dose: 1,000 units Documented by:
[2021-10-28] MEDS: APIXABAN 2.5 MG TAB PO SCH ×2 (10:35→21:24)
[2021-10-28] MEDS: ASPIRIN 81 MG ECTAB PO SCH (10:35)
[2021-10-28] MEDS: FINASTERIDE 5 MG TAB PO SCH (10:36)
[2021-10-28] MEDS: CYANOCOBALAMIN (B-12) 500 MCG TABLET PO SCH (10:36)
[2021-10-28] MEDS: FLUTICASONE/VILANTEROL 100/25MCG 14 PUFFS/INHALER INH SCH (10:37)
[2021-10-28] MEDS: ISOSORBIDE MONO EXTENDED REL 60 MG TABCR PO SCH (10:37)
[2021-10-28] MEDS: predniSONE 10 MG TABLET PO SCH (10:38)
[2021-10-28] MEDS: PANTOprazole 40 MG TAB PO SCH ×2 (10:38→20:41)
[2021-10-28] MEDS: METOPROLOL SUCC 50MG EXT REL TAB PO SCH (10:38)
[2021-10-28] MEDS: MAGNESIUM OXIDE 400 MG TAB PO SCH (10:38)
[2021-10-28] MEDS: SPIRONOLACTONE 25 MG TAB PO SCH (10:39)
[2021-10-28] MEDS: TORSEMIDE 10 MG TAB PO SCH (10:39)
[2021-10-28] MEDS: ATORVASTATIN 40 MG TAB PO SCH (20:39)
[2021-10-28] MEDS: CHOLECALCIFEROL 1,000 UNITS 25 MCG TAB PO SCH (20:39)
[2021-10-29 07:19] LABS: Hematocrit (blood only) 35.5 % (42-52); Hemoglobin 12.1 g/dL (14.0-18.0)
[2021-10-29] MEDS: APIXABAN 2.5 MG TAB PO SCH ×2 (08:25→22:23)
[2021-10-29] MEDS: ASPIRIN 81 MG ECTAB PO SCH (08:26)
[2021-10-29] MEDS: CYANOCOBALAMIN (B-12) 500 MCG TABLET PO SCH (08:26)
[2021-10-29] MEDS: FINASTERIDE 5 MG TAB PO SCH (08:27)
[2021-10-29] MEDS: ISOSORBIDE MONO EXTENDED REL 60 MG TABCR PO SCH (08:28)
[2021-10-29] MEDS: FLUTICASONE/VILANTEROL 100/25MCG 14 PUFFS/INHALER INH SCH (08:28)
[2021-10-29] MEDS: MAGNESIUM OXIDE 400 MG TAB PO SCH (08:29)
[2021-10-29] MEDS: PANTOprazole 40 MG TAB PO SCH ×2 (08:30→22:23)
[2021-10-29] MEDS: METOPROLOL SUCC 50MG EXT REL TAB PO SCH (08:30)
[2021-10-29] MEDS: TORSEMIDE 10 MG TAB PO SCH (08:31)
[2021-10-29] MEDS: SPIRONOLACTONE 25 MG TAB PO SCH (08:31)
[2021-10-29] MEDS: predniSONE 10 MG TABLET PO SCH (08:31)
--- NOTE | 2021-10-29 16:41 | Hospitalist Progress Note ---
Date of Service October 29, 2021 Assessment & Plan (1) Volume overload: Plan: likely multifactorial in setting of anemia, low protein, and low albumin levels. Doppler of LE showed no DVT BNP normal No evidence of acute CHF in chest x-ray Received Lasix IV in the ER Cardiology consulted -appreciate input and recommendation Echo showed-normal LV side, moderate concentric LVH, very small focal apical infarct involving the apical septum with akinesis of the segment and minimal expansion, no mural thrombus is identified, EF 55 to 60%, aortic valve sclerosis moderate without significant stenosis, mild mitral annular calcification, there is no visualized valve abnormalities or vegetation No shortness of breath at rest and no palpitation and no chest pain No evidence of fluid overload on exam Continue spironolactone and torsemide Remains stable without any evidence of fluid overload Confusion Possibly related to hospital setting and dementia CT head showed no significant change compared to the prior study. No acute intracranial abnormality. Stable Dark stools/ ?Melena +FOBT Known to have black stool ASA and eliquis were on hold due to GI bleed S/P EGD showed normal esophagus stomach and duodenum. Resumed Eliquis , also resumed ASA Continue PPI PO BID Hgb stable at 12 10/26 per RN, patient has been having brown stools S/P Fall Right wrist tenderness xray of right arm, wrist and chest are negative for fracture Fall precaution (2) Bacteremia: Plan: Mostly due to contamination Blood cx grew gram positive cocci in clusters Repeat blood cultures are negative ID was consulted- IV vanco discontinued stable + COVID Incidental finding, positive test on planned discharge Patient is asymptomatic, breathing comfortably on room air, saturating 94% Continue isolation, and continue to closely monitor (3) Multiple skin tears: Plan: Multiple skin tears noted to have bilateral upper extremities, no signs of infection Wound care nurse on board No evidence of her lower extremity wounds Skin tears are getting better without any drainage from the wound (4) Falls: Plan: Continue PT/OT Waiting for SNF placement (5) Apical mural thrombus: Plan: No evidence of any more apical thrombus in current echo Anticoagulated with Eliquis If bleeding persist, will discuss with cardiology about to consider discontinue eliquis Hgb stable Continue Eliquis (6) CAD (coronary artery disease): Plan: Appears stable Continue statin, beta-sarah, nitrate (7) Osteoarthritis: Plan: Steroid-dependent, continue prednisone (8) CKD (chronic kidney disease), stage III: Plan: Baseline creatinine low 1s Creatinine 1.2 Monitor renal functions with aggressive diuresis (9) BPH with obstruction/lower urinary tract symptoms: Plan: Continue finasteride (10) DVT prophylaxis: Plan: On Eliquis Disposition Need to be quarantine for a total 10 days for the facility to take him (until 10/28) Admission and Anticipated Discharge Date Admission Date: October 11, 2021 Subjective Patient was seen and examined for follow-up of edema, dark stools, and now positive for COVID 19 Lying in bed in no acute distress Denies any chest pain, palpitation, shortness of breath, abdominal pain, nausea vomiting He is breathing comfortably on room air Currently patient is aware that he is in the hospital, remembers talking to me Per RN, patient has been having brown stools She also reports poor appetite, however patient does like boost drinks Review of Systems Review of Systems: All systems reviewed & are unremarkable except as noted in Subjective Physical Exam Physical Exam: General- No acute distress Head- atraumatic Eyes- PERRL, EOMI, ENT- oropharynx clear Neck- supple, no JVD Lungs- clear to auscultation, no wheezing Heart- regular rhythm; +systolic murmur Abdomen- normal bowel sounds, soft, nontender Extremities- no calf tenderness, right wrist tenderness Neuro- alert, oriented x 3; PERRL, EOMI; no facial palsy; no dysarthria Skin- warm & dry, ecchymoses Results & Data Results & Data ([facility]) Vital Signs (Past 12 Hours) Vital Signs Temp Pulse Resp BP Pulse Ox 10/29/21 14:26 36.7 C 78 16 114/65 98 10/29/21 08:22 36.6 C 84 18 125/66 94 Laboratory Results 10/29/21 Range/Units 06:34 Hgb 12.1 L (14.0-18.0) g/dL Hct 35.5 L (42-52) % Medications Administered Current Inpatient Medications Acetaminophen (Acetaminophen 325 Mg Tab) 650 mg PO Q4H PRN PRN Reason: Pain or Fever Stop: 11/09/21 18:27 Last Admin: 10/24/21 21:51 Dose: 650 mg Documented by: Apixaban (Apixaban 2.5 Mg Tab) 2.5 mg PO BID [facility] Stop: 11/09/21 20:59 Last Admin: 10/29/21 08:25 Dose: 2.5 mg Documented by: Aspirin (Aspirin 81 Mg Ectab) 81 mg PO QAM [facility] Stop: 11/10/21 08:59 Last Admin: 10/29/21 08:26 Dose: 81 mg Documented by: Atorvastatin Calcium (Atorvastatin 40 Mg Tab) 80 mg PO HS [facility] Stop: 11/09/21 20:59 Last Admin: 10/28/21 20:39 Dose: 80 mg Documented by: Cyanocobalamin (Cyanocobalamin (B-12) 500 Mcg Tablet) 1,000 mcg PO DAILY [facility] Stop: 11/10/21 08:59 Last Admin: 10/29/21 08:26 Dose: 1,000 mcg Documented by: Finasteride (Finasteride 5 Mg Tab) 5 mg PO QAM [facility] Stop: 11/10/21 08:59 Last Admin: 10/29/21 08:27 Dose: 5 mg Documented by: Fluticasone/Vilanterol (Fluticasone/Vilanterol 100/25mcg 14 Puffs/Inhaler) 1 puffs INH DAILY [facility] Stop: 11/10/21 08:59 Last Admin: 10/29/21 08:28 Dose: 1 puffs Documented by: Isosorbide Mononitrate (Isosorbide [place] Extended Rel 60 Mg Tabcr) [facility] [place] Stop: 11/10/21 08:59 Last Admin: 10/29/21 08:28 Dose: 120 mg Documented by: Magnesium Oxide (Magnesium Oxide 400 Mg Tab) 400 mg PO QAM [facility] Stop: 11/10/21 08:59 Last Admin: 10/29/21 08:29 Dose: 400 mg Documented by: Metoprolol Succinate (Metoprolol Succ 50mg Ext Rel Tab) 50 mg PO QAM [facility] Stop: 11/10/21 01:59 Last Admin: 10/29/21 08:30 Dose: 50 mg Documented by: Pantoprazole Sodium (Pantoprazole 40 Mg Tab) 40 mg PO BID [facility] Stop: 11/13/21 20:59 Last Admin: 10/29/21 08:30 Dose: 40 mg Documented by: Prednisone (Prednisone 10 Mg Tablet) 10 mg PO QAM [facility] Stop: 11/10/21 08:59 Last Admin: 10/29/21 08:31 Dose: 10 mg Documented by: Spironolactone (Spironolactone 25 Mg Tab) 25 mg PO QAM [facility] Stop: 11/13/21 08:59 Last Admin: 10/29/21 08:31 Dose: 25 mg Documented by: Torsemide (Torsemide 10 Mg Tab) 20 mg PO QAM [facility] Stop: 11/13/21 08:59 Last Admin: 10/29/21 08:31 Dose: 20 mg Documented by: Vitamin D (Cholecalciferol 1,000 Units 25 Mcg Tab) 1,000 units PO QPM [facility] Stop: 11/09/21 20:59 Last Admin: 10/28/21 20:39 Dose: 1,000 units Documented by:
[2021-10-29] MEDS: ATORVASTATIN 40 MG TAB PO SCH (22:22)
[2021-10-29] MEDS: CHOLECALCIFEROL 1,000 UNITS 25 MCG TAB PO SCH (22:23)
[2021-10-30] MEDS: APIXABAN 2.5 MG TAB PO SCH ×2 (08:24→20:03)
[2021-10-30] MEDS: CYANOCOBALAMIN (B-12) 500 MCG TABLET PO SCH (08:25)
[2021-10-30] MEDS: ASPIRIN 81 MG ECTAB PO SCH (08:25)
[2021-10-30] MEDS: FINASTERIDE 5 MG TAB PO SCH (08:25)
[2021-10-30] MEDS: ISOSORBIDE MONO EXTENDED REL 60 MG TABCR PO SCH (08:26)
[2021-10-30] MEDS: FLUTICASONE/VILANTEROL 100/25MCG 14 PUFFS/INHALER INH SCH (08:26)
[2021-10-30] MEDS: MAGNESIUM OXIDE 400 MG TAB PO SCH (08:27)
[2021-10-30] MEDS: METOPROLOL SUCC 50MG EXT REL TAB PO SCH (08:27)
[2021-10-30] MEDS: predniSONE 10 MG TABLET PO SCH (08:28)
[2021-10-30] MEDS: PANTOprazole 40 MG TAB PO SCH ×2 (08:28→20:06)
[2021-10-30] MEDS: TORSEMIDE 10 MG TAB PO SCH (08:29)
[2021-10-30] MEDS: SPIRONOLACTONE 25 MG TAB PO SCH (08:29)
--- NOTE | 2021-10-30 14:28 | Hospitalist Progress Note ---
Date of Service October 30, 2021 Assessment & Plan (1) Volume overload: Plan: likely multifactorial in setting of anemia, low protein, and low albumin levels. Doppler of LE showed no DVT BNP normal No evidence of acute CHF in chest x-ray Received Lasix IV in the ER Cardiology consulted -appreciate input and recommendation Echo showed-normal LV side, moderate concentric LVH, very small focal apical infarct involving the apical septum with akinesis of the segment and minimal expansion, no mural thrombus is identified, EF 55 to 60%, aortic valve sclerosis moderate without significant stenosis, mild mitral annular calcification, there is no visualized valve abnormalities or vegetation No shortness of breath at rest and no palpitation and no chest pain No evidence of fluid overload on exam Continue spironolactone and torsemide Remains stable without any evidence of fluid overload Confusion Possibly related to hospital setting and dementia CT head showed no significant change compared to the prior study. No acute intracranial abnormality. Stable Dark stools/ ?Melena +FOBT Known to have black stool ASA and eliquis were on hold due to GI bleed S/P EGD showed normal esophagus stomach and duodenum. Resumed Eliquis , also resumed ASA Continue PPI PO BID Hgb stable at 12 10/26 per RN, patient has been having brown stools S/P Fall Right wrist tenderness xray of right arm, wrist and chest are negative for fracture Fall precaution (2) Bacteremia: Plan: Mostly due to contamination Blood cx grew gram positive cocci in clusters Repeat blood cultures are negative ID was consulted- IV vanco discontinued stable + COVID Incidental finding, positive test on planned discharge Patient is asymptomatic, breathing comfortably on room air, saturating 94% Continue isolation, and continue to closely monitor (3) Multiple skin tears: Plan: Multiple skin tears noted to have bilateral upper extremities, no signs of infection Wound care nurse on board No evidence of her lower extremity wounds Skin tears are getting better without any drainage from the wound (4) Falls: Plan: Continue PT/OT Waiting for SNF placement (5) Apical mural thrombus: Plan: No evidence of any more apical thrombus in current echo Anticoagulated with Eliquis If bleeding persist, will discuss with cardiology about to consider discontinue eliquis Hgb stable Continue Eliquis (6) CAD (coronary artery disease): Plan: Appears stable Continue statin, beta-sarah, nitrate (7) Osteoarthritis: Plan: Steroid-dependent, continue prednisone (8) CKD (chronic kidney disease), stage III: Plan: Baseline creatinine low 1s Creatinine 1.2 Monitor renal functions with aggressive diuresis (9) BPH with obstruction/lower urinary tract symptoms: Plan: Continue finasteride (10) DVT prophylaxis: Plan: On Eliquis Disposition Need to be quarantine for a total 10 days for the facility to take him (until 10/28) Admission and Anticipated Discharge Date Admission Date: October 11, 2021 Subjective Patient was seen and examined for follow-up of edema, dark stools, and now positive for COVID 19 Lying in bed in no acute distress Denies any chest pain, palpitation, shortness of breath, abdominal pain, nausea vomiting He is breathing comfortably on room air Currently patient is aware that he is in the hospital, and remembers talking to me Per RN, patient has been having brown stools She also reports poor appetite, however patient does like boost drinks Review of Systems Review of Systems: All systems reviewed & are unremarkable except as noted in Subjective Physical Exam Physical Exam: General- No acute distress Head- atraumatic Eyes- PERRL, EOMI, ENT- oropharynx clear Neck- supple, no JVD Lungs- clear to auscultation, no wheezing Heart- regular rhythm; +systolic murmur Abdomen- normal bowel sounds, soft, nontender Extremities- no calf tenderness, right wrist tenderness Neuro- alert, oriented x 3; PERRL, EOMI; no facial palsy; no dysarthria Skin- warm & dry, ecchymoses Results & Data Results & Data ([facility]) Vital Signs (Past 12 Hours) Vital Signs Temp Pulse Resp BP Pulse Ox 10/30/21 08:23 36.5 C 72 16 113/67 96 10/30/21 06:33 36.7 C 73 16 129/73 96 Medications Administered Current Inpatient Medications Acetaminophen (Acetaminophen 325 Mg Tab) 650 mg PO Q4H PRN PRN Reason: Pain or Fever Stop: 11/09/21 18:27 Last Admin: 10/24/21 21:51 Dose: 650 mg Documented by: Apixaban (Apixaban 2.5 Mg Tab) 2.5 mg PO BID [facility] Stop: 11/09/21 20:59 Last Admin: 10/30/21 08:24 Dose: 2.5 mg Documented by: Aspirin (Aspirin 81 Mg Ectab) 81 mg PO QAM [facility] Stop: 11/10/21 08:59 Last Admin: 10/30/21 08:25 Dose: 81 mg Documented by: Atorvastatin Calcium (Atorvastatin 40 Mg Tab) 80 mg PO HS [facility] Stop: 11/09/21 20:59 Last Admin: 10/29/21 22:22 Dose: 80 mg Documented by: Cyanocobalamin (Cyanocobalamin (B-12) 500 Mcg Tablet) 1,000 mcg PO DAILY [facility] Stop: 11/10/21 08:59 Last Admin: 10/30/21 08:25 Dose: 1,000 mcg Documented by: Finasteride (Finasteride 5 Mg Tab) 5 mg PO QAM [facility] Stop: 11/10/21 08:59 Last Admin: 10/30/21 08:25 Dose: 5 mg Documented by: Fluticasone/Vilanterol (Fluticasone/Vilanterol 100/25mcg 14 Puffs/Inhaler) 1 puffs INH DAILY [facility] Stop: 11/10/21 08:59 Last Admin: 10/30/21 08:26 Dose: 1 puffs Documented by: Isosorbide Mononitrate (Isosorbide [place] Extended Rel 60 Mg Tabcr) [facility] [place]: 11/10/21 08:59 Last Admin: 10/30/21 08:26 Dose: 120 mg Documented by: Magnesium Oxide (Magnesium Oxide 400 Mg Tab) 400 mg PO QAM [facility] Stop: 11/10/21 08:59 Last Admin: 10/30/21 08:27 Dose: 400 mg Documented by: Metoprolol Succinate (Metoprolol Succ 50mg Ext Rel Tab) 50 mg PO QAM [facility] Stop: 11/10/21 01:59 Last Admin: 10/30/21 08:27 Dose: 50 mg Documented by: Pantoprazole Sodium (Pantoprazole 40 Mg Tab) 40 mg PO BID [facility] Stop: 11/13/21 20:59 Last Admin: 10/30/21 08:28 Dose: 40 mg Documented by: Prednisone (Prednisone 10 Mg Tablet) 10 mg PO QAM [facility] Stop: 11/10/21 08:59 Last Admin: 10/30/21 08:28 Dose: 10 mg Documented by: Spironolactone (Spironolactone 25 Mg Tab) 25 mg PO QAM [facility] Stop: 11/13/21 08:59 Last Admin: 10/30/21 08:29 Dose: 25 mg Documented by: Torsemide (Torsemide 10 Mg Tab) 20 mg PO QAM [facility] Stop: 11/13/21 08:59 Last Admin: 10/30/21 08:29 Dose: 20 mg Documented by: Vitamin D (Cholecalciferol 1,000 Units 25 Mcg Tab) 1,000 units PO QPM [facility] Stop: 11/09/21 20:59 Last Admin: 10/29/21 22:23 Dose: 1,000 units Documented by:
[2021-10-30] MEDS: CHOLECALCIFEROL 1,000 UNITS 25 MCG TAB PO SCH (20:06)
[2021-10-30] MEDS: ATORVASTATIN 40 MG TAB PO SCH (20:06)
[2021-10-31] MEDS: SPIRONOLACTONE 25 MG TAB PO SCH (08:47)
[2021-10-31] MEDS: APIXABAN 2.5 MG TAB PO SCH ×2 (08:47→20:16)
[2021-10-31] MEDS: ISOSORBIDE MONO EXTENDED REL 60 MG TABCR PO SCH (08:47)
[2021-10-31] MEDS: CYANOCOBALAMIN (B-12) 500 MCG TABLET PO SCH (08:47)
[2021-10-31] MEDS: TORSEMIDE 10 MG TAB PO SCH (08:47)
[2021-10-31] MEDS: PANTOprazole 40 MG TAB PO SCH ×2 (08:47→20:17)
[2021-10-31] MEDS: ASPIRIN 81 MG ECTAB PO SCH (08:47)
[2021-10-31] MEDS: predniSONE 10 MG TABLET PO SCH (08:47)
[2021-10-31] MEDS: METOPROLOL SUCC 50MG EXT REL TAB PO SCH (08:47)
[2021-10-31] MEDS: MAGNESIUM OXIDE 400 MG TAB PO SCH (08:48)
[2021-10-31] MEDS: FLUTICASONE/VILANTEROL 100/25MCG 14 PUFFS/INHALER INH SCH (08:48)
[2021-10-31] MEDS: FINASTERIDE 5 MG TAB PO SCH (08:48)
--- NOTE | 2021-10-31 11:57 | Hospitalist Progress Note ---
Date of Service October 31, 2021 Assessment & Plan (1) Volume overload: Plan: likely multifactorial in setting of anemia, low protein, and low albumin levels. Doppler of LE showed no DVT BNP normal No evidence of acute CHF in chest x-ray Received Lasix IV in the ER Cardiology consulted -appreciate input and recommendation Echo showed-normal LV side, moderate concentric LVH, very small focal apical infarct involving the apical septum with akinesis of the segment and minimal expansion, no mural thrombus is identified, EF 55 to 60%, aortic valve sclerosis moderate without significant stenosis, mild mitral annular calcification, there is no visualized valve abnormalities or vegetation No shortness of breath at rest and no palpitation and no chest pain No evidence of fluid overload on exam Continue spironolactone and torsemide Remains stable without any evidence of fluid overload Confusion Possibly related to hospital setting and dementia CT head showed no significant change compared to the prior study. No acute intracranial abnormality. Stable Dark stools/ ?Melena +FOBT Known to have black stool ASA and eliquis were on hold due to GI bleed S/P EGD showed normal esophagus stomach and duodenum. Resumed Eliquis , also resumed ASA Continue PPI PO BID Hgb stable at 12 10/26 per RN, patient has been having brown stools S/P Fall Right wrist tenderness xray of right arm, wrist and chest are negative for fracture Fall precaution (2) Bacteremia: Plan: Mostly due to contamination Blood cx grew gram positive cocci in clusters Repeat blood cultures are negative ID was consulted- IV vanco discontinued stable + COVID Incidental finding, positive test on planned discharge Patient is asymptomatic, breathing comfortably on room air Continued isolation, and continued to closely monitor -Patient is now off isolation (3) Multiple skin tears: Plan: Multiple skin tears noted to have bilateral upper extremities, no signs of infection Wound care nurse on board No evidence of her lower extremity wounds Skin tears are getting better without any drainage from the wound (4) Falls: Plan: Continue PT/OT Waiting for SNF placement (5) Apical mural thrombus: Plan: No evidence of any more apical thrombus in current echo Anticoagulated with Eliquis If bleeding persist, will discuss with cardiology about to consider discontinue eliquis Hgb stable Continue Eliquis (6) CAD (coronary artery disease): Plan: Appears stable Continue statin, beta-sarah, nitrate (7) Osteoarthritis: Plan: Steroid-dependent, continue prednisone (8) CKD (chronic kidney disease), stage III: Plan: Baseline creatinine low 1s Creatinine 1.2 Monitor renal functions with aggressive diuresis (9) BPH with obstruction/lower urinary tract symptoms: Plan: Continue finasteride (10) DVT prophylaxis: Plan: On Eliquis Disposition Needed to be quarantine for a total 10 days for the facility to take him (until 10/28) Now patient is off isolation, waiting for placement Admission and Anticipated Discharge Date Admission Date: October 11, 2021 Subjective Patient was seen and examined for follow-up of edema, dark stools, and now positive for COVID 19 Lying in bed in no acute distress Denies any chest pain, palpitation, shortness of breath, abdominal pain, nausea vomiting He is breathing comfortably on room air Per RN, patient has been having brown stools He's currently off COVID-19 isolation. He has been on room air, COVID-19 was incidental finding Review of Systems Review of Systems: All systems reviewed & are unremarkable except as noted in Subjective Physical Exam Physical Exam: General- No acute distress Head- atraumatic Eyes- PERRL, EOMI, ENT- oropharynx clear Neck- supple, no JVD Lungs- clear to auscultation, no wheezing Heart- regular rhythm; +systolic murmur Abdomen- normal bowel sounds, soft, nontender Extremities- no calf tenderness, right wrist tenderness Neuro- alert, oriented x 3; PERRL, EOMI; no facial palsy; no dysarthria Skin- warm & dry, ecchymoses Results & Data Results & Data ([facility]) Vital Signs (Past 12 Hours) Vital Signs Temp Pulse Resp BP Pulse Ox 10/31/21 07:42 36.8 C 76 18 123/71 91 Medications Administered Current Inpatient Medications Acetaminophen (Acetaminophen 325 Mg Tab) 650 mg PO Q4H PRN PRN Reason: Pain or Fever Stop: 11/09/21 18:27 Last Admin: 10/24/21 21:51 Dose: 650 mg Documented by: Apixaban (Apixaban 2.5 Mg Tab) 2.5 mg PO BID [facility] Stop: 11/09/21 20:59 Last Admin: 10/31/21 08:47 Dose: 2.5 mg Documented by: Aspirin (Aspirin 81 Mg Ectab) 81 mg PO QAM [facility] Stop: 11/10/21 08:59 Last Admin: 10/31/21 08:47 Dose: 81 mg Documented by: Atorvastatin Calcium (Atorvastatin 40 Mg Tab) 80 mg PO HS [facility] Stop: 11/09/21 20:59 Last Admin: 10/30/21 20:06 Dose: 80 mg Documented by: Cyanocobalamin (Cyanocobalamin (B-12) 500 Mcg Tablet) 1,000 mcg PO DAILY [facility] Stop: 11/10/21 08:59 Last Admin: 10/31/21 08:47 Dose: 1,000 mcg Documented by: Finasteride (Finasteride 5 Mg Tab) 5 mg PO QAM [facility] Stop: 11/10/21 08:59 Last Admin: 10/31/21 08:48 Dose: 5 mg Documented by: Fluticasone/Vilanterol (Fluticasone/Vilanterol 100/25mcg 14 Puffs/Inhaler) 1 puffs INH DAILY [facility] Stop: 11/10/21 08:59 Last Admin: 10/31/21 08:48 Dose: 1 puffs Documented by: Isosorbide Mononitrate (Isosorbide [place] Extended Rel 60 Mg Tabcr) [facility] [place] Stop: 11/10/21 08:59 Last Admin: 10/31/21 08:47 Dose: 120 mg Documented by: Magnesium Oxide (Magnesium Oxide 400 Mg Tab) 400 mg PO QAM [facility] Stop: 11/10/21 08:59 Last Admin: 10/31/21 08:48 Dose: 400 mg Documented by: Metoprolol Succinate (Metoprolol Succ 50mg Ext Rel Tab) 50 [facility] [place] Stop: 11/10/21 01:59 Last Admin: 10/31/21 08:47 Dose: 50 mg Documented by: Pantoprazole Sodium (Pantoprazole 40 Mg Tab) 40 mg PO BID [facility] Stop: 11/13/21 20:59 Last Admin: 10/31/21 08:47 Dose: 40 mg Documented by: Prednisone (Prednisone 10 Mg Tablet) 10 mg PO QAM [facility] Stop: 11/10/21 08:59 Last Admin: 10/31/21 08:47 Dose: 10 mg Documented by: Spironolactone (Spironolactone 25 Mg Tab) 25 mg PO QAM [facility] Stop: 11/13/21 08:59 Last Admin: 10/31/21 08:47 Dose: 25 mg Documented by: Torsemide (Torsemide 10 Mg Tab) 20 mg PO QAM [facility] Stop: 11/13/21 08:59 Last Admin: 10/31/21 08:47 Dose: 20 mg Documented by: Vitamin D (Cholecalciferol 1,000 Units 25 Mcg Tab) 1,000 units PO QPM [facility] Stop: 11/09/21 20:59 Last Admin: 10/30/21 20:06 Dose: 1,000 units Documented by:
[2021-10-31] MEDS: ATORVASTATIN 40 MG TAB PO SCH (20:17)
[2021-10-31] MEDS: CHOLECALCIFEROL 1,000 UNITS 25 MCG TAB PO SCH (20:17)
[2021-10-31 22:44] VITALS: TEMP 97.5
[2021-11-01 08:43] VITALS: BP 125/63; PULSE 93
[2021-11-01] MEDS: APIXABAN 2.5 MG TAB PO SCH (08:44)
[2021-11-01] MEDS: PANTOprazole 40 MG TAB PO SCH (08:44)
[2021-11-01] MEDS: METOPROLOL SUCC 50MG EXT REL TAB PO SCH (08:44)
[2021-11-01] MEDS: predniSONE 10 MG TABLET PO SCH (08:45)
[2021-11-01] MEDS: CYANOCOBALAMIN (B-12) 500 MCG TABLET PO SCH (08:45)
[2021-11-01] MEDS: TORSEMIDE 10 MG TAB PO SCH (08:45)
[2021-11-01] MEDS: ASPIRIN 81 MG ECTAB PO SCH (08:46)
[2021-11-01] MEDS: MAGNESIUM OXIDE 400 MG TAB PO SCH (08:46)
[2021-11-01] MEDS: ISOSORBIDE MONO EXTENDED REL 60 MG TABCR PO SCH (08:46)
[2021-11-01] MEDS: SPIRONOLACTONE 25 MG TAB PO SCH (08:47)
[2021-11-01] MEDS: FINASTERIDE 5 MG TAB PO SCH (08:47)
[2021-11-01 09:09] VITALS: O2SAT 92
[2021-11-01] MEDS: FLUTICASONE/VILANTEROL 100/25MCG 14 PUFFS/INHALER INH SCH (10:15)
--- NOTE | 2021-11-01 15:14 | Discharge Summary ---
Date of Service November 01, 2021 Admission HPI Per Admitting Provider Chief Complaint: Bilateral Arm Swelling Primary Care Provider: [facility] Personal Alf 81 year old male with PMH COPD, HTN, CKD stage III, CAD s/p CABG and stenting, chronic diastolic CHF, apical mural thrombus on Eliquis, GERD, BPH, steroid dependent osteoarthritis, dementia, and other problems listed below who presents to the ED from [facility] for evaluation of BL upper arm swelling. Patient was evaluated in the cardiology clinic on 09/29 for similar complaint. At that time, Aldactone was added to patient's diuretic regimen. There was no improvement in the edema and therefore Torsemide was increased to BID on 10/07 - 10/09. Due to ongoing arm swelling, patient was sent to the ED for further eval. Due to underlying dementia, history is limited from the patient. He is currently pleasant and offers no complaints. Son is at the bedside and reports that the patient has had several falls over the past few weeks. These falls have resulted in several skin tears over both arms. Patient has been receiving local wound care at the [facility]. In the ED, patient is hemodynamically stable. Labs and imaging unremarkable. Admission Exam Per Admitting Provider Constitutional: WD/WN, vitals as above Eyes: PERRL, conjunctivae normal, anicteric sclerae ENMT: external ear and nose normal, oropharynx normal Respiratory: normal respiratory effort; no respiratory distress Auscultation: + diminished lung sounds Cardiovascular: Rate/Rhythm: regular rate and regular rhythm Vessels: normal peripheral pulses Extremities: + edema (+2-3 pitting edema noted to BL upper and lower extremities ) Gastrointestinal (Abdomen): normal bowel sounds, soft, nontender, no hepatosplenomegaly Musculoskeletal: no cyanosis or clubbing, extremities motor strength 5/5 Skin: multiple skin tears and various ecchymosis noted to BL upper extremities Neurologic: PERRL, EOMI, accommodation nl, no face palsy, no dysarthria Psychiatric: Orientation: alert, oriented to person and cooperative; + not oriented to place and + not oriented to time Affect: euthymic affect Principal Diagnosis Volume overload: Confusion Melena/+FOBT Multiple skin tears: Falls: Apical mural thrombus: CAD (coronary artery disease): Osteoarthritis: CKD (chronic kidney disease), stage III: BPH with obstruction Discharge Exam General- No acute distress Head- atraumatic Eyes- PERRL, EOMI, ENT- oropharynx clear Neck- supple, no JVD Lungs- clear to auscultation Heart- regular rhythm; +systolic murmur Abdomen- normal bowel sounds, soft, nontender Extremities- no calf tenderness, right wrist tenderness Neuro- alert, oriented x 3; PERRL, EOMI; no facial palsy; no dysarthria Skin- warm & dry, ecchymoses Discharge Data Allergies Allergy/AdvReac Type Severity Reaction Status Date / Time No Known Allergies Allergy Verified 07/06/21 14:51 Consultations 10/10/21 16:35 ED Decision to Admit Stat 10/10/21 18:28 Consult Cardiology Routine 10/12/21 08:09 Consult Infectious Diseases Routine 10/16/21 07:00 Consult Gastroenterology Routine Procedures Performed Operation Date: 10/17/21 16:30 Actual Procedures p Esophagogastroduodenoscopy - Delaney Chu DO Ordered Studies 10/10/21 12:48 US venous doppler UE BI Stat 10/10/21 12:50 CT head/brain wo con Stat XR forearm RT 2V, XR wrist RT 2V CLINICAL HISTORY: Fall TECHNIQUE: 2 views of the right forearm and right wrist were obtained. Comparison: None available at the time of this dictation. FINDINGS: There is no evidence of acute fracture or dislocation. The alignment is anatomic. Degenerative changes are seen in the joints. Vascular calcifications are noted. IMPRESSION: Degenerative changes without evidence of acute injury. ACT 112: Negative or not required by law. Electronically signed by: Hitesh Wallace M.D. 10/24/2021 7:32 AM Dictated:10/24/21730 Transcribed: 10/24/21730 XR forearm RT 2V, XR wrist RT 2V CLINICAL HISTORY: Fall TECHNIQUE: 2 views of the right forearm and right wrist were obtained. Comparison: None available at the time of this dictation. FINDINGS: There is no evidence of acute fracture or dislocation. The alignment is anatomic. Degenerative changes are seen in the joints. Vascular calcifications are noted. IMPRESSION: Degenerative changes without evidence of acute injury. ACT 112: Negative or not required by law. Electronically signed by: Hitesh Wallace M.D. 10/24/2021 7:32 AM Dictated:10/24/21730 Transcribed: 10/24/21730 XR chest 1V portable CLINICAL HISTORY: fall TECHNIQUE: Single frontal radiograph of the chest was obtained. Comparison: Comparison is made to chest radiograph 10/10/2021 FINDINGS: Median sternotomy wires are unchanged. Calcified aortic knob is seen. Cardiac silhouette is stable from prior exam. The lungs are clear. No evidence of pleural effusion or pneumothorax. IMPRESSION: No acute abnormalities and in particular no evidence of pneumonia. ACT 112: Negative or not required by law. Electronically signed by: Hitesh Wallace M.D. 10/24/2021 8:24 AM Dictated:10/24/21822 Transcribed: 10/24/[address] NONCONTRAST CT DOSE: 614.27 mGy.cm HISTORY: ?fall 3 days ago, on eliquis; h/o dementia TECHNIQUE: Multiaxial CT images of the head were performed without the use of intravenous contrast. Automated exposure control was utilized for this study. A dose lowering technique was utilized adhering to the principles of ALARA. Comparison: No priors due to system downtime. Findings: The paranasal sinuses and mastoid air cells are clear. The calvarium and skull base are intact. There is no mass, hematoma, midline shift, acute infarct. White matter hypodensity is nonspecific but suggestive of microvascular ischemic change. The ventricles and sulci demonstrate mild age-related involutional changes. There is an old punctate lacunar infarct within the right caudate head. Impression: No significant change compared to the prior study. No acute intracranial abnormality. ACT 112: Negative or not required by law. Electronically signed by: Luan Perera M.D. 10/10/2021 2:37 PM Dictated:10/10/211431 Transcribed: 10/10/211431 US venous doppler UE BI HISTORY: 81 years-old Male b/l L > R swelling; ?recent fall acute pain and swelling of the upper extremities COMPARISON: None TECHNIQUE: Multiple real-time sonographic images of the upper extremity deep venous structures were obtained assessing grayscale appearance, color and spectral flow. FINDINGS: Normal flow, compressibility, phasicity and augmentation of the upper extremity deep venous structures. IMPRESSION: No DVT. ACT 112: Negative or not required by law. The above report was generated using voice recognition software. It may contain grammatical, syntax or spelling errors. Electronically signed by: Richard Kyle M.D. 10/10/2021 3:36 PM Dictated:10/10/21 1536 Transcribed: 10/10/21 1536 RIGHT HUMERUS 2 VIEWS CLINICAL HISTORY: Fall. Right arm pain. FINDINGS: AP and lateral views of the right humerus are compared to study dated 07/04/2020. The skeletal structures are osteopenic. There is no radiographic evidence of right humeral fracture. Degenerative change is noted in the shoulder and elbow joints. Soft tissue swelling is suggested in the distal upper extremity and around the elbow. An enthesophyte is noted at the triceps insertion. The right lung parenchyma is clear as imaged. IMPRESSION: There is no radiographic evidence of right humeral fracture. Electronically signed by: Mendoza Montgomery M.D. 10/10/2021 3:05 PM Dictated:10/10/21 1503 Transcribed: 10/10/211502 SINGLE VIEW CHEST CLINICAL HISTORY: Generalized weakness. FINDINGS: An AP, portable, upright chest radiograph is compared to study dated 07/04/2020 and correlated with chest CT dated 07/06/2021. The patient is status post midline sternotomy. The heart is enlarged noting atherosclerotic calcification of the thoracic aorta. The pulmonary vasculature is noncongested. Chronic interstitial thickening is similar to previous. Scarring/atelectasis is noted at the lung bases. No airspace consolidation typical for pneumonia or large pleural effusion is identified. No pneumothorax is seen. The skeletal structures are osteopenic. The bony thorax is grossly intact. Fusion hardware is noted in the lower cervical spine. Advanced arthritic change is seen in the shoulders. Calcific tendinopathy is noted on the left IMPRESSION: Cardiomegaly with no acute cardiopulmonary abnormality. ACT 112: Negative or not required by law. Electronically signed by: Mendoza Montgomery M.D. 10/10/2021 3:02 PM Dictated:10/10/21 1501 Transcribed: 10/10/21 150 Hospital Course (1) Volume overload: likely multifactorial in setting of anemia, low protein, and low albumin levels. Doppler of LE showed no DVT BNP normal No evidence of acute CHF in chest x-ray Received Lasix IV in the ER Cardiology consulted -appreciate input and recommendation Echo showed-normal LV side, moderate concentric LVH, very small focal apical infarct involving the apical septum with akinesis of the segment and minimal expansion, no mural thrombus is identified, EF 55 to 60%, aortic valve sclerosis moderate without significant stenosis, mild mitral annular calcification, there is no visualized valve abnormalities or vegetation No shortness of breath at rest and no palpitation and no chest pain No evidence of fluid overload on exam Continue spironolactone and torsemide Remains stable without any evidence of fluid overload Confusion Possibly related to hospital setting and dementia CT head showed no significant change compared to the prior study. No acute intracranial abnormality. Stable Dark stools/ ?Melena +FOBT Known to have black stool ASA and eliquis were on hold due to GI bleed S/P EGD showed normal esophagus stomach and duodenum. Resumed Eliquis , also resumed ASA Continue PPI PO BID Hgb stable at 12 10/26 per RN, patient has been having brown stools S/P Fall Right wrist tenderness xray of right arm, wrist and chest are negative for fracture Fall precaution (2) Bacteremia: Mostly due to contamination Blood cx grew gram positive cocci in clusters Repeat blood cultures are negative ID was consulted- IV vanco discontinued stable + COVID Incidental finding, positive test on planned discharge Patient is asymptomatic, breathing comfortably on room air Continued isolation, and continued to closely monitor -Patient is now off isolation (3) Multiple skin tears: Multiple skin tears noted to have bilateral upper extremities, no signs of infection Wound care nurse on board No evidence of her lower extremity wounds Skin tears are getting better without any drainage from the wound (4) Falls: Continue PT/OT Waiting for SNF placement (5) Apical mural thrombus: No evidence of any more apical thrombus in current echo Anticoagulated with Eliquis If bleeding persist, will discuss with cardiology about to consider discontinue eliquis Hgb stable Continue Eliquis (6) CAD (coronary artery disease): Appears stable Continue statin, beta-sarah, nitrate (7) Osteoarthritis: Steroid-dependent, continue prednisone (8) CKD (chronic kidney disease), stage III: Baseline creatinine low 1s Creatinine 1.2 Monitor renal functions with aggressive diuresis (9) BPH with obstruction/lower urinary tract symptoms: Continue finasteride (10) DVT prophylaxis: On Eliquis Disposition Needed to be quarantine for a total 10 days for the facility to take him (until 10/28) Now patient is off isolation, waiting for placement Total Time Total Time Spent Total Time Spent (In Minutes): 35 minutes Discharge Plan Discharge Items Patient Disposition: Transfer Intermediate Fac Reason For Visit: VOLUME OVERLOAD Discharge Diagnosis: Volume overload: Confusion Melena/+FOBT Multiple skin tears: Falls: Apical mural thrombus: CAD (coronary artery disease): Osteoarthritis: CKD (chronic kidney disease), stage III: BPH with obstruction Activity: Resume your previous activity Non-emergency contact: Primary Care Provider and [employer] Stitcher Call non-emergency contact if: you have any medication questions and your symptoms worsen Follow-up/Referrals: Libia,Alf Personal [Primary Care Provider] - Diet: Heart Healthy Addtl Attending Provider Instructions: Follow up with your primary care provider once discharge from rehab Follow up with cardiology once discharge from rehab Continue physical and occupational therapy Check CBC in 1 week to monitor your hemoglobin Monitor for any bleeding while on Eliquis and aspirin Seek medical attention if your symptoms worsening fall precaution Pending Studies at Discharge: No Stand-Alone Forms: My Common Sensing Skilled Items Patient informed of condition?: Yes DNR: Yes Discharge Level of Care: Skilled Communicable Disease: No Discharge Prognosis: Stable Lines: None Urinary Catheter: No Medications and DC Order Prescriptions: Continued atorvastatin [Lipitor] 80 mg Tablet 80 mg PO HS Qty: 30 RF: 0 prednisone 10 mg Tablet 10 mg PO QAM Qty: 30 RF: 0 metoprolol succinate [Toprol XL] 50 mg Tablet Extended Release 24 Hr 50 mg PO QAM Qty: 30 RF: 0 cyanocobalamin (vitamin B-12) [Vitamin B-12] 1,000 mcg Tablet 1,000 mcg PO DAILY Qty: 30 RF: 0 aspirin 81 mg Tablet,Delayed Release (Dr/Ec) 81 mg PO QAM Qty: 30 RF: 0 spironolactone 25 mg Tablet 25 mg PO QAM Qty: 30 RF: 0 isosorbide mononitrate 120 mg Tablet Extended Release 24 Hr 120 mg PO QAM Qty: 30 RF: 0 omeprazole 20 mg capsule,delayed release(DR/EC) 20 mg PO DAILY Qty: 30 RF: 0 finasteride 5 mg Tablet 5 mg PO QAM Qty: 30 RF: 0 cholecalciferol (vitamin D3) [Vitamin D3] 25 mcg (1,000 unit) Capsule 25 mcg PO QPM Qty: 30 RF: 0 Eliquis 2.5 mg tablet 2.5 mg PO BID Qty: 60 RF: 0 Vitron-C 65 mg iron- 125 mg Tablet,Delayed Release (Dr/Ec) 1 tab PO DAILY Qty: 30 RF: 0 fluticasone propion-salmeterol 250-50 mcg/dose blister with device 1 inh INHALATION BID RF: 0 acetaminophen [Tylenol Extra Strength] 500 mg Tablet 1,000 mg PO Q6H PRN (Reason: FEVER/PAIN) RF: 0 Lidocaine Jelly 1 applic topical DIRECTED PRN (Reason: PAIN TO RIGHT SHOULDER) RF: 0 torsemide 20 mg tablet 20 mg PO QAM RF: 0 albuterol sulfate 90 mcg/actuation HFA aerosol inhaler 2 puff INHALATION Q6H PRN (Reason: Shortness Of Breath) RF: 0 magnesium oxide 400 mg magnesium capsule 400 mg PO QAM RF: 0 Discharge Orders: Discharge Order (Routine); Ordered 11/01/21 Ordered By: Douglas Jonas Admission Data Admit Date/Time: 10/11/21 15:27 Attending Provider: Douglas Jonas Admit Provider: Wyatt Blunt Primary Care Provider: Rey Reza Personal Other Providers: Antoni George ; NasirnyCaesar neal [facility] ; Meka Miller ; Wyatt Blunt ; Deng Jordan ; Jordy Garces ; Phillip Danielson ; Umang Barrera I. ; Eric Lam II ; Alyson Payne ; [place] ; Cale Iyer ; Simeon Abreu ; Radha Smith ; Valerie Cancino ; Jeannie Garsia ; Bhavesh Rueda ; Dleaney Chu ; Heather Hernandez ; Sandeep Culver ; Ember Malik ; Yani James ; Magdalene Castellanos ; Mine Rosario ; Kyra Vick ; Alfredo Obregon Other Interventions: Discharge Summary Assessment (RN) Last Done: 11/01/21 15:29
--- NOTE | 2021-12-05 07:45 | Coding Query ---
To promote full compliance with coding requirements relating to patient care, provider participation is requested in all cases of office bookkeeper uncertainty. Please assist us with the question(s) below: Coding Question(s): Please clarify if Bacteremia was POA or ruled out. Physician's Response(s): No evidence of active infection BACTEREMIA ( ) Diagnosed and POA ( ) Diagnosed and not POA (x) Ruled out ( ) Other (please specify) MTDD
== END 2021-11-01 17:25 | DRG 291 ==
LOC: 2S 12:27 → ED 12:27 → SUATTDRO 16:49 → 2S 17:50 → SUATTDRO 10-11 15:27 → 2S 10-11 22:50 → 2W 10-13 16:19 → 2N 10-18 22:34 → 3E 10-25 22:19